=== PATIENT | male | born 1965 | race Caucasian/White ===

== ENCOUNTER 2017-05-25 16:54 | Emergency (ER) | payer MEDICAID ==
[2017-05-25 17:15] LABS: BASOPHILS # (AUTO) 0.1 10^3/uL (0.0-0.1); BASOPHILS % (AUTO) 0.6 %; EOSINOPHILS # (AUTO) 0.4 10^3/uL (0.0-0.7); HCT - HEMATOCRIT 38.7 % (42.0-52.0); HGB - HEMOGLOBIN 12.9 g/dL (14.0-18.0); LYMPHOCYTES # (AUTO) 2.8 10^3/uL (1.5-3.5); LYMPHOCYTES % (AUTO) 23.7 %; MEAN CORPUSCULAR HEMOGLOBIN 29.5 pg (27.0-31.0); MEAN CORPUSCULAR HGB CONC 33.3 g/dL (32.0-36.0); MEAN CORPUSCULAR VOLUME 88.7 fL (80.0-94.0); MEAN PLATELET VOLUME 7.9 fL (7.4-11.4); MONOCYTES # (AUTO) 0.7 10^3/uL (0.0-1.0); MONOCYTES % (AUTO) 5.9 %; NEUTROPHILS # (AUTO) 7.8 10^3/uL (1.5-6.6); NEUTROPHILS % (AUTO) 66.8 %; RED BLOOD COUNT 4.37 10^6/uL (4.70-6.10); RED CELL DISTRIBUTION WIDTH 14.2 % (12.0-15.0); UNCORRECTED WHITE BLOOD COUNT 11.6 x10^3/uL; WHITE BLOOD COUNT 11.6 x10^3/uL (4.8-10.8)
--- NOTE | 2017-05-25 17:16 | ED Physician Documentation ---
PD HPI CHEST PAIN - Stated complaint Stated Complaint: SOA/CHEST PX - Chief complaint Chief Complaint: Cardiac - History obtained from History obtained from: Patient - History of Present Illness Timing - onset: How many hours ago (5) Timing - onset during: Rest Timing - duration: Minutes (2-3) Timing - details: Abrupt onset, Intermittant Pain level max: 5 Pain level now: 1 Quality: Pressure, Tightness Location: Substernal Radiation: Other (non-radiating) Improved by: Nothing Worsened by: No: Exertion, Inspiration, Eating, Movement, Palpation, Position Associated symptoms: Shortness of air, Feeling faint / dizzy, General Weakness. No: Diaphoresis, Nausea, Vomiting, Palpitations, Cough Similar symptoms before: Diagnosis (GERD, anxiety, pleurisy) Recently seen: Not recently seen Review of Systems Constitutional: denies: Fever, Chills Nose: denies: Rhinorrhea / runny nose, Congestion Respiratory: denies: Cough GI: denies: Vomiting, Diarrhea, Hematemesis, Bloody / black stool : denies: Dysuria Skin: denies: Rash Musculoskeletal: denies: Neck pain, Back pain Neurologic: denies: Focal weakness, Numbness, Headache PD PAST MEDICAL HISTORY - Past Medical History Past Medical History: Yes Cardiovascular: Arrhythmia Respiratory: COPD Psych: Depression, Anxiety, Bipolar disorder, Post traumatic stress disorder Musculoskeletal: Chronic back pain - Past Surgical History Past Surgical History: Yes General: Appendectomy Ortho: Knee replacement - Present Medications Home Medications: Ambulatory Orders Medication Instructions Recorded Confirmed Alprazolam 1 mg PO Q8HR 10/24/14 05/25/17 [place] Carbonate 150 mg PO BID 10/24/14 05/25/17 Sertraline [Zoloft] 100 mg PO DAILY 10/24/14 05/25/17 lamoTRIgine [LaMICtal] 100 mg PO BID 10/24/14 05/25/17 Epinephrine [Epipen 2-Shaan] 0.3 mg IJ ONCE PRN #1 unit 06/28/15 05/25/17 QUEtiapine [SEROquel] 50 mg PO DAILY 08/03/15 05/25/17 oxyCODONE [Roxicodone] 10 mg PO DAILY 09/22/15 05/25/17 Cetirizine [ZyrTEC] 10 mg PO DAILY #20 tablet 01/08/16 05/25/17 Gabapentin [Neurontin] 300 mg PO BID #20 capsule 01/08/16 05/25/17 Ipratropium/Albuterol [Duoneb] 3 ml INH Q6H PRN #20 neb 10/31/16 05/25/17 - Allergies Allergies/Adverse Reactions: Allergies Allergy/AdvReac Type Severity Reaction Status Date / Time Penicillins Allergy Severe Respiratory Verified 05/25/17 17:00 Sulfa (Sulfonamide Allergy Severe Anaphylaxis Verified 05/25/17 17:00 Antibiotics) venom-honey bee Allergy Anaphylaxis Verified 05/25/17 17:00 [bee venom (honey bee)] - Social History Does the pt smoke?: Yes Smoking Status: Current every day smoker Does the pt drink ETOH?: No Does the pt have substance abuse?: No - Immunizations Immunizations are current?: No Immunizations: TDAP >10years/unknown - POLST Patient has POLST: No PD ED PE NORMAL - Vitals Vital signs reviewed: Yes - General General: Alert and oriented X 3, No acute distress, Well developed/nourished - HEENT HEENT: PERRL, Moist mucous membranes - Neck Neck: Supple, no meningeal sign, No JVD, No bruit - Cardiac Cardiac: RRR, Strong equal pulses - Respiratory Respiratory: No respiratory distress, Clear bilaterally - Abdomen Abdomen: Normal bowel sounds, Soft, Non distended, Other (TTP epigastric without peritoneal signs) - Back Back: No spinal TTP - Derm Derm: Warm and dry - Extremities Extremities: No edema - Neuro Neuro: Alert and oriented X 3 - Psych Psych: Other (anxious) Results - Vitals Vitals: Vital Signs - 24 hr 05/25/17 05/25/17 05/25/17 16:57 18:10 19:41 Temperature 36.9 C 36.5 C 36.5 C Heart Rate 82 76 73 Respiratory 16 15 15 Rate Blood Pressure 151/97 H 130/79 130/77 O2 Saturation 97 96 97 Oxygen O2 Source Room air - EKG (time done) 1705 Rate: Rate (enter#) (75) Rhythm: NSR [place]: Normal Intervals: 1st degree AVB QRS: Normal Ischemia: Normal ST segments Computer interpretation: Agree with computer - Labs Labs: Laboratory Tests 05/25/17 05/25/17 05/25/17 17:05 17:05 17:05 WBC 11.6 H RBC 4.37 L Hgb 12.9 L Hct 38.7 L MCV 88.7 MCH 29.5 MCHC 33.3 RDW 14.2 Plt Count 408 MPV 7.9 Neut # 7.8 H Lymph # 2.8 [place] # 0.7 Eos # 0.4 Baso # 0.1 Absolute Nucleated RBC 0.00 Nucleated RBCs 0.0 Sodium 139 Potassium 3.6 Chloride 103 Carbon Dioxide 27 Anion Gap 9.0 BUN 10 Creatinine 0.8 Estimated GFR (MDRD) 101 Glucose 124 H Calcium 9.3 Total Bilirubin 0.3 AST 17 ALT 16 Alkaline Phosphatase 129 H Troponin I < 0.04 Total Protein 7.0 Albumin 4.2 Globulin 2.8 Albumin/Globulin Ratio 1.5 Lipase 21 L 05/25/17 19:14 WBC RBC Hgb Hct MCV MCH MCHC RDW Plt Count MPV Neut # Lymph # [place] # Eos # Baso # Absolute Nucleated RBC Nucleated RBCs Sodium Potassium Chloride Carbon Dioxide Anion Gap BUN Creatinine Estimated GFR (MDRD) Glucose Calcium Total Bilirubin AST ALT Alkaline Phosphatase Troponin I < 0.04 Total Protein Albumin Globulin Albumin/Globulin Ratio Lipase - Rads (name of study) cxr Radiology: Prelim report reviewed, EMP read contemporaneously, See rad report ( Normal single view chest. ) PD MEDICAL DECISION MAKING - ED course Complexity details: reviewed results, re-evaluated patient, considered differential (No ST elevation IA, no aortic dissection, no PE, no tension pneumothorax, no aortic aneurysm), d/w patient, d/w family ED course: Patient is a 51-year-old male who presents to the emergency department with chest pain today. Resolved with GI cocktail in the emergency department. Does have a history of GERD. His heart score is low risk for major adverse cardiac event. Negative troponin 2. Normal EKG. Symptoms resolved. We will have him follow-up with his doctor for further evaluation. Patient counseled regarding signs and symptoms for which I believe and urgent re-evaluation would be necessary. Patient with good understanding of and agreement to plan and is comfortable going home at this time This document was made in part using voice recognition software. While efforts are made to proofread this document, sound alike and grammatical errors may occur. Departure - Departure Disposition: 01 Home, Self Care Clinical Impression: Chest pain Qualifiers: Chest pain type: unspecified Qualified Code(s): R07.9 - Chest pain, unspecified Condition: Good Instructions: ED Chest Pain Atypical Unkn Cause Follow-Up: Olena Thomas PA-C [Primary Care Provider] - Comments: Return if you worsen. The cause of your symptoms is unclear today. Discharge Date/Time: 05/25/17 19:53
[2017-05-25] MEDS ORDERED: ASPIRIN CHEW 81 MG TABLET PO STA (17:23)
[2017-05-25 17:26] LABS: ALBUMIN/GLOBULIN RATIO 1.5 (1.0-2.2); BILIRUBIN,TOTAL 0.3 mg/dL (0.2-1.0); CALCIUM 9.3 mg/dL (8.5-10.3); CREATININE 0.8 mg/dL (0.6-1.2); POTASSIUM 3.6 mmol/L (3.5-5.0)
[2017-05-25] MEDS ORDERED: ASPIRIN CHEW 81 MG TABLET ONE (17:29)
[2017-05-25] MEDS ORDERED: MAG HYDROX/AL HYDROX/SIMETH 30 ML UDC PO STA (17:42)
[2017-05-25] MEDS ORDERED: PHENobarb/HYOSCY/ATROPINE/SCOP 5 ML SYRINGE PO STA (17:42)
[2017-05-25] MEDS ORDERED: SUCRALFATE 1 GM/10 ML UDC PO STA (17:42)
[2017-05-25] MEDS ORDERED: LIDOCAINE VISCOUS 2% 15 ML UDC MM STA (17:42)
[2017-05-25] MEDS ORDERED: FAMOTIDINE 20 MG TABLET PO STA (17:43)
--- NOTE | 2017-05-25 17:47 | XRAY Preliminary Report ---
Exam: XR Chest 1 View IMPRESSION: Normal single view chest. [facility] SITE ID: [id number]
[2017-05-25] MEDS ORDERED: PHENobarb/HYOSCY/ATROPINE/SCOP 5 ML SYRINGE PO ONE (17:48)
[2017-05-25] MEDS ORDERED: FAMOTIDINE 20 MG TABLET ONE (17:48)
[2017-05-25] MEDS ORDERED: LIDOCAINE VISCOUS 2% 15 ML UDC MM ONE (17:48)
[2017-05-25] MEDS ORDERED: MAG HYDROX/AL HYDROX/SIMETH 30 ML UDC ONE (17:48)
[2017-05-25] MEDS ORDERED: SUCRALFATE 1 GM/10 ML UDC ONE (17:48)
--- NOTE | 2017-05-25 17:49 | XRAY Report ---
EXAM: CHEST RADIOGRAPHY EXAM DATE: 05/25/2017 05:38 PM. CLINICAL HISTORY: Chest pain. COMPARISON: 60 03/21/2017. TECHNIQUE: 1 view. FINDINGS: Lungs/Pleura: No focal opacities evident. No pleural effusion. No pneumothorax. Mediastinum: Within exam limitations, cardiomediastinal contour is normal. Other: None. IMPRESSION: Normal single view chest. [facility] Referring Provider Line: [phone] SITE ID: [id number]
[2017-05-25 19:42] VITALS: BP 130/77
== END 2017-05-25 19:53 | disposition home or self-care (01) ==
LOC: ED 16:54
DX: R07.89 Other chest pain (principal); I44.0 Atrioventricular block, first degree; K21.9 Gastro-esophageal reflux disease without esophagitis; F17.200 Nicotine dependence, unspecified, uncomplicated
CPT/HCPCS: 36415; 71010; 80053; 83690; 84484; 85025; 93005; 99284; A9270

== ENCOUNTER 2018-03-15 15:15 | Emergency (ER) | payer MEDICAID ==
--- NOTE | 2018-03-15 15:58 | ED Physician Documentation ---
PD HPI BACK PAIN - Stated complaint Stated Complaint: BACK PX - Chief complaint Chief Complaint: Back Pain - History obtained from History obtained from: Patient - History of Present Illness Timing - onset: Yesterday Timing - duration: Hours (24) Timing - details: Abrupt onset Pain level max: 10 Pain level now: 10 Location: Lower Quality: Pain Associated symptoms: Numbness (no saddle anesthesia). No: Fever, Weakness, Incontinent of urine, Unable to urinate, Hematuria, Incontinent of stool Improves with: Rest Worsened by: Movement, Lifting, Twisting, Palpation Contributing factors: Trauma Similar symptoms before: Diagnosis (spinal stenosis) Recently seen: Not recently seen - Additional information Additional information: fell off a small landing and landed on his coccyx. States that he rolled backward onto his neck and head. No LOC. States has some tingling and numbness to the R leg and R foot (lateral aspect). Has had intermittent paresthesias since his back surgeries. Took oxycodone 20mg this am for pain. No vomiting. Review of Systems Constitutional: denies: Fever, Chills Nose: denies: Rhinorrhea / runny nose, Congestion GI: denies: Abdominal Pain, Nausea, Vomiting, Diarrhea Skin: denies: Rash Musculoskeletal: denies: Neck pain Neurologic: denies: Focal weakness, Seizure, Confused, Headache, LOC PD PAST MEDICAL HISTORY - Past Medical History Past Medical History: Yes Cardiovascular: Arrhythmia Respiratory: COPD Psych: Depression, Anxiety, Bipolar disorder, Post traumatic stress disorder Musculoskeletal: Osteoarthritis, Chronic back pain - Past Surgical History Past Surgical History: Yes General: Appendectomy Ortho: Knee replacement - Present Medications Home Medications: Ambulatory Orders Medication Instructions Recorded Confirmed [place] Carbonate 150 mg PO BID 10/24/14 03/15/18 Sertraline [Zoloft] 100 mg PO DAILY 10/24/14 03/15/18 lamoTRIgine [LaMICtal] 100 mg PO BID 10/24/14 03/15/18 Epinephrine [Epipen 2-Shaan] 0.3 mg IJ ONCE PRN #1 unit 06/28/15 03/15/18 QUEtiapine [SEROquel] 50 mg PO DAILY 08/03/15 03/15/18 oxyCODONE [Roxicodone] 10 mg PO DAILY 09/22/15 03/15/18 Ipratropium/Albuterol [Duoneb] 3 ml INH Q6H PRN #20 neb 10/31/16 03/15/18 Alprazolam [Xanax] 1.5 mg PO DAILY 03/15/18 03/15/18 - Allergies Allergies/Adverse Reactions: Allergies Allergy/AdvReac Type Severity Reaction Status Date / Time Penicillins Allergy Severe Respiratory Verified 03/15/18 15:27 Sulfa (Sulfonamide Allergy Severe Anaphylaxis Verified 03/15/18 15:27 Antibiotics) venom-honey bee Allergy Anaphylaxis Verified 03/15/18 15:27 [bee venom (honey bee)] - Social History Does the pt smoke?: Yes Smoking Status: Current every day smoker Does the pt drink ETOH?: No Does the pt have substance abuse?: No - Immunizations Immunizations are current?: No Immunizations: TDAP >10years/unknown - POLST Patient has POLST: No PD ED PE NORMAL - Vitals Vital signs reviewed: Yes - General General: Alert and oriented X 3, No acute distress - HEENT HEENT: Moist mucous membranes - Neck Neck: Supple, no meningeal sign - Cardiac Cardiac: RRR - Respiratory Respiratory: No respiratory distress, Clear bilaterally - Abdomen Abdomen: Soft, Non tender, Non distended - Back Back: Other (Mild midline tenderness, low lumbar and upper sacral area. No step -off or deformity. Also paraspinal spasm present.) - Derm Derm: Warm and dry - Extremities Extremities: No deformity, Normal ROM s pain - Neuro Neuro: Alert and oriented X 3, No motor deficit, Other (decreased sensation over the lateral aspect of his foot. ) - Psych Psych: Normal mood, Normal affect Results - Vitals Vitals: Vital Signs - 24 hr 03/15/18 03/15/18 03/15/18 15:21 16:23 18:16 Temperature 36.6 C 36.8 C Heart Rate 75 78 62 Respiratory 19 22 22 Rate Blood Pressure 141/83 H 129/78 O2 Saturation 99 98 97 Oxygen O2 Source Room air - Rads (name of study) Lumbar spine x-ray Radiology: Prelim report reviewed, EMP read contemporaneously, See rad report ( No acute abnormality) Sacrum/coccyx x-ray Radiology: Prelim report reviewed, EMP read contemporaneously, See rad report ( No acute abnormality) PD MEDICAL DECISION MAKING - ED course Complexity details: reviewed results, re-evaluated patient, considered differential (no cauda equina, no spinal epidural abscess, no fracture, no aortic dissection or evidence of aneursym rupture), d/w patient ED course: Patient is a 52-year-old male who presents to the emergency department with acute on chronic low back pain. Pain well controlled in the emergency department. He states he has pain medication for home and declines any medication for home. No acute findings on x-ray. No evidence of cauda equina or epidural abscess. No saddle anesthesia. No urinary incontinence. Patient counseled regarding signs and symptoms for which I believe and urgent re- evaluation would be necessary. Patient with good understanding of and agreement to plan and is comfortable going home at this time This document was made in part using voice recognition software. While efforts are made to proofread this document, sound alike and grammatical errors may occur. Departure - Departure Disposition: 01 Home, Self Care Clinical Impression: Sciatica Qualifiers: Laterality: right Qualified Code(s): M54.31 - Sciatica, right side Condition: Good Instructions: ED Sciatica Follow-Up: Olena Thomas PA-C [Primary Care Provider] - Within 1 week Comments: Continue your medications at home. Return if you worsen. Your x-rays do not reveal any acute abnormalities tonight. Discharge Date/Time: 03/15/18 18:41
[2018-03-15] MEDS ORDERED: HYDROmorphone 1 MG/ML CARPUJECT IM STA ×2 (16:13→18:25)
[2018-03-15] MEDS ORDERED: KETOROLAC 60 MG/2 ML VIAL IM STA (17:18)
--- NOTE | 2018-03-15 17:40 | XRAY Preliminary Report ---
Exam: XR SACRUM/COCCYX IMPRESSION: No acute bony abnormality. [facility] SITE ID: [id number]
--- NOTE | 2018-03-15 17:41 | XRAY Report ---
EXAM: SACRUM AND COCCYX RADIOGRAPHY EXAM DATE: 03/15/2018 05:18 PM. HISTORY: Low back pain after fall today COMPARISONS: None. TECHNIQUE: 3 views. FINDINGS: Alignment: The sacrum and coccyx are normally aligned. Bones: No fracture or bone lesion. Joints: Degenerative disk disease in the visualized lower lumbar spine, most pronounced and severe at L3-L4. The sacroiliac joints and visualized hips are within normal limits. Soft Tissues: Unremarkable. IMPRESSION: No acute bony abnormality. [facility] Referring Provider Line: [phone] SITE ID: [id number]
--- NOTE | 2018-03-15 17:54 | XRAY Preliminary Report ---
Exam: XR LUMBAR SPINE 2 VIEW IMPRESSION: 1. Advanced multilevel degenerative disk disease, similar appearance to 12/09/2015, with unchanged as sociated minimal retrolisthesis at L2-L3 and L3-L4. 2. No acute bony abnormality. [facility] SITE ID: [id number]
--- NOTE | 2018-03-15 17:54 | XRAY Report ---
EXAM: LUMBOSACRAL SPINE RADIOGRAPHY EXAM DATE: 03/15/2018 05:16 PM. CLINICAL HISTORY: Low back pain after fall today. COMPARISONS: 12/19/2015. TECHNIQUE: 3 views. FINDINGS: Alignment: Unchanged minimal right convex curvature centered at L2-L3. Unchanged minimal retrolisthes is at L2-L3 and L3-L4. Bones: Five nih-tcf-zliwkhn lumbar vertebral bodies are present. No fractures or bone lesions. Disks: Multilevel disk height loss and endplate degenerative change, moderate to severe at , severe a t L2-L3 and L3-L4, and moderate to severe at L4-L5. Facets: Mild facet arthropathy at L5-S1. Sacroiliac Joints: Unremarkable. Soft Tissues: Normal. The visualized bowel gas pattern is normal. IMPRESSION: 1. Advanced multilevel degenerative disk disease, similar appearance to 12/09/2015, with unchanged as sociated minimal retrolisthesis at L2-L3 and L3-L4. 2. No acute bony abnormality. [facility] Referring Provider Line: [phone] SITE ID: [id number]
[2018-03-15 18:17] VITALS: BP 129/78
[2018-03-15] MEDS ORDERED: DEXAMETHASONE 10 MG/ML VIAL PO STA (18:25)
== END 2018-03-15 18:41 | disposition home or self-care (01) ==
LOC: ED 15:15
DX: M51.16 Intervertebral disc disorders with radiculopathy, lumbar region (principal); W10.9XXA Fall (on) (from) unspecified stairs and steps, initial encounter; Y93.E2 Activity, laundry; F17.200 Nicotine dependence, unspecified, uncomplicated; Z79.891 Long term (current) use of opiate analgesic
CPT/HCPCS: 72100; 72220; 96372; 99283; J1170

== ENCOUNTER 2018-04-14 08:00 | Outpatient (CLI) | payer MEDICAID ==
[2018-04-14 13:06] LABS: BASOPHILS % (AUTO) 0.2 %; EOSINOPHILS # (AUTO) 0.2 10^3/uL (0.0-0.7); HGB - HEMOGLOBIN 12.3 g/dL (14.0-18.0); LYMPHOCYTES # (AUTO) 1.2 10^3/uL (1.5-3.5); LYMPHOCYTES % (AUTO) 14.8 %; MEAN CORPUSCULAR HEMOGLOBIN 30.1 pg (27.0-31.0); MEAN CORPUSCULAR HGB CONC 33.8 g/dL (32.0-36.0); MONOCYTES # (AUTO) 0.4 10^3/uL (0.0-1.0); MONOCYTES % (AUTO) 5.1 %; NEUTROPHILS # (AUTO) 6.2 10^3/uL (1.5-6.6); NEUTROPHILS % (AUTO) 77.9 %; PLT - PLATELET COUNT 368 10^3/uL (130-450); RED BLOOD COUNT 4.07 10^6/uL (4.70-6.10); RED CELL DISTRIBUTION WIDTH 14.5 % (12.0-15.0)
[2018-04-14 13:24] LABS: PSA FREE 0.1 ng/mL (0.16-2.81)
[2018-04-14 13:25] LABS: PSA TOTAL 0.58 ng/mL (0.000-2.000)
[2018-04-14 13:26] LABS: LITHIUM 0.52 mmol/L
[2018-04-14 13:29] LABS: ALBUMIN 4.1 g/dL (3.2-5.5); ALBUMIN/GLOBULIN RATIO 1.5 (1.0-2.2); ALKALINE PHOSPHATASE 119 IU/L (42-121); ALT ALANINE AMINOTRANSFERASE 12 IU/L (10-60); AST ASPARTATE AMINOTRANSFERASE 17 IU/L (10-42); BILIRUBIN,TOTAL 0.3 mg/dL (0.2-1.0); BUN - BLOOD UREA NITROGEN 12 mg/dL (6-20); CARBON DIOXIDE - CO2 25 mmol/L (21-32); CHLORIDE 105 mmol/L (101-111); CHOL/HDL RATIO 4.5 (<5.0); CHOLESTEROL 168 mg/dL; CREATININE 0.9 mg/dL (0.6-1.2); GFR - MDRD 88 (>89); GLUCOSE 114 mg/dL (70-100); HDL CHOLESTEROL 37 mg/dL; LDL CHOLESTEROL,CALCULATED 116 mg/dL; LDL/HDL RATIO 3.1 (<3.6); SODIUM 136 mmol/L (135-145); THYROID STIMULATING HORMONE 2.46 uIU/mL (0.34-5.60); TOTAL PROTEIN 6.9 g/dL (6.7-8.2); VLDL CHOLESTEROL 15 mg/dL
[2018-04-14 13:30] LABS: FREE T4 (FREE THYROXINE) 0.81 ng/dL (0.58-1.64)
== END 2018-04-14 08:01 ==
LOC: LAB.N 08:00
PROVIDERS: ATTEND Family Medicine
DX: R30.0 Dysuria (principal); Z79.899 Other long term (current) drug therapy; F31.9 Bipolar disorder, unspecified
CPT/HCPCS: 36415; 80053; 80061; 80178; 83721; 84154; 84439; 84443; 85025

== ENCOUNTER 2018-05-26 14:28 | Emergency (ER) | payer MEDICAID ==
[2018-05-26 14:37] VITALS: BP 141/77
[2018-05-26 15:20] LABS: BASOPHILS # (AUTO) 0.1 10^3/uL (0.0-0.1); BASOPHILS % (AUTO) 0.8 %; EOSINOPHILS # (AUTO) 0.3 10^3/uL (0.0-0.7); HGB - HEMOGLOBIN 12.7 g/dL (14.0-18.0); MEAN CORPUSCULAR HEMOGLOBIN 29.4 pg (27.0-31.0); MEAN CORPUSCULAR HGB CONC 32.4 g/dL (32.0-36.0); MEAN CORPUSCULAR VOLUME 90.9 fL (80.0-94.0); MEAN PLATELET VOLUME 7.5 fL (7.4-11.4); MONOCYTES # (AUTO) 0.6 10^3/uL (0.0-1.0); MONOCYTES % (AUTO) 4.4 %; NEUTROPHILS # (AUTO) 10.2 10^3/uL (1.5-6.6); NEUTROPHILS % (AUTO) 77.8 %; PLT - PLATELET COUNT 457 10^3/uL (130-450); RED BLOOD COUNT 4.31 10^6/uL (4.70-6.10); RED CELL DISTRIBUTION WIDTH 14.2 % (12.0-15.0); WHITE BLOOD COUNT 13.1 x10^3/uL (4.8-10.8)
[2018-05-26 15:33] LABS: ACETAMINOPHEN < 10 ug/mL (10-30); ALBUMIN 4.2 g/dL (3.2-5.5); ALBUMIN/GLOBULIN RATIO 1.4 (1.0-2.2); ALKALINE PHOSPHATASE 131 IU/L (42-121); ALT ALANINE AMINOTRANSFERASE 14 IU/L (10-60); AST ASPARTATE AMINOTRANSFERASE 21 IU/L (10-42); BILIRUBIN,TOTAL 0.7 mg/dL (0.2-1.0); BUN - BLOOD UREA NITROGEN 12 mg/dL (6-20); CALCIUM 9.1 mg/dL (8.5-10.3); CARBON DIOXIDE - CO2 26 mmol/L (21-32); CHLORIDE 103 mmol/L (101-111); CREATININE 0.9 mg/dL (0.6-1.2); GFR - MDRD 88 (>89); GLUCOSE 108 mg/dL (70-100); LIPASE 22 U/L (22-51); SALICYLATE < 6.0 mg/dL; SODIUM 136 mmol/L (135-145); TOTAL PROTEIN 7.2 g/dL (6.7-8.2)
[2018-05-26 15:53] LABS: LITHIUM 0.48 mmol/L
[2018-05-26 17:09] LABS: MUDS CUTOFF CONCENTRATIONS CUTOFF CONC BELOW:
[2018-05-26 17:13] LABS: BILIRUBIN,URINE NEGATIVE (NEGATIVE); GLUCOSE, URINE (UA) NEGATIVE (NEGATIVE); KETONES,URINE (UA) NEGATIVE (NEGATIVE); LEUKOCYTE ESTERASE, URINE NEGATIVE (NEGATIVE); NITRITE,URINE NEGATIVE (NEGATIVE); OCCULT BLOOD,URINE NEGATIVE (NEGATIVE); PROTEIN,URINE NEGATIVE (NEGATIVE); UROBILINOGEN,URINE 0.2 (NORMAL) E.U./dL (NORMAL)
[2018-05-26 17:15] LABS: CLARITY,URINE CLEAR (CLEAR)
[2018-05-26 17:21] LABS: AMPHETAMINE SCREEN,URINE NEGATIVE (NEGATIVE); BENZODIAZEPINES SCREEN, URINE POSITIVE (NEGATIVE); COCAINE SCREEN URINE NEGATIVE (NEGATIVE); METHADONE SCREEN, URINE POSITIVE (NEGATIVE); METHAMPHETAMINES SCREEN, URINE NEGATIVE (NEGATIVE); OPIATE SCREEN, URINE NEGATIVE (NEGATIVE); OXYCODONE SCREEN, URINE NEGATIVE (NEGATIVE); PROPOXYPHENE SCREEN, URINE NEGATIVE (NEGATIVE); TRICYCLIC ANTIDEPRESSANT,URINE POSITIVE (NEGATIVE)
== END 2018-05-26 18:27 | disposition left against medical advice (07) ==
LOC: ED 14:28
DX: Z53.21 Procedure and treatment not carried out due to patient leaving prior to being seen by health care provider (principal)
CPT/HCPCS: 36415; 80053; 80178; 80306; 80307; 80320; 80329; 81001; 81003; 83690; 85025; 87086

== ENCOUNTER 2018-07-09 07:56 | Outpatient (CLI) | payer MEDICAID ==
[2018-07-09] MEDS ORDERED: GADOBUTROL 7.5 MMOL/7.5 ML VIAL ONE (08:12)
[2018-07-09] MEDS ORDERED: GADOBUTROL 7.5 MMOL/7.5 ML VIAL IVP ONE (08:38)
--- NOTE | 2018-07-10 22:05 | MRI Report ---
Procedure Date: 07/09/2018 Accession Number: [id number] / [id number] Procedure: MRI - Brain W/WO CPT Code: FULL RESULT: EXAM: MRI BRAIN WITHOUT AND WITH CONTRAST EXAM DATE: 07/09/2018 08:45 AM. CLINICAL HISTORY: Tremor. COMPARISON: CT scan of the head without contrast 09/22/2015. TECHNIQUE: Multiplanar, multisequence T1-weighted and fluid-sensitive MR sequences of the brain were performed. Sequences optimized for routine evaluation. Other: None. IV Contrast: 7.5 mL Gadavist. FINDINGS: The diffusion-weighted images are normal. There is no evidence of acute or subacute cerebral infarction. The corpus callosum is of normal size and configuration. The pituitary and sella are normal. The craniocervical junction is normal. Cerebral volume and ventricular size are normal. The T2* sequence is normal. There is no evidence of subacute or chronic hemorrhage. There is a large mucous retention cyst in the left maxillary sinus. The bilateral parotid spaces exhibit normal signal intensity. The cerebral vascular flow voids are patent. The optic nerves demonstrate symmetric signal intensity and size. The FLAIR images demonstrate a few punctuate T2 hyperintensities within the periventricular white matter. The postcontrast T1-weighted images are normal. Impression: 1. There is no evidence of acute or subacute cerebral infarction. 2. The FLAIR images demonstrate a few punctuate T2 hyperintensities within the periventricular white matter. These can be seen in cases of migraine versus premature onset of chronic small vessel ischemia. 3. There is no evidence of brain mass.
== END 2018-07-09 07:57 | disposition home or self-care (01) ==
LOC: DI 07:56
PROVIDERS: ATTEND Psychiatry & Neurology Neurology
DX: R25.1 Tremor, unspecified (principal)
CPT/HCPCS: 70553; A9585

== ENCOUNTER 2018-09-02 13:46 | Outpatient (CLI) | payer MEDICAID | END 2018-09-02 13:47 | disposition critical access hospital (66) | LOC: EMS 13:46 | PROVIDERS: ATTEND Surgery | DX: R07.89 Other chest pain (principal); R06.02 Shortness of breath | CPT/HCPCS: A0425; A0427; A0999 ==

== ENCOUNTER 2018-09-02 14:22 | Emergency (ER) | payer MEDICAID ==
[2018-09-02] MEDS ORDERED: LORazepam 2 MG/ML VIAL IVP STA (14:36)
[2018-09-02 14:50] LABS: BASOPHILS # (AUTO) 0.1 10^3/uL (0.0-0.1); BASOPHILS % (AUTO) 0.8 %; EOSINOPHILS # (AUTO) 0.4 10^3/uL (0.0-0.7); EOSINOPHILS % (AUTO) 3.9 %; LYMPHOCYTES # (AUTO) 2.6 10^3/uL (1.5-3.5); MEAN CORPUSCULAR HEMOGLOBIN 30.6 pg (27.0-31.0); MEAN CORPUSCULAR HGB CONC 34.5 g/dL (32.0-36.0); MEAN CORPUSCULAR VOLUME 88.8 fL (80.0-94.0); MEAN PLATELET VOLUME 7.3 fL (7.4-11.4); MONOCYTES # (AUTO) 0.5 10^3/uL (0.0-1.0); MONOCYTES % (AUTO) 5.7 %; NEUTROPHILS # (AUTO) 5.8 10^3/uL (1.5-6.6); NEUTROPHILS % (AUTO) 61.6 %; PLT - PLATELET COUNT 399 10^3/uL (130-450); RED BLOOD COUNT 3.93 10^6/uL (4.70-6.10); RED CELL DISTRIBUTION WIDTH 13.6 % (12.0-15.0); WHITE BLOOD COUNT 9.4 x10^3/uL (4.8-10.8)
--- NOTE | 2018-09-02 15:05 | ED Physician Documentation ---
History of Present Illness - Stated complaint Stated Complaint: CP - Chief complaint Chief Complaint: Cardiac - Additonal information Additional information: hx from pt 53 m hx anxiety and COPD no HTN HLD DM CAD int chest pain recently severe CP today since 5 AM like someone standing on his chest + dyspnea + nausea + diaphoresis rad to shoulders got worse with asa nitro sl and then paste and morphine by EMS come cough no fever no leg swelling no travel no abd pain Review of Systems Constitutional: reports: Sweats. denies: Fever, Chills Cardiac: reports: Chest pain / pressure Respiratory: reports: Dyspnea GI: reports: Nausea. denies: Abdominal Pain Musculoskeletal: reports: Joint pain (shoulders). denies: Neck pain, Back pain, Extremity swelling Psychiatric: reports: Anxiety Endocrine: denies: Easy bruising / bleeding Immunocompromised: denies: Immunocompromised PD PAST MEDICAL HISTORY - Past Medical History Cardiovascular: Arrhythmia Respiratory: COPD Psych: Depression, Anxiety, Bipolar disorder, Post traumatic stress disorder Musculoskeletal: Osteoarthritis, Chronic back pain Other Past Medical History: Has fungal infection of throat - Past Surgical History Past Surgical History: Yes General: Appendectomy Ortho: Knee replacement - Present Medications Home Medications: Ambulatory Orders Medication Instructions Recorded Confirmed [place] Carbonate 150 mg PO BID 10/24/14 03/15/18 Sertraline [Zoloft] 100 mg PO DAILY 10/24/14 03/15/18 lamoTRIgine [LaMICtal] 100 mg PO BID 10/24/14 03/15/18 QUEtiapine [SEROquel] 50 mg PO DAILY 08/03/15 03/15/18 oxyCODONE [Roxicodone] 10 mg PO DAILY 09/22/15 03/15/18 Alprazolam [Xanax] 1.5 mg PO DAILY 03/15/18 03/15/18 PHENobarbital [Phenobarbital] 15 mg PO 05/26/18 Primidone 2 tab PO DAILY 09/02/18 09/02/18 predniSONE [Deltasone] 60 mg PO DAILY 5 Days tablet 09/02/18 - Allergies Allergies/Adverse Reactions: Allergies Allergy/AdvReac Type Severity Reaction Status Date / Time Penicillins Allergy Severe Respiratory Verified 09/02/18 14:27 Sulfa (Sulfonamide Allergy Severe Anaphylaxis Verified 09/02/18 14:27 Antibiotics) venom-honey bee Allergy Anaphylaxis Verified 09/02/18 14:27 [bee venom (honey bee)] - Social History Does the pt smoke?: Yes Smoking Status: Current every day smoker Does the pt drink ETOH?: No Does the pt have substance abuse?: No - Immunizations Immunizations are current?: No Immunizations: TDAP >10years/unknown - POLST Patient has POLST: No PD ED PE NORMAL - Vitals Vital signs reviewed: Yes - Neck Neck: Supple, no meningeal sign - Cardiac Cardiac: RRR - Respiratory Respiratory: No respiratory distress - Abdomen Abdomen: Soft, Non tender - Derm Derm: Normal color - Extremities Extremities: No deformity, No edema, No calf tenderness / cord - Neuro Neuro: Alert and oriented X 3 Results - Vitals Vitals: Vital Signs - 24 hr 09/02/18 14:23 Temperature 36.7 C Heart Rate 65 Respiratory 18 Rate Blood Pressure 130/81 H O2 Saturation 100 Oxygen O2 Source Room air - EKG (time done) 1423 Rate: Rate (enter#) Rhythm: NSR (66) [place]: Normal Intervals: Normal [place] QRS: Normal Ischemia: Normal ST segments - Labs Labs: Laboratory Tests 09/02/18 14:45 WBC 9.4 RBC 3.93 L Hgb 12.0 L Hct 34.9 L MCV 88.8 MCH 30.6 MCHC 34.5 RDW 13.6 Plt Count 399 MPV 7.3 L Neut # (Auto) 5.8 Lymph # (Auto) 2.6 [place] # (Auto) 0.5 Eos # (Auto) 0.4 Baso # (Auto) 0.1 Absolute Nucleated RBC 0.00 Nucleated RBC % 0.0 - Rads (name of study) CXR Radiology: See rad report (possible mid R lung infiltrate) CTA chest Radiology: See rad report (spiculated mass RUL with adenopathy) PD MEDICAL DECISION MAKING - ED course ED course: EKG and 7 hr trop neg, no relief with cardiac meds ie asa nitro morphine abd CXR but no fever minimal cough, being worked up for mass in neck and fungal infection 2/2 inhaler use so will CT chest pt req to get his outpt neck CT at same time - will ask if possible as already getting contrast and in machine - couldn't be done per electrician radio CT chest shows mass pt advised - Sepsis Event Vital Signs: Vital Signs - 24 hr 09/02/18 14:23 Temperature 36.7 C Heart Rate 65 Respiratory 18 Rate Blood Pressure 130/81 H O2 Saturation 100 Oxygen O2 Source Room air Departure - Departure Disposition: 01 Home, Self Care Clinical Impression: Lung mass Condition: Good Follow-Up: Matthew Velazquez MD [Primary Care Provider] - Prescriptions: predniSONE [Deltasone] 60 mg PO DAILY 5 Days tablet Comments: Your heart checked out fine You also do not have pneumonia, a blood clot in your lung or a tear or aneurysm of your aorta Unfortunately the CT scan showed a mass in your right lung that might be cancer You will need further work up by a lung specialist Please call your PMD first thing in the morning to get these referrals started Medical records will forward all of today information to your PMD to help this process Continue your oxycodone for pain Continue your breathing treatments and add steroids to help open up your lungs and breathe better Return if worse Discharge Date/Time: 09/02/18 19:32
[2018-09-02 15:08] LABS: ALBUMIN 3.8 g/dL (3.2-5.5); ALBUMIN/GLOBULIN RATIO 1.5 (1.0-2.2); BILIRUBIN,TOTAL 0.7 mg/dL (0.2-1.0); CALCIUM 8.6 mg/dL (8.5-10.3); CREATININE 0.8 mg/dL (0.6-1.2); TOTAL PROTEIN 6.4 g/dL (6.7-8.2)
--- NOTE | 2018-09-02 15:40 | XRAY Report ---
Reason: cp Procedure Date: 09/02/2018 Accession Number: [id number] / [id number] Procedure: XR - Chest 2 View X-Ray CPT Code: 58588 FULL RESULT: EXAM: CHEST RADIOGRAPHY EXAM DATE: 09/02/2018 03:24 PM. CLINICAL HISTORY: Chest pain. COMPARISON: CHEST 2 VIEW PA/LAT 10/30/2016 10:35 PM. TECHNIQUE: 2 views. FINDINGS: Redemonstration of hyperinflated lungs with flattening of the hemidiaphragms which is compatible with obstructive lung disease. There is a subtle right midlung opacity, new. There is no pleural effusion or pneumothorax. The cardiomediastinal silhouette is stable. ACDF hardware is again seen. IMPRESSION: Subtle right midlung opacity can be seen in early airspace disease. [facility]
[2018-09-02] MEDS ORDERED: ACETAMINOPHEN 325 MG TABLET PO STA (16:56)
[2018-09-02] MEDS ORDERED: MORPHINE 2 MG/ML CARPUJECT IVP STA (17:05)
[2018-09-02] MEDS ORDERED: IOPAMIDOL-300 100 ML VIAL ONE (17:21)
[2018-09-02] MEDS ORDERED: IOPAMIDOL-300 100 ML VIAL IVP ONE (17:47)
--- NOTE | 2018-09-02 18:17 | CT Report ---
Reason: CP neg cardiac abn CXR Procedure Date: 09/02/2018 Accession Number: [id number] / [id number] Procedure: CT - Chest Angio (PE) CPT Code: FULL RESULT: EXAM: CT ANGIOGRAM CHEST EXAM DATE: 09/02/2018 05:46 PM. CLINICAL HISTORY: Chest pain. COMPARISON: CHEST W/ 12/27/2014 11:50 AM. CHEST 2 VIEW 09/02/2018 3:08 PM. TECHNIQUE: Routine helical imaging was performed through the chest in the pulmonary arterial phase. IV Contrast: 80 cc of Isovue 300. Reconstructions: Coronal 3-D MIP reconstructions.Sagittal and coronal. In accordance with CT protocol optimization, one or more of the following dose reduction techniques were utilized for this exam: automated exposure control, adjustment of mA and/or KV based on patient size, or use of iterative reconstructive technique. FINDINGS: Pulmonary Arteries: Diagnostic quality: Adequate through the segmental arteries. No evidence for acute or chronic pulmonary emboli. RV/LV is within normal limits. There is no interventricular septal bowing. There is reflux of contrast material in the IVC. Lungs/Pleura: Spiculated 1.6 x 2.3 cm mass, lateral right upper lobe. Stable 3 mm nodule, lateral right middle lobe. No consolidation, additional nodules, or edema. No effusions or pneumothorax. Mediastinum: 19 mm right hilar lymph node. No cardiac or aortic enlargement. No other adenopathy. Thoracic Aorta: Unremarkable. Upper Abdomen: Unremarkable. Other: None. IMPRESSION: 1. No pulmonary emboli. 2. Spiculated lateral right upper lobe mass with right hilar lymphadenopathy. [facility]
[2018-09-02] MEDS ORDERED: oxyCODONE 5 MG TABLET PO STA (18:48)
[2018-09-02] MEDS ORDERED: DEXAMETHASONE 10 MG/ML VIAL PO STA (18:48)
[2018-09-02] MEDS ORDERED: CHERRY SYRUP 10 ML UDC PO ONE (18:56)
[2018-09-02 19:00] VITALS: BP 124/76
== END 2018-09-02 19:32 | disposition home or self-care (01) ==
LOC: EDUNIT# → ED 14:22
DX: R91.8 Other nonspecific abnormal finding of lung field (principal); F17.200 Nicotine dependence, unspecified, uncomplicated; Z96.659 Presence of unspecified artificial knee joint
CPT/HCPCS: 36415; 71046; 71275; 80053; 83690; 84484; 85025; 93005; 96374; 96375; 99283; 99284; A9270; J2060; Q9967

== ENCOUNTER 2018-09-09 18:30 | Outpatient (CLI) | payer MEDICAID ==
[2018-09-09] MEDS ORDERED: IOPAMIDOL-300 100 ML VIAL IVP ONE (18:38)
[2018-09-09] MEDS ORDERED: IOPAMIDOL-300 100 ML VIAL ONE (18:53)
--- NOTE | 2018-09-10 09:49 | CT Report ---
Reason: NECK MASS Procedure Date: 09/09/2018 Accession Number: [id number] / [id number] Procedure: CT - Neck Soft Tissue W/ CPT Code: FULL RESULT: EXAM: CT SOFT TISSUE NECK WITH CONTRAST. EXAM DATE: 09/09/2018 06:31 PM. HISTORY: 53-year-old presenting with neck mass. Evaluate for neck pathology. COMPARISONS: MR brain 07/09/2018. TECHNIQUE: Routine soft tissue neck CT protocol. Reconstructions: Coronal and sagittal. IV contrast: ISOVUE 300 80mL. In accordance with CT protocol optimization, one or more of the following dose reduction techniques were utilized for this exam: automated exposure control, adjustment of mA and/or KV based on patient size, or use of iterative reconstructive technique. FINDINGS: Visualized Intracranial Contents: Unremarkable. Orbits: Symmetric and unremarkable. Sinuses: Moderate left maxillary mucosal retention cyst versus polyp. Oral cavity: The visualized oral cavity is unremarkable. The floor of the mouth is symmetric. Pharynx : Pharyngeal mucosa is unremarkable. The infratemporal fossa, parapharyngeal spaces, and retropharyngeal space are unremarkable. The base of the tongue is symmetric and unremarkable. The airway is patent. Larynx: Larynx and supraglottic airway are patent without mass lesion. Vocal cords are symmetric. The visualized trachea is unremarkable. Parotid and Submandibular Glands: Symmetric and unremarkable. Lymph Nodes: No enlarged lymph nodes are identified in the cervical, supraclavicular, and visualized superior mediastinal regions. Soft tissues: A CT marker seen overlying the left lateral neck. A prominent left external jugular vein is seen underlying the CT marker. No other mass, inflammatory process, fluid collection, or abnormal postcontrast enhancement seen underlying the CT marker. Overlying and possibly embedded within the left strap muscle is a fat based lesion measuring 24 x 19 x 21 mm (cc by TR by AP). No other definite mass, inflammatory process, fluid collection, or abnormal postcontrast enhancement seen within the neck. Vascular Structures: Unremarkable. Thyroid Gland: Normal. Lung: The visualized lung apices are clear. Bones: Postsurgical changes of prior C5-C7 ACDF as well as C5-C6 and C6-C7 diskectomy with interbody fusion graft placement. There are surgical hardware appears intact without evidence of fracture or loosening. Straightening of the normal cervical lordosis. Mild multilevel degenerative changes. No definite acute fracture seen. No definite suspicious osseous lesion. Other: None. IMPRESSION: 1. A CT marker seen overlying the left lateral neck. A prominent left external jugular vein is seen underlying the CT marker. No other mass, inflammatory process, fluid collection, or abnormal postcontrast enhancement seen underlying the CT marker. 2. Overlying and possibly embedded within the left strap muscle is a nonenhancing fat based lesion measuring 24 x 19 x 21 mm (cc by TR by AP). Finding likely represents lipoma. 3. Postsurgical changes of C5-C7 ACDF as well as C5-C6 and C6-C7 diskectomy with interbody fusion graft placement. There are surgical hardware appears intact without evidence of fracture or loosening. RADIA
== END 2018-09-09 23:59 ==
LOC: DI 18:30
PROVIDERS: ATTEND Otolaryngology
DX: R22.1 Localized swelling, mass and lump, neck (principal)
CPT/HCPCS: 70491; Q9967

== ENCOUNTER 2019-02-15 00:57 | Emergency (ER) | payer MEDICAID ==
--- NOTE | 2019-02-15 02:03 | XRAY Report ---
Reason: cough fever lung cancer Procedure Date: 02/15/2019 Accession Number: [id number] / [id number] Procedure: XR - Chest 2 View X-Ray CPT Code: 13805 FULL RESULT: EXAM: CHEST RADIOGRAPHY EXAM DATE: 02/15/2019 01:25 AM. CLINICAL HISTORY: Cough, fever, lung cancer. COMPARISON: CHEST 2 VIEW 09/02/2018 3:08 PM CHEST ANGIO 09/02/2018 5:38 PM. TECHNIQUE: 2 views. FINDINGS: Lungs/Pleura: There is a small nodular right upper lobe airspace disease adjacent to the minor fissure. Additional hazy opacity is noted within the right middle lobe. Small streaky right lower lobe opacity. Small streaky left lower lobe opacity as well. There is bilateral airway thickening. No definite pneumothorax. No significant effusion. Mediastinum: Normal heart size. Other: Left-sided Port-A-Cath device tip projects at the cavoatrial junction. Lower cervical spinal fixation hardware. Mild multilevel degenerative change within the spine. IMPRESSION: 1. New hazy and streaky bilateral lung base opacity may be from atelectasis, aspiration, infection, or other nonspecific pneumonitis. 2. Nodular right upper lobe airspace disease adjacent to the minor fissure is again seen, corresponding to the known pulmonary malignancy. 3. There is mild airway thickening noted bilaterally, representing a component of bronchitis. RADIA
[2019-02-15] MEDS ORDERED: cefTRIAXone 1 GM in SODIUM CHLORIDE 0.9% MINIBAG 100 ML IV STA (02:14)
[2019-02-15] MEDS ORDERED: DEXAMETHASONE 10 MG/ML VIAL IVP STA (02:14)
--- NOTE | 2019-02-15 02:21 | ED Physician Documentation ---
PD HPI DYSPNEA - Stated complaint Stated Complaint: SOA - Chief complaint Chief Complaint: Resp - History obtained from History obtained from: Patient, EMS - History of Present Illness Timing - onset: How many days ago (3) Timing - onset during: Rest Timing - duration: Days (3) Timing - details: Gradual onset, Still present, Still present in ED Inciting event(s): URI, Other (recent broncoscopy) Improved by: O2, Inhaler/neb Worsened by: Exertion, Coughing Associated symptoms: Fever, Cough, Wheezing Similar symptoms before: Diagnosis (COPD, pneumonia) Recently seen: Other (Bronchoscopy and lung biopsy done at [facility] in [place] on Saturday, February 11, 2019.) - Treatment prior to arrival Treatment prior to arrival: The patient had 3 DuoNeb treatments that he self administered. He states that he was on his way in to get his nebulizer when he felt he had to go to the bathroom while he was in the bathroom he realized he was so short of breath he was not even able to complete his job there. - Additional information Additional information: 53-year-old male with a history of lung cancer has recently had a bronchoscopy with biopsy 4 days ago. The day following that he developed a fever and a worsening cough and fever has persisted. He has coughed up yellow and green phlegm and he is short of breath. This evening he became so short of breath that he called the ambulance. He was able to administer 3 DuoNeb treatments before the ambulance arrived and at the time of the ambulance arrival his breathing was much improved. Review of Systems Constitutional: reports: Fever, Chills, Myalgias Eyes: denies: Decreased vision Ears: denies: Ear pain Nose: reports: Rhinorrhea / runny nose, Congestion Throat: denies: Sore throat Cardiac: reports: Chest pain / pressure. denies: Palpitations, Pedal edema, Calf pain Respiratory: reports: Dyspnea, Cough, Wheezing. denies: Hemoptysis GI: denies: Abdominal Pain, Nausea, Vomiting : denies: Dysuria PD PAST MEDICAL HISTORY - Past Medical History Cardiovascular: Arrhythmia Respiratory: COPD Psych: Depression, Anxiety, Bipolar disorder, Post traumatic stress disorder Musculoskeletal: Osteoarthritis, Chronic back pain - Past Surgical History Past Surgical History: Yes General: Appendectomy Ortho: Knee replacement - Present Medications Home Medications: Ambulatory Orders Medication Instructions Recorded Confirmed [place] Carbonate 150 mg PO BID 10/24/14 03/15/18 Sertraline [Zoloft] 100 mg PO DAILY 10/24/14 03/15/18 lamoTRIgine [LaMICtal] 100 mg PO BID 10/24/14 03/15/18 QUEtiapine [SEROquel] 50 mg PO DAILY 08/03/15 03/15/18 oxyCODONE [Roxicodone] 10 mg PO DAILY 09/22/15 03/15/18 Alprazolam [Xanax] 1.5 mg PO DAILY 03/15/18 03/15/18 PHENobarbital [Phenobarbital] 15 mg PO 05/26/18 Primidone 2 tab PO DAILY 09/02/18 09/02/18 predniSONE [Deltasone] 60 mg PO DAILY 5 Days tablet 09/02/18 Azithromycin [Zithromax] 250 mg PO DAILY #6 tablet 02/15/19 predniSONE [Deltasone] 10 mg PO ONCE #26 tablet 02/15/19 - Allergies Allergies/Adverse Reactions: Allergies Allergy/AdvReac Type Severity Reaction Status Date / Time Penicillins Allergy Severe Respiratory Verified 09/02/18 14:27 Sulfa (Sulfonamide Allergy Severe Anaphylaxis Verified 09/02/18 14:27 Antibiotics) venom-honey bee Allergy Anaphylaxis Verified 09/02/18 14:27 [bee venom (honey bee)] - Social History Does the pt smoke?: Yes Smoking Status: Current every day smoker Does the pt drink ETOH?: No Does the pt have substance abuse?: No - Immunizations Immunizations are current?: No Immunizations: TDAP >10years/unknown - POLST Patient has POLST: No PD ED PE NORMAL - Vitals Vital signs reviewed: Yes (tachypneic and hypertensive ) - General General: Alert and oriented X 3, Well developed/nourished, Other (53-year-old male with a gravelly voice and some shaking which apparently are both normal for the patient appears mildly dyspneic on arrival to the emergency department. He is not in respiratory distress.) - HEENT HEENT: Atraumatic, PERRL, EOMI, Ears normal, Other (dry mucous membranes ) - Neck Neck: Supple, no meningeal sign, No bony TTP - Cardiac Cardiac: RRR, No murmur - Respiratory Respiratory: Other (tachypneic at rest with diminished breath sounds. ) - Abdomen Abdomen: Soft, Non tender - Back Back: No CVA TTP, No spinal TTP - Derm Derm: Normal color, Warm and dry, No rash - Extremities Extremities: No deformity, No edema - Neuro Neuro: Alert and oriented X 3, sanitarian inspector 2-12 intact, No motor deficit, No sensory deficit, Normal speech Eye Opening: Spontaneous Motor: Obeys Commands Verbal: Oriented GCS Score: 15 - Psych Psych: Normal mood, Normal affect Results - Vitals Vitals: Vital Signs - 24 hr 02/15/19 02/15/19 01:00 01:03 Temperature 36.9 C Heart Rate 94 92 Respiratory 22 22 Rate Blood Pressure 169/81 H 149/78 H O2 Saturation 97 96 Oxygen O2 Source Room air - Labs Labs: Laboratory Tests 02/15/19 01:22 Influenza A (Rapid) Negative Influenza B (Rapid) Negative - Rads (name of study) chest 2 view Radiology: Prelim report reviewed (Impression: 1. New hazy and streaky the bilateral lung base opacity may be from atelectasis, aspiration, infection, or other nonspecific pneumonitis. 2 Nodular right upper lobe airspace disease adjacent to the minor fissure is again seen, corresponding to the known pulmonary malignancy. 3 There is mild airway thickening noted bilaterally, representing a component of bronchitis.), EMP read indepedently, See rad report PD MEDICAL DECISION MAKING - ED course Complexity details: reviewed old records, reviewed results, re-evaluated patient, considered differential, d/w patient Departure - Departure Disposition: 01 Home, Self Care Clinical Impression: COPD exacerbation Pneumonia Qualifiers: Pneumonia type: due to unspecified organism Laterality: bilateral Lung location: lower lobe of lung Qualified Code(s): J18.1 - Lobar pneumonia, unspecified organism Instructions: ED Pneumonia Adult, ED COPD Flare Follow-Up: BRENDA MCCAIN DO [Primary Care Provider] - Prescriptions: Azithromycin [Zithromax] 250 mg PO DAILY #6 tablet predniSONE [Deltasone] 10 mg PO ONCE #26 tablet
[2019-02-15 03:21] VITALS: BP 125/71
== END 2019-02-15 03:24 | disposition home or self-care (01) ==
LOC: EDUNIT# → ED 00:57
DX: J18.1 Lobar pneumonia, unspecified organism (principal); J44.0 Chronic obstructive pulmonary disease with (acute) lower respiratory infection; J44.1 Chronic obstructive pulmonary disease with (acute) exacerbation; C34.11 Malignant neoplasm of upper lobe, right bronchus or lung; F17.200 Nicotine dependence, unspecified, uncomplicated
CPT/HCPCS: 71046; 87275; 87276; 96365; 96375; 99283; 99284

== ENCOUNTER 2019-02-15 03:06 | Outpatient (CLI) | payer MEDICAID | END 2019-02-15 03:07 | disposition critical access hospital (66) | LOC: EMS 03:06 | PROVIDERS: ATTEND Surgery | DX: R06.02 Shortness of breath (principal); R05 Cough; R07.0 Pain in throat; M79.18 Myalgia, other site; R50.9 Fever, unspecified; R61 Generalized hyperhidrosis | CPT/HCPCS: A0425; A0429; A0999 ==

== ENCOUNTER 2019-07-07 00:20 | Outpatient (CLI) | payer MEDICAID | END 2019-07-07 00:21 | disposition short-term general hospital (02) | LOC: EMS 00:20 | PROVIDERS: ATTEND Surgery | DX: R06.02 Shortness of breath (principal) | CPT/HCPCS: A0425; A0427; A0999 ==

== ENCOUNTER 2019-08-03 20:10 | Outpatient (CLI) | payer MEDICAID | END 2019-08-03 20:11 | disposition short-term general hospital (02) | LOC: EMS 20:10 | PROVIDERS: ATTEND Surgery | DX: R06.00 Dyspnea, unspecified (principal); R22.1 Localized swelling, mass and lump, neck | CPT/HCPCS: A0425; A0429; A0999 ==

== ENCOUNTER 2019-09-06 22:44 | Outpatient (CLI) | payer MEDICAID | END 2019-09-06 22:45 | disposition short-term general hospital (02) | LOC: EMS 22:44 | PROVIDERS: ATTEND Surgery | DX: R09.89 Other specified symptoms and signs involving the circulatory and respiratory systems (principal); F41.9 Anxiety disorder, unspecified | CPT/HCPCS: A0425; A0429; A0999 ==

== ENCOUNTER 2019-11-11 09:19 | Outpatient (CLI) | payer MEDICAID ==
[2019-11-11 12:16] LABS: BASOPHILS % (AUTO) 0.3 %; EOSINOPHILS # (AUTO) 0.3 10^3/uL (0.0-0.7); EOSINOPHILS % (AUTO) 3.1 %; HGB - HEMOGLOBIN 12.1 g/dL (14.0-18.0); LYMPHOCYTES # (AUTO) 1.1 10^3/uL (1.5-3.5); LYMPHOCYTES % (AUTO) 11.5 %; MEAN CORPUSCULAR HGB CONC 30.4 g/dL (32.0-36.0); MEAN CORPUSCULAR VOLUME 92.1 fL (80.0-94.0); MEAN PLATELET VOLUME 10.6 fL (7.4-11.4); MONOCYTES # (AUTO) 0.7 10^3/uL (0.0-1.0); MONOCYTES % (AUTO) 6.6 %; NEUTROPHILS # (AUTO) 7.6 10^3/uL (1.5-6.6); NEUTROPHILS % (AUTO) 77.9 %; PLT - PLATELET COUNT 392 10^3/uL (130-450); RED BLOOD COUNT 4.32 10^6/uL (4.70-6.10); RED CELL DISTRIBUTION WIDTH 13.8 % (12.0-15.0); WHITE BLOOD COUNT 9.8 x10^3/uL (4.8-10.8)
[2019-11-11 12:26] LABS: CALCIUM 9.5 mg/dL (8.5-10.3)
[2019-11-11 12:48] LABS: ALBUMIN 4.1 g/dL (3.2-5.5); ALBUMIN/GLOBULIN RATIO 1.4 (1.0-2.2); BILIRUBIN,TOTAL 0.2 mg/dL (0.2-1.0); CREATININE 0.6 mg/dL (0.6-1.2); TOTAL PROTEIN 7.1 g/dL (6.7-8.2)
== END 2019-11-11 23:59 | disposition home or self-care (01) ==
LOC: LAB.N 09:19
PROVIDERS: ATTEND Family Medicine
DX: K86.81 Exocrine pancreatic insufficiency (principal)
CPT/HCPCS: 36415; 80053; 82150; 83690; 85025

== ENCOUNTER 2019-11-13 20:31 | Outpatient (CLI) | payer MEDICAID | END 2019-11-13 20:32 | disposition short-term general hospital (02) | LOC: EMS 20:31 | PROVIDERS: ATTEND Surgery | DX: R07.9 Chest pain, unspecified (principal); J43.9 Emphysema, unspecified | CPT/HCPCS: A0425; A0429; A0999 ==

== ENCOUNTER 2020-05-18 01:32 | Outpatient (CLI) | payer MEDICAID | END 2020-05-18 01:33 | disposition EMS.NT | LOC: EMS 01:32 | PROVIDERS: ATTEND Surgery | DX: T40.3X1A Poisoning by methadone, accidental (unintentional), initial encounter (principal) ==

== ENCOUNTER 2020-08-03 08:00 | Outpatient (CLI) | payer MEDICAID | END 2020-08-03 23:59 | disposition home or self-care (01) | LOC: LAB.R 08:00 | PROVIDERS: ATTEND Family Medicine | DX: J02.9 Acute pharyngitis, unspecified (principal) | CPT/HCPCS: 87070 ==

== ENCOUNTER 2020-08-10 14:56 | Emergency (ER) | payer MEDICAID ==
[2020-08-10 15:49] LABS: BASOPHILS % (AUTO) 0.3 %; EOSINOPHILS # (AUTO) 0.2 10^3/uL (0.0-0.7); HGB - HEMOGLOBIN 12.3 g/dL (14.0-18.0); LYMPHOCYTES # (AUTO) 1.3 10^3/uL (1.5-3.5); LYMPHOCYTES % (AUTO) 12.3 %; MEAN CORPUSCULAR HEMOGLOBIN 29.9 pg (27.0-31.0); MEAN CORPUSCULAR HGB CONC 32.6 g/dL (32.0-36.0); MEAN CORPUSCULAR VOLUME 91.7 fL (80.0-94.0); MEAN PLATELET VOLUME 8.9 fL (7.4-11.4); MONOCYTES # (AUTO) 0.8 10^3/uL (0.0-1.0); MONOCYTES % (AUTO) 6.9 %; NEUTROPHILS # (AUTO) 8.5 10^3/uL (1.5-6.6); NEUTROPHILS % (AUTO) 77.8 %; PLT - PLATELET COUNT 302 10^3/uL (130-450); RED BLOOD COUNT 4.11 10^6/uL (4.70-6.10); RED CELL DISTRIBUTION WIDTH 14.7 % (12.0-15.0); WHITE BLOOD COUNT 10.9 x10^3/uL (4.8-10.8)
[2020-08-10 16:04] LABS: ALBUMIN 4.3 g/dL (3.2-5.5); ALBUMIN/GLOBULIN RATIO 1.5 (1.0-2.2); BILIRUBIN,TOTAL 0.3 mg/dL (0.2-1.0); CALCIUM 9.5 mg/dL (8.5-10.3); CREATININE 0.7 mg/dL (0.6-1.2); TOTAL PROTEIN 7.2 g/dL (6.7-8.2)
--- NOTE | 2020-08-10 16:10 | XRAY Report ---
PROCEDURE: Chest 2 View X-Ray INDICATIONS: cough TECHNIQUE: 2 view(s) of the chest. COMPARISON: Chest x-ray 02/15/2019 FINDINGS: Surgical changes and devices: None. Lungs and pleura: No pleural effusions or pneumothorax. Linear bibasilar opacities are present. Mediastinum: Mediastinal contours are normal. Heart size is normal. Bones and chest wall: No suspicious bony abnormalities. Soft tissues appear unremarkable. IMPRESSION: Linear bibasilar opacities. While these could represent areas of atelectasis, developing airspace disease such as pneumonia cannot be excluded. Reviewed by: Margaret Almaguer MD on 08/10/2020 4:09 PM PDT Approved by: Margaret Almaguer MD on 08/10/2020 4:09 PM PDT Station ID: [id number]
[2020-08-10] MEDS ORDERED: AZITHROMYCIN 250 MG TABLET PO STA (16:20)
--- NOTE | 2020-08-10 16:22 | ED Physician Documentation ---
PD HPI CHEST PAIN - Stated complaint Stated Complaint: SOA/CONGESTION - Chief complaint Chief Complaint: Resp - History obtained from History obtained from: Patient - Additional information Additional information: 55-year-old gentleman who is status post radiation, chemotherapy, and immunotherapy for non-small cell lung cancer presents with 5 days of minimally productive cough with shortness of breath. No fevers. No sick contacts. Review of Systems Constitutional: denies: Fever, Chills Cardiac: denies: Chest pain / pressure, Palpitations Respiratory: reports: Dyspnea, Cough PD PAST MEDICAL HISTORY - Past Medical History Cardiovascular: Arrhythmia Respiratory: COPD Psych: Depression, Anxiety, Bipolar disorder, Post traumatic stress disorder Musculoskeletal: Osteoarthritis, Chronic back pain - Past Surgical History Past Surgical History: Yes General: Appendectomy Ortho: Knee replacement - Present Medications Home Medications: Ambulatory Orders Medication Instructions Recorded Confirmed [place] Carbonate 150 mg PO BID 10/24/14 03/15/18 Sertraline [Zoloft] 100 mg PO DAILY 10/24/14 03/15/18 lamoTRIgine [LaMICtal] 100 mg PO BID 10/24/14 03/15/18 QUEtiapine [SEROquel] 50 mg PO DAILY 08/03/15 03/15/18 oxyCODONE [Roxicodone] 10 mg PO DAILY 09/22/15 03/15/18 Alprazolam [Xanax] 1.5 mg PO DAILY 03/15/18 03/15/18 PHENobarbitaL [Phenobarbital] 15 mg PO 05/26/18 Primidone 2 tab PO DAILY 09/02/18 09/02/18 predniSONE [Deltasone] 60 mg PO DAILY 5 Days tablet 09/02/18 Azithromycin [Zithromax] 250 mg PO DAILY #6 tablet 02/15/19 predniSONE [Deltasone] 10 mg PO ONCE #26 tablet 02/15/19 Azithromycin [Zithromax] 1 tab PO DAILY #4 tab 08/10/20 - Allergies Allergies/Adverse Reactions: Allergies Allergy/AdvReac Type Severity Reaction Status Date / Time Penicillins Allergy Severe Respiratory Verified 08/10/20 15:05 Sulfa (Sulfonamide Allergy Severe Anaphylaxis Verified 08/10/20 15:05 Antibiotics) venom-honey bee Allergy Anaphylaxis Verified 08/10/20 15:05 [bee venom (honey bee)] - Social History Does the pt smoke?: Yes Smoking Status: Current every day smoker Does the pt drink ETOH?: No Does the pt have substance abuse?: No - Immunizations Immunizations are current?: No Immunizations: TDAP >10years/unknown - POLST Patient has POLST: No PD ED PE NORMAL - Vitals Vital signs reviewed: Yes - General General: Alert and oriented X 3, No acute distress - Cardiac Cardiac: RRR, No murmur - Respiratory Respiratory: No respiratory distress, Clear bilaterally - Abdomen Abdomen: Non tender - Extremities Extremities: No edema, No calf tenderness / cord - Neuro Neuro: Alert and oriented X 3, Normal speech Results - Vitals Vitals: Vital Signs - 24 hr 08/10/20 15:00 Temperature 36.9 C Heart Rate 94 Respiratory 18 Rate Blood Pressure 153/93 H O2 Saturation 98 Oxygen O2 Source Room air - Labs Labs: Laboratory Tests 08/10/20 08/10/20 15:45 15:45 WBC 10.9 H RBC 4.11 L Hgb 12.3 L Hct 37.7 L MCV 91.7 MCH 29.9 MCHC 32.6 RDW 14.7 Plt Count 302 MPV 8.9 Neut # (Auto) 8.5 H Lymph # (Auto) 1.3 L [place] # (Auto) 0.8 Eos # (Auto) 0.2 Baso # (Auto) 0.0 Absolute Nucleated RBC 0.00 Nucleated RBC % 0.0 Sodium 137 Potassium 4.5 Chloride 101 Carbon Dioxide 29 Anion Gap 7.0 BUN 12 Creatinine 0.7 Estimated GFR (MDRD) 116 Glucose 123 H Calcium 9.5 Total Bilirubin 0.3 AST 13 ALT 16 Alkaline Phosphatase 122 H Total Protein 7.2 Albumin 4.3 Globulin 2.9 Albumin/Globulin Ratio 1.5 Lipase 19 L - Rads (name of study) Chest x-ray Radiology: EMP read contemporaneously (Minimal bibasilar opacities which could represent atelectasis vs a mild burgeoning infiltrate.) PD MEDICAL DECISION MAKING - ED course ED course: 55-year-old gentleman with lung cancer presents with productive cough and shortness of breath. Chest x-ray concerning for mild pneumonia which will be treated with a azithromycin noting penicillin allergy. Discussed coronavirus testing which he refused. Departure - Departure Disposition: 01 Home, Self Care Clinical Impression: Pneumonia Qualifiers: Pneumonia type: due to unspecified organism Laterality: bilateral Lung location: lower lobe of lung Qualified Code(s): J18.9 - Pneumonia, unspecified organism Condition: Good Record reviewed to determine appropriate education?: Yes Instructions: Pneumonia Dc Prescriptions: Azithromycin [Zithromax] 1 tab PO DAILY #4 tab Comments: Return if worse, follow-up with your doctor on Saturday as scheduled.
[2020-08-10 16:29] VITALS: BP 162/85
== END 2020-08-10 16:30 | disposition home or self-care (01) ==
LOC: ED 14:56
DX: J18.9 Pneumonia, unspecified organism (principal); F17.200 Nicotine dependence, unspecified, uncomplicated
CPT/HCPCS: 36415; 71046; 80053; 83690; 85025; 99283; 99284; A9270

== ENCOUNTER 2020-09-22 11:15 | Outpatient (CLI) | payer MEDICAID ==
--- NOTE | 2020-09-22 18:31 | CONSULTATION NOTE ---
Palliative Care Consultation - Referral Referring Provider: Dr. Damion Collins Time of Visit: [id number] Referral setting: Home Referral Reason: Chronic Pain syndrome/Ataxic cerebellar palsy/Stage III Lung CA/Anxiety - Information Sources Records reviewed: Previous records reviewed History/Review of Systems obtained from: Patient, Family ( popped in a few times) Exam limitations: Clinical condition (breathless and anxious; but able to engage and answer questions) - History of Present Illness Brief History of Present Illness: This is a complicated gentleman of 55 years old, who presents with multiple serious illnesses. He has a known 40 years x 2 packs/day smoking history, and was not surprised when he developed lung cancer. In September 2018 he presented with gradually worsening chest pain at the mid sternum, right upper chest pain with shortness of breath, and was shown to have a mass measuring 1.6 x 2.3 cm in the right lateral upper lobe, as well as a right hilar lymph node. He underwent CT-guided biopsy, unfortunately was complicated by a small apical pneumothorax and pleuritic chest pain., unfortunately did not show evidence of malignancy. So he underwent a second CT-guided biopsy on that did show poorly differentiated non-small cell carcinoma. With a PET scan showing a 2.4 cm spiculated nodule demonstrating activity with primary cancer, and a right hilar lymph node consistent with sanjeev mets. There was concern about some activity from the PET scan in his mid esophagus, so he did receive an upper GI endoscopy, with no mass noted but found severe esophageal candidiasis. Patient has since undergone concurrent chemo radiation, with carboplatinum and paclitaxel, with follow-up CAT scan showing resolving right upper lobe neoplasm and resolving right hilar adenopathy. He was then started in 06/19 adjuvant consolidative immunotherapy with durvalumab which he took every 2 weeks x24 treatments, finishing June/2020. He did develop in July 2019, PE, and has been on enoxaparin since then. His last CT scan of the chest on 07/05/2020 shows stable appearance, with radiation changes, no new development of new nodules, and no increase in adenopathy. He will be on surveillance with next follow-up in 6 months from July. Patient also has longstanding COPD, with significant shortness of breath. He most recently was treated for community-acquired pneumonia, with residual symptoms for greater than a month. This had necessitated a ED visit early August. He reports he is finally cleared of this, he is easily stressed, which adds to his anxiety and shortness of breath. He continues to smoke, about 15 to 20 cigarettes a day, reports he is always short of breath. He does have albuterol and duo nebs, but does not always find this effective for his dyspnea. Patient recently also being followed by Dr. Bhatia at [facility] neurology. Patient has long-term had what they thought was essential tremors, has progressed significantly over this last year. His symptoms have become more difficult, with severe tremors bilaterally, interfering with his quality of life. He has reports he has been diagnosed with "ataxic cerebral palsy", though neurology notes essential tremor and hyperreflexia, and they have been working with increasing his primidone for his tremors, and looking at adding propranolol though his is very concerned. Patient's complex situation continues with his underlying bipolar disorder, and severe anxiety disorder. He reports he did have a triggering event about 10 years ago, and continues with PTSD. He has not followed by psychiatry, he reports his oncologist did recently check his lithium levels. He is on lithium, lamotrigine, as well as quetiapine and sertraline. He does report he is prone to panic attacks, his breathlessness and anxiety feed on each other and he is managed with his long-acting alprazolam, and short acting alprazolam up to 3 times a day for breakthrough anxiety. He has had exacerbation of his anxiety, his 's health is doing poorly she is to be getting treatment for her cancer, as well as he has been somewhat overwhelmed by the pandemic and culture duress. Patient does have long-term chronic pain syndrome, he has been on methadone for over 7 years, he reports he has been on a stable dose. 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 He has had bilateral shoulder pain with impingement, and overall has worsening joint pain. Reports his osteoarthritic/joint pain has exacerbated more recently. He is currently managed on methadone 25 mg 3 times daily, he r eports his pain level at a 5 out of 7, does report it is acceptable at the current level. He has been unable to find a pain specialist, that takes his insurance. We did discuss in the context that this is a chronic pain syndrome, with all his other serious illness and need for support he is appropriate for being managed by palliative care. He reports he did have 1 previous palliative care evaluation, and they had told him there was nothing they could do for him, so he was somewhat suspicious and anxious about our visit. Medical/Surgical History - Past Medical History Cardiovascular: reports: Pulmonary embolism Respiratory: reports: COPD, Shortness of breath Neuro: Tremors, Other (ataxic cerebellar palsy) Endocrine/Autoimmune: reports: HyPOthyroidism GI: reports: GERD, Other (hx of recurrent candidiasis of esophagus) : reports: Frequency HEENT: reports: Chronic vision loss, Chronic hearing loss Psych: reports: Depression, Anxiety, Bipolar disorder, Panic attacks, Post traumatic stress disorder Musculoskeletal: reports: Osteoarthritis, Fatigue, Chronic back pain MRSA Hx?: No - Past Surgical History General: reports: Appendectomy Ortho: reports: Knee replacement, Other (ankle surgery with pins) Cardiovascular: reports: Other (portacath) - Substance History Use: Uses substance without health or social issues: Tobacco (smokes 15-20 cigs day), Alcohol (hx of binge drinking; sober since 27) Social History - Living Situation Living arrangement: At home Living Situation: With spouse/s.o., With family Support System: Patient's Sabrina, and he had been 29 years. She herself is dealing with cancer, with multiple appointments, I he is very worried about her. She does oversee and advocate for his medical needs, and manages his medications. 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 He has 2 other girls, and grandkids. Family History - Family History Family History: Mother: , Father: , Cancer, Sister: Alive and Well, Brother: Alive and Well Medications/Allergies - Medications Home Medications: Ambulatory Orders Medication Instructions Recorded Confirmed [place] Carbonate 450 mg PO BID 10/24/14 09/23/20 Sertraline [Zoloft] 100 mg PO DAILY 10/24/14 09/22/20 lamoTRIgine [LaMICtal] 200 mg PO BID 10/24/14 09/22/20 QUEtiapine [SEROquel] 100 mg PO BID 08/03/15 09/23/20 Alprazolam [Xanax] 1 mg PO DAILY PRN 03/15/18 09/23/20 Primidone 250 mg PO QPM 09/02/18 09/23/20 Albuterol Sulfate [Proair 2 puffs IH Q4HR PRN 08/10/20 09/23/20 Digihaler] Budesonide/Formoterol Fumarate 2 puffs IH BID 08/10/20 09/23/20 [Symbicort 80-4.5 Mcg Inhaler] Enoxaparin [Lovenox] 80 mg SUBQ Q12H 08/10/20 09/23/20 Ipratropium/Albuterol Sulfate 3 ml IH TID PRN 08/10/20 09/23/20 [Iprat-Albut 0.5-3(2.5) mg/3 ml] Methadone HCl 25 mg PO TID 08/10/20 09/23/20 Naloxone HCl [Narcan] 4 mg NS .ONE TIME PRN 08/10/20 09/23/20 Ondansetron [Ondansetron Odt] 8 mg PO DAILY PRN 08/10/20 09/23/20 Alprazolam [Alprazolam Xr] 1 mg PO DAILY 09/22/20 09/22/20 - Allergies Allergies/Adverse Reactions: Allergies Allergy/AdvReac Type Severity Reaction Status Date / Time Penicillins Allergy Severe Respiratory Verified 08/10/20 15:05 Sulfa (Sulfonamide Allergy Severe Anaphylaxis Verified 08/10/20 15:05 Antibiotics) venom-honey bee Allergy Anaphylaxis Verified 08/10/20 15:05 [bee venom (honey bee)] Review of Systems - Constitutional Constitutional: reports: Fatigue, Weight stable. denies: Fever, Chills - Eyes Eyes: reports: Vision loss, Corrective lenses - Ears, Nose & Throat Ears, Nose & Throat: reports: Hearing loss, Nasal congestion, Hoarseness, Dry mouth - Cardiovascular Cardiovascular: reports: Exertional dyspnea, Decr. exercise tolerance - Respiratory Respiratory: reports: Cough, Wheezing, SOB at rest, SOB with exertion. denies: Sputum production - Gastrointestinal Gastrointestinal: reports: Nausea (occasional), Good appetite. denies: Constipation, Diarrhea - Genitourinary Genitourinary: reports: Frequency - Musculoskeletal Musculoskeletal: reports: Muscle pain, Back pain, Muscle aches, Stiffness, Limited range of motion, Muscle weakness, Joint pain - Integumentary Integumentary: reports: Dryness - Neurological Neurological: reports: General weakness, Memory problems, Abnormal gait, Incoordination (related to tremors) - Psychiatric Psychiatric: reports: Depression, Anxiety - Endocrine Endocrine: reports: Hypothyroidism - Hematologic/Lymphatic Hematologic/Lymph: Recurrent infections (recent CAP early August;) - All Other Systems All Other Systems: reports: Reviewed and negative Physical Exam - Vital Signs Temperature: 97.3 C Pulse Rate: 96 Respiratory Rate: 20 O2 Saturation: 96 (ra @ rest; 95% with ambulation of 50 feet) Blood Pressure: 136/76 - Physical Exam General Appearance: positive: Alert, Mild distress, Anxious Eyes Bilateral: positive: Normal inspection ENT: positive: No signs of dehydration Neck: positive: Trachea midline Cardiovascular: positive: Regular rate & rhythm, Tachycardia Respiratory: positive: Diminished throughout. negative: No respiratory distress (respiratory effort with any activity), Wheezes, Rales, Rhonchi Abdomen: positive: Soft Skin: positive: Pallor, Dryness, Other (bruising on abdomen from enoxaparin) Extremities: positive: No pedal edema Neurologic/Psychiatric: positive: Oriented x3, Flat affect, Other (very anxious; unable to read depressive symptoms;) Palliative Care - POLST Patient has POLST: No Pain: Pain worsening, Location (see hpi) Tiredness/Fatigue: Moderate (4-6) Drowsiness/Sedation: None (does sleep late) Nausea: Mild (1-3) (intermittent) Anorexia: None Dyspnea: Severe (7-10) Depression: Moderate (4-6) Anxiety: Severe (7-10) Feelings of wellbeing/Perceived Quality of Life: Fair, Worsening Sleep: Sleeps well Constipation: No Performance Status: Patient is ambulatory, can ambulate short distances, lives in a 1 level home. Does have to pace self with any kind of activity, actually does mow his lawn with frequent breaks. Is independent in his ADLs. He is though quite sedentary, spends quite a bit of time in his recliner.He is not currently driving. - Palliative Care Discussion: Patient is quite anxious about our appointment, did spend some time trying to build some rapport. He was quite open and willing to continue to meet, had looked up things about palliative care on the Internet, was wondering why he had not had support earlier, we did discuss it is a limited resource at this point in time. When asked what worries him most, actually it is about his , they have been 29 years, and the thought of losing her is just overwhelming, anxiety regarding her upcoming treatments and appointments with the overlay of the pandemic and what is going on in the world, is somewhat immobilizing for him. He was reflecting about getting the diagnosis of terminal cancer, report he had difficult time getting his head wrapped around that, often triggered golden c attacks for him and it was complicated getting through treatment. Now trying to get his head wrapped around when he has an extended period of time. He just received his new diagnosis of ataxic cerebral palsy, is very anxious about any kind of medication changes, and continues to struggle with his current quality of life. I did not ask him currently about his advance care directives, will defer this to another visit. He is hoping for better quality of life, and aware of the seriousness of his diagnoses. Impression and Recommendations - Palliative Care Impression: This is a 55-year-old gentleman who presents with multiple serious illness, including stage IIIb lung cancer, currently on surveillance, advanced COPD, and new severe tremors and worsening tremors and ataxia impacting his quality of life. This is layered on the complexity of his bipolar disorder, severe anxiety disorder, and chronic pain syndrome as a result of multiple musculoskeletal surgeries/diagnoses. Palliative care establishing rapport and care, with goal to address pain and symptom management and anticipatory guidance. Recommendations/Counseling Done: 1. Chronic pain syndrome. Patient has been on a stable dose for 7 years, is not asking for any kind of adjustments at this point in time, his methadone dosing is 25 mg 3 times daily, did discuss palliative care able to provide support and prescribing. Last prescription and follow-up on PS MP monitoring has been compliant, was 09/01. His Sabrina does his medications, she is going to call office when refill needed. Patient is reporting worsening osteoarthritic pain, does use ibuprofen intermittently, will revisit next visit if may want to add some meloxicam, will need to follow-up on kidney function prior to this. 2. Anxiety disorder. Patient has underlying bipolar, and no psychiatric support. Has been on current regimen long-term, will continue to monitor. Patient's breathlessness and anxiety are intertwined, patient does find relief and support with the use of alprazolam, gets quite anxious if unable to get filled in a timely way, has been without several times, discussed given this is a symptom management med, would be willing to order through palliative care. Reinforced other medications need to come from primary care provider. 3. Essential Tremors. Follow up with Dr. Bhatia, regarding getting records, do not see diagnosis he is describing will reach out after next visit. Patient reports that he is recommended adding propranolol, has high anxiety as was told it would impact his breathing as a beta-laura. Is wanting to have oxygen in the home, patient does not currently qualify. Did explore with [email or web address], can rent regulator for $10, and $20 upfront with oxygen tank. They do deliver to [facility] would not charge a delivery fee. Patient with significant financial stressors, will let me know. Did reassure, patient though he is been tolerating multiple other combinations of sedating medications, may benefit from having oximeter, will see if can get through [facility]. 4. Advanced COPD. Patient does present with severe breathlessness, suspect though this is multifactorial in the context has had radiation to the chest, continues to smoke, and longstanding COPD. He does get quite panicky, when he gets dyspneic. Patient reports inhalers/nebulizers of limited benefit, but concerned nebulizer has "worn out". Will explore if can replaced through his insurance. 5. Stage IIIb lung cancer. Patient is currently on surveillance, will continue to monitor with oncology team. 6. Advanced care planning. Patient appears to be in tenuous situation, with his with serious illness as well. She does provide quite a bit of oversight and medication management given his short-term memory issues and anxiety. We will continue to build rapport through palliative care, and introduced palliative care social science instructor at a later date. Time Spent: 75 minutes with greater than 50% of this done in counseling regarding palliative care, continuum of care, symptom management, and anticipatory guidance.
== END 2020-09-22 11:16 | disposition home or self-care (01) ==
LOC: PC 11:15
PROVIDERS: ATTEND Nurse Practitioner Adult Health
DX: Z51.5 Encounter for palliative care (principal); J44.9 Chronic obstructive pulmonary disease, unspecified; F17.210 Nicotine dependence, cigarettes, uncomplicated; G89.4 Chronic pain syndrome; I26.99 Other pulmonary embolism without acute cor pulmonale; F31.9 Bipolar disorder, unspecified; F41.9 Anxiety disorder, unspecified; R27.0 Ataxia, unspecified; G25.0 Essential tremor; C34.11 Malignant neoplasm of upper lobe, right bronchus or lung; C77.1 Secondary and unspecified malignant neoplasm of intrathoracic lymph nodes; Z79.899 Other long term (current) drug therapy; Z79.891 Long term (current) use of opiate analgesic; Z79.01 Long term (current) use of anticoagulants; Z87.01 Personal history of pneumonia (recurrent); Z92.21 Personal history of antineoplastic chemotherapy; Z92.3 Personal history of irradiation; Z63.79 Other stressful life events affecting family and household
CPT/HCPCS: 99345

== ENCOUNTER 2020-10-13 13:10 | Outpatient (CLI) | payer MEDICAID ==
--- NOTE | 2020-10-13 22:29 | CONSULTATION NOTE ---
Palliative Care Follow Up - Referral Referring Provider: Dr. Collins Time of Visit: 1351-1444 Referral setting: Home Referral Reason: Advanced COPD/Lung CA/Anxiety/Tremors - Information Sources Records reviewed: RN notes reviewed History/Review of Systems obtained from: Patient Exam limitations: No limitations - History of Present Illness Update Brief HPI Update: This is a complicated gentleman of 55 years old, who presents with multiple serious illnesses. Please see visit 09/22/2020 for more comprehensive HPI. Patient does have known poorly differentiated non-small cell carcinoma, and underwent concurrent chemoradiation with carboplatinum and paclitaxel, and finished with adjuvant consolidative immunotherapy with durvalumab the Mab finishing June/2020. He did experience a sequela of developing PE in 08/20 and has been on enoxaparin since then. He is on surveillance, and sees oncology in November. He is concerned though as he is experiencing perceived worse shortness of breath, and feels "he would not be surprised", if he has recurrent disease. Patient has longstanding severe COPD, with significant shortness of breath. He was treated in August for community-acquired pneumonia, and still remains somewhat frail from this. Patient continues to smoke about 15 to 20 cigarettes a day, reports he is always shortness of breath. He does have albuterol inhaler and duo nebs, but finds this is not always effective for his dyspnea. He is quite pleased with his new nebulizer, and feels it works somewhat better. Patient is also being seen by Dr. Bhatia at [facility] neurology, his long-term had essential tremors, but these have progressed significantly over this last year. His severe tremors interfere with his quality of life and being able to do very much. He had trialed propranolol, but found this added to his sedation, and has tapered off. He is currently on primidone, with only moderate control. Patient also has complex situation with his underlying bipolar and severe anxiety disorder. He is on multiple medications including lithium, lamotrigine, quetiapine and sertraline. He is prone to panic attacks and this is controlled with both long and short acting alprazolam. He has many things that are adding to the exacerbation of his anxiety, including the pandemic, current political climate, and worried about his 's health who is doing poorly as well. Patient also has long-term chronic pain syndrome, has been on methadone for over 7 years, he has been on a stable dose. 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 He also has bilateral shoulder pain with impingement, he has been on steroids in the past with good response. He is wondering about a trial both for his breathing and pain. Past Medical History: Pulmonary embolism, COPD, ataxic cerebral palsy, hypothyroidism, GERD, history of recurrent candidiasis of esophagus, chronic vision loss, chronic hearing loss, depression, anxiety, bipolar disorder, panic attacks posttraumatic stress disorder, osteoarthritis, fatigue, chronic back pain,Adenocarcinoma of the lung Social History - Living Situation Living arrangement: At home Living Situation: With spouse/s.o., With family Support System: He and his Sabrina have been 29 years, she herself is dealing with cancer multiple appointments. He is very much worried about her. She does oversee and advocate for his medical needs and manages his medications. [place] his 23-year-old son lives with them, he does share today he has disability, he has 2 other girls and grandkids he is very fond of. They have very little other support. 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 He is worked hard all his life, it is very difficult for him to be limited and sedentary. Medications/Allergies - Medications Home Medications: Ambulatory Orders Medication Instructions Recorded Confirmed [place] Carbonate 450 mg PO BID 10/24/14 10/13/20 Sertraline [Zoloft] 100 mg PO DAILY 10/24/14 10/13/20 lamoTRIgine [LaMICtal] 200 mg PO BID 10/24/14 10/13/20 QUEtiapine [SEROquel] 100 mg PO BID 08/03/15 10/13/20 Alprazolam [Xanax] 1 mg PO DAILY PRN 03/15/18 10/13/20 Primidone 250 mg PO QPM 09/02/18 10/13/20 Albuterol Sulfate [Proair 2 puffs IH Q4HR PRN 08/10/20 10/13/20 Digihaler] Budesonide/Formoterol Fumarate 2 puffs IH BID 08/10/20 10/13/20 [Symbicort 80-4.5 Mcg Inhaler] Enoxaparin [Lovenox] 80 mg SUBQ Q12H 08/10/20 10/13/20 Ipratropium/Albuterol Sulfate 3 ml IH TID PRN 08/10/20 10/13/20 [Iprat-Albut 0.5-3(2.5) mg/3 ml] Methadone HCl 25 mg PO TID 08/10/20 10/13/20 Naloxone HCl [Narcan] 4 mg NS .ONE TIME PRN 08/10/20 10/13/20 Ondansetron [Ondansetron Odt] 8 mg PO DAILY PRN 08/10/20 10/13/20 Alprazolam [Alprazolam Xr] 1 mg PO DAILY 09/22/20 10/13/20 predniSONE [Deltasone] 10 mg PO DAILY 10/13/20 10/13/20 - Allergies Allergies/Adverse Reactions: Allergies Allergy/AdvReac Type Severity Reaction Status Date / Time Penicillins Allergy Severe Respiratory Verified 08/10/20 15:05 Sulfa (Sulfonamide Allergy Severe Anaphylaxis Verified 08/10/20 15:05 Antibiotics) venom-honey bee Allergy Anaphylaxis Verified 08/10/20 15:05 [bee venom (honey bee)] Review of Systems - Constitutional Constitutional: reports: Fatigue, Weight stable. denies: Fever, Chills - Eyes Eyes: reports: Vision loss, Corrective lenses - Ears, Nose & Throat Ears, Nose & Throat: reports: Hearing loss, Nasal congestion, Hoarseness, Dry mouth - Cardiovascular Cardiovascular: reports: Exertional dyspnea, Decr. exercise tolerance - Respiratory Respiratory: reports: Cough, Wheezing, SOB at rest (feels this is worsening), SOB with exertion. denies: Sputum production - Gastrointestinal Gastrointestinal: reports: Nausea (occasional), Good appetite. denies: Constipation, Diarrhea - Genitourinary Genitourinary: reports: Frequency - Musculoskeletal Musculoskeletal: reports: Muscle pain, Back pain, Muscle aches, Stiffness, Limited range of motion, Muscle weakness, Joint pain - Integumentary Integumentary: reports: Dryness - Neurological Neurological: reports: General weakness, Memory problems, Abnormal gait, Incoordination (related to tremors) - Psychiatric Psychiatric: reports: Depression, Anxiety - Endocrine Endocrine: reports: Hypothyroidism - Hematologic/Lymphatic Hematologic/Lymph: Recurrent infections (recent CAP early August;) - All Other Systems All Other Systems: reports: Reviewed and negative Physical Exam - Vital Signs Temperature: 97.1 C Pulse Rate: 96 Respiratory Rate: 20 O2 Saturation: 98 (ra @ rest) Blood Pressure: 112/72 - Physical Exam General Appearance: positive: Alert, Mild distress, Anxious Eyes Bilateral: positive: Normal inspection ENT: positive: No signs of dehydration Neck: positive: Trachea midline Cardiovascular: positive: Regular rate & rhythm, Tachycardia Respiratory: positive: Diminished throughout. negative: No respiratory distress (respiratory effort with any activity), Wheezes, Rales, Rhonchi Abdomen: positive: Soft Skin: positive: Pallor, Dryness, Other (bruising on abdomen from enoxaparin) Extremities: positive: No pedal edema Neurologic/Psychiatric: positive: Oriented x3, Weakness, Flat affect, Other (very anxious; unable to read depressive symptoms;) Palliative Care - POLST Patient has POLST: No POLST Status: DNR Pain: Pain worsening, Location, Comment (Patient has multiple pain generators, but most significant at this point in time is worsening joint pain, exacerbated by the change in weather. Does have chronic longstanding back pain. Has acute pain with any kind of prolonged standing, including that leads to numbness and tingling in his lower e) Tiredness/Fatigue: Severe (7-10) Drowsiness/Sedation: Moderate (4-6) (improved with tapering off propranolo) Nausea: None Anorexia: None Dyspnea: Severe (7-10) Depression: Moderate (4-6) Anxiety: Severe (7-10) Feelings of wellbeing/Perceived Quality of Life: Fair, Acceptable, Worsening Sleep: Sleeps well Constipation: Yes, Opoid induced, Managed Performance Status: Patient does have altered sleep/wake cycles. He is able to manage his own ADLs with pacing, he tries to help with household tasks. They do have a wood-burning stove, which he manages the would but is finding this increasingly difficult. H e is limited by his severe dyspnea ambulating extended distances. He is fairly sedentary, would put him at a PPS of 50% - Palliative Care Discussion: Patient was quite anxious last time with her appointment, he seems much more relaxed and able to engage. Has been very pleased with palliative care response and follow-up on his needs. He continues to be quite concerned about his , and her declining health. Though reports "she is a fighter". We did discuss in the context of the kind of cancer she is living with, it is treatable but he describes multiple complications. I did introduce my concern regarding need for advanced care planning. Patient ports that they do not have any documents. I did ask him if both he and his were to have a early demise, who would DO/care for his son. They have not come up with plans regarding this. When asked patient if he would want resuscitation, he is quite clear he would want to be a DN AR. We did discuss in the context of this that we would need to fill out a POLST as the paramedics would be obligated to provide resuscitation. Given the high likelihood of him needing to access 911, we did discuss the POLST form, did ask him to complete a DPOA form with a second person, given Sabrina's health issues. And also discussed this the continuum of care for people with serious illness, including the threshold for making the transition to comfort measures and/hospice. Left the documents, hope to meet with Linnette and patient with next visit. Impression and Recommendations - Palliative Care Impression: This is a anxious 55-year-old gentleman, who presents with multiple serious illness, including stage IIIb lung cancer, currently on surveillance, advanced COPD, worsening tremors and ataxia impacting his quality of life. This is layered on the complexity of his bipolar disorder, severe anxiety disorder, and chronic pain syndrome as result of multiple musculoskeletal surgeries/diagnoses, and possibly exacerbated by/as result of immunotherapy. Palliative care continue to establish rapport and care, with goal to address pain and symptom management and anticipatory guidance. Recommendations/Counseling Done: 1. Advanced COPD. Patient presents with severe breathlessness, he is feeling much more secure with having oxygen in the home. I did provide him with a oximeter, given his anxiety regarding hypoxia. Patient despite his severe breathlessness and lung CA, does have sats between 97 to 98%. This is quite reassuring to him. I think the visual feedback will help his anxiety regarding this. Discussion and counseling regarding trialing low-dose prednisone, to see if improves patient's breathlessness and feeling of wellbeing, counseled against the negative side which may be increase his anxiety, and tremors. Patient though would like to trial has had some relief in the past with steroids. Prescribed prednisone 10 mg daily, if patient tolerates, could titrate up to 20 mg for short period of time 2 to 4 weeks. Recommended he use his nebulizer 2-3 times a day as well. 2. Stage IIIb lung cancer. Patient is currently on surveillance, he is wondering though with his deteriorating respiratory status for his recurrent disease. Discussion ensued regarding if patient would accept further treatment, patient would weigh benefits and burdens regarding this. Patient does have a Port-A-Cath, which has not been flushed since use in ED in August. Recommended to get an appointment through oncology, I also could facilitate AN appointment at the [facility] [place]if wanted. 3. Essential tremors. Patient had tried propranolol, had felt that actually added to his sedation and felt poorly on it. He has titrated off of this. He continues to work with him on tremors, though today he appears less shaky, and more alert and engaged. 4. Chronic pain syndrome. Patient has been on a stable dose for 7 years, at this point in time is not asking for any adjustments, his methadone dosing is 25 mg 3 times daily. His Sabrina does his medications, she will notify us when refill as needed. Patient is reporting worsening osteoarthritic pain, had discussed using some NSAID at prior visit, will hold off as prednisone will provide same/or better relief. 5. Anxiety disorder. Patient has underlying bipolar no psychiatric support. He has been on his current regimen long-term. Patient does have high anxiety, feels alprazolam has been a good tool for him. He continues to stay within prescribing amounts. May benefit in the future from support from medical palliative care rn social work. 6. Advanced care planning. Patient is in a tenuous situation, with his with serious illness as well. Patient was willing and able to engage in conversation around advance care planning, he does have poor short-term memory issues and anxiety. Provided forms and encouraged he and Sabrina to have conversations, with plan for family meeting next time. Time Spent: 60 minutes with greater than 50% of this done in counseling regarding symptom management, building up rapport, and anticipatory guidance as well as counseling around advance care planning.
== END 2020-10-13 13:11 | disposition home or self-care (01) ==
LOC: PC 13:10
PROVIDERS: ATTEND Nurse Practitioner Adult Health
DX: Z51.5 Encounter for palliative care (principal); J44.9 Chronic obstructive pulmonary disease, unspecified; C34.90 Malignant neoplasm of unspecified part of unspecified bronchus or lung; F17.210 Nicotine dependence, cigarettes, uncomplicated; G25.0 Essential tremor; G89.4 Chronic pain syndrome; G80.4 Ataxic cerebral palsy; F41.9 Anxiety disorder, unspecified; F31.9 Bipolar disorder, unspecified; Z63.79 Other stressful life events affecting family and household; Z79.899 Other long term (current) drug therapy; Z79.891 Long term (current) use of opiate analgesic; Z79.01 Long term (current) use of anticoagulants; Z86.711 Personal history of pulmonary embolism; Z92.21 Personal history of antineoplastic chemotherapy; Z92.3 Personal history of irradiation
CPT/HCPCS: 99350

== ENCOUNTER 2020-11-03 14:00 | Outpatient (CLI) | payer MEDICAID, MEDICARE ==
--- NOTE | 2020-11-03 17:36 | CONSULTATION NOTE ---
Palliative Care Follow Up - Referral Referring Provider: Dr. Collins Time of Visit: 9499-0086 Referral setting: Home Referral Reason: COPD/Lung CA/Oral candidiasis/Chronic Back Pain - Information Sources Records reviewed: Previous records reviewed History/Review of Systems obtained from: Patient Exam limitations: No limitations - History of Present Illness Update Brief HPI Update: This is a complicated gentleman of 55 years old, who presents with multiple serious illnesses. Please see visit 09/22/2020 for more comprehensive HPI. Patient does have known poorly differentiated non-small cell carcinoma, and underwent concurrent chemoradiation with carboplatinum and paclitaxel, and finished with adjuvant consolidative immunotherapy with durvalumab and finished June/2020. He is on surveillance, he is due to see oncology with scans and follow-up this month. He is experiencing perceived worse shortness of breath, decreased activity tolerance, and feels he would not be surprised if he had recurrent disease. He though has had some improvement with the initiation of prednisone 10 mg daily. Patient has longstanding severe COPD with significant shortness of breath. He was treated in August for community-acquired pneumonia, continues to smoke 15 to 20 cigarettes a day, is using his oxygen intermittently. He reports though with the initiation of being able to read the oximeter, he has needed less. He had been using one tank every 2 to 3 days, for perceived shortness of breath, with being able to monitor his oxygen sats, when he drops to 91%, he initiates oxygen, this is usually after activity as patient does still try to chop wood, and work in the yard, and when it comes back up to 98% he is able to stop this. He does feel like this gives him less anxiety and better control over his breathlessness. He does feel better overall on the prednisone with increased strength and energy. Patient is also being seen by Dr. Garcia at [facility] neurology, his long-term essential tremors but these have progressed significantly over the last year. His severe tremors interfere with his quality of life, and his ability to do very much. He is currently on primidone 250 mg at bedtime, with only moderate control. He had trialed and failed propranolol. Patient also has complex symptom with his underlying bipolar and anxiety disorder. He is on multiple medications including lithium, lamotrigine, quetiapine and sertraline. He is prone to panic attacks and this is controlled on long and short acting alprazolam. He has many things are adding to the exacerbation of his anxiety including the pandemic, current political climate, and worried about his 's health who also has serious illness and is not doing well. Patient also has long-term chronic pain syndrome, he has been on methadone 75 mg total for over 7 years, has been on stable dosing. 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 He also has bilateral shoulder pain with impingement, he has been on steroids in the past with good response and has found currently the low-dose prednisone is helping. Patient does have dentures, unfortunately he is complaining of increased hoarseness though he does have some baseline, and discomfort in his throat. Did have remove his dentures, and examination he does have some white lesions in his throat, some scattered candidiasis-like lesions across his tongue and buccal area, but cannot be certain that it is all Candidiasis in the back tonsillar area. We will go ahead and treat with nystatin, but did encourage him to make a appointment with his PCP and get a ENT referral. Past Medical History: Pulmonary embolism currently on enoxaparin, COPD, ataxic cerebral palsy, hypo thyroidism, GERD, history of recurrent candidiasis of esophagus, chronic vision loss, chronic hearing loss, depression, anxiety, bipolar disorder, panic attacks, PTSD, osteoarthritis, fatigue, chronic back pain, adenocarcinoma of the lung Social History - Living Situation Living arrangement: At home Living Situation: With spouse/s.o., With family Support System: Patient is quite a during and worried about his Sabrina, who has herself been dealing with cancer and multiple appointments and decline. They have been 29 years, he would feel "lost without her", she does oversee and advocate for his medical needs and manages his medications. They do have a 23-year-old son who lives with him, has severe anxiety and they do depend on quite a bit, they also have other children and grandkids he is very fond of. 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 He has worked hard all of his life, is difficult for him to be physically limited and sedentary. Medications/Allergies - Medications Home Medications: Ambulatory Orders Medication Instructions Recorded Confirmed [place] Carbonate 450 mg PO BID 10/24/14 11/03/20 Sertraline [Zoloft] 100 mg PO DAILY 10/24/14 11/03/20 lamoTRIgine [LaMICtal] 200 mg PO BID 10/24/14 11/03/20 QUEtiapine [SEROquel] 100 mg PO BID 08/03/15 11/03/20 Alprazolam [Xanax] 1 mg PO DAILY PRN 03/15/18 11/03/20 Primidone 250 mg PO QPM 09/02/18 11/03/20 Albuterol Sulfate [Proair 2 puffs IH Q4HR PRN 08/10/20 11/03/20 Digihaler] Budesonide/Formoterol Fumarate 2 puffs IH BID 08/10/20 11/03/20 [Symbicort 80-4.5 Mcg Inhaler] Enoxaparin [Lovenox] 80 mg SUBQ Q12H 08/10/20 11/03/20 Ipratropium/Albuterol Sulfate 3 ml IH TID PRN 08/10/20 11/03/20 [Iprat-Albut 0.5-3(2.5) mg/3 ml] Methadone HCl 25 mg PO TID 08/10/20 11/03/20 Naloxone HCl [Narcan] 4 mg NS .ONE TIME PRN 08/10/20 11/03/20 Ondansetron [Ondansetron Odt] 8 mg PO DAILY PRN 08/10/20 11/03/20 Alprazolam [Alprazolam Xr] 1 mg PO DAILY 09/22/20 11/03/20 predniSONE [Deltasone] 10 mg PO DAILY 10/13/20 11/03/20 Nystatin [Mycostatin] 5 ml PO QID MDD 14 days 11/03/20 11/03/20 - Allergies Allergies/Adverse Reactions: Allergies Allergy/AdvReac Type Severity Reaction Status Date / Time Penicillins Allergy Severe Respiratory Verified 08/10/20 15:05 Sulfa (Sulfonamide Allergy Severe Anaphylaxis Verified 08/10/20 15:05 Antibiotics) venom-honey bee Allergy Anaphylaxis Verified 08/10/20 15:05 [bee venom (honey bee)] Review of Systems - Constitutional Constitutional: reports: Fatigue, Weight stable. denies: Fever, Chills - Eyes Eyes: reports: Vision loss, Corrective lenses - Ears, Nose & Throat Ears, Nose & Throat: reports: Hearing loss, Nasal congestion, Dentures, Hoarseness, Mouth lesions, Dry mouth - Cardiovascular Cardiovascular: reports: Lightheadedness, Exertional dyspnea, Decr. exercise tolerance. denies: Chest pain - Respiratory Respiratory: reports: Cough, Wheezing, SOB at rest (feels this is worsening but has noted some improvement with prednisone), SOB with exertion. denies: Sputum production - Gastrointestinal Gastrointestinal: reports: Nausea (occasional), Good appetite, Other (has been working on weight loss 188). denies: Constipation, Diarrhea - Genitourinary Genitourinary: reports: Frequency - Musculoskeletal Musculoskeletal: reports: Muscle pain, Back pain, Muscle aches, Stiffness, Limited range of motion, Muscle weakness, Joint pain - Integumentary Integumentary: reports: Dryness - Neurological Neurological: reports: General weakness, Memory problems, Abnormal gait, Incoordination (related to tremors) - Psychiatric Psychiatric: reports: Depression, Anxiety - Endocrine Endocrine: reports: Hypothyroidism - Hematologic/Lymphatic Hematologic/Lymph: Recurrent infections (recent CAP early August;) - All Other Systems All Other Systems: reports: Reviewed and negative Physical Exam - Vital Signs Temperature: 97.4 C Pulse Rate: 72 Respiratory Rate: 18 Blood Pressure: 132/72 - Physical Exam General Appearance: positive: Alert, Mild distress, Anxious (appears more comfortable with me today) Eyes Bilateral: positive: Normal inspection ENT: positive: No signs of dehydration, Oral lesions (few scattered lesions of candidiasis across tongue/buccal area; had remove dentures n top; has some large white raised lesions in back of throat/tonsil area), Other (voice very weak and hoarse) Neck: positive: Trachea midline Cardiovascular: positive: Regular rate & rhythm Respiratory: positive: Diminished throughout. negative: No respiratory distress (respiratory effort with any activity), Wheezes, Rales, Rhonchi Abdomen: positive: Soft Skin: positive: Pallor, Dryness Extremities: positive: No pedal edema Neurologic/Psychiatric: positive: Oriented x3, Weakness, Flat affect Palliative Care - POLST Patient has POLST: No Pain: Pain unchanged, Location (Patient has musculoskeletal pain bilateral shoulder pain, back pain and in joints.), Severity (moderate; improved slightly with prednisone) Tiredness/Fatigue: Moderate (4-6) Drowsiness/Sedation: Moderate (4-6) Nausea: None Anorexia: None Dyspnea: Severe (7-10) Depression: Moderate (4-6) Anxiety: Severe (7-10) Feelings of wellbeing/Perceived Quality of Life: Fair, Acceptable, Improved Sleep: Variable sleep pattern (sleeps up to 5 hours) Constipation: No Performance Status: Patient's activity tolerance is mostly limited by his dyspnea and some limitations regarding his pain. He does try to stay active, his most difficult time is first thing in the morning. He is trying to ambulate and increase his activity slowly to tolerance. He is independent in his ADLs, he no longer can drive - Palliative Care Discussion: I had asked that he and his had discussions regarding DPOA and advanced care planning, they has some initial conversation. Sabrina did join us for short period of time, we did discuss in the context that they are both fairly seriously ill about having a backup for each other for decision making. They do feel like it might be too much for their son who is only 23, they will explore whether it would be a daughter or sibling. Requested that they continue with that conversation and that we can complete this next time. Patient did express wanting to be a DNA R, particularly given his respiratory status. He is at high risk for some event that may need initiation of 911, we did discuss that Sabrina would need to be supportive of this. Did initial introduction conversation and discussion with Sabrina regarding POLST form and intent. We will finish up and follow-up with her next visit. It is a concern, as they are both fairly with complex health problems that could lead to a rapid demise or crisis point, unclear if they have made any plans for their son is 23 years old and living with disability. Will try and involve medical palliative care nursing home social worker when available. Impression and Recommendations - Palliative Care Impression: This is an anxious 55-year-old gentleman, who presents with multiple serious illness, including stage IIIb lung cancer, currently on surveillance, advanced COPD, worsening tremors and ataxia impacting his quality of life. This is layered on the complexity of his bipolar disorder, severe anxiety disorder and chronic pain syndrome as a result of multiple musculoskeletal surgeries/diagnoses and possible exacerbated by/as result of immunotherapy. Palliative care continue to establish rapport and care with goals to address pain and symptom management and anticipatory guidance. Recommendations/Counseling Done: 1. Advanced COPD. Patient has been using oxygen at least 1-2 times a day, usually after he has had increased activity it drops on the 91%, uses it until he returns up to 98%. He is primarily pain for this, I am guessing he most likely drops at night. Will follow up and see about nighttime testing. He has benefited from the use of the oximeter, to be able to get positive feedback he is doing okay despite his severe breathlessness. Patient has done well on the trial of prednisone 10 mg, we did not need to titrate up to 20 mg. Patient like to continue as it has really improved his quality of life as well as his pain management. Am concerned though related to his oral candidiasis, will continue short-term anyway. Recommended he can use his nebulizer particularly first thing in the morning as this is his most "rough time". 2. Stage IIIb lung cancer. Patient is currently on surveillance, he is scheduled for November though has not heard from oncology. Did recommend follow-up of make an appointment as a will need to have scans. Patient did not follow through on getting flush appointment, will after much discussion what would be most convenient set him up for the MAC. 3. Essential tremors. Patient had tried propranolol, did not like the sedation, felt poorly off that. He continues on the primidone 250 mg. Reports that steroids did not increase his tremors or discomfort. 4. Chronic pain syndrome. Patient has been on stable dose for 7 years, at this point in time is not asking for adjustment his methadone dosing is 25 mg 3 times a day. Patient does have worsening osteoarthritic pain, prednisone did provide some increased relief around this, may also have been side effect from his immu notherapy. 5. Anxiety disorder. Patient has underlying bipolar disease and anxiety disorder with no psychiatric support. Has been on his current regimen long- term. Patient most likely should have lithium checked, he reports oncology checked it last time. If not done will follow up with PCP. May benefit in the future from support from medical palliative care nursing home social worker as well as long-term planning issues which caused him high anxiety with his 's illness. 6. Advanced care planning. Patient continues in a tenuous situation with his with serious illness as well. We did have further discussion around advance care planning, I did try and include Sabrina in this. He himself has poor short-term memory issues and anxiety, but would like to get some plans in place. Their biggest concern of course is that her son, who has anxiety issues well, is 23 years old, and will need a plan given the seriousness of the situation. 7. Oral candidiasis. Patient does have a history of recurrent oral and esophageal candidiasis. Patient does present with some fairly large lesions in his back oropharynx area. Patient has been instructed to take dentures out for nystatin swish and swallow, ordered 14 days. Did recommend see PCP, patient most likely would benefit given his hoarseness recurrent esophageal candidiasis and ENT referral. Time Spent: 50 minutes with greater than 50% of this done in counseling regarding pain and symptom management, goals of care, and anticipatory guidance.
== END 2020-11-03 14:01 | disposition home or self-care (01) ==
LOC: PC 14:00
PROVIDERS: ATTEND Nurse Practitioner Adult Health
DX: Z51.5 Encounter for palliative care (principal); J44.9 Chronic obstructive pulmonary disease, unspecified; C34.90 Malignant neoplasm of unspecified part of unspecified bronchus or lung; G25.0 Essential tremor; G89.4 Chronic pain syndrome; F31.9 Bipolar disorder, unspecified; F41.9 Anxiety disorder, unspecified; B37.0 Candidal stomatitis; F17.200 Nicotine dependence, unspecified, uncomplicated; Z99.81 Dependence on supplemental oxygen; Z79.01 Long term (current) use of anticoagulants; Z86.711 Personal history of pulmonary embolism
CPT/HCPCS: 99349

== ENCOUNTER 2020-12-08 13:00 | Outpatient (CLI) | payer MEDICARE, MEDICAID ==
--- NOTE | 2020-12-08 17:55 | CONSULTATION NOTE ---
Palliative Care Follow Up - Referral Referring Provider: Dr. Collins Time of Visit: [id number] Referral setting: Home Referral Reason: COPD/Pneumonia/Lung Ca/Anxiety/Chronic Pain - Information Sources Records reviewed: Previous records reviewed History/Review of Systems obtained from: Patient Exam limitations: No limitations - History of Present Illness Update Brief HPI Update: This is a complicated gentleman of 55 years old who presents with multiple serious illnesses. Please see visit 09/22/2020 for more comprehensive HPI. Patient does have known poorly differentiated non-small cell carcinoma, and underwent concurrent chemoradiation with carboplatinum and paclitaxel, and finished with adjuvant consolidative immunotherapy with durvalumab and finished June/2020. He is on surveillance, he was supposedly to get scans and follow-up this last November, he was told it was to be a 6-month interval, he does have a call and for pending appointment. Today presents with problems related to his longstanding severe COPD, was treated in August for community-acquired pneumonia, reports has had increased cough with thick green sputum. Over the last 24-48 hrs. has developed some left chest pleurisy pain, reports night sweats last night, though no fever or chills. Patient was treated with levofloxacin 750 mg x 7 days, with only moderate response, and did have to have a second round. Patient did agree for chest x- ray, but will go ahead and treat on clinical symptoms. Of note his breath sounds with some scattered wheezes, diminished throughout, but less air movement on right. Patient reports tachycardia, for last 1 to 2 weeks, denies any chest pain, this worsens with his anxiety. His anxiety has been escalating related to multiple stressors, including his 's health, pandemic, and political climate. He also ran out of his long-acting alprazolam on about 9 days ago, and did not contact me. Patient may also been having some withdrawals related to this. His breathlessness and fatigue had improved somewhat with the prednisone 10 mg, patient does not feel this is contributing to his increased anxiety, but has improved his overall sense of wellbeing and has been able to participate more with activity. Past Medical History: Severe tremors, bipolar and anxiety disorder, prone to panic attacks, long-term chronic pain syndrome, recurrent oral candidiasis, pulmonary embolism currently on enoxaparin, ataxic cerebral palsy, hypothyroidism, GERD, chronic vision loss, chronic hearing loss, depression, PTSD, panic attacks, osteoarthritis, chronic back pain, adenocarcinoma of the lung Social History - Living Situation Living arrangement: At home Living Situation: With spouse/s.o., With family Support System: Patient is quite worried about his Sabrina, who herself is dealing with cancer with multiple appointments and decline. She is currently receiving treatment on SCCA, and has not been feeling well. They have been 29 years, he is very dependent on her she does oversee and advocate for his medical needs and manages his medications. They do have a 23-year-old son who lives with him, he too has severe anxiety. They also have other children and grand kids whom they were able to see over the holiday, he found this really quite ganesh. He has worked hard all his life, is difficult for him to have physical limitations and be sedentary. Medications/Allergies - Medications Home Medications: Ambulatory Orders Medication Instructions Recorded Confirmed Nibbe Carbonate 450 mg PO BID 10/24/14 12/08/20 Sertraline [Zoloft] 100 mg PO DAILY 10/24/14 12/08/20 lamoTRIgine [LaMICtal] 200 mg PO BID 10/24/14 12/08/20 QUEtiapine [SEROquel] 100 mg PO BID 08/03/15 12/08/20 Alprazolam [Xanax] 1 mg PO DAILY PRN MDD 3 03/15/18 11/03/20 Primidone 250 mg PO QPM 09/02/18 12/08/20 Albuterol Sulfate [Proair 2 puffs IH Q4HR PRN 08/10/20 11/03/20 Digihaler] Budesonide/Formoterol Fumarate 2 puffs IH BID 08/10/20 12/08/20 [Symbicort 80-4.5 Mcg Inhaler] Enoxaparin [Lovenox] 80 mg SUBQ Q12H 08/10/20 12/08/20 Ipratropium/Albuterol Sulfate 3 ml IH TID PRN 08/10/20 12/08/20 [Iprat-Albut 0.5-3(2.5) mg/3 ml] Methadone HCl 25 mg PO TID 08/10/20 12/08/20 Naloxone HCl [Narcan] 4 mg NS .ONE TIME PRN 08/10/20 12/08/20 Ondansetron [Ondansetron Odt] 8 mg PO DAILY PRN 08/10/20 12/08/20 Alprazolam [Alprazolam Xr] 2 mg PO DAILY 09/22/20 11/03/20 predniSONE [Deltasone] 10 mg PO DAILY 10/13/20 12/08/20 Nystatin [Mycostatin] 5 ml PO DAILY 11/03/20 12/08/20 Levofloxacin [Levaquin] 500 mg PO DAILY MDD 7 days 12/08/20 12/08/20 - Allergies Allergies/Adverse Reactions: Allergies Allergy/AdvReac Type Severity Reaction Status Date / Time Penicillins Allergy Severe Respiratory Verified 08/10/20 15:05 Sulfa (Sulfonamide Allergy Severe Anaphylaxis Verified 08/10/20 15:05 Antibiotics) venom-honey bee Allergy Anaphylaxis Verified 08/10/20 15:05 [bee venom (honey bee)] Review of Systems - Constitutional Constitutional: reports: Fatigue (improved), Night sweats (last 24 hours), Weight stable. denies: Fever, Chills - Eyes Eyes: reports: Vision loss, Corrective lenses - Ears, Nose & Throat Ears, Nose & Throat: reports: Hearing loss, Nasal congestion, Dentures, Hoarseness, Mouth lesions (improved with nystatin), Dry mouth - Cardiovascular Cardiovascular: reports: Exertional dyspnea, Decr. exercise tolerance, Other (reports tachycardia) - Respiratory Respiratory: reports: Cough, Sputum production (reports green thick sputum for over week now), Wheezing, SOB at rest (feels this is worsening but has noted some improvement with prednisone), SOB with exertion, Pleuritic pain (left chest pain with cough; "heaviness") - Gastrointestinal Gastrointestinal: reports: Nausea (occasional), Good appetite, Other (has been working on weight loss 188). denies: Constipation, Diarrhea - Genitourinary Genitourinary: reports: Frequency - Musculoskeletal Musculoskeletal: reports: Muscle pain, Back pain, Muscle aches, Stiffness, Limited range of motion, Muscle weakness, Joint pain - Integumentary Integumentary: reports: Dryness - Neurological Neurological: reports: General weakness, Memory problems, Abnormal gait (related to pain/peripheral neuropathy), Incoordination (related to tremors) - Psychiatric Psychiatric: reports: Depression, Anxiety (ran out of extended release alprazalom about 9 days ago; used some extra breakthrough; reports though even before anxiety has been escalating; very distressed with political unrest and COVID) - Endocrine Endocrine: reports: Hypothyroidism - Hematologic/Lymphatic Hematologic/Lymph: Recurrent infections (recent CAP early August;) - All Other Systems All Other Systems: reports: Reviewed and negative Physical Exam - Vital Signs Temperature: 96.7 C Pulse Rate: 103 Respiratory Rate: 20 O2 Saturation: 94 Blood Pressure: 142/78 - Physical Exam General Appearance: positive: Alert, Mild distress, Anxious (has several things going on during visit; diff. concentrating) Eyes Bilateral: positive: Normal inspection ENT: positive: No signs of dehydration, Other (voice very weak and hoarse) Neck: positive: Trachea midline Cardiovascular: positive: Tachycardia Respiratory: positive: Diminished throughout (right more diminished than left), Wheezes (scattered wheezes). negative: No respiratory distress (respiratory effort with any activity), Rales, Rhonchi Abdomen: positive: Soft Skin: positive: Pallor, Dryness Extremities: positive: No pedal edema Neurologic/Psychiatric: positive: Oriented x3, Weakness, Flat affect Palliative Care - POLST Patient has POLST: No Pain: Pain unchanged, Location (Patient with musculoskeletal pain bilateral shoulder pain, back pain and in joints), Severity (mod/severe) Tiredness/Fatigue: Moderate (4-6) Drowsiness/Sedation: Moderate (4-6) Nausea: None Anorexia: Mild (1-3) Dyspnea: Severe (7-10) Depression: Moderate (4-6) Anxiety: Severe (7-10) Feelings of wellbeing/Perceived Quality of Life: Fair, Acceptable, Worsening Sleep: Variable sleep pattern Constipation: No Performance Status: Patient is ambulatory, is limited mostly with his activity tolerance with breathlessness. Does feel like he has done better with the prednisone and able to engage more in activity, patient dislikes being sedentary. - Palliative Care Discussion: Patient reports he and his it had some conversations, there are some disagreements on certain points. She is not present to continue with the conversation, he at this point in time is looking at DN [facility], but does not feel prepared to discuss further POLST with out present. Did try and clarify some questions, patient quite distracted today, agreed we would address at next visit Impression and Recommendations - Palliative Care Impression: This is an anxious 55-year-old gentleman who presents with multiple serious illnesses, including stage IIIb non-small cell lung cancer, currently on surveillance, advanced COPD, with clinical symptoms of pneumonia, worsening tremors and ataxia impacting quality of life. This is layered on the complexity of his bipolar disorder, severe anxiety disorder with exacerbation, and chronic pain syndrome as result of multiple musculoskeletal surgeries/diagnoses and possible exacerbated by/as result of immunotherapy. Palliative care continue to establish goals of care, provide pain and symptom management and anticipatory guidance. Recommendations/Counseling Done: 1. Pneumonia. Patient does have advanced COPD. He has had worsening productive green sputum cough, night sweats last night, increased left chest pain/pleurisy. He is feeling more short of breath, has been treated in August for pneumonia. Patient on methadone, and has multiple comorbid conditions, concern for being able to treat in community setting. Patient very much wants to avoid hospitalization or ED visit, will get outpatient chest x-ray, follow-up with pharmacist regarding options, patient is allergic to penicillins and sulfa. We will go ahead and treat with levofloxacin 500 mg for 7 days. Patient does not respond, may need to consider hospitalization or IV antibiotics. 2. Stage IIIb lung cancer. Patient is currently on surveillance, has not had recent scans or follow-up, will call and get appointment. Patient had not heard from [facility] on flushing a Port-A-Cath, follow-up and scheduled for tomorrow. 3. Anxiety disorder. Patient has underlying bipolar disease and anxiety disorder with no psychiatric support. He has been on his current regimen long- term, we will go ahead and get a lithium level. Patient is impacted by recent stressors related to his , finances, pandemic, and political climate. We will continue to provide support, with medical palliative care social services aide gerardo hall will make referral. 2 4. Oral candidiasis. Patient has history of recurrent oral and esophageal candidiasis. Patient reports has improved with course of nystatin, now doing 1 dose daily for prevention, with removal of dentures. Did recommend follow-up with primary care provider to get ENT referral. 5. Chronic pain syndrome. Patient's been on stable dose for 7 years, at this point in time is not asking for adjustment his current dosing is 25 mg methadone 3 times a day. Patient has had some improvement of his osteoarthritic pain with initiation of prednisone. This may also been exacerbated by side effects from immunotherapy. 6. Advanced care planning. Patient continues in tenuous situation, with both he and his having serious illness. Patient quite anxious and distracted this visit as Sabrina is down getting chemotherapy SCCA. Agreed with follow-up with next appointment. Time Spent: 45 minutes with greater than 50% of this done in counseling regarding pain and symptom management, coordination of care, and anticipatory guidance.
--- OUTSIDE RECORDS SUMMARY | 2020-12-14 01:16 | EXTERNAL MEDICAL SUMMARY RPT | Continuity of Care Document ---
:1965 Demographics Phone Unavailable Preferred Language Slovenian Marital Status Unknown Cheondoism Affiliation Unknown Race Unknown Ethnic Group Unknown Author Organization [facility] Address [address] [place] [address] Phone Care Team Providers Name Role Phone MD Unavailable Unavailable William Unavailable Unavailable Gravatt Unavailable Unavailable Scheidt Unavailable Unavailable FARID Unavailable Unavailable QUEEN Unavailable Unavailable Problems date description facility 2013-10-10 13:30 SHORTNESS OF BREATH [facility] 2013-10-10 13:30 CHEST PAIN NOS [facility] 2013-10-10 13:30 ARTHRODESIS STATUS [facility] 2014-02-22 08:57 ANEMIA NOS [facility] 2014-02-22 08:57 BIPOLAR I DISORDER, SINGLE MANIC [facility] EPISODE, UNSPECIFIED 2014-02-22 08:57 UNSOCIAL AGGRESS-UNSPEC [facility] 2014-02-22 08:57 OTHER DISEASES OF LUNG, [facility] 2014-02-22 08:57 CHEST PAIN NOS [facility] 2014-08-10 12:12 LUMBOSACRAL SPONDYLOSIS [facility] 2014-08-10 12:12 LUMB/LUMBOSAC DISC DEGEN [facility] 2014-08-10 12:12 CONTUSION OF KNEE [facility] 2014-08-10 12:12 KNEE JOINT REPLACEMENT STATUS [facility] 2014-10-24 03:02 POSTTRAUMATIC STRESS DISORDER [facility] 2014-10-24 03:02 DEPRESSIVE DISORDER NEC [facility] 2014-10-24 03:02 POIS-BENZODIAZEPINE PATTERSON [facility] 2014-10-24 03:02 ACCIDENT IN HOME [facility] 2014-10-24 03:02 SUICIDE-PSYCHOTROPIC AGT [facility] 2014-12-27 11:20 SOLITARY PULMONARY NODULE [facility] 2015-09-22 18:52 NICOTINE DEPENDENCE, [facility] UNSPECIFIED, UNCOMPLICATED 2015-09-22 18:52 MAJOR DEPRESSIVE DISORDER, [facility] SINGLE EPISODE, UNSPECIFIED 2015-09-22 18:52 CHRONIC OBSTRUCTIVE PULMONARY [facility] DISEASE, UNSPECIFIED 2015-09-22 18:52 DISORIENTATION, UNSPECIFIED [facility] 2015-12-19 13:05 SPONDYLOSIS W/O MYELOPATHY OR [facility] RADICULOPATHY, LUMBAR REGION 2015-12-19 13:05 OTHER INTERVERTEBRAL DISC [facility] DEGENERATION, LUMBAR REGION 2015-12-19 13:05 DYSPNEA, UNSPECIFIED [facility] 2016-01-08 15:29 NICOTINE DEPENDENCE, [facility] UNSPECIFIED, UNCOMPLICATED 2016-01-08 15:29 CHRONIC OBSTRUCTIVE PULMONARY [facility] DISEASE, UNSPECIFIED 2016-01-08 15:29 LUMBAGO WITH SCIATICA, LEFT SIDE [facility] 2016-01-08 15:29 DORSALGIA, UNSPECIFIED [facility] 2016-01-08 15:29 RASH AND OTHER NONSPECIFIC SKIN [facility] ERUPTION 2016-01-08 15:29 TREMOR, UNSPECIFIED [facility] 2016-04-01 10:00 OTH SYMPTOMS AND SIGNS INVOLVING [facility] THE MUSCULOSKELETAL SYSTEM 2016-04-01 10:00 ENCOUNTER FOR THERAPEUTIC DRUG [facility] LEVEL MONITORING 2016-10-30 21:08 NICOTINE DEPENDENCE, [facility] UNSPECIFIED, UNCOMPLICATED 2016-10-30 21:08 OTHER CHRONIC PAIN [facility] 2016-10-30 21:08 CHRONIC OBSTRUCTIVE PULMONARY [facility] DISEASE W (ACUTE) EXACERBATION 2016-10-30 21:08 DORSALGIA, UNSPECIFIED [facility] 2016-10-30 21:08 SHORTNESS OF BREATH [facility] 2017-05-25 16:54 NICOTINE DEPENDENCE, [facility] UNSPECIFIED, UNCOMPLICATED 2017-05-25 16:54 ATRIOVENTRICULAR BLOCK, FIRST [facility] DEGREE 2017-05-25 16:54 GASTRO-ESOPHAGEAL REFLUX DISEASE [facility] WITHOUT ESOPHAGITIS 2017-05-25 16:54 OTHER CHEST PAIN [facility] 2018-03-15 15:15 NICOTINE DEPENDENCE, [facility] UNSPECIFIED, UNCOMPLICATED 2018-03-15 15:15 INTERVERTEBRAL DISC DISORDERS W [facility] RADICULOPATHY, LUMBAR REGION 2018-03-15 15:15 DORSALGIA, UNSPECIFIED [facility] 2018-03-15 15:15 FALL (ON) (FROM) UNSPECIFIED [facility] STAIRS AND STEPS, INIT ENCNTR 2018-03-15 15:15 ACTIVITY, LAUNDRY [facility] 2018-03-15 15:15 DIRECTOR OF STRATEGIC PROGRAMS (CURRENT) USE OF [facility] OPIATE ANALGESIC 2018-04-14 08:00 BIPOLAR DISORDER, UNSPECIFIED [facility] 2018-04-14 08:00 DYSURIA [facility] 2018-04-14 08:00 OTHER DIRECTOR OF STRATEGIC PROGRAMS (CURRENT) DRUG [facility] THERAPY 2018-05-26 14:28 PROC/TRTMT NOT CRD OUT D/T PT LV [facility] BEF SEEN BY [facility] PROV 2018-07-09 07:56 TREMOR, UNSPECIFIED [facility] 2018-09-02 14:22 NICOTINE DEPENDENCE, [facility] UNSPECIFIED, UNCOMPLICATED 2018-09-02 14:22 CHEST PAIN, UNSPECIFIED [facility] 2018-09-02 14:22 OTHER NONSPECIFIC ABNORMAL [facility] FINDING OF LUNG FIELD 2018-09-02 14:22 PRESENCE OF UNSPECIFIED [facility] ARTIFICIAL KNEE JOINT 2018-09-09 18:30 LOCALIZED SWELLING, MASS AND [facility] LUMP, NECK 2019-02-15 00:57 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, RIGHT BRONCHUS OR LUNG 2019-02-15 00:57 NICOTINE DEPENDENCE, [facility] UNSPECIFIED, UNCOMPLICATED 2019-02-15 00:57 LOBAR PNEUMONIA, UNSPECIFIED [facility] ORGANISM 2019-02-15 00:57 CHRONIC OBSTRUCTIVE PULMON [facility] DISEASE W ACUTE LOWER RESP INFCT 2019-02-15 00:57 CHRONIC OBSTRUCTIVE PULMONARY [facility] DISEASE W (ACUTE) EXACERBATION 2019-02-15 00:57 SHORTNESS OF BREATH [facility] 2019-11-11 09:19 EXOCRINE PANCREATIC [facility] INSUFFICIENCY 2020-08-03 08:00 ACUTE PHARYNGITIS, UNSPECIFIED [facility] 2020-08-10 14:56 PNEUMONIA, UNSPECIFIED ORGANISM [facility] 2020-08-10 14:56 NICOTINE DEPENDENCE, [facility] ical [facility] UNSPECIFIED, UNCOMPLICATED 2020-08-10 14:56 COUGH [facility] 2020-09-22 11:15 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, RIGHT BRONCHUS OR LUNG 2020-09-22 11:15 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 2020-09-22 11:15 NICOTINE DEPENDENCE, CIGARETTES, [facility] UNCOMPLICATED 2020-09-22 11:15 BIPOLAR DISORDER, UNSPECIFIED [facility] 2020-09-22 11:15 ANXIETY DISORDER, UNSPECIFIED [facility] 2020-09-22 11:15 ESSENTIAL TREMOR [facility] 2020-09-22 11:15 CHRONIC PAIN SYNDROME [facility] 2020-09-22 11:15 OTHER PULMONARY EMBOLISM WITHOUT [facility] ACUTE COR PULMONALE 2020-09-22 11:15 CHRONIC OBSTRUCTIVE PULMONARY [facility] DISEASE, UNSPECIFIED 2020-09-22 11:15 ATAXIA, UNSPECIFIED [facility] 2020-09-22 11:15 ENCOUNTER FOR PALLIATIVE CARE [facility] 2020-09-22 11:15 OTHER STRESSFUL LIFE EVENTS [facility] AFFECTING FAMILY AND HOUSEHOLD 2020-09-22 11:15 DIRECTOR OF STRATEGIC PROGRAMS (CURRENT) USE OF [facility] ANTICOAGULANTS 2020-09-22 11:15 PRISON (CURRENT) USE OF [facility] OPIATE ANALGESIC 2020-09-22 11:15 OTHER PRISON (CURRENT) DRUG [facility] THERAPY 2020-09-22 11:15 PERSONAL HISTORY OF PNEUMONIA [facility] (RECURRENT) 2020-09-22 11:15 PERSONAL HISTORY OF [facility] ANTINEOPLASTIC CHEMOTHERAPY 2020-09-22 11:15 PERSONAL HISTORY OF IRRADIATION [facility] 2020-10-13 13:10 MALIGNANT NEOPLASM OF UNSP PART [facility] OF UNSP BRONCHUS OR LUNG 2020-10-13 13:10 NICOTINE DEPENDENCE, CIGARETTES, [facility] UNCOMPLICATED 2020-10-13 13:10 BIPOLAR DISORDER, UNSPECIFIED [facility] 2020-10-13 13:10 ANXIETY DISORDER, UNSPECIFIED [facility] 2020-10-13 13:10 ESSENTIAL TREMOR [facility] 2020-10-13 13:10 ATAXIC CEREBRAL PALSY [facility] 2020-10-13 13:10 CHRONIC PAIN SYNDROME [facility] 2020-10-13 13:10 CHRONIC OBSTRUCTIVE PULMONARY [facility] DISEASE, UNSPECIFIED 2020-10-13 13:10 ENCOUNTER FOR PALLIATIVE CARE [facility] 2020-10-13 13:10 OTHER STRESSFUL LIFE EVENTS [facility] AFFECTING FAMILY AND HOUSEHOLD 2020-10-13 13:10 DIRECTOR OF STRATEGIC PROGRAMS (CURRENT) USE OF [facility] ANTICOAGULANTS 2020-10-13 13:10 DIRECTOR OF STRATEGIC PROGRAMS (CURRENT) USE OF [facility] OPIATE ANALGESIC 2020-10-13 13:10 OTHER PRISON (CURRENT) DRUG [facility] THERAPY 2020-10-13 13:10 PERSONAL HISTORY OF PULMONARY [facility] EMBOLISM 2020-10-13 13:10 PERSONAL HISTORY OF [facility] ANTINEOPLASTIC CHEMOTHERAPY 2020-10-13 13:10 PERSONAL HISTORY OF IRRADIATION [facility] 2020-11-03 14:00 CANDIDAL STOMATITIS [facility] 2020-11-03 14:00 MALIGNANT NEOPLASM OF UNSP PART [facility] OF UNSP BRONCHUS OR LUNG 2020-11-03 14:00 NICOTINE DEPENDENCE, [facility] UNSPECIFIED, UNCOMPLICATED 2020-11-03 14:00 BIPOLAR DISORDER, UNSPECIFIED [facility] 2020-11-03 14:00 ANXIETY DISORDER, UNSPECIFIED [facility] 2020-11-03 14:00 ESSENTIAL TREMOR [facility] 2020-11-03 14:00 CHRONIC PAIN SYNDROME [facility] 2020-11-03 14:00 CHRONIC OBSTRUCTIVE PULMONARY [facility] DISEASE, UNSPECIFIED 2020-11-03 14:00 ENCOUNTER FOR PALLIATIVE CARE [facility] 2020-11-03 14:00 DIRECTOR OF STRATEGIC PROGRAMS (CURRENT) [facility] ANTICO[facility]ULANT[facility] 2020-11-03 14:00 PERSONAL HISTORY OF PULMONARY [facility] EMBOLISM 2020-11-03 14:00 DEPENDENCE ON SUPPLEMENTAL [facility] OXYGEN 2020-11-28 00:00:00 TSH WITH REFLEX TO FT4 [facility] 2020-11-28 00:00[facility] 2020-11-28 00:00:00 Screening for lipoid disorders Pending sale to [facility] 2020-11-28 00:00:00 COMPREHENSIVE METABOLIC PANEL [facility] 2020-11-28 00:00:00 LIPIDS SCREEN [facility] Care [facility] 2020-11-28 00:00:00 [place] [facility] 2020-11-28 00:00:00 PSA, SCREENING [facility] 2020-11-28 00:00:00 CBC W/Diff/Plt [facility] 2020-11-28 00:00:00 [facility] malignant neoplasm of prostate [facility] 2020-11-28 00:00:00 [facility] lipoid disorders [facility] 2020-11-28 00:00:00 Hyperlipidemia screening [facility] [place] [facility] 2020-11-28 00:00:00 Screening for malignant neoplasm [facility] Primary Care of prostate [place] [facility] 2020-12-09 15:00 MALIGNANT NEOPLASM OF UNSP PART [facility] OF UNSP BRONCHUS OR LUNG Allergies date description facility [facility]ACILLIN [facility] Penicillins [facility] Sulfa (Sulfonamide Antibiotics) [facility] No Known Drug Allergies [facility] venom-honey bee [facility] CYCLOSPORINE [facility] MORPHINE [facility] IODINATED DIAGNOSTIC AGENTS [facility] NO KNOWN ALLERGIES [facility] HY[facility]OMORPHONE [facility] NO KNOWN ENVIRONMENTAL ALLERGIES [facility] PENICILLINS [facility] BEEF CONTAINING PRODUCTS [facility] FISH CONTAINING PRODUCTS [facility] CHICKEN DERIVED [facility] HEPARIN [facility] MORPHINE [facility] CODEINE [facility] HYDROCODONE [facility] CARBAMAZEPINE [facility] QUININE [facility] CHLORPROMAZINE [facility] MEPERIDINE [facility] EGG [facility] PORK DERIVED (PORCINE) [facility] OXYCODONE-ACETAMINOPHEN [facility] ibuprofen [facility] PENICILLIN V POTASSIUM [facility] STATINS [facility] NO KNOWN ALLERGIES [facility] Medications date description facility 2020-12-05 00:00:00 [facility] [place] [facility] 2020-12-05 00:00:00 null [facility] [place] [facility] 2020-12-05 00:00:00 IPRATROPIUM-ALBUTEROL [facility] P rimary Care [place] [facility] 2020-12-05 00:00:00 IPRATROPIUM-ALBUTEROL [facility] P [facility] [place] [facility] 2020-12-08 00:00:00 [facility] [place] [facility] 2020-12-08 [facility]:00[facility] [place] [facility] 2020-12-08 00:00:00 [facility] [place] [facility] 2020-12-08 00:00:00 [facility] [place] [facility] 2020-12-08 00:00:00 ALBUTEROL SULFATE [facility] [place] [facility] 2020-12-08 00:00:00 FLUTICASONE-SALMETEROL [facility] [place] [facility] 2020-12-08 00:00:00 ALBUTEROL SULFATE [facility] [place] [facility] 2020-12-08 00:00:00 FLUTICASONE-SALMETEROL [facility] Social History date description facility [id number]
== END 2020-12-08 13:01 | disposition home or self-care (01) ==
LOC: PC 13:00
PROVIDERS: ATTEND Nurse Practitioner Adult Health
DX: Z51.5 Encounter for palliative care (principal); J18.9 Pneumonia, unspecified organism; J44.9 Chronic obstructive pulmonary disease, unspecified; C34.90 Malignant neoplasm of unspecified part of unspecified bronchus or lung; F41.9 Anxiety disorder, unspecified; G89.4 Chronic pain syndrome
CPT/HCPCS: 99349

== ENCOUNTER 2020-12-14 16:56 | Outpatient (CLI) | payer MEDICARE, MEDICAID ==
--- NOTE | 2020-12-15 15:02 | XRAY Report ---
PROCEDURE: Chest 2 View X-Ray INDICATIONS: COUGH, LT CHEST PAIN, SOB TECHNIQUE: 2 view(s) of the chest. COMPARISON: Chest x-ray 08/03/2020 FINDINGS: Surgical changes and devices: Cervical fixation plate is present. Left Port-A-Cath is present, unchan ged. Lungs and pleura: No pleural effusions or pneumothorax. Lungs are clear. Mediastinum: Mediastinal contours are normal. Heart size is normal. Bones and chest wall: No suspicious bony abnormalities. Soft tissues appear unremarkable. IMPRESSION: No acute pulmonary process. Reviewed by: Margaret Almaguer MD on 12/15/2020 3:01 PM PST Approved by: Margaret Almaguer MD on 12/15/2020 3:01 PM PST Station ID: [id number]
== END 2020-12-14 16:57 | disposition home or self-care (01) ==
LOC: DI 16:56
PROVIDERS: ATTEND Nurse Practitioner Adult Health
DX: R05 Cough (principal); R06.00 Dyspnea, unspecified; Z85.118 Personal history of other malignant neoplasm of bronchus and lung

== ENCOUNTER 2021-02-02 14:30 | Outpatient (CLI) | payer MEDICARE, MEDICAID ==
--- NOTE | 2021-02-02 17:17 | CONSULTATION NOTE ---
Palliative Care Follow Up - Referral Referring Provider: Dr. Damion Collins/Dr. Ninfa Acuna Time of Visit: 2759-5675 Referral setting: Home Referral Reason: Advanced COPD/Chronic Pain Syndrome/Hx Lung CA/Anxiety - Information Sources Records reviewed: Previous records reviewed History/Review of Systems obtained from: Patient Exam limitations: No limitations - History of Present Illness Update Brief HPI Update: This is a complicated gentleman of 55 years old, has multiple serious illnesses. He has significant issues related to his longstanding severe COPD, continuing with 2 pack/day smoking, who also has known poorly differentiated small non- small cell lung carcinoma, with recent CT scan 01/12 showing no evidence of progressive or metastatic disease per oncology records. His stage is IIIB NSCLC, he had undergone concurrent radiation and carbo/Paxil Taxol x7 cycles in May 2019, and finished with consolidative durvalumab completed June 2020. He is on surveillance, with plan for follow-up in 6 months, by oncology. Patient comes continues to struggle with his severe dyspnea, reports is worse in the morning, with significant productive cough of green sputum, tightness and wheezing, and feeling overall fairly well "horrible". He does have oxygen tanks, but cannot afford to use overnight. Patient does have loud snoring, has not wanted to pursue CPAP, but may benefit from overnight oxygen. Is willing to undergo overnight oximetry testing. He also heard the oncologist say he has "chronic pneumonia", I suspect he has got chronic COPD changes, and would benefit from further recommendations from wrapper sizer, he has not established with new provider, at [facility], will follow up with Dr. Pete and see if he is willing to make referral. Patient also has complex psychosocial/mental health issues. He is not followed by psychiatry, has been fairly stable. Has known bipolar disorder as well as severe underlying anxiety disorder. He also has chronic tremors, and has been on lithium long-term. He is followed by neurology, who has him currently on primidone, he failed on propanolol. He also has longstanding chronic pain syndrome, and is on methadone. He has had increased overall in his feelings of joint and muscle pain, had discussed with both myself and oncology could be side effect from his immunotherapy as far as exacerbation. In agreement that increased opioids is not going to help, is currently on prednisone 10 mg, both for his COPD and joint pain, and has been on stable dose of methadone for almost 10 years. Past Medical History: COPD, ataxic cerebral palsy, hypothyroidism, GERD, history of recurrent candidiasis of esophagus, chronic vision loss, chronic hearing loss, depression, anxiety, bipolar disorder, panic attacks, PTSD, osteoarthritis, fatigue, chronic back pain, adenocarcinoma the lung. Social History - Living Situation Living arrangement: At home Living Situation: With spouse/s.o., With family Support System: Patient lives at home with his ganesh Sabrina, they have been over 29 years. He does depend on her as she oversees and advocates for medical needs and manages his medications. She herself is dealing with cancer multiple appointments and decline. 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 Is very difficult for him to be sedentary Medications/Allergies - Medications Home Medications: Ambulatory Orders Medication Instructions Recorded Confirmed [place]ney Carbonate 450 mg PO BID 10/24/14 02/03/21 Sertraline [Zoloft] 100 mg PO DAILY 10/24/14 02/03/21 lamoTRIgine [LaMICtal] 200 mg PO BID 10/24/14 02/03/21 QUEtiapine [SEROquel] 100 mg PO BID 08/03/15 02/03/21 Alprazolam [Xanax] 1 mg PO DAILY PRN MDD 3 03/15/18 02/03/21 Primidone 250 mg PO QPM 09/02/18 02/03/21 Albuterol Sulfate [Proair 2 puffs IH Q4HR PRN 08/10/20 02/03/21 Digihaler] Budesonide/Formoterol Fumarate 2 puffs IH BID 08/10/20 02/03/21 [Symbicort 80-4.5 Mcg Inhaler] Enoxaparin [Lovenox] 80 mg SUBQ Q12H 08/10/20 02/03/21 Ipratropium/Albuterol Sulfate 3 ml IH TID PRN 08/10/20 02/03/21 [Iprat-Albut 0.5-3(2.5) mg/3 ml] Methadone HCl 25 mg PO TID 08/10/20 02/03/21 Naloxone HCl [Narcan] 4 mg NS .ONE TIME PRN 08/10/20 02/03/21 Ondansetron [Ondansetron Odt] 8 mg PO DAILY PRN 08/10/20 02/03/21 Alprazolam [Alprazolam Xr] 2 mg PO DAILY 09/22/20 02/03/21 predniSONE [Deltasone] 10 mg PO DAILY 10/13/20 02/03/21 Nystatin [Mycostatin] 5 ml PO QID 11/03/20 02/03/21 - Allergies Allergies/Adverse Reactions: Allergies Allergy/AdvReac Type Severity Reaction Status Date / Time Penicillins Allergy Severe Respiratory Verified 08/10/20 15:05 Sulfa (Sulfonamide Allergy Severe Anaphylaxis Verified 08/10/20 15:05 Antibiotics) venom-honey bee Allergy Anaphylaxis Verified 08/10/20 15:05 [bee venom (honey bee)] Review of Systems - Constitutional Constitutional: reports: Fatigue (persistent), Weight stable - Eyes Eyes: reports: Vision loss, Corrective lenses - Ears, Nose & Throat Ears, Nose & Throat: reports: Hearing loss, Nasal congestion, Dentures, Hoarseness (worsening again), Dry mouth - Cardiovascular Cardiovascular: reports: Lightheadedness, Exertional dyspnea, Decr. exercise tolerance - Respiratory Respiratory: reports: Cough, Sputum production (green sputum in AM), Wheezing, SOB at rest, SOB with exertion - Gastrointestinal Gastrointestinal: reports: Nausea (occasional), Good appetite, Other (wt 194). denies: Constipation, Diarrhea - Genitourinary Genitourinary: reports: Frequency - Musculoskeletal Musculoskeletal: reports: Muscle pain, Back pain, Muscle aches, Stiffness, Limited range of motion, Muscle weakness, Joint pain - Integumentary Integumentary: reports: Dryness - Neurological Neurological: reports: General weakness, Memory problems, Abnormal gait (related to pain/peripheral neuropathy), Incoordination (related to tremors) - Psychiatric Psychiatric: reports: Depression, Anxiety (ran out of extended release alprazalom about 9 days ago; used some extra breakthrough; reports though even before anxiety has been escalating; very distressed with political unrest and COVID) - Endocrine Endocrine: reports: Hypothyroidism - Hematologic/Lymphatic Hematologic/Lymph: reports: Recurrent infections (treated CAP December) - All Other Systems All Other Systems: reports: Reviewed and negative Physical Exam - Vital Signs Temperature: 97.5 C Pulse Rate: 92 Respiratory Rate: 18 O2 Saturation: 95 Blood Pressure: 152/88 - Physical Exam General Appearance: positive: Alert, Anxious Eyes Bilateral: positive: Normal inspection ENT: positive: No signs of dehydration, Other (has dentures; pharyngeal noted white plaques again) Neck: positive: Trachea midline Cardiovascular: positive: Regular rate & rhythm Respiratory: positive: Diminished throughout, Wheezes (expiratory wheezes) Abdomen: positive: Nml bowel sounds, Obese Skin: positive: Pallor, Dryness Extremities: positive: No pedal edema Neurologic/Psychiatric: positive: Oriented x3, Mood/affect nml, Other (voice hoarse) Palliative Care - POLST Patient has POLST: No Pain: Pain worsening, Location (multiple joints/muscle aches) Tiredness/Fatigue: Moderate (4-6) Drowsiness/Sedation: Moderate (4-6) Nausea: Mild (1-3) Anorexia: None Dyspnea: Severe (7-10) Anxiety: Severe (7-10) Feelings of wellbeing/Perceived Quality of Life: Fair, Acceptable, No change Sleep: Sleeps well Constipation: No Performance Status: Patient remains quite active, pacing self. Trying to do household tasks. Is able to do his ADLs, but does feel like he used to be able to go 0-60, now goes to 0-10. - Palliative Care Discussion: Patient is somewhat pragmatic in the context he knows some of this is just things he is going to have to live with, his dyspnea, increasing pain, some of his health issues. He very much wants to try and avoid ED/hospitalization. He did get his first Covid shot and is having quite a few symptoms. He is very worried about his , she is down currently getting treatment for her cancer. She had a recent fall, he is very dependent on her both physically and emotionally for managing. They have not done further discussion or work on their advance care planning documents, will try and plan family meeting with next visit. Results - Lab Results Lab results reviewed: Yes Lab and Imaging Results: Lab results 01/12 from oncology appointment. Potassium 4.1 sodium 136, no other abnormal findings other than WC 11.6, hemoglobin 12.7 platelets 352 patient did not have thyroid or lithium checked. We will make arrangements with [facility]. Impression and Recommendations - Palliative Care Impression: This is an anxious 55-year-old gentleman who presents with multiple serious illnesses, including stage IIIb non-small cell lung cancer, currently on surveillance with no evidence of progressive or metastatic disease. He has advanced COPD with fluctuating exacerbations, treated most recently for pneumonia in December. This is layered in the complexity of his bipolar order, does severe anxiety disorder, and chronic pain syndrome as result of multiple musculoskeletal surgeries/diagnoses. This is thought to be exacerbated by his immunotherapy. Palliative care continue establish goals of care, providing pain and symptom management support as well as anticipatory guidance Recommendations/Counseling Done: 1. Stage IIIb non-small cell lung cancer. Patient is followed up with oncology, scans showed no evidence of metastatic or progressive disease. He is expected to have follow-up in 6 months, he continues to be quite anxious about this, feeling somewhat relieved. 2. COPD. Patient continues to have severe shortness of breath, worsening in a.m. Given patient's description patient most likely has sleep apnea, does not want to do CPAP given his anxiety disorder. Patient may benefit from overnight oxygen, will order overnight oximetry test. Call to [facility], will send order for testing. Patient is agreeable for follow-up with pulmonology, suspect this might be of benefit as well. 3. Oral candidiasis. Patient has history of recurrent oral and esophageal candidiasis, on examination and with increased hoarseness suspect this is worse. Had recommended follow-up with primary care provider to get ENT referral, does not have a pending appointment. Recommended and ordered another round of nystatin for 2 weeks, patient reviewed needs to remove dentures to take medication. 4. Chronic pain syndrome. Patient's been on stable dose for over 8 years at this point in time, will continue with his current methadone 25 mg 3 times daily. Has had some improvement of osteoarthritic/joint pain with initiation of prednisone. Oncologist confirmed this may be side effects from immunotherapy. No changes made. 5. Anxiety disorder. Patient continues with multiple financial and social stressors. Does feel has done better with the increase in time-released alprazolam, no changes today. 6. Advanced care planning. He does want to complete at some point, has been interrupted with his 's health issues, he is looking at [facility], wants to have further discussion and meet with . Will make appointment for family meeting next time. 45 minutes with greater than 50% of this done in counseling regarding pain and symptom management, anticipatory guidance, and coordination of care.
== END 2021-02-02 14:31 | disposition home or self-care (01) ==
LOC: PC 14:30
PROVIDERS: ATTEND Nurse Practitioner Adult Health
DX: Z51.5 Encounter for palliative care (principal); C34.90 Malignant neoplasm of unspecified part of unspecified bronchus or lung; J44.9 Chronic obstructive pulmonary disease, unspecified; B37.0 Candidal stomatitis; G89.4 Chronic pain syndrome; F41.9 Anxiety disorder, unspecified; F31.9 Bipolar disorder, unspecified; R25.1 Tremor, unspecified; G80.4 Ataxic cerebral palsy; F17.200 Nicotine dependence, unspecified, uncomplicated
CPT/HCPCS: 99349

== ENCOUNTER 2021-05-11 12:45 | Outpatient (CLI) | payer MEDICAID ==
--- NOTE | 2021-05-11 15:47 | CONSULTATION NOTE ---
Palliative Care Follow Up - Referral Referring Provider: Dr. Missy Acuna Time of Visit: 7122-9249 Referral setting: Home Referral Reason: Advanced COPD/Anxiety Disorder/Chronic Pain Syndrome/Hx Lung CA - Information Sources Records reviewed: Previous records reviewed History/Review of Systems obtained from: Patient Exam limitations: Clinical condition (high anxiety; distracted with 's health issues) - History of Present Illness Update Brief HPI Update: This is a complicated gentleman of 55 years old, appears older than his stated age, has multiple serious illnesses. He has significant issues related to his longstanding severe COPD, continuing with 1 to 2 pack day smoking, also has known poorly differentiated small noncell lung cancer, with recent CT scan T showing no evidence of progression or metastatic disease. He has undergone concurrent radiation and carbo/Taxol and finished up with cons olidative durvalumab completed in 06/2020. He is on surveillance and due for follow-up with his provider in the next month. Patient was having worsening shortness of breath in the a.m., patient has high underlying anxiety disorder along with PTSD which plays into both his shortness of breath and his anxiety. He did have an appointment with the manager radio after much encouragement, unfortunately he felt it was "underwhelming". No medication changes were made, did not weigh in on the prednisone, nor did PFTs or testing to patient's expectations. Patient's anxiety is fairly significant today, his has had declining health issues, and is mostly bedbound. Given patient's frailty of status, including his chronic back pain, dyspnea and anxiety has exacerbated both his pain and his anxiety with her ongoing decline. He requested I talk to her about going back to the hospital, am concerned. The other missing piece is he did have an overnight oximetry done, through [facility] reports he did complete this within a week or 2 after ordering, I have not seen the results on this. Past Medical History: COPD, ataxic cerebral palsy, tremors, hypertension, hypothyroidism, GERD, history of recurrent candidiasis of esophagus, chronic vision loss, chronic hearing loss, depression, bipolar disorder, panic attacks, PTSD, osteoarthritis, fatigue, chronic back pain, lung cancer Social History - Living Situation Living arrangement: At home Living Situation: With spouse/s.o., With family Support System: Patient lives at home with his Sabrina, who have been over 30 years. He does often depend on her, unfortunately her health is declining, she does have cancer herself and now a broken back and is mostly bedbound. They do have a 23-year-old son who lives with him, who also has underlying anxiety. They are all distressed with 's declining health and increased needs. Unfortunately patient has not received any assistance, he is quite distressed as he has palliative care, and she has higher care needs and has not received any ser vices. 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 Is very difficult for him to be limited by his disease. Medications/Allergies - Medications Home Medications: Ambulatory Orders Medication Instructions Recorded Confirmed [place] Carbonate 450 mg PO BID 10/24/14 05/11/21 Sertraline [Zoloft] 100 mg PO DAILY 10/24/14 05/11/21 lamoTRIgine [LaMICtal] 200 mg PO BID 10/24/14 05/11/21 QUEtiapine [SEROquel] 100 mg PO BID 08/03/15 05/11/21 Alprazolam [Xanax] 1 mg PO DAILY PRN MDD 3 03/15/18 05/11/21 Primidone 250 mg PO QPM 09/02/18 05/11/21 Albuterol Sulfate [Proair 2 puffs IH Q4HR PRN 08/10/20 05/11/21 Digihaler] Enoxaparin [Lovenox] 80 mg SUBQ Q12H 08/10/20 05/11/21 Ipratropium/Albuterol Sulfate 3 ml IH TID PRN 08/10/20 05/11/21 [Iprat-Albut 0.5-3(2.5) mg/3 ml] Methadone HCl 25 mg PO TID 08/10/20 05/11/21 Naloxone HCl [Narcan] 4 mg NS .ONE TIME PRN 08/10/20 05/11/21 Ondansetron [Ondansetron Odt] 8 mg PO DAILY PRN 08/10/20 05/11/21 Alprazolam [Alprazolam Xr] 2 mg PO DAILY 09/22/20 05/11/21 predniSONE [Deltasone] 10 mg PO DAILY 10/13/20 05/11/21 Nystatin [Mycostatin] 5 ml PO QID PRN 11/03/20 05/11/21 Benzonatate [Tessalon] 100 mg PO TID PRN 05/11/21 05/11/21 Fluticasone/Salmeterol [Advair Hfa 2 puffs INH BID 05/11/21 05/11/21 115-21 Mcg Inhaler] Pantoprazole [Protonix] 40 mg PO DAILY 05/11/21 05/11/21 - Allergies Allergies/Adverse Reactions: Allergies Allergy/AdvReac Type Severity Reaction Status Date / Time Penicillins Allergy Severe Respiratory Verified 08/10/20 15:05 Sulfa (Sulfonamide Allergy Severe Anaphylaxis Verified 08/10/20 15:05 Antibiotics) venom-honey bee Allergy Anaphylaxis Verified 08/10/20 15:05 [bee venom (honey bee)] Review of Systems - Constitutional Constitutional: reports: Fatigue (persistent; worsening with caregiving needs), Weakness, Weight stable - Eyes Eyes: reports: Vision loss, Corrective lenses - Ears, Nose & Throat Ears, Nose & Throat: reports: Hearing loss, Nasal congestion, Dentures, Hoarseness (worsening again), Mouth lesions, Dry mouth - Cardiovascular Cardiovascular: reports: Lightheadedness, Exertional dyspnea, Decr. exercise tolerance - Respiratory Respiratory: reports: Cough, Sputum production, Wheezing, SOB at rest, SOB with exertion, Other (smoking pack a day) - Gastrointestinal Gastrointestinal: reports: Nausea (occasional), Good appetite. denies: Constipation, Diarrhea - Genitourinary Genitourinary: reports: Frequency - Musculoskeletal Musculoskeletal: reports: Muscle pain, Back pain, Muscle aches, Stiffness, Limited range of motion, Muscle weakness, Joint pain - Integumentary Integumentary: reports: Dryness - Neurological Neurological: reports: General weakness, Memory problems, Abnormal gait (related to pain/peripheral neuropathy), Incoordination (related to tremors) - Psychiatric Psychiatric: reports: Depression, Anxiety (ran out of extended release alprazalom about 9 days ago; used some extra breakthrough; reports though even before anxiety has been escalating; very distressed with political unrest and COVID) - Endocrine Endocrine: reports: Hypothyroidism - Hematologic/Lymphatic Hematologic/Lymph: reports: Recurrent infections (treated CAP December) - All Other Systems All Other Systems: reports: Reviewed and negative Physical Exam - Vital Signs Temperature: 98.1 C Pulse Rate: 104 Respiratory Rate: 20 O2 Saturation: 96 (ra @ rest) Blood Pressure: 148/82 - Physical Exam General Appearance: positive: Alert, Moderate distress (with caregiving burden), Anxious Eyes Bilateral: positive: Normal inspection ENT: positive: No signs of dehydration, Other (has dentures; pharyngeal noted white plaques again; note lesions irregular in back of throat; voice hoarse) Neck: positive: Trachea midline Cardiovascular: positive: Regular rate & rhythm, Tachycardia Respiratory: positive: Diminished throughout Abdomen: positive: Nml bowel sounds, Obese Skin: positive: Pallor, Dryness Extremities: positive: No pedal edema Neurologic/Psychiatric: positive: Oriented x3, Mood/affect nml, Other (tremors in hands at baseline) Palliative Care - POLST Patient has POLST: No Pain: Pain unchanged, Location (multiple joints/aches) Tiredness/Fatigue: Moderate (4-6) Drowsiness/Sedation: Moderate (4-6) Nausea: Mild (1-3) Anorexia: Mild (1-3) Dyspnea: Severe (7-10) Depression: Moderate (4-6) Anxiety: Severe (7-10) Feelings of wellbeing/Perceived Quality of Life: Fair, Acceptable, Worsening Sleep: Variable sleep pattern Constipation: No Performance Status: Patient easily gets winded, and overwhelmed by his anxiety. He has had more tasks relating to caregiving, as well as support of the household duties. He reports if he paces his activity, takes frequent rests, he is able to complete some household tasks. He is currently feeling overwhelmed by patient's 's emotional and physical care needs. He is able to manage his ADLs, he gets quite exhausted as he also has poor sleep - Palliative Care Discussion: Patient has had difficulty focusing on his own care needs, and is getting quite exhausted with caregiving of his . He very much wants her to go back to the hospital, and see what they can do to help her, she has been quite reticent to return, which is stressed to him significantly. I did offer to follow-up with either their PCP for increased services but recommended that they call 911 and send her in for support, she has been seriously ill and bedbound for 3 weeks. I did call to the ED at [facility] as that is where they said they were going to go, and gave report to the ED doctor Dr. Finley. She has been in and often refuses any care or interventions, but has been made aware of unsafe situation at home.Patient does need to complete his advance care planning documents, he has been leading towards a no code, but wanted to have a family meeting to complete this conversation. Will defer to future visit. Impression and Recommendations - Palliative Care Impression: This is very anxious 55-year-old gentleman who presents with multiple serious illnesses, including stage IIIb non-small cell lung cancer, currently on surveillance, advanced COPD with fluctuating exacerbations, most recently treated for pneumonia in December, layered in the complexity of his bipolar and anxiety disorder. Patient does have chronic pain syndrome as result of multiple musculoskeletal surgeries and diagnoses. This is thought to have been exacerbated by his immunotherapy. Palliative care continue to establish goals of care, providing support for pain and symptom management, psychosocial support as well as anticipatory guidance Recommendations/Counseling Done: 1. Stage IIIb non-small cell lung cancer. Patient is followed by oncology, patient is expected have follow-up in the next month or 2. He will have labs with this, reviewed he does need to have his lithium levels and thyroid checked, have attempted to made arrangements for these labs as well as port flush, acknowledged understanding that these needs to happen as he does not have any psychiatry or other providers monitoring this. He he will reach out if this does not happen, can get at local lab. 2. COPD. Patient continues to have severe shortness of breath, worsening a.m. Patient most likely has sleep apnea, did have an overnight oxygen test, awaiting final results of this. Patient did meet with pulmonology, no adjustments made, would be beneficial to know patient's underlying PFTs, may facilitate this in the context of prognosis. 3. Oral candidiasis. Patient continues with evidence of oral candidiasis, hoarseness, has had intermittent nystatin. Would recommend follow-up with ENT, patient is too distracted to further follow-up on this currently, will readdress at next visit, is aware this is my recommendation. 4. Chronic pain syndrome. Patient's dose has been stable for the last 8 years, will continue with current methadone dosing of 25 mg 3 times daily. Patient has had some improvement of his osteoarthritic/joint pain with initiation of prednisone, no changes needed though he has had exacerbation of his pain given the heavy caregiving lifting and managing his as she is bedbound. 5. Anxiety disorder. Patient continues with multiple stressors, particular exacerbation today with resistance to follow-up medical care and worsening condition. Recommendation to call 911 for further evaluation, and needs further support and services. 6. Advanced care planning. Patient does want to complete these, has been interrupted with his health issues, is looking at DNR but wants further discussion and family meeting, is not appropriate this meeting, but patient continues to be quite frail and at high risk for sequela related to his high symptom burden, and advanced COPD. 60 minutes with greater 50% of this done in counseling regarding anxiety, coordination of care and assisting addressing caregiving fatigue, no changes currently in his symptom management regimen.
== END 2021-05-11 12:46 | disposition home or self-care (01) ==
LOC: PC 12:45
PROVIDERS: ATTEND Nurse Practitioner Adult Health
DX: Z51.5 Encounter for palliative care (principal); C34.90 Malignant neoplasm of unspecified part of unspecified bronchus or lung; J44.9 Chronic obstructive pulmonary disease, unspecified; B37.0 Candidal stomatitis; G89.4 Chronic pain syndrome; M89.49 Other hypertrophic osteoarthropathy, multiple sites; F41.9 Anxiety disorder, unspecified; F17.200 Nicotine dependence, unspecified, uncomplicated; Z79.899 Other long term (current) drug therapy
CPT/HCPCS: 99350

== ENCOUNTER 2021-06-23 14:00 | Outpatient (CLI) | payer MEDICAID ==
--- NOTE | 2021-06-23 16:59 | CONSULTATION NOTE ---
Palliative Care Follow Up - Referral Referring Provider: Dr. Ninfa Acuna Time of Visit: [id number] Referral setting: Home Referral Reason: Acute on Chronic Pain/Anxiety/Advanced COPD/Hx of Lung CA - Information Sources Records reviewed: Previous records reviewed History/Review of Systems obtained from: Patient Exam limitations: Clinical condition (patient with high anxiety/STM deficits) - History of Present Illness Update Brief HPI Update: This is a very complicated gentleman of 55 years old, appearing older than his stated age, has multiple serious illnesses. Affecting his health most dramatically today, is the recent of his of 26 years, he is acutely grieving, notably with increased anxiety and worsening short-term memory issues, as well as perceives he has worsening pain and increasing shortness of breath. Of note patient has increased his smoking fairly dramatically, had about 5 cigarettes while I was present, is pacing, very anxious. He is quite wheezy, O2 sats are within normal range, reports he has been using oxygen with some success. He has lost 33 pounds in about 1-1/2 months. Patient has longstanding severe COPD, has recently received his oxygen concentrator, unfortunately it broke this morning. He is using it at night as instructed, as well as intermittently through the day. He reports he is being careful as far as following safety precautions. He also has known poorly differentiated non-small cell lung cancer With recent CT scan showing no evidence of progression or metastatic disease, he is due for further follow-up next month. He has undergone concurrent radiation and carbo/Taxol and finished up with consolidative immunotherapy he finished in 06/2020. Patient reports his pain is worsening, identifies it in his hip and back, he wrote reports it is "flared up". Is wanting to pursue further medication, patient is already fairly maxed out on methadone 25 mg 3 times daily, reviewed oxycodone given his polypharmacy and concern for mental health issues would not recommend giving at this point in time. We did discuss options which would include a burst of his prednisone 20 mg for 2 weeks, adding pregabalin, am hesitant to make any significant changes as I suspect some of this is in reaction to his 's . Patient does report he has been having worsening anxiety, patient does have a history of bipolar, has demonstrated intermittent increased agitation and manic behaviors. Reports he feels currently under control. He has seen his PCP, had been recommended on Zyban possibly for smoking sensation, recommended at this point in time given his multiple medications and risk for serotonin syndrome to not take this currently. We can revisit this after he is less distressed, patient in agreement. Patient does report some exacerbation of his depression, denies suicidal ideation, though does feel quite lost without his partner, he was quite dependent on her for medication management, emotional, and physical support. His son Elieser has been helping him with his medications and dispensing them, helping with meals, and they still are in the middle of trying to deal with all of her affairs and are on limited income with financial stressors. Past Medical History: COPD, ataxic cerebral palsy, tremors, hypertension, hypothyroidism, GERD, history of recurrent candidiasis of esophagus, chronic vision loss, chronic hearing loss, depression, bipolar disorder, panic attacks, PTSD, osteoarthritis, fatigue, chronic back pain, non-small cell lung cancer Social History - Living Situation Living arrangement: At home Living Situation: With family Support System: Patient lives at home, with a recent loss of his he is feeling somewhat better rift. They do have a 24-year-old son, who lives with him, he has gotten his sales warehouse driver's license, so has been able to help get him to appointments as well as manage his medications. 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 He has been trying to cope with distraction, with increased activity now has exacerbated his pain as well. Medications/Allergies - Medications Home Medications: Ambulatory Orders Medication Instructions Recorded Confirmed [place] Carbonate 450 mg PO BID 10/24/14 06/23/21 Sertraline [Zoloft] 100 mg PO DAILY 10/24/14 06/23/21 lamoTRIgine [LaMICtal] 200 mg PO BID 10/24/14 06/23/21 QUEtiapine [SEROquel] 100 mg PO BID 08/03/15 06/23/21 Alprazolam [Xanax] 1 mg PO DAILY PRN MDD 4 for 2 03/15/18 06/23/21 months Primidone 250 mg PO QPM 09/02/18 06/23/21 Albuterol Sulfate [Proair 2 puffs IH Q4HR PRN 08/10/20 06/23/21 Digihaler] Enoxaparin [Lovenox] 80 mg SUBQ Q12H 08/10/20 06/23/21 Ipratropium/Albuterol Sulfate 3 ml IH TID PRN 08/10/20 06/23/21 [Iprat-Albut 0.5-3(2.5) mg/3 ml] Methadone HCl 25 mg PO TID 08/10/20 06/23/21 Naloxone HCl [Narcan] 4 mg NS .ONE TIME PRN 08/10/20 06/23/21 Ondansetron [Ondansetron Odt] 8 mg PO DAILY PRN 08/10/20 06/23/21 Alprazolam [Alprazolam Xr] 2 mg PO DAILY 09/22/20 06/23/21 predniSONE [Deltasone] 20 mg PO DAILY MDD 2 weeks 10/13/20 06/23/21 Nystatin [Mycostatin] 5 ml PO QID PRN 11/03/20 06/23/21 Benzonatate [Tessalon] 100 mg PO TID PRN 05/11/21 06/23/21 Fluticasone/Salmeterol [Advair Hfa 2 puffs INH BID 05/11/21 06/23/21 115-21 Mcg Inhaler] Pantoprazole [Protonix] 40 mg PO DAILY 05/11/21 06/23/21 - Allergies Allergies/Adverse Reactions: Allergies Allergy/AdvReac Type Severity Reaction Status Date / Time Penicillins Allergy Severe Respiratory Verified 08/10/20 15:05 Sulfa (Sulfonamide Allergy Severe Anaphylaxis Verified 08/10/20 15:05 Antibiotics) venom-honey bee Allergy Anaphylaxis Verified 08/10/20 15:05 [bee venom (honey bee)] Review of Systems - Constitutional Constitutional: reports: Fatigue (worsening;), Weakness, Weight loss (33 pounds over 6 weeks) - Eyes Eyes: reports: Vision loss, Corrective lenses - Ears, Nose & Throat Ears, Nose & Throat: reports: Hearing loss, Nasal congestion, Dentures, Hoarseness (worsening again), Dry mouth - Cardiovascular Cardiovascular: reports: Lightheadedness, Exertional dyspnea, Decr. exercise tolerance - Respiratory Respiratory: reports: Cough, Sputum production, Wheezing, SOB at rest, SOB with exertion, Other (smoking pack a day) - Gastrointestinal Gastrointestinal: reports: Diarrhea, Nausea (occasional), Poor appetite, Early satiety. denies: Constipation - Genitourinary Genitourinary: reports: Frequency - Musculoskeletal Musculoskeletal: reports: Muscle pain, Back pain, Muscle aches, Stiffness, Limited range of motion, Muscle weakness, Joint pain (worsening) - Integumentary Integumentary: reports: Dryness - Neurological Neurological: reports: General weakness, Memory problems, Abnormal gait (related to pain/peripheral neuropathy), Incoordination (related to tremors) - Psychiatric Psychiatric: reports: Depression (exacerbated by grief), Anxiety (worsening; smoking more and occasionally "borrowing" for nerves) - Endocrine Endocrine: reports: Hypothyroidism - All Other Systems All Other Systems: reports: Reviewed and negative Physical Exam - Vital Signs Temperature: 97.5 C Pulse Rate: 90 Respiratory Rate: 20 O2 Saturation: 95 (ra @ rest) Blood Pressure: 120/82 - Physical Exam General Appearance: positive: Alert, Moderate distress (with grief), Anxious Eyes Bilateral: positive: Normal inspection ENT: positive: No signs of dehydration, Other (has dentures; pharyngeal noted white plaques again; note lesions irregular in back of throat; voice hoarse) Neck: positive: Trachea midline Cardiovascular: positive: Regular rate & rhythm, Tachycardia Respiratory: positive: Diminished throughout, Wheezes (insp and exp wheezes today) Abdomen: positive: Nml bowel sounds Skin: positive: Pallor, Dryness Extremities: positive: No pedal edema Neurologic/Psychiatric: positive: Oriented x3, Depressed mood/affect, Flat affect, Other (tremors in hands at baseline) Palliative Care - POLST Patient has POLST: No Pain: Pain worsening, Location (joints), Severity (9/10) Tiredness/Fatigue: Severe (7-10) Drowsiness/Sedation: Moderate (4-6) Nausea: Mild (1-3) Anorexia: Moderate (4-6), Weight loss Dyspnea: Severe (7-10) Depression: Moderate (4-6) Anxiety: Severe (7-10) Feelings of wellbeing/Perceived Quality of Life: Poor, Worsening Sleep: Sleeps poorly (sleeps 5-6 hours) Constipation: No Performance Status: Patient has several "projects" he is trying to complete, does appear to overdo, is very much packer to his pain. He is independent in his ADLs. He does fatigue and is limited by his breathlessness. - Palliative Care Discussion: Patient actively grieving the loss of his , he has overwrought and having difficulty concentrating. He reports he has had multiple panic attacks and exacerbations of his anxiety. He is smoking significantly more, his baseline up in 1 to 2 packs, is up to 3-4. His son has been providing support, reports he is doing fairly well, though somewhat awaiting for the "other shoe to drop". Patient very reflective that his was always his partner, his seeing to her again, and really does not know how to navigate this new life without her. They had just picked up her ashes, patient 2 tell his story, he actually himself came up with suggestion of going back to his AA community, had found this very helpful in the past and something he is familiar with. Reinforced reaching out for increased support. Given patient's fragile status, and 's recent . Discussed the need to determine DPOA, recommended just to short form as patient at high risk for hospitalization given his current distress and declining health. Did introduced honoring choices as a healthcare directive as well as the POLST. Given his recent experience with his , would like to not make it difficult with his son if he had to make hard decisions.Forms left and briefly reviewed. Impression and Recommendations - Palliative Care Impression: This is a very anxious 55-year-old gentleman who presents with multiple serious illnesses, high symptom burden exacerbated by the recent grief reaction with loss of his . He does have stage IIIb non-small cell lung cancer currently on surveillance, advanced COPD with fluctuating exacerbations, layered in the complexity of his bipolar and anxiety disorder. Patient does have chronic pain syndrome, perceives exacerbated with multiple musculoskeletal surgeries and diagnoses. This is also thought to been exacerbated by his recent immunotherapy. Palliative care continue provide support for pain and symptom management, psychosocial support as well as anticipatory guidance. Recommendations/Counseling Done: 1. Acute on chronic pain. Patient is on his methadone 25 mg 3 times daily, wanting some supplement for his chronic pain syndrome, he has been on this stable dose for the last 8 years. It does appear he has been probably overdoing and trying to distract himself with projects. Most of his pain is osteoarthritic/joint pain, had gotten some improvement with initiation of prednisone 10 mg, agreed to increase to 20 mg for 2 weeks both for his pain and increased wheezing. Discussed could add pregabalin but unwilling to add oxycodone at this point in time. 2. COPD. Patient continues with severe shortness of breath, has found some improvement with use of oxygen particularly overnight as far as a night awakening and breathlessness. Patient most likely has sleep apnea that unable to even consider CPAP or other intervention. Patient has increased his smoking, suspect this has exacerbated his wheezing. Will increase prednisone to 20 mg for 2 weeks, encouraged to use his albuterol inhaler, and as able to decrease his smoking. Recognizing currently he is in significant amount of stress. 3. Stage IIIb non-small small cell lung cancer. Patient is followed by oncology, expected to have follow-up next month. He did not follow through and get his labs done, have written a note, as well as will follow up with office to make sure he gets his thyroid and lithium levels done. 4. Oral candidiasis. Patient continues with fluctuating oral candidiasis, hoarseness, has been on intermittent nystatin. Have recommended follow-up with ENT, patient currently is too distracted to follow-up on this, will continue to readdress with next visit, he is aware of my recommendation. 5. Anxiety disorder. Patient with multiple stressors, particularly with grief reaction, after much discussion, will increase his alprazolam maximum daily dose to 4, with recommendation to try and still stay within his 3 daily. Patient in agreement that we will do this only for 2 months, then he will go back to his baseline. 6. Advanced care planning. Patient continues to want to complete these, now we are much further into this given his son now will be his DPOA. Reviewed the forms again, recommended get the DPOA form done as a priority. Patient remains quite frail high risk for sequela related to his high symptom burden, advanced COPD, and fluctuating anxiety and mental status. 60 minutes with greater than 50% of this time in counseling regarding anxiety and griefi, coordination of care, pain and symptom management and anticipatory guidance
== END 2021-06-23 14:01 | disposition home or self-care (01) ==
LOC: PC 14:00
PROVIDERS: ATTEND Nurse Practitioner Adult Health
DX: Z51.5 Encounter for palliative care (principal); J44.9 Chronic obstructive pulmonary disease, unspecified; F17.210 Nicotine dependence, cigarettes, uncomplicated; B37.0 Candidal stomatitis; F41.9 Anxiety disorder, unspecified; F32.9 Major depressive disorder, single episode, unspecified; R63.4 Abnormal weight loss; G89.4 Chronic pain syndrome; R53.83 Other fatigue; M19.90 Unspecified osteoarthritis, unspecified site; C34.90 Malignant neoplasm of unspecified part of unspecified bronchus or lung; Z79.52 Long term (current) use of systemic steroids; Z79.899 Other long term (current) drug therapy; Z79.891 Long term (current) use of opiate analgesic; Z79.51 Long term (current) use of inhaled steroids; Z63.4 Disappearance and death of family member; Z99.81 Dependence on supplemental oxygen; Z59.8 Other problems related to housing and economic circumstances; Z92.21 Personal history of antineoplastic chemotherapy; Z92.3 Personal history of irradiation
CPT/HCPCS: 99350

== ENCOUNTER 2021-08-24 14:20 | Outpatient (CLI) | payer MEDICARE, MEDICAID ==
--- NOTE | 2021-08-24 17:46 | CONSULTATION NOTE ---
Palliative Care Follow Up - Referral Referring Provider: Dr. Ninfa Acuna Time of Visit: 8811-3397 Referral setting: Home Referral Reason: Acute on chronic pain/anxiety/advanced COPD/Depression/Hx of Lung CA - Information Sources Records reviewed: Previous records reviewed History/Review of Systems obtained from: Patient Exam limitations: Clinical condition (STM deficits) - History of Present Illness Update Brief HPI Update: This is a very complicated gentleman of 56 years old, appearing older than his stated age, with multiple serious illnesses. Patient recently lost his of 26 years, continues to grieve but does appear to be doing somewhat better. Unfortunately patient has had recently a exacerbation of his pain, he has long- term been on methadone 25 mg 3 times daily for longstanding chronic pain which is multifactorial, with significant osteoarthritis, multiple joint pain and history of trauma, as well as residual from exacerbation from immunotherapy. Patient had reached out 07/24/2021 as had worsening acute pain, did order short acting oxycodone, to use up to 3-4 times a day, reports some relief, including functional outcome with better able to tolerate activities. Patient has longstanding COPD, is using it in the evenings when wakes up. Has intermittent shortness of breath and able to use a concentrator. Patient has known poorly nondifferentiated non-small cell lung cancer but has not shown any recent evidence of progression or metastatic disease. He does not have follow- up again until January. He has not had any further exacerbations. Patient would like to consider decreasing prednisone 10 mg, as he is getting some increased abdominal girth, and mild Gage Bennie appearance. He feels currently fairly stable, has decreased his pack to three quarters versus full pack a day. Denies any productive cough, and shortness of breath doing fairly well. Patient has longstanding anxiety and depression, with history of bipolar disorder, and intermittent exacerbations. He feels currently he is doing fairly well on his current regimen. We did discuss given his recent loss and exacerbation of his depression considering further psychiatric or counseling, at this point he will defer [place]. Today is his son's 25th birthday, he is helping him with his medications this patient continues with short-term memory issues. Reports his tremors are no better or worse, and does not plan to follow-up with neurology. He is worried about being a burden on him, but has no long-term plan. Past Medical History: COPD, ataxic cerebral palsy, tremors, hypertension, hypothyroidism, GERD, history of recurrent candidiasis of esophagus, chronic vision loss, chronic hearing loss, depression, bipolar disorder, panic attacks, PTSD, osteoarthritis, fatigue, chronic back pain, non-small cell lung cancer currently in remission Social History - Living Situation Living arrangement: At home Living Situation: With family Support System: Patient lives at home, with recent loss of his he is feeling somewhat adrift. She had been the one that had kind to manage his medications, his appointments and overall household. His son has stepped in, but there is some tension regarding this. Patient does not drive, his 24-year-old son now has his straddle truck driver's license and able to help get him to appointments. 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 Is very difficult for him to be limited by his pain and disease, he likes to have projects. This is difficult though because increased activity often exacerbates his pain Medications/Allergies - Medications Home Medications: Ambulatory Orders Medication Instructions Recorded Confirmed [place] Carbonate 450 mg PO BID 10/24/14 08/24/21 Sertraline [Zoloft] 100 mg PO DAILY 10/24/14 08/24/21 lamoTRIgine [LaMICtal] 200 mg PO BID 10/24/14 08/24/21 QUEtiapine [SEROquel] 100 mg PO BID 08/03/15 08/24/21 Alprazolam [Xanax] 1 mg PO DAILY PRN MDD 4 for 2 03/15/18 08/24/21 months Primidone 250 mg PO QPM 09/02/18 08/24/21 Albuterol Sulfate [Proair 2 puffs IH Q4HR PRN 08/10/20 08/24/21 Digihaler] Enoxaparin [Lovenox] 80 mg SUBQ Q12H 08/10/20 08/24/21 Ipratropium/Albuterol Sulfate 3 ml IH TID PRN 08/10/20 08/24/21 [Iprat-Albut 0.5-3(2.5) mg/3 ml] Methadone HCl 25 mg PO TID 08/10/20 08/24/21 Naloxone HCl [Narcan] 4 mg NS .ONE TIME PRN 08/10/20 08/24/21 Ondansetron [Ondansetron Odt] 8 mg PO DAILY PRN 08/10/20 08/24/21 Alprazolam [Alprazolam Xr] 2 mg PO DAILY 09/22/20 08/24/21 predniSONE [Deltasone] 10 mg PO DAILY MDD 1 mg down every 10/13/20 08/24/21 2-3 Nystatin [Mycostatin] 5 ml PO QID PRN 11/03/20 08/24/21 Benzonatate [Tessalon] 100 mg PO TID PRN 05/11/21 08/24/21 Fluticasone/Salmeterol [Advair Hfa 2 puffs INH BID 05/11/21 08/24/21 115-21 Mcg Inhaler] Pantoprazole [Protonix] 40 mg PO DAILY 05/11/21 08/24/21 Oxycodone HCl 10 mg PO Q4HR PRN MDD 4 08/24/21 08/24/21 - Allergies Allergies/Adverse Reactions: Allergies Allergy/AdvReac Type Severity Reaction Status Date / Time Penicillins Allergy Severe Respiratory Verified 08/10/20 15:05 Sulfa (Sulfonamide Allergy Severe Anaphylaxis Verified 08/10/20 15:05 Antibiotics) venom-honey bee Allergy Anaphylaxis Verified 08/10/20 15:05 [bee venom (honey bee)] Review of Systems - Constitutional Constitutional: reports: Fatigue (somewhat improved; perceives with increased pain relief able to do faye), Weakness, Weight loss (176 today) - Eyes Eyes: reports: Vision loss, Corrective lenses - Ears, Nose & Throat Ears, Nose & Throat: reports: Hearing loss, Nasal congestion, Dentures, Hoarseness (improved has not needed nystatin), Dry mouth - Cardiovascular Cardiovascular: reports: Lightheadedness, Exertional dyspnea, Decr. exercise tolerance - Respiratory Respiratory: reports: Cough (improved), Sputum production, SOB at rest, SOB with exertion, Other (decreased to 3/4 pack from one pack; using oxygen part of ni ght) - Gastrointestinal Gastrointestinal: reports: Poor appetite, Early satiety. denies: Constipation - Genitourinary Genitourinary: reports: Frequency - Musculoskeletal Musculoskeletal: reports: Muscle pain, Back pain, Muscle aches, Stiffness, Limited range of motion, Muscle weakness, Joint pain (worsening) - Integumentary Integumentary: reports: Dryness - Neurological Neurological: reports: General weakness, Memory problems, Abnormal gait (related to pain/peripheral neuropathy), Incoordination (related to tremors) - Psychiatric Psychiatric: reports: Depression (exacerbated by grief), Anxiety ( improved) - Endocrine Endocrine: reports: Hypothyroidism - All Other Systems All Other Systems: reports: Reviewed and negative Physical Exam - Vital Signs Temperature: 97.2 C Pulse Rate: 78 Respiratory Rate: 18 O2 Saturation: 98 (ra @ rest) Blood Pressure: 122/78 - Physical Exam General Appearance: positive: No acute distress, Alert Eyes Bilateral: positive: Normal inspection ENT: positive: No signs of dehydration Neck: positive: Trachea midline Cardiovascular: positive: Regular rate & rhythm Respiratory: positive: Diminished throughout. negative: Wheezes Abdomen: positive: Nml bowel sounds, Distended Skin: positive: Pallor, Dryness Extremities: positive: No pedal edema Neurologic/Psychiatric: positive: Oriented x3, Depressed mood/affect, Flat affect, Other (tremors in hands at baseline) Palliative Care - POLST Patient has POLST: No POLST Status: Full Code Pain: Pain worsening, Location (reports joint/back pain; better tolerating activity with intermittent oxycodone) Tiredness/Fatigue: Moderate (4-6) Drowsiness/Sedation: Moderate (4-6) Nausea: None Anorexia: Moderate (4-6), Weight loss Dyspnea: Severe (7-10) Depression: Moderate (4-6) Anxiety: Severe (7-10) Feelings of wellbeing/Perceived Quality of Life: Fair, Acceptable, Improved Sleep: Variable sleep pattern Constipation: Yes, Opoid induced, Managed Performance Status: IsPatient reports able to have increased mobility with the intermittent oxycodone use, does try to stretch it out in time it accordingly with activity. Doing household tasks, and has been moving firewood around, is able to manage his ADLs. - Palliative Care Discussion: Last visit patient had exacerbated grief, today patient is still reflective on his grief journey. Discussed again 's , he is having dreams and quite powerful reflections on her demise. Allowed patient to tell his story, he reports he feels like currently his depression is under control. We did discuss other supports, he is willing to look at bereavement group in the future. Impression and Recommendations - Palliative Care Impression: This is an anxious 56-year-old gentleman who presents with multiple serious illnesses, high symptom burden, is doing better with the grief reaction with the loss of his . He does have stage IIIb non-small lung cancer, currently on surveillance, advanced COPD with fluctuating exacerbations, currently controlled. Later than the complexity of his bipolar and anxiety disorder. Patient does have chronic pain syndrome, this is exacerbated by multiple musculoskeletal surgeries and multiple diagnoses, as well as side effects of immunotherapy. Patient has currently added oxycodone for breakthrough pain with increased functionality and better relief. Palliative care continue to provide support for pain and symptom management, psychosocial support as well as anticipatory guidance Recommendations/Counseling Done: 1. Acute on chronic pain. Patient is on his baseline methadone 25 mg 3 times daily, he has been stable on this for 8 years. Reports he has had an exacerbation of his acute joint pain, worsening osteoarthritic discomfort, and limiting pain regarding activity. Did add 10 mg of oxycodone up to 4-day times a day with good response. Patient staying within limitations. We will continue to monitor, patient agreeable to decrease in the future. 2. COPD. Patient continues with shortness of breath, though has had some improvement overall. Patient wanting to decrease prednisone secondary to side effects, will decrease slowly currently on 10 mg will decrease 1 mg every 2 to 3 weeks, this is written out as his son is doing his medications. 3. Stage III non-small cell lung cancer. Patient is followed by oncology, reports currently his disease is stable, he has a follow-up in January. 4. Anxiety disorder. Patient with multiple stressors, particularly with grief reaction though this is improved. Patient to go back to his baseline for alprazolam, he is finding distraction. 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 Did discuss possible referral to psychiatry or counseling, patient will consider but has not found helpful in the past other than psychiatry. Unfortunately no psychiatrist is available at this time. 5. Advanced care planning patient continues want to complete these, he will need to have his son be his DPOA. Patient remains quite frail and high risk for sequela related to his high symptom burden, advanced COPD, and fluctuating anxiety and mental status. We will continue to explore and encourage completion as patient's mental health is able to absorb. 60 minutes with greater than 50% of this done with counseling, review of symptoms, support for grief reaction, and anticipatory guidance.
== END 2021-08-24 14:21 | disposition home or self-care (01) ==
LOC: PC 14:20
PROVIDERS: ATTEND Nurse Practitioner Adult Health
DX: Z51.5 Encounter for palliative care (principal); G89.29 Other chronic pain; T45.1X5S Adverse effect of antineoplastic and immunosuppressive drugs, sequela; J44.9 Chronic obstructive pulmonary disease, unspecified; R63.0 Anorexia; R63.4 Abnormal weight loss; R53.1 Weakness; R25.1 Tremor, unspecified; M19.90 Unspecified osteoarthritis, unspecified site; F41.9 Anxiety disorder, unspecified; F32.9 Major depressive disorder, single episode, unspecified; K59.03 Drug induced constipation; T40.2X5A Adverse effect of other opioids, initial encounter; F17.210 Nicotine dependence, cigarettes, uncomplicated; Z79.891 Long term (current) use of opiate analgesic; Z79.899 Other long term (current) drug therapy; Z79.52 Long term (current) use of systemic steroids; Z99.81 Dependence on supplemental oxygen; Z63.4 Disappearance and death of family member; Z87.828 Personal history of other (healed) physical injury and trauma; Z85.118 Personal history of other malignant neoplasm of bronchus and lung
CPT/HCPCS: 99350

== ENCOUNTER 2021-10-19 11:00 | Outpatient (CLI) | payer MEDICARE, MEDICAID ==
--- NOTE | 2021-10-19 17:34 | CONSULTATION NOTE ---
Palliative Care Follow Up - Referral Referring Provider: Dr. Ninfa Acuna Time of Visit: Referral setting: Home Referral Reason: Acute on Chronic pain/Anxiety/Depression/Wt. Lost/Hoarseness/Hx of Lung CA - Information Sources Records reviewed: Previous records reviewed History/Review of Systems obtained from: Patient Exam limitations: Clinical condition (mild STM / anxiety) - History of Present Illness Update Brief HPI Update: This is a very complicated gentleman of 56 years old, appearing older than his stated age with multiple serious illnesses. Patient continues with acute grief reaction of the loss of his of 26 years, has been distracting himself with multiple projects, but is finding it difficult approaching the holidays. Patient has longstanding anxiety and depression with history of bipolar disorder and intermittent exacerbations. He had requested referral to psychiatry, had seen his PCP without any further follow-up on this. He feels currently does not want to make any adjustments. He is quite engaged today, making good eye contact, is appropriately tearful when describing his struggles with grief. Patient has longstanding COPD, is only intermittently using his inhaler, oxygen, and DuoNeb. Has not noted any exacerbations, is currently off of his prednisone. He has decreased his smoking to a pack a day, but continues to smoke. Reports productive cough of white phlegm, and intermittent shortness of breath. But seems to be fairly stable overall with his COPD. Patient also has known history of lung cancer, primary tumor located in the right upper lobe, with a differentiated non-small cell carcinoma, did receive concurrent radiation and carbo/Taxol x7 cycles and consolidative durvalumab the completed 06/2020. He has been on surveillance, recently seen his oncologist, and is due to have his Port-A-Cath removed today. Patient also has assisted chronic pain, has been on methadone 25 mg 3 times a day for 8+ years. I did inherit him on this. He has had an exacerbation of his pain, most likely combination of his arthritis, multiple joint pain and history of trauma, as well as residual from exacerbation from immunotherapy. He has been using short acting oxycodone in addition to methadone, but staying within his allotted 4 tabs in 24 hours, is able to report increased functional outcome and better able to tolerate activities. We did discuss titrating back off of this, at this point in time will not make any changes given concerns for limiting his further activity. Patient's most complicated symptom today actually is his hoarseness. This is progressed to the point where he can hardly whisper. Denies trouble with swallowing, has had significant history of oral candidiasis in the past, on examination unable to see anything on tongue or sides of cheek, patient does have dentures. He has not wanted to follow-up with ENT previously because of caring for his and other complications in his health. He feels like he is ready to do this. He was actually like to consider some kind of short term or part-time work, but because cannot enunciate or be understood this is complicated for him. Will send referral to ENT. Past Medical History: COPD, ataxic cerebral palsy, essential tremor, pulmonary emboli currently on Lovenox, hypertension, hypothyroidism as result of immunotherapy, GERD, history of recurrent candidiasis of the esophagus, chronic vision loss, chronic hearing loss, depression, bipolar disorder, panic attacks, PTSD, osteoarthritis, fatigue, chronic back pain, non-small cell lung cancer currently in remission, tobacco dependence Social History - Living Situation Living arrangement: At home Living Situation: With family Support System: Patient lives at home, his 25-year-old son does oversee and set up his Mediset's. They have different schedules, and do not have much interaction, reports they have good and bad days as far as their interactions. 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 This is difficult though because increased activity often exacerbates his pain Medications/Allergies - Medications Home Medications: Ambulatory Orders Medication Instructions Recorded Confirmed Solvang Carbonate 450 mg PO BID 10/24/14 10/20/21 Sertraline [Zoloft] 100 mg PO DAILY 10/24/14 10/20/21 lamoTRIgine [LaMICtal] 200 mg PO BID 10/24/14 10/20/21 QUEtiapine [SEROquel] 100 mg PO BID 08/03/15 10/20/21 Alprazolam [Xanax] 1 mg PO DAILY PRN MDD 4 for 2 03/15/18 10/20/21 months Primidone 250 mg PO QPM 09/02/18 10/20/21 Albuterol Sulfate [Proair 2 puffs IH Q4HR PRN 08/10/20 10/20/21 Digihaler] Enoxaparin [Lovenox] 80 mg SUBQ Q12H 08/10/20 10/20/21 Ipratropium/Albuterol Sulfate 3 ml IH TID PRN 08/10/20 10/20/21 [Iprat-Albut 0.5-3(2.5) mg/3 ml] Methadone HCl 25 mg PO TID 08/10/20 10/20/21 Naloxone HCl [Narcan] 4 mg NS .ONE TIME PRN 08/10/20 10/20/21 Ondansetron [Ondansetron Odt] 8 mg PO DAILY PRN 08/10/20 10/20/21 Alprazolam [Alprazolam Xr] 2 mg PO DAILY 09/22/20 10/20/21 Nystatin [Mycostatin] 5 ml PO QID PRN 11/03/20 10/20/21 Benzonatate [Tessalon] 100 mg PO TID PRN 05/11/21 10/20/21 Fluticasone/Salmeterol [Advair Hfa 2 puffs INH BID 05/11/21 10/20/21 115-21 Mcg Inhaler] Pantoprazole [Protonix] 40 mg PO DAILY 05/11/21 10/20/21 Oxycodone HCl 10 mg PO Q4HR PRN MDD 4 08/24/21 10/20/21 - Allergies Allergies/Adverse Reactions: Allergies Allergy/AdvReac Type Severity Reaction Status Date / Time Penicillins Allergy Severe Respiratory Verified 08/10/20 15:05 Sulfa (Sulfonamide Allergy Severe Anaphylaxis Verified 08/10/20 15:05 Antibiotics) venom-honey bee Allergy Anaphylaxis Verified 08/10/20 15:05 [bee venom (honey bee)] Review of Systems - Constitutional Constitutional: reports: Fatigue (somewhat improved; perceives with increased pain relief able to do faye), Weakness, Weight loss (176 last visit; 169 today; reports total loss of wt 42 pounds over last several months) - Eyes Eyes: reports: Vision loss, Corrective lenses - Ears, Nose & Throat Ears, Nose & Throat: reports: Hearing loss, Nasal congestion, Dentures, Hoarseness (worsening; now a whisper), Dry mouth - Cardiovascular Cardiovascular: reports: Lightheadedness, Exertional dyspnea, Decr. exercise tolerance - Respiratory Respiratory: reports: Cough (improved), Sputum production, SOB at rest, SOB with exertion, Other (one pack a day; using oxygen a few times a week) - Gastrointestinal Gastrointestinal: reports: Poor appetite, Early satiety, Other (unable to get Ensure with finances). denies: Constipation - Genitourinary Genitourinary: reports: Frequency - Musculoskeletal Musculoskeletal: reports: Muscle pain, Back pain, Muscle aches, Stiffness, Limited range of motion, Muscle weakness, Joint pain (worsening; in particular knees) - Integumentary Integumentary: reports: Dryness - Neurological Neurological: reports: General weakness, Memory problems, Abnormal gait (related to pain/peripheral neuropathy), Incoordination (related to tremors) - Psychiatric Psychiatric: reports: Depression (exacerbated by grief), Anxiety ( improved) - Endocrine Endocrine: reports: Hypothyroidism - All Other Systems All Other Systems: reports: Reviewed and negative Physical Exam - Vital Signs Temperature: 97.7 C Pulse Rate: 82 Respiratory Rate: 18 O2 Saturation: 96 (ra @ rest) Blood Pressure: 112/64 - Physical Exam General Appearance: positive: No acute distress, Alert Eyes Bilateral: positive: Normal inspection ENT: positive: No signs of dehydration, Other (not able to visualize any candidiasis; but patient with dentures) Neck: positive: Trachea midline Cardiovascular: positive: Regular rate & rhythm Respiratory: positive: Diminished throughout. negative: Wheezes Abdomen: positive: Soft, Nml bowel sounds Skin: positive: Pallor, Dryness Extremities: positive: No pedal edema Neurologic/Psychiatric: positive: Oriented x3, Depressed mood/affect, Flat affect, Other (tremors in hands at baseline) Palliative Care - POLST Patient has POLST: Yes POLST Status: DNR, Selective Treatment (completed today at visit) Pain: Pain worsening, Comment (see HPI) Tiredness/Fatigue: Moderate (4-6) Drowsiness/Sedation: Moderate (4-6), Comment (having difficulty with sleeping at NOC) Nausea: None Anorexia: Severe (7-10), Weight loss Dyspnea: Severe (7-10) Depression: Moderate (4-6) (Patient continues to have significant grief reaction. Does denies suicidality.) Anxiety: Moderate (4-6) Feelings of wellbeing/Perceived Quality of Life: Fair, No change Sleep: Variable sleep pattern Constipation: No Performance Status: Patient does have difficulty getting from sitting to standing particularly with his knees. He is ambulatory but gait is slightly ataxic, given his peripheral neuropathy and multiple joint pain. He is managing his ADLs, is working on different projects. He is frustrated though by his physical limitations and particularly limitations impacting by his pain - Palliative Care Discussion: Patient continues to struggle with loss of his , feeling quite overwhelmed regarding this. Denies suicidality. Would be interested in finding some kind of grief support, with other people who are struggling as he is. He is feeling somewhat lost without her. Patient did complete his DPOA, naming his son Elieser Lomas [phone] as his DPOA. He did not provide a backup, though does have 2 other daughters. We also completed his POLST, he is quite clear he wants to be a DNR/DNI but would accept treatment for reversible conditions but does not want to be ventilated. We completed the form, he does have it on his fridge. Results - Lab Results Lab results reviewed: Yes Lab and Imaging Results: Labs on 10/11 WBC 8.6, RBC 4.26, hemoglobin 12.1, hematocrit 39.7, platelets 406 sodium 136, potassium 4.7, BUN 10.6, creatinine 0.72, glucose 108, alk phos 161, total protein 6.4, albumin 4.1 Impression and Recommendations - Palliative Care Impression: This is a 56-year-old gentleman who presents with multiple serious illnesses, high symptom burden, continued grief reaction with loss of his , and worsening hoarseness. Patient does have stage IIIb non-small lung cancer, cu rrently on surveillance, advanced COPD T with no recent exacerbations, this is in the setting of the complexity of his bipolar and anxiety disorder. Patient does have chronic pain syndrome, this is multifactorial and exacerbated by multiple musculoskeletal surgeries as well as side effects of immunotherapy. Palliative care continue provide support for pain and symptom management, psychosocial support as well as anticipatory guidance Recommendations/Counseling Done: 1. And acute on chronic pain. Patient is on baseline methadone 25 mg 3 times daily, he has been stable on this for 8 years. He has had a recent exacerbation of acute joint pain, particularly in his knees and limiting pain activity. Patient is using 10 mg of oxycodone up to 4 times a day with good response, did discuss in the context of his current condition looking at titrating off of this, he is using it appropriately though to help with function, in a.m., midday and at night if pain worsens. We will continue to monitor, patient agreeable to decrease in future. 2. COPD. Patient continues with shortness of breath, though improved overall. Patient is off his prednisone without any untoward effects, is continue use his oxygen intermittently, DuoNeb 2-3 times a week, as well as his ProAir infrequently. 3. Stage III non-small cell lung cancer. Patient is followed by oncology, recently seen to have Port-A-Cath removed. Disease is deemed stable. He is followed regularly with CT scans. 4. Hoarseness. Patient's voice is almost a whisper, patient has had recurrent oral candidiasis and history of esophageal candidiasis. Is agreeable at this time to have further follow-up through ENT. Will send referral, may need follow-up referral from PCP, but will initiate from this office and Follow-up if needed. 5. Grief reaction. Patient continues with fluctuating moods, has been recommended to follow-up with psychiatry has not had medications adjusted or monitored for long period of time. Did go see PCP, but did not obtain referral. Patient is interested in grief support groups, will follow up community coordinator to at least male handout for upcoming grief support for holidays. 6. Advanced care planning. Patient remains quite frail and high risk for sequela related to his high symptom burden, advanced COPD, and fluctuating April mental status. Patient was able to participate today in advance care planning, and has completed DPOA, copy received has identified his son Elieser Lomas [phone] did complete POLST with DN AR/DNI and selective treatments. Justin rojas is quite clear on goals particularly given his most recent experience with his , does not want son having to make decisions independently and would like to provide direction through POLST 45 minutes with greater than 50% of this done in counseling regarding goals of care, symptom management, coordination of care will send referral for ENT.
== END 2021-10-19 11:01 | disposition home or self-care (01) ==
LOC: PC 11:00
PROVIDERS: ATTEND Nurse Practitioner Adult Health
DX: Z51.5 Encounter for palliative care (principal); F31.9 Bipolar disorder, unspecified; F41.9 Anxiety disorder, unspecified; F41.0 Panic disorder [episodic paroxysmal anxiety]; F43.10 Post-traumatic stress disorder, unspecified; F43.20 Adjustment disorder, unspecified; J44.9 Chronic obstructive pulmonary disease, unspecified; R63.4 Abnormal weight loss; R49.0 Dysphonia; F17.210 Nicotine dependence, cigarettes, uncomplicated; C34.11 Malignant neoplasm of upper lobe, right bronchus or lung; M19.90 Unspecified osteoarthritis, unspecified site; G80.4 Ataxic cerebral palsy; G25.0 Essential tremor; E03.2 Hypothyroidism due to medicaments and other exogenous substances; T50.Z95A Adverse effect of other vaccines and biological substances, initial encounter; H54.7 Unspecified visual loss; H91.90 Unspecified hearing loss, unspecified ear; R53.83 Other fatigue; G89.29 Other chronic pain; Z66 Do not resuscitate; Z79.891 Long term (current) use of opiate analgesic; Z86.711 Personal history of pulmonary embolism; Z79.02 Long term (current) use of antithrombotics/antiplatelets; M54.9 Dorsalgia, unspecified
CPT/HCPCS: 99349

== ENCOUNTER 2021-11-03 16:38 | Outpatient (CLI) | payer MEDICARE, MEDICAID | END 2021-11-03 23:59 | disposition home or self-care (01) | LOC: LAB 16:38 | PROVIDERS: ATTEND Nurse Practitioner | DX: R05.8 Other specified cough (principal); Z20.822 Contact with and (suspected) exposure to COVID-19 ==

== ENCOUNTER 2021-12-12 15:36 | Outpatient (CLI) | payer MEDICARE, MEDICAID ==
[2021-12-12 21:00] LABS: BILIRUBIN,URINE NEGATIVE (NEGATIVE); GLUCOSE, URINE (UA) NEGATIVE (NEGATIVE); KETONES,URINE (UA) NEGATIVE (NEGATIVE); LEUKOCYTE ESTERASE, URINE NEGATIVE (NEGATIVE); NITRITE,URINE NEGATIVE (NEGATIVE); OCCULT BLOOD,URINE NEGATIVE (NEGATIVE); PROTEIN,URINE NEGATIVE (NEGATIVE); UROBILINOGEN,URINE 0.2 (NORMAL) E.U./dL (NORMAL)
[2021-12-12 21:19] LABS: BACTERIA,URINE None Seen /HPF (None Seen); CLARITY,URINE HAZY (CLEAR); RBC,URINE 0-5 /HPF (0-5); SQUAMOUS EPITHELIAL CELL,UR FEW Squamous (<= Few); WBC,URINE 0-3 /HPF (0-3)
[2021-12-12 21:20] LABS: % IRON SATURATION 47 % (20-50); AMYLASE 33 U/L (28-100); CHOL/HDL RATIO 5.7 (<5.0); CHOLESTEROL 212 mg/dL; HDL CHOLESTEROL 37 mg/dL; IRON 153 ug/dL (45-182); LDL CHOLESTEROL,CALCULATED 137 mg/dL; LDL/HDL RATIO 3.7 (<3.6); LIPASE 21 U/L (22-51); TOTAL IRON BINDING CAPACITY 328 ug/dL (250-450); TRANSFERRIN 234 mg/dL (180-329); TRIGLYCERIDES 188 mg/dL; VLDL CHOLESTEROL 38 mg/dL
[2021-12-12 21:22] LABS: LITHIUM 0.92 mmol/L
[2021-12-12 21:39] LABS: FERRITIN 25.1 ng/mL (23.9-336.2)
== END 2021-12-12 15:37 | disposition home or self-care (01) ==
LOC: LAB.N 15:36
PROVIDERS: ATTEND Nurse Practitioner
DX: F31.9 Bipolar disorder, unspecified (principal); Z13.220 Encounter for screening for lipoid disorders; Z12.5 Encounter for screening for malignant neoplasm of prostate; K86.81 Exocrine pancreatic insufficiency; D64.9 Anemia, unspecified
CPT/HCPCS: 36415; 80061; 80175; 80178; 81001; 82150; 82607; 82728; 83540; 83690; 84466; G0103; 83721; 84153; 87086

== ENCOUNTER 2022-01-26 23:40 | Outpatient (CLI) | payer MEDICARE, MEDICAID | END 2022-01-26 23:41 | disposition EMS.NT | LOC: EMS 23:40 | DX: Z03.89 Encounter for observation for other suspected diseases and conditions ruled out (principal) ==

== ENCOUNTER 2022-02-23 13:15 | Outpatient (CLI) | payer MEDICARE, MEDICAID ==
--- NOTE | 2022-02-23 16:11 | CONSULTATION NOTE ---
Palliative Care Follow Up - Referral Referring Provider: Dr. Acuna Time of Visit: 3772-7124 Referral setting: Home Referral Reason: Chronic Pain Syndrome/Tremors/Bipolar 1 Manic /Lung CA - Information Sources Records reviewed: Previous records reviewed History/Review of Systems obtained from: Patient, Family (son Elieser) Exam limitations: Clinical condition (patient with STM deficits) - History of Present Illness Update Brief HPI Update: This is a very complicated gentleman of 56 years old, appearing stated older than his stated age with multiple serious illnesses. He did have an acute grief reaction to those loss of of 26 years, but unfortunately has had an exacerbation of his bipolar disorder with manic episode. Unfortunately has not been able to up to this point be able to engage in psychiatric services due to lack of resources in the community. He did end with increasing and worsening hallucinations, paranoia, and delusions. With increasing difficult behaviors regarding this, this was also triggered most likely by the fact that he had relapsed and used methamphetamines for 5 to 6 days. Patient currently denies he is not using this. Patient has had a significant weight loss, has longstanding COPD but currently is doing fairly well with this, also has known history of lung cancer currently on surveillance. Palliative care has been following him long-term for his chronic pain, as he has been on methadone 25 mg 3 times a day for 8+ years, I did inherit him on this. He did have an exacerbation of his pain most likely combination of worsening osteoarthritis, multiple joint pain history of trauma and residual from exacerbation of immunotherapy side effects. Concern today is patient has been taken off his primidone, which son perceives has increased his tremors though they were poorly controlled before but having much more spastic-like movements. Certainly there is concern for patient's ongoing meth use, though does deny. Interesting enough patient has had less trouble with his breathing, has been more active working on multiple projects, has been smoking less as he has been sleeping more, and son is concerned about patient's increased lethargy. Reports this has happened since he has been discharged from the psych unit. Patient did have an admission on 01/29/2022 to psychiatry at [facility], he had unfortunately sat for several days in the ED, worsening his symptoms and paranoia, as well as he had a significant negative experience around this. It was an involuntary stay. He has had a stay at a psychiatric [facility] previously, and has always found them quite demeaning though he is quite participatory. On the good thing that has come out of this is he will be connected to services, and has a intake and assessment pending this Saturday. Son who oversees patient's meds, continues to try and stay engaged, has patient gets quite angry and distressed with patient, he lashes out and gets quite angry, and is concerned that he is fed up and is going to leave him. At some level he "does not blame him on,. He reports he just became a very mean person and hate the world kind of person, today he is cooperative he was somewhat lethargic on arrival, but did perk up through the visit. He had forgotten we had made an appointment. Past Medical History: COPD, ataxic cerebral palsy, essential tremor, pulmonary emboli currently on Lovenox, hypertension, hypothyroidism as result of immunotherapy, GERD, history of recurrent candidiasis of esophagus, chronic vision loss chronic hearing loss, depression, bipolar disorder, panic attacks, PTSD, osteoarthritis, fatigue, chronic back pain, non-small cell lung cancer currently remission, tobacco dependence Social History - Living Situation Living arrangement: At home Living Situation: With family Support System: Patient lives at home with his 25-year-old son who does oversee and sets of his Mediset's. They have different schedules as he is working nights for [employer]. ey have good days and bad days as far as her interactions. 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 It has been difficult for him to be limited by his pain disease and has very much dependent on his for his management. Both of his medications and also his mood. Medications/Allergies - Medications Home Medications: Ambulatory Orders Medication Instructions Recorded Confirmed Cricket Carbonate 450 mg PO BID 10/24/14 02/23/22 Sertraline [Zoloft] 100 mg PO DAILY 10/24/14 02/23/22 lamoTRIgine [LaMICtal] 200 mg PO BID 10/24/14 02/23/22 QUEtiapine [SEROquel] 100 mg PO BID 08/03/15 02/23/22 Alprazolam [Xanax] 1 mg PO DAILY PRN MDD 4 for 2 03/15/18 02/23/22 months Primidone 125 mg PO QPM MDD 250 09/02/18 02/23/22 Albuterol Sulfate [Proair 2 puffs IH Q4HR PRN 08/10/20 02/23/22 Digihaler] Enoxaparin [Lovenox] 80 mg SUBQ Q12H 08/10/20 02/23/22 Ipratropium/Albuterol Sulfate 3 ml IH TID PRN 08/10/20 02/23/22 [Iprat-Albut 0.5-3(2.5) mg/3 ml] Methadone HCl 25 mg PO TID 08/10/20 02/23/22 Naloxone HCl Nasal [Narcan] 4 mg NS .ONE TIME PRN 08/10/20 02/23/22 Ondansetron [Ondansetron Odt] 8 mg PO DAILY PRN 08/10/20 02/23/22 Alprazolam [Alprazolam Xr] 2 mg PO DAILY 09/22/20 02/23/22 Nystatin [Mycostatin] 5 ml PO QID PRN 11/03/20 02/23/22 Benzonatate [Tessalon] 100 mg PO TID PRN 05/11/21 02/23/22 Fluticasone/Salmeterol [Advair Hfa 2 puffs INH BID 05/11/21 02/23/22 115-21 Mcg Inhaler] Pantoprazole [Protonix] 40 mg PO DAILY 05/11/21 02/23/22 Levothyroxine Sodium 50 mcg PO DAILY 02/23/22 02/23/22 [Levothyroxine] - Allergies Allergies/Adverse Reactions: Allergies Allergy/AdvReac Type Severity Reaction Status Date / Time Penicillins Allergy Severe Respiratory Verified 08/10/20 15:05 Sulfa (Sulfonamide Allergy Severe Anaphylaxis Verified 08/10/20 15:05 Antibiotics) venom-honey bee Allergy Anaphylaxis Verified 08/10/20 15:05 [bee venom (honey bee)] Review of Systems - Constitutional Constitutional: reports: Fatigue (worsening; son reports sleeping 12-16 hours), Weakness, Weight loss (176 last visit; 169 today 10/22; 163 today) - Eyes Eyes: reports: Vision loss, Corrective lenses - Ears, Nose & Throat Ears, Nose & Throat: reports: Hearing loss, Nasal congestion, Dentures, Dry mouth. denies: Hoarseness - Cardiovascular Cardiovascular: reports: Lightheadedness, Exertional dyspnea, Decr. exercise tolerance - Respiratory Respiratory: reports: Cough (improved), Sputum production, SOB at rest (improved), SOB with exertion, Other (one pack a day; using oxygen a few times a week; smoking less) - Gastrointestinal Gastrointestinal: reports: Poor appetite, Early satiety. denies: Constipation - Genitourinary Genitourinary: reports: Frequency - Musculoskeletal Musculoskeletal: reports: Muscle pain, Back pain, Muscle aches, Stiffness, Limited range of motion, Muscle weakness, Joint pain (worsening; in particular knees) - Integumentary Integumentary: reports: Dryness - Neurological Neurological: reports: General weakness, Memory problems, Abnormal gait (related to pain/peripheral neuropathy), Incoordination (related to tremors; worsened off primidone; will restart) - Psychiatric Psychiatric: reports: Depression (exacerbated by grief), Anxiety, Hallucinations (persistent one "follows him around" mild paranoia lingering; can say it's not real in head; but feels real), Aggitation (fluctuates calls it "anger / rage outbursts") - Endocrine Endocrine: reports: Hypothyroidism - All Other Systems All Other Systems: reports: Reviewed and negative Physical Exam - Vital Signs Temperature: 97.1 C Pulse Rate: 99 Respiratory Rate: 18 O2 Saturation: 99 Blood Pressure: 138/72 - Physical Exam General Appearance: positive: No acute distress, Alert, Lethargic (on arrival; Perked up through visit; had been napping forgot visit) Eyes Bilateral: positive: Normal inspection ENT: positive: No signs of dehydration, Other (not able to visualize any candidiasis; but patient with dentures) Neck: positive: Trachea midline Cardiovascular: positive: Regular rate & rhythm Respiratory: positive: Diminished throughout. negative: Wheezes Abdomen: positive: Soft, Nml bowel sounds Skin: positive: Pallor, Dryness Extremities: positive: No pedal edema Neurologic/Psychiatric: positive: Oriented x3, Depressed mood/affect, Flat affect, Other (tremors in hands seem worse) Palliative Care - POLST Patient has POLST: Yes POLST Status: DNR, Selective Treatment Pain: Pain worsening, Location (multiple joints; worse in am), Severity (7/10 at worst), Comment (on methadone 25 mg tid; no oxycodone for greater than month; will leave off) Tiredness/Fatigue: Severe (7-10) Drowsiness/Sedation: Moderate (4-6) (worsening; unknown etiology) Nausea: Mild (1-3) Anorexia: Moderate (4-6), Weight loss Dyspnea: Moderate (4-6) (improved) Depression: Moderate (4-6) Anxiety: Moderate (4-6) Feelings of wellbeing/Perceived Quality of Life: Poor, Worsening Sleep: Variable sleep pattern (sleeping alot) Constipation: Yes, Opoid induced, Managed Performance Status: Patient has been more active, doing projects, staying distracted working in yard and hanging out with neighbors. Patient is managing his ADLs. Patient does feel somewhat stronger, and breathlessness has improved. - Palliative Care Discussion: Patient discouraged by his worsening psychiatric issues, feels overwhelmed by his grief, is having difficulty managing seeing a positive and anything. He d oes deny suicidal ideation. His son did participate in the visit today, providing helpful information. His son Elieser Lomas [phone] is his DPOA. Patient does have a POLST as he does want to be DNR/DNI but would accept treatment for reversible conditions and does not want to be ventilated. He does have the form on the fridge. He is hopeful that things will even out some, though remains somewhat pessimistic. Impression and Recommendations - Palliative Care Impression: This is a 56-year-old gentleman who presents with multiple serious illnesses, high symptom burden, continued grief reaction with his , and now most recently a manic episode exacerbation is bipolar, with recurrent meth use. Patient does have stage IIIb non-small lung cancer, currently on surveillance, advanced COPD with some improvement of his symptoms, and continues in the complexity of managing with little psychiatric support. He does have a pending appointment, hopefully this will be of help. Palliative care continue provide support for pain and symptom management, psychosocial support, coordination of care as well as anticipatory guidance. Recommendations/Counseling Done: 1. Chronic pain syndrome. Patient is on baseline methadone 20 feel milligrams 3 times daily, has been stable on this for 8 years. He had had a recent exacerbation of his acute joint pain, will though discontinue 10 mg of oxycodone as worried this is adding to the complexity of his care and history of illegal medication use. Before next time prescribing methadone, will get a UA. Patient is using methadone spread out through the day, did discuss with son recommended 3 times daily dosing, will continue to monitor. No changes made other than discontinuing oxycodone. 2. COPD. Patient at this point time is doing fairly well, appears he has decreased his smoking, does use oxygen intermittently a few times a week, though this is mostly related to anxiety. He is not needing his DuoNeb very much, and has not used for few weeks, and decreased use of proair as well. His lungs are diminished throughout, but no wheezes or signs of exacerbation. 3. Stage III non-small cell lung cancer. Patient is followed by oncology he missed his appointment but has been rescheduled 03/07 he is to hopefully get his results of his most recent CAT scans. Will reach out to oncology to update with current situation with follow-up note. 4. Hoarseness. This has actually resolved currently, he was to have a follow- up through ENT though I suspect this has not happened. 5. Bipolar, with recent exhibit acute exacerbation. Patient did have a psychiatric stay, no medication changes were made other than stopping the primidone. Patient most likely would benefit some adjustments as he is still having some hallucinations. He is due for intake on Saturday, will monitor closely. 6. Tremors. Patient does have as best we know ataxic cerebral palsy, son has noted increased spasticity with the decrease or discontinuation of primidone, no one is quite clear why it stopped, he does have a essential tremors but had been somewhat improved on it but had not tolerated increased dosing. Will start at 125 mg for 1 week and increase to full dose into. Patient to monitor response. 7. Advanced care planning. Patient remains quite frail, obviously with fluctuating mental status now and high risk for sequela related to his high symptom burden and advanced COPD. We will continue to follow, patient's goals are to focus on quality of life issues, patient continues to perceive his suffering is quite high. 60 minutes with greater than 50% of this done in counseling follow-up regarding his most recent psychiatric issues, did order labs per request as concern regarding persistent lethargy, will defer to pending psychiatric appointment. We will also if not screen to do UA for next order of methadone.
== END 2022-02-23 13:16 | disposition home or self-care (01) ==
LOC: PC 13:15
PROVIDERS: ATTEND Nurse Practitioner Adult Health
DX: Z51.5 Encounter for palliative care (principal); G89.4 Chronic pain syndrome; F31.2 Bipolar disorder, current episode manic severe with psychotic features; G80.4 Ataxic cerebral palsy; R53.83 Other fatigue; F15.90 Other stimulant use, unspecified, uncomplicated; F17.210 Nicotine dependence, cigarettes, uncomplicated; G25.0 Essential tremor; R63.4 Abnormal weight loss; K59.03 Drug induced constipation; T40.2X5A Adverse effect of other opioids, initial encounter; J44.9 Chronic obstructive pulmonary disease, unspecified; C34.90 Malignant neoplasm of unspecified part of unspecified bronchus or lung; Z79.891 Long term (current) use of opiate analgesic; Z79.899 Other long term (current) drug therapy; Z63.4 Disappearance and death of family member; Z63.8 Other specified problems related to primary support group; Z66 Do not resuscitate
CPT/HCPCS: 99350

== ENCOUNTER 2022-03-19 16:21 | Outpatient (CLI) | payer MEDICARE, MEDICAID ==
[2022-03-19 16:29] LABS: MUDS CUTOFF CONCENTRATIONS CUTOFF CONC BELOW:
[2022-03-19 18:26] LABS: COCAINE SCREEN URINE NEGATIVE (NEGATIVE); METHAMPHETAMINES SCREEN, URINE POSITIVE (NEGATIVE); THC CANNABINOID SCREEN, URINE NEGATIVE (NEGATIVE)
[2022-03-19 18:27] LABS: AMPHETAMINE SCREEN,URINE POSITIVE (NEGATIVE); BARBITURATE SCREEN,UR POSITIVE (NEGATIVE); BENZODIAZEPINES SCREEN, URINE POSITIVE (NEGATIVE); METHADONE SCREEN, URINE POSITIVE (NEGATIVE); OPIATE SCREEN, URINE NEGATIVE (NEGATIVE); OXYCODONE SCREEN, URINE NEGATIVE (NEGATIVE); PROPOXYPHENE SCREEN, URINE NEGATIVE (NEGATIVE); TRICYCLIC ANTIDEPRESSANT,URINE POSITIVE (NEGATIVE)
== END 2022-03-19 16:22 | disposition home or self-care (01) ==
LOC: LAB.N 16:21
PROVIDERS: ATTEND Nurse Practitioner Adult Health
DX: F15.20 Other stimulant dependence, uncomplicated (principal); Z03.89 Encounter for observation for other suspected diseases and conditions ruled out
CPT/HCPCS: 80306

== ENCOUNTER 2022-03-21 00:30 | Outpatient (CLI) | payer MEDICARE, MEDICAID | END 2022-03-21 00:31 | disposition left against medical advice (07) | LOC: EMS 00:30 | DX: S61.241A Puncture wound with foreign body of left index finger without damage to nail, initial encounter (principal); W29.4XXA Contact with nail gun, initial encounter; Y92.009 Unspecified place in unspecified non-institutional (private) residence as the place of occurrence of the external cause ==

== ENCOUNTER 2022-04-26 13:15 | Outpatient (CLI) | payer MEDICARE, MEDICAID ==
--- NOTE | 2022-04-27 08:57 | CONSULTATION NOTE ---
Palliative Care Follow Up - Referral Referring Provider: Dr. Acuna/now seeing Rohini MEHTA Time of Visit: Saturday04/27/2022 [id number] Referral setting: Home Referral Reason: Chronic Pain Syndromw/Bipolar 1 Manic/Lung CA/Stomach Pain/Left trauma inju - Information Sources Records reviewed: Previous records reviewed History/Review of Systems obtained from: Patient, Family (Elieser son 1/2 way through to help with medication reconcilliation) Exam limitations: Clinical condition (patient easily distracted; weak; voice very weak) - History of Present Illness Update Brief HPI Update: This is a very complicated gentleman of 56 years of age, appearing stated in his older age. He has multiple serious illnesses, and most recently acute grief reaction to the loss of his of 26 years. 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 Palliative care has been following him long-term for his chronic pain, he has been on methadone 25 mg 3 times daily a day for 8+ years, I did inherit him on this. He has had exacerbation of his pain most likely combination of worsening osteoarthritis, multiple joint pain as a history of trauma, and residual exacerbation of immunotherapy side effects. Patient's had been taken off his primidone, is now back on it his tremors are still present but improved, this that happened during his admission for psychiatric support at [facility]. It was an involuntary stay, and quite traumatic for him. He has been connected to local services and is currently seeing counselor, has a pending psychiatric nurse practitioner appointment to help evaluate manage his medications, but has been declining both mentally and physically over the last several months. Patient and give me permission to speak with his counselor, have made contact with Reba and have voiced my concerns. Since her last visit, patient did have a traumatic injury to his hand, staple gun. On 03/21, unfortunately he did not follow-up with his primary care to get stitches removed. Son concerned regarding wound, I did examine a it is without any signs or symptoms of infection and is healed up with the stitches in place. Was able to remove his stitches. Patient also has presented to toilet in the last 3 or 4 days with severe abdominal pain, patient denies vomiting though son reports patient was having nausea and vomiting beginning the week. Patient is without fever, has had medications a few years ago sulcal fate, for similar episode. Recommended patient be evaluated by endoscopy/surgeon, patient is quite provider adverse right now. Agreed to order 2 weeks worth of the sulcal fate if improves, or resolves will hold off on endoscopy referral. Patient has not also either followed up with his oncology, he is past due for his surveillance scans and checkup. Patient has not been able to follow through both for cognitive and mental health reasons, enlist the help of his son Elieser to help facilitate this appointment. In the meantime given patient's symptoms, signs concern for patient's increasing lethargy, will go ahead and get some labs. Had tried to get patient to do a urine for meth screening, patient unable to produce at that visit. Past Medical History: COPD, ataxic cerebral palsy, essential tremor, pulmonary emboli currently on Lovenox, hypertension, hypothyroidism as result of immunotherapy, GERD, history of recurrent candidiasis of esophagus, chronic hearing loss, vision loss, depression, bipolar disorder, panic attacks, PTSD, osteoarthritis, fatigue, chronic back pain, non-small cell lung cancer currently remission, tobacco dependence, meth dependence. Social History - Living Situation Living arrangement: At home Living Situation: With family Support System: Patient lives at home with his 25-year-old son who does oversee his medications and care. They have different schedules as son works nights. They have good days and bad days as far as interactions there is often a lot of tension, son is concerned about patient's recurrent meth use. 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 It is very difficult for him to be limited by his pain and disease, very much had been dependent on his for his overall management. He is recently , but this has been a fairly traumatic event for him. Medications/Allergies - Medications Home Medications: Ambulatory Orders Medication Instructions Recorded Confirmed [place] Carbonate 450 mg PO BID 10/24/14 04/27/22 Sertraline [Zoloft] 100 mg PO DAILY 10/24/14 04/27/22 lamoTRIgine [LaMICtal] 200 mg PO BID 10/24/14 04/27/22 QUEtiapine [SEROquel] 100 mg PO BID 08/03/15 04/27/22 Alprazolam [Xanax] 1 mg PO DAILY PRN MDD 4 for 2 03/15/18 04/27/22 months Primidone 250 mg PO QPM 09/02/18 04/27/22 Albuterol Sulfate [Proair 2 puffs IH Q4HR PRN 08/10/20 04/27/22 Digihaler] Enoxaparin [Lovenox] 80 mg SUBQ Q12H 08/10/20 04/27/22 Ipratropium/Albuterol Sulfate 3 ml IH TID PRN 08/10/20 04/27/22 [Iprat-Albut 0.5-3(2.5) mg/3 ml] Methadone HCl 25 mg PO TID 08/10/20 04/27/22 Naloxone HCl Nasal [Narcan] 4 mg NS .ONE TIME PRN 08/10/20 04/27/22 Ondansetron [Ondansetron Odt] 8 mg PO DAILY PRN 08/10/20 04/27/22 Alprazolam [Alprazolam Xr] 2 mg PO DAILY 09/22/20 04/27/22 Nystatin [Mycostatin] 5 ml PO QID PRN 11/03/20 04/27/22 Fluticasone/Salmeterol [Advair Hfa 2 puffs INH BID 05/11/21 04/27/22 115-21 Mcg Inhaler] Pantoprazole [Protonix] 40 mg PO DAILY 05/11/21 04/27/22 Levothyroxine Sodium 50 mcg PO DAILY 02/23/22 04/27/22 [Levothyroxine] Sucralfate [Carafate] 1 gm PO QID MDD 14 days 04/27/22 04/27/22 - Allergies Allergies/Adverse Reactions: Allergies Allergy/AdvReac Type Severity Reaction Status Date / Time Penicillins Allergy Severe Respiratory Verified 08/10/20 15:05 Sulfa (Sulfonamide Allergy Severe Anaphylaxis Verified 08/10/20 15:05 Antibiotics) venom-honey bee Allergy Anaphylaxis Verified 08/10/20 15:05 [bee venom (honey bee)] Review of Systems - Constitutional Constitutional: reports: Fatigue (worsening; difficult wake/sleep cycles), Weakness, Weight loss (176 last visit; 169 10/22; 163 02/23; 141 today) - Eyes Eyes: reports: Vision loss, Corrective lenses - Ears, Nose & Throat Ears, Nose & Throat: reports: Hearing loss, Nasal congestion, Dentures, Hoarseness (voice very weak; difficult to hear), Dry mouth - Cardiovascular Cardiovascular: reports: Lightheadedness, Exertional dyspnea, Decr. exercise tolerance. denies: Chest pain - Respiratory Respiratory: reports: Cough (improved), Sputum production, SOB at rest ( improved), SOB with exertion, Other (smoking less) - Gastrointestinal Gastrointestinal: reports: Abdominal pain (patient reports severe abdominal pain for several days; with one day of vomiting), Poor appetite, Early satiety. denies: Constipation - Genitourinary Genitourinary: reports: Frequency - Musculoskeletal Musculoskeletal: reports: Muscle pain, Back pain, Muscle aches, Stiffness, Limited range of motion, Muscle weakness, Joint pain (worsening; in particular knees) - Integumentary Integumentary: reports: Dryness - Neurological Neurological: reports: General weakness, Memory problems (son notes more cognitive changes), Abnormal gait (related to pain/peripheral neuropathy), Incoordination (related to tremors; worsened off primidone; will restart) - Psychiatric Psychiatric: reports: Depression (exacerbated by grief; has been going to counseling-missed this week because of stomach pain), Anxiety, Hallucinations (admits to see worms/bugs in food "digusting" making eating more difficult), Aggitation (fluctuates calls it "anger / rage outbursts") - Endocrine Endocrine: reports: Hypothyroidism - Hematologic/Lymphatic Hematologic/Lymph: reports: Other (no recent blood work; due to go to oncology) - All Other Systems All Other Systems: reports: Reviewed and negative Physical Exam - Vital Signs Temperature: 98.0 C Pulse Rate: 74 Respiratory Rate: 16 O2 Saturation: 98 Blood Pressure: 118/62 - Physical Exam General Appearance: positive: Alert, Mild distress (with abdominal pain), Lethargic (on arrival; Perked up through visit; had been napping forgot visit) Eyes Bilateral: positive: Other (eyes sunken) ENT: positive: No signs of dehydration, Other (not able to visualize any candidiasis; but patient with dentures) Neck: positive: Trachea midline Cardiovascular: positive: Regular rate & rhythm Respiratory: positive: Diminished throughout. negative: Wheezes Abdomen: positive: Soft, Nml bowel sounds, Tenderness (mid epigastric area) Skin: positive: Pallor (color sallow), Dryness Extremities: positive: No pedal edema Neurologic/Psychiatric: positive: Oriented x3, Weakness, Depressed mood/affect, Flat affect Palliative Care - POLST Patient has POLST: Yes POLST Status: DNR, Selective Treatment Pain: Pain worsening (joints), Severity (mod), Comment (Continues on Methadone 25 mg TID) Tiredness/Fatigue: Severe (7-10) Drowsiness/Sedation: Moderate (4-6) Nausea: None, With vomiting (with abdominal pain) Anorexia: Severe (7-10), Weight loss Dyspnea: Moderate (4-6) (improved with decreasing smoking) Depression: Moderate (4-6) (suicidal screen negative; denies suicidal/no plan; no plan to hurt self but admits to self sabatoge) Anxiety: Moderate (4-6) Feelings of wellbeing/Perceived Quality of Life: Poor, Worsening Sleep: Variable sleep pattern Constipation: Yes, Unmanaged (reports has been going 2 x this last month; denies "constipation" does have miralax) Performance Status: Patient is able to manage his own ADLs, is sleeping more, reports he forgets to eat and is getting weaker. He is still continue to work on his projects, and is driving. - Palliative Care Discussion: Patient had forgotten about our appointment, reports he is fairly desponded o verall. Reports he is having debilitating stomach pains, and has missed his counseling appointments. He also has not followed through on his oncology appointment, he denies using methadone at this point. Had admitted when I called last week last time he had used was 8 days ago so this would be over 2 weeks. He denies hearing voices, but reports lots of crying and was negative on suicidal screen. He is having some hallucinations, and reports lots of tension between he and his son mostly over medications. Elieser is overseeing his medications. I spoke to Elieser separately, has been quite stressful, reports patient continues to do poorly, and is concerned about his overall health. We discussed that his involvement particularly in psych meds appointment pending and be adjustments, would be important. Struggles with finding the balance to give him his privacy and independence but also keep him safe. Results - Lab Results Lab and Imaging Results: ordered labs Impression and Recommendations - Palliative Care Impression: This is a 56-year-old gentleman who presents with multiple serious illnesses, high symptom burden, and acutely today with abdominal pain. Patient does have stage IIIb non-small lung cancer, currently on surveillance, advanced COPD with improvement of symptoms with decrease in smoking, bipolar with recent exacerbation with persistent hallucinations, and long-term chronic pain. Of most concern is his ongoing weight loss, worsening acute abdominal pain, depression, and concern for recurrent meth use. Palliative care providing support for pain and symptom management, psychosocial support, coordination of care as well as anticipatory guidance. Recommendations/Counseling Done: 1. Abdominal pain. Concern for worsening abdominal pain, patient has been on sucralfate in the past, and what he describes most likely ulcers. Given patient's weight loss, worsening health status overall, encouraged to allow referral to surgeon for endoscopy.Patient declined, is tired of seeing "doctors", after much discussion, reviewed acute signs and symptoms to access ED, but will order sulcal fate for 2 weeks, if no improvement, patient agrees to referral.We will get labs also to see if any acute process noted. Patient denies any diarrhea, actually is having constipation. Encouraged use of ongoing MiraLAX. Patient also not eating strategies reviewed regarding this, though it is influenced by patient's mental health issues unfortunately as well. 2. Bipolar disorder. Patient still complains of some persistent hallucinations, unfortunately things are related to food. Patient does report reports forget to eat". And admits to some self sabotage, has had difficulty following through on appointments and obligations. He has been going to counseling, did give permission to speak with Reba's counselor, reviewed my concerns with her. There is a pending [facility] psychiatric evaluation for med management, encouraged them to include Elieser his son, who is managing his meds and he gives most information on patients response and behaviors. For adjustments. This was shared with both Elieser, patient, and Reba all in agreement. Patient denies recent methadone use. Patient with increased lethargy, son appropriately concerned if patient's lithium level is high, we will go ahead and order with other labs. 3. Chronic pain syndrome. Patient is on baseline 25 mg 3 times a day, has been stable on this for over 8 years. He has had recent exacerbation of joint pain, did distribute 2 weeks worth, as last time was positive for methadone. He was unable to provide me a UA today, no changes made today. He has slip to provide tomorrow with other labs. 4. Stage III non-small cell lung cancer. Patient is followed by oncology, did not follow through on his appointment. He had a "reschedule on 03/07" which he missed. Given information to send to help facilitate appointment. Patient has not been taking his enoxaparin for 4 days, reports he ran out and forgot to follow through on refill. 5. Hoarseness. This seems to have exacerbated again, given patient's reluctance to go to doctors, will wait on follow-up ENT appointment. Had been scheduled for referral for evaluation, patient long term care pharmacist has had intermittent hoarseness, concern for esophageal candidiasis. 6. Tremors. Patient does as best we know have ataxic cerebral palsy, had discontinue the primidone, and it is better with the introduction of it. But continues to be quite problematic. 7. Advanced care planning. Patient continues to be quite frail, obviously flexion with mental status and high risk for sequela from his high symptom burden and multiple serious illnesses. Palliative care will continue to follow patient as goals are to focus on quality of life issues, patient continues to perceive his suffering is quite high. 60 minutes with greater than 50% of this time in counseling, regarding med reconciliation, management, pain and symptom management, coordination of care with counseling, [place] service, and anticipatory guidance.
== END 2022-04-26 13:16 | disposition home or self-care (01) ==
LOC: PC 13:15
PROVIDERS: ATTEND Nurse Practitioner Adult Health
DX: Z51.5 Encounter for palliative care (principal); R10.9 Unspecified abdominal pain; F31.9 Bipolar disorder, unspecified; G89.4 Chronic pain syndrome; M25.50 Pain in unspecified joint; C34.90 Malignant neoplasm of unspecified part of unspecified bronchus or lung; R49.0 Dysphonia; R25.1 Tremor, unspecified; Z66 Do not resuscitate
CPT/HCPCS: 99350

== ENCOUNTER 2022-04-28 11:55 | Outpatient (CLI) | payer MEDICARE, MEDICAID ==
[2022-04-28 12:10] LABS: MUDS CUTOFF CONCENTRATIONS CUTOFF CONC BELOW:
[2022-04-28 19:27] LABS: BASOPHILS % (AUTO) 0.2 %; EOSINOPHILS # (AUTO) 0.3 10^3/uL (0.0-0.7); EOSINOPHILS % (AUTO) 2.7 %; HCT - HEMATOCRIT 35.7 % (42.0-52.0); LYMPHOCYTES # (AUTO) 1.8 10^3/uL (1.5-3.5); LYMPHOCYTES % (AUTO) 14.8 %; MEAN CORPUSCULAR HEMOGLOBIN 28.4 pg (27.0-31.0); MEAN CORPUSCULAR HGB CONC 30.8 g/dL (32.0-36.0); MEAN PLATELET VOLUME 10.9 fL (7.4-11.4); MONOCYTES # (AUTO) 0.9 10^3/uL (0.0-1.0); MONOCYTES % (AUTO) 7.2 %; NEUTROPHILS # (AUTO) 9.3 10^3/uL (1.5-6.6); NEUTROPHILS % (AUTO) 74.8 %; PLT - PLATELET COUNT 462 10^3/uL (130-450); RED BLOOD COUNT 3.88 10^6/uL (4.70-6.10); RED CELL DISTRIBUTION WIDTH 14.6 % (12.0-15.0); WHITE BLOOD COUNT 12.5 x10^3/uL (4.8-10.8)
[2022-04-28 19:38] LABS: AMPHETAMINE SCREEN,URINE NEGATIVE (NEGATIVE); BARBITURATE SCREEN,UR POSITIVE (NEGATIVE); BENZODIAZEPINES SCREEN, URINE POSITIVE (NEGATIVE); COCAINE SCREEN URINE NEGATIVE (NEGATIVE); METHADONE SCREEN, URINE POSITIVE (NEGATIVE); METHAMPHETAMINES SCREEN, URINE NEGATIVE (NEGATIVE); OPIATE SCREEN, URINE NEGATIVE (NEGATIVE); OXYCODONE SCREEN, URINE NEGATIVE (NEGATIVE); PROPOXYPHENE SCREEN, URINE NEGATIVE (NEGATIVE); THC CANNABINOID SCREEN, URINE NEGATIVE (NEGATIVE); TRICYCLIC ANTIDEPRESSANT,URINE POSITIVE (NEGATIVE)
[2022-04-28 19:45] LABS: ALBUMIN 3.5 g/dL (3.2-5.5); ALBUMIN/GLOBULIN RATIO 1.3 (1.0-2.2); BILIRUBIN,TOTAL 0.2 mg/dL (0.2-1.0); CALCIUM 8.9 mg/dL (8.5-10.3); CREATININE 0.7 mg/dL (0.6-1.2); POTASSIUM 4.4 mmol/L (3.5-5.0); TOTAL PROTEIN 6.3 g/dL (6.7-8.2)
[2022-04-28 19:46] LABS: LITHIUM 1.25 mmol/L
[2022-04-28 19:59] LABS: T4 (THYROXINE) 6.48 ug/dL (6.09-12.23)
[2022-04-28 20:03] LABS: THYROID STIMULATING HORMONE 2.13 uIU/mL (0.34-5.60)
== END 2022-04-28 11:56 | disposition home or self-care (01) ==
LOC: LAB.N 11:55
PROVIDERS: ATTEND Nurse Practitioner Adult Health
DX: Z79.899 Other long term (current) drug therapy (principal); E03.9 Hypothyroidism, unspecified; Z51.81 Encounter for therapeutic drug level monitoring; Z03.89 Encounter for observation for other suspected diseases and conditions ruled out; F15.20 Other stimulant dependence, uncomplicated
CPT/HCPCS: 36415; 80053; 80178; 80306; 84436; 84439; 84443; 84478; 84550; 85025

== ENCOUNTER 2022-04-30 19:09 | Outpatient (CLI) | payer MEDICARE, MEDICAID | END 2022-04-30 19:10 | disposition left against medical advice (07) | LOC: EMS 19:09 | DX: R06.02 Shortness of breath (principal) ==

== ENCOUNTER 2022-06-08 20:24 | Emergency (ER) | payer MEDICARE, MEDICAID ==
--- OUTSIDE RECORDS SUMMARY | 2022-06-08 20:53 | EXTERNAL MEDICAL SUMMARY RPT | Continuity of Care Document ---
:1965 Author Organization [facility] Address [address] [place] [address] Phone Allergies and Intolerances date description facility type (no date) [place] (unknown) (no date) Sulfa (Sulfonamide Antibiotics) [facility] [place] [facility] (unknown) Encounters No information. Functional Status No information. Immunizations No information. Medications date description facility +0000 Acetaminophen 325 MG / Oxycodone [facility] Hydrochloride 5 MG Oral Tablet Problems No information. Procedures date description facility +0000 Diagnosis [facility] +0000 Finding [facility] +0000 General Physician [facility] Results/Labs test date author facility value unit interpret ation Result panel 1 (unknown) (no (unknown) (unknown) (no value) (units (unk nown) date) unknown) (unknown) (no (unknown) (unknown) [address] [place] [address] (units (unknown) date) unknown) (unknown) (no (unknown) (unknown) [place], [place] (units ( unknown) date) [id number] unknown) (unknown) (no (unknown) (unknown) [facility] (units (unknown) date) unknown) (unknown) (no (unknown) (unknown) Signed (units (unkno wn) date) unknown) (unknown) (no (unknown) (unknown) XRay Report (units (un known) date) unknown) (unknown) (no (unknown) (unknown) (no value) (units (unk nown) date) unknown) (unknown) (no (unknown) (unknown) 03/21/22 (units (unkno wn) date) unknown) (unknown) (no (unknown) (unknown) Approved by: (units (u nknown) date) dominic Sesay) Aditi on 03/21/2022 at 8:30 (unknown) (no (unknown) (unknown) Bones: Metallic (units (unknown) date) foreign body unknown) (nail) is seen that appears to be traversing the (unknown) (no (unknown) (unknown) COMPARISON: (units (un known) date) None. unknown) (unknown) (no (unknown) (unknown) Dictated by: (units (u nknown) date) Edouard Peace unknown) Aditi on 03/21/2022 at 8:25 (unknown) (no (unknown) (unknown) FINDINGS: (units (unkn own) date) unknown) (unknown) (no (unknown) (unknown) IMPRESSION: (units (un known) date) Metallic foreign unknown) body is seen extending through the distal index (unknown) (no (unknown) (unknown) INDICATIONS: (units (u nknown) date) foreign body unknown) (unknown) (no (unknown) (unknown) Soft tissues: No (units (unknown) date) suspicious soft unknown) tissue calcifications. Soft tissue edema is (unknown) (no (unknown) (unknown) TECHNIQUE: PA (units (unknown) date) hand, 3 views of unknown) the index finger acquired. (unknown) (no (unknown) (unknown) appears to be (units ( unknown) date) traversing the mid unknown) to basilar portion of the 2nd distal phalanx (unknown) (no (unknown) (unknown) definite (units (unkno wn) date) involvement of the unknown) distal interphalangeal joint. Recommend (unknown) (no (unknown) (unknown) interphalangeal (units (unknown) date) joint space is unknown) seen. No suspicious bony lesions. (unknown) (no (unknown) (unknown) midportion of the (units (unknown) date) 2nd distal unknown) phalanx. No definite involvement of the distal (unknown) (no (unknown) (unknown) post extraction (units (unknown) date) radiographs. unknown) (unknown) (no (unknown) (unknown) the distal 2nd (units (unknown) date) finger surrounding unknown) the metallic foreign body. (unknown) (no (unknown) (unknown) : [id number] (units (u nknown) date) unknown) (unknown) (no (unknown) (unknown) Accession Number: (units (unknown) date) [id number] unknown) (unknown) (no (unknown) (unknown) Age/Sex: 56 / M (units (unknown) date) Date of Service: unknown) (unknown) (no (unknown) (unknown) : 1965 (units (unknown) date) Acct:[id number] unknown) (unknown) (no (unknown) (unknown) Loc: [facility] (units (unknown) date) unknown) (unknown) (no (unknown) (unknown) Ordering (units (unkno wn) date) Provider: unknown) Gm Arceo D.O. (unknown) (no (unknown) (unknown) PROCEDURE: XR (units (unknown) date) FINGER LT MIN 2V unknown) (unknown) (no (unknown) (unknown) Patient: (units (unkno wn) date) Lakeisha Camacho unknown) Jordin MR# (unknown) (no (unknown) (unknown) Procedure: XR (units ( unknown) date) finger LT min 2V unknown) (unknown) (no (unknown) (unknown) base and (units (unkno wn) date) unknown) (unknown) (no (unknown) (unknown) correlation with (units (unknown) date) unknown) (unknown) (no (unknown) (unknown) finger that (units (un known) date) unknown) (unknown) (no (unknown) (unknown) seen in (units (unkno wn) date) unknown) (unknown) (no (unknown) (unknown) without (units (unkno wn) date) unknown) Result panel 2 (unknown) (no (unknown) (unknown) (no value) (units (unk nown) date) unknown) (unknown) (no (unknown) (unknown) Date of Service: (units (unknown) date) 03/21/22 unknown) (unknown) (no (unknown) (unknown) (no value) (units (unk nown) date) unknown) (unknown) (no (unknown) (unknown) 0.5 mg PO DAILY (units (unknown) date) PRN (Reason: unknown) Anxiety) 0RF (unknown) (no (unknown) (unknown) 1 g PO QID 0RF (units (unknown) date) unknown) (unknown) (no (unknown) (unknown) 1 mg PO DAILY (units ( unknown) date) 0RF unknown) (unknown) (no (unknown) (unknown) 1 mg PO HS Qty: (units (unknown) date) 0 0RF unknown) (unknown) (no (unknown) (unknown) 100 mg PO BID (units ( unknown) date) 0RF unknown) (unknown) (no (unknown) (unknown) 100 mg PO DAILY (units (unknown) date) 0RF unknown) (unknown) (no (unknown) (unknown) 100 mg PO TID (units ( unknown) date) 0RF unknown) (unknown) (no (unknown) (unknown) 2 puff INH PRN (units (unknown) date) PRN (Reason: unknown) Shortness Of Breath) Qty: 8.5 0RF (unknown) (no (unknown) (unknown) 2 puff (units (unkno wn) date) INHALATION BID unknown) 0RF (unknown) (no (unknown) (unknown) 200 mg PO BID (units ( unknown) date) 0RF unknown) (unknown) (no (unknown) (unknown) 200 mg PO DAILY (units (unknown) date) 0RF unknown) (unknown) (no (unknown) (unknown) 25 mg PO TID 0RF (units (unknown) date) unknown) (unknown) (no (unknown) (unknown) 3 ml INH PRN (units (u nknown) date) Qty: 0 0RF unknown) (unknown) (no (unknown) (unknown) 40 mg PO DAILY (units (unknown) date) 0RF unknown) (unknown) (no (unknown) (unknown) 450 mg PO BID (units ( unknown) date) 0RF unknown) (unknown) (no (unknown) (unknown) 50 mg IV (units (unkno wn) date) SEEINSTR 0RF unknown) (unknown) (no (unknown) (unknown) 8 mg PO Q8HR PRN (units (unknown) date) (Reason: Nausea) unknown) 0RF (unknown) (no (unknown) (unknown) 80 mg SUBCUT (units (u nknown) date) Q12H Qty: 8 6RF unknown) (unknown) (no (unknown) (unknown) Allergies (units (unkn own) date) unknown) (unknown) (no (unknown) (unknown) ED Orders (units (unkn own) date) unknown) (unknown) (no (unknown) (unknown) Emergency Report (units (unknown) date) unknown) (unknown) (no (unknown) (unknown) Home Medications (units (unknown) date) unknown) (unknown) (no (unknown) (unknown) [facility] (units (unknown) date) [address] unknown) [place] [address] (unknown) (no (unknown) (unknown) Previous Rx's (units ( unknown) date) unknown) (unknown) (no (unknown) (unknown) Rx Instructions: (units (unknown) date) unknown) (unknown) (no (unknown) (unknown) once every 2 (units (u nknown) date) weeks unknown) (unknown) (no (unknown) (unknown) (no value) (units (unk nown) date) unknown) (unknown) (no (unknown) (unknown) Symbicort 80-4.5 (units (unknown) date) mcg/actuation HFA unknown) aerosol inhaler (unknown) (no (unknown) (unknown) albuterol (units (unkn own) date) sulfate unknown) [Proventil HFA] 90 MCG/PUFF HFA aerosol inhaler (unknown) (no (unknown) (unknown) alprazolam (units (unk nown) date) [Xanax] 0.5 MG unknown) tablet (unknown) (no (unknown) (unknown) benzonatate 100 (units (unknown) date) mg capsule unknown) (unknown) (no (unknown) (unknown) durvalumab 50 (units ( unknown) date) mg/mL Solution unknown) (unknown) (no (unknown) (unknown) enoxaparin (units (unk nown) date) [Lovenox] 80 unknown) mg/0.8 mL syringe (unknown) (no (unknown) (unknown) ipratropium-albu (units (unknown) date) terol 3 ML unknown) solution for nebulization (unknown) (no (unknown) (unknown) lamotrigine 200 (units (unknown) date) mg tablet unknown) (unknown) (no (unknown) (unknown) lithium (units (unkno wn) date) carbonate 150 mg unknown) capsule (unknown) (no (unknown) (unknown) lorazepam 0.5 mg (units (unknown) date) tablet unknown) (unknown) (no (unknown) (unknown) methadone 10 mg (units (unknown) date) tablet unknown) (unknown) (no (unknown) (unknown) ondansetron 8 mg (units (unknown) date) tablet,disintegra unknown) ting (unknown) (no (unknown) (unknown) pantoprazole 40 (units (unknown) date) mg tablet,delayed unknown) release (DR/EC) (unknown) (no (unknown) (unknown) prazosin 1 mg (units ( unknown) date) capsule unknown) (unknown) (no (unknown) (unknown) primidone 50 mg (units (unknown) date) tablet unknown) (unknown) (no (unknown) (unknown) quetiapine 50 mg (units (unknown) date) tablet unknown) (unknown) (no (unknown) (unknown) sertraline 100 (units (unknown) date) mg tablet unknown) (unknown) (no (unknown) (unknown) sucralfate 1 (units (u nknown) date) gram tablet unknown) (unknown) (no (unknown) (unknown) [id number] (units (unk nown) date) unknown) (unknown) (no (unknown) (unknown) Medication (units (unk nown) date) Instructions unknown) Recorded (unknown) (no (unknown) (unknown) Medication (units (unk nown) date) Instructions unknown) Recorded Confirmed (unknown) (no (unknown) (unknown) rales, or (units (unkn own) date) rhonchi. unknown) (unknown) (no (unknown) (unknown) (2.5 mg base)/3 (units (unknown) date) mL nebulization unknown) (unknown) (no (unknown) (unknown) 03/21/22 03:10 (units (unknown) date) unknown) (unknown) (no (unknown) (unknown) 12 point review (units (unknown) date) of systems is unknown) negative except for those stated above (unknown) (no (unknown) (unknown) 56-year-old male (units (unknown) date) daily smoker unknown) presents with an injury to his left index finger a (unknown) (no (unknown) (unknown) Age/Sex: 56 / M (units (unknown) date) unknown) (unknown) (no (unknown) (unknown) Allergy/AdvReac (units (unknown) date) Type Severity unknown) Reaction Status Date / Time (unknown) (no (unknown) (unknown) Antibiotics) (units (u nknown) date) unknown) (unknown) (no (unknown) (unknown) BACK: Nontender (units (unknown) date) without deformity unknown) or crepitance. No flank tenderness. (unknown) (no (unknown) (unknown) CARDIOVASCULAR: (units (unknown) date) Denies chest unknown) pain, palpitations, orthopnea, edema, (unknown) (no (unknown) (unknown) CARDIOVASCULAR: (units (unknown) date) Regular rate and unknown) rhythm without murmurs, gallops, or rubs. (unknown) (no (unknown) (unknown) Course (units (unkno wn) date) unknown) (unknown) (no (unknown) (unknown) : 1965 (units (unknown) date) Acct:[id number] unknown) (unknown) (no (unknown) (unknown) Departure (units (unkn own) date) unknown) (unknown) (no (unknown) (unknown) Discharge Plan (units (unknown) date) unknown) (unknown) (no (unknown) (unknown) ENT: Nose (units (unkn own) date) without bleeding, unknown) purulent drainage. Throat without erythema, (unknown) (no (unknown) (unknown) ER Physician: (units ( unknown) date) *Temp,ED* unknown) (unknown) (no (unknown) (unknown) EXTREMITIES: (units (u nknown) date) large nail unknown) through and through distal phalanx of left 2nd finger. (unknown) (no (unknown) (unknown) EYES: Pupils (units (u nknown) date) equal round and unknown) reactive. Extraocular motions intact. No scleral (unknown) (no (unknown) (unknown) Exam (units (unkno wn) date) unknown) (unknown) (no (unknown) (unknown) Exam Narrative: (units (unknown) date) unknown) (unknown) (no (unknown) (unknown) GASTROINTESTINAL (units (unknown) date) : Abdomen soft, unknown) non-tender, nondistended. (unknown) (no (unknown) (unknown) GASTROINTESTINAL (units (unknown) date) : Denies nausea, unknown) vomiting, abdominal pain, diarrhea, (unknown) (no (unknown) (unknown) GENERAL: Denies (units (unknown) date) chills, fatigue, unknown) malaise, fever, sweats. (unknown) (no (unknown) (unknown) GENERAL: [56] (units ( unknown) date) year old patient unknown) appears stated age. Well-developed patient, in (unknown) (no (unknown) (unknown) : Denies (units (unk nown) date) dysuria, unknown) frequency, incontinence, hematuria, urinary retention. (unknown) (no (unknown) (unknown) General (units (unkno wn) date) unknown) (unknown) (no (unknown) (unknown) HEAD: (units (unkno wn) date) Atraumatic. unknown) Normocephalic. (unknown) (no (unknown) (unknown) HEENT: Denies (units ( unknown) date) sinus pain, ear unknown) pain, sore throat, difficulty swallowing, (unknown) (no (unknown) (unknown) HPI - Extremity (units (unknown) date) Injury (Upper) unknown) (unknown) (no (unknown) (unknown) HPI narrative: (units (unknown) date) unknown) (unknown) (no (unknown) (unknown) History of (units (unk nown) date) Present Illness unknown) (unknown) (no (unknown) (unknown) Lung cancer (units (un known) date) unknown) (unknown) (no (unknown) (unknown) MUSCULOSKELETAL: (units (unknown) date) See HPI unknown) (unknown) (no (unknown) (unknown) Medical History (units (unknown) date) (Reviewed unknown) 03/21/22 @ 03:13 by Gm Arceo DO) (unknown) (no (unknown) (unknown) NECK: Trachea (units ( unknown) date) midline. Non unknown) tender (unknown) (no (unknown) (unknown) NEURO: AOx3. (units (u nknown) date) unknown) (unknown) (no (unknown) (unknown) NEUROLOGIC: (units (un known) date) Denies weakness, unknown) headache, numbness, change in speech, confusion, (unknown) (no (unknown) (unknown) Narrative (units (unkn own) date) unknown) (unknown) (no (unknown) (unknown) Narrative: (units (unk nown) date) unknown) (unknown) (no (unknown) (unknown) No Action (units (unkn own) date) unknown) (unknown) (no (unknown) (unknown) No bleeding. No (units (unknown) date) edema or joint unknown) tenderness. (unknown) (no (unknown) (unknown) Ordered: (units (unkno wn) date) unknown) (unknown) (no (unknown) (unknown) Orders (units (unkno wn) date) unknown) (unknown) (no (unknown) (unknown) PSYCHIATRIC: No (units (unknown) date) concerning unknown) psychosocial issues. (unknown) (no (unknown) (unknown) Patient History (units (unknown) date) unknown) (unknown) (no (unknown) (unknown) Patient: (units (unkno wn) date) Armstrong,Lakeisha unknown) Jordin MR#: (unknown) (no (unknown) (unknown) Penicillins (units (un known) date) Allergy unknown) Verified 11/13/19 23:34 (unknown) (no (unknown) (unknown) Prescriptions: (units (unknown) date) unknown) (unknown) (no (unknown) (unknown) Pulmonary (units (unkn own) date) embolism unknown) (unknown) (no (unknown) (unknown) RESPIRATORY: (units (un known) date) Clear to unknown) auscultation. Breath sounds equal bilaterally. No wheezes, (unknown) (no (unknown) (unknown) RESPIRATORY: (units (u nknown) date) Denies dyspnea, unknown) cough, wheezing, hemoptysis, sputum. (unknown) (no (unknown) (unknown) Related Data (units (u nknown) date) unknown) (unknown) (no (unknown) (unknown) Review of (units (unkn own) date) Systems unknown) (unknown) (no (unknown) (unknown) SKIN: Denies (units (u nknown) date) rash, skin unknown) lesions, or other (unknown) (no (unknown) (unknown) SKIN: No rash or (units (unknown) date) erythema of unknown) visible areas (unknown) (no (unknown) (unknown) Signed By: (units (unk nown) date) unknown) (unknown) (no (unknown) (unknown) Smoking Status: (units (unknown) date) Current every day unknown) smoker (unknown) (no (unknown) (unknown) Smoking Status: (units (unknown) date) Current every day unknown) smoker (unknown) (no (unknown) (unknown) Social History (units (unknown) date) (Reviewed unknown) 03/21/22 @ 03:13 by Gm Arceo DO) (unknown) (no (unknown) (unknown) Stated (units (unkno wn) date) Complaint: nail unknown) in left finger (unknown) (no (unknown) (unknown) Substance Use (units ( unknown) date) Type: does not unknown) use (unknown) (no (unknown) (unknown) Sulfa (units (unkno wn) date) (Sulfonamide unknown) Allergy Verified 11/13/19 23:34 (unknown) (no (unknown) (unknown) Time Seen by (units (u nknown) date) Provider: unknown) 03/21/22 03:09 (unknown) (no (unknown) (unknown) XR finger LT min (units (unknown) date) 2V Stat unknown) (unknown) (no (unknown) (unknown) aerosol inhaler (units (unknown) date) (Proventil HFA) unknown) (unknown) (no (unknown) (unknown) albuterol (units (unkn own) date) sulfate 90 unknown) mcg/actuation 2 puff INH PRN PRN #8.5 gm 03/13/12 11/13/19 (unknown) (no (unknown) (unknown) alcohol intake (units (unknown) date) frequency: 0-2 unknown) drinks per day (unknown) (no (unknown) (unknown) alprazolam 0.5 (units (unknown) date) mg tablet (Xanax) unknown) 1 mg PO HS #0 03/13/12 11/13/19 (unknown) (no (unknown) (unknown) and free of (units (un known) date) complaint unknown) (unknown) (no (unknown) (unknown) benzonatate 100 (units (unknown) date) mg capsule 100 mg unknown) PO TID 11/13/19 11/13/19 (unknown) (no (unknown) (unknown) budesonide-formo (units (unknown) date) terol HFA 80 2 unknown) puff INHALATION BID 11/13/19 11/13/19 (unknown) (no (unknown) (unknown) constipation, (units ( unknown) date) melena. unknown) (unknown) (no (unknown) (unknown) dizziness. (units (unk nown) date) unknown) (unknown) (no (unknown) (unknown) durvalumab 50 (units ( unknown) date) mg/mL intravenous unknown) 50 mg IV SEEINSTR 11/13/19 11/13/19 (unknown) (no (unknown) (unknown) enoxaparin 80 (units ( unknown) date) mg/0.8 mL 80 mg unknown) (0.8 mL) SUBCUT Q12H #8 ml 09/07/19 (unknown) (no (unknown) (unknown) few hours ago. (units ( unknown) date) He was working on unknown) a project at home and accidentally ran a large (unknown) (no (unknown) (unknown) icterus. No (units (un known) date) injection or unknown) drainage. (unknown) (no (unknown) (unknown) inhaler (units (unkno wn) date) (Symbicort) unknown) (unknown) (no (unknown) (unknown) ipratropium 0.5 (units (unknown) date) mg-albuterol 3 mg unknown) 3 ml INH PRN #0 03/13/12 11/13/19 (unknown) (no (unknown) (unknown) lamotrigine 200 (units (unknown) date) mg tablet 200 mg unknown) PO BID 11/13/19 11/13/19 (unknown) (no (unknown) (unknown) lithium (units (unkno wn) date) carbonate 150 mg unknown) capsule 450 mg PO BID 11/13/19 11/13/19 (unknown) (no (unknown) (unknown) lorazepam 0.5 mg (units (unknown) date) tablet 0.5 mg PO unknown) DAILY PRN 11/13/19 11/13/19 (unknown) (no (unknown) (unknown) mcg-4.5 (units (unkno wn) date) mcg/actuation unknown) aerosol (unknown) (no (unknown) (unknown) methadone 10 mg (units (unknown) date) tablet 25 mg PO unknown) TID 11/13/19 11/13/19 (unknown) (no (unknown) (unknown) mild distress. (units (unknown) date) unknown) (unknown) (no (unknown) (unknown) nail through the (units (unknown) date) tip of his left unknown) finger. His tetanus will need to be updated (unknown) (no (unknown) (unknown) ondansetron 8 mg (units (unknown) date) disintegrating 8 unknown) mg PO Q8HR PRN 11/13/19 11/13/19 (unknown) (no (unknown) (unknown) pantoprazole 40 (units (unknown) date) mg tablet,delayed unknown) 40 mg PO DAILY 11/13/19 11/13/19 (unknown) (no (unknown) (unknown) prazosin 1 mg (units ( unknown) date) capsule 1 mg PO unknown) DAILY 11/13/19 11/13/19 (unknown) (no (unknown) (unknown) primidone 50 mg (units (unknown) date) tablet 200 mg PO unknown) DAILY 11/13/19 11/13/19 (unknown) (no (unknown) (unknown) quetiapine 50 mg (units (unknown) date) tablet 100 mg PO unknown) BID 11/13/19 11/13/19 (unknown) (no (unknown) (unknown) release (units (unkno wn) date) unknown) (unknown) (no (unknown) (unknown) seizures, (units (unkn own) date) incoordination. unknown) (unknown) (no (unknown) (unknown) sertraline 100 (units (unknown) date) mg tablet 100 mg unknown) PO DAILY 11/13/19 11/13/19 (unknown) (no (unknown) (unknown) soln (units (unkno wn) date) unknown) (unknown) (no (unknown) (unknown) solution (units (unkno wn) date) unknown) (unknown) (no (unknown) (unknown) subcutaneous (units (u nknown) date) syringe (Lovenox) unknown) (unknown) (no (unknown) (unknown) sucralfate 1 (units (u nknown) date) gram tablet 1 g unknown) PO QID 11/13/19 11/13/19 (unknown) (no (unknown) (unknown) tablet (units (unkno wn) date) unknown) (unknown) (no (unknown) (unknown) today. He has (units (unknown) date) pain but denies unknown) any numbness or tingling. He is otherwise well (unknown) (no (unknown) (unknown) tonsillar (units (unkn own) date) hypertrophy or unknown) exudate. Airway patent. Result panel 3 (unknown) (no date) (unknown) (unknown) 0 /uL (unkn own) (unknown) (no date) (unknown) (unknown) 0.3 % (unkn own) (unknown) (no date) (unknown) (unknown) 0.6 % (unkn own) (unknown) (no date) (unknown) (unknown) 10.1 X10 3/uL (unkn own) (unknown) (no date) (unknown) (unknown) 100 /uL (unkn own) (unknown) (no date) (unknown) (unknown) 12.2 g/dL (unkn own) (unknown) (no date) (unknown) (unknown) 13.3 % (unkn own) (unknown) (no date) (unknown) (unknown) 13.9 % (unkn own) (unknown) (no date) (unknown) (unknown) 1300 /uL (unkn own) (unknown) (no date) (unknown) (unknown) 28.1 PG (unkn own) (unknown) (no date) (unknown) (unknown) 32.6 % (unkn own) (unknown) (no date) (unknown) (unknown) 37.4 % (unkn own) (unknown) (no date) (unknown) (unknown) 372 X10 3/uL (unkn own) (unknown) (no date) (unknown) (unknown) 4.32 X10 6/uL (unkn own) (unknown) (no date) (unknown) (unknown) 6.1 % (unkn own) (unknown) (no date) (unknown) (unknown) 600 /uL (unkn own) (unknown) (no date) (unknown) (unknown) 79.7 % (unkn own) (unknown) (no date) (unknown) (unknown) 8100 /uL (unkn own) (unknown) (no date) (unknown) (unknown) 86.4 fL (unkn own) Result panel 4 (unknown) (no date) (unknown) (unknown) > 60 mL/min (unkn own) (unknown) (no date) (unknown) (unknown) 0.68 mg/dL (unkn own) (unknown) (no date) (unknown) (unknown) 102 mg/dL (unkn own) (unknown) (no date) (unknown) (unknown) 103 mmol/L (unkn own) (unknown) (no date) (unknown) (unknown) 11 mg/dL (unkn own) (unknown) (no date) (unknown) (unknown) 137 mmol/L (unkn own) (unknown) (no date) (unknown) (unknown) 16.2 (units unknown) (unknown) (unknown) (no date) (unknown) (unknown) 25 mmol/L (unkn own) (unknown) (no date) (unknown) (unknown) 4.1 mmol/L (unkn own) (unknown) (no date) (unknown) (unknown) 9.1 mg/dL (unkn own) Result panel 5 (unknown) (no (unknown) (unknown) (no value) (units (unk nown) date) unknown) (unknown) (no (unknown) (unknown) Date of Service: (units (unknown) date) 03/21/22 unknown) (unknown) (no (unknown) (unknown) (no value) (units (unk nown) date) unknown) (unknown) (no (unknown) (unknown) 0.5 mg PO DAILY (units (unknown) date) PRN (Reason: unknown) Anxiety) 0RF (unknown) (no (unknown) (unknown) 03/21/22 03:50 (units (unknown) date) unknown) (unknown) (no (unknown) (unknown) 1 g PO QID 0RF (units (unknown) date) unknown) (unknown) (no (unknown) (unknown) 1 mg PO DAILY (units ( unknown) date) 0RF unknown) (unknown) (no (unknown) (unknown) 1 mg PO HS Qty: (units (unknown) date) 0 0RF unknown) (unknown) (no (unknown) (unknown) 100 mg PO BID (units ( unknown) date) 0RF unknown) (unknown) (no (unknown) (unknown) 100 mg PO DAILY (units (unknown) date) 0RF unknown) (unknown) (no (unknown) (unknown) 100 mg PO TID (units ( unknown) date) 0RF unknown) (unknown) (no (unknown) (unknown) 2 puff INH PRN (units (unknown) date) PRN (Reason: unknown) Shortness Of Breath) Qty: 8.5 0RF (unknown) (no (unknown) (unknown) 2 puff (units (unkno wn) date) INHALATION BID unknown) 0RF (unknown) (no (unknown) (unknown) 200 mg PO BID (units ( unknown) date) 0RF unknown) (unknown) (no (unknown) (unknown) 200 mg PO DAILY (units (unknown) date) 0RF unknown) (unknown) (no (unknown) (unknown) 25 mg PO TID 0RF (units (unknown) date) unknown) (unknown) (no (unknown) (unknown) 3 ml INH PRN (units (u nknown) date) Qty: 0 0RF unknown) (unknown) (no (unknown) (unknown) 40 mg PO DAILY (units (unknown) date) 0RF unknown) (unknown) (no (unknown) (unknown) 450 mg PO BID (units ( unknown) date) 0RF unknown) (unknown) (no (unknown) (unknown) 50 mg IV (units (unkno wn) date) SEEINSTR 0RF unknown) (unknown) (no (unknown) (unknown) 8 mg PO Q8HR PRN (units (unknown) date) (Reason: Nausea) unknown) 0RF (unknown) (no (unknown) (unknown) 80 mg SUBCUT (units (u nknown) date) Q12H Qty: 8 6RF unknown) (unknown) (no (unknown) (unknown) Allergies (units (unkn own) date) unknown) (unknown) (no (unknown) (unknown) Documented by: (units (unknown) date) unknown) (unknown) (no (unknown) (unknown) ED Orders (units (unkn own) date) unknown) (unknown) (no (unknown) (unknown) Emergency Report (units (unknown) date) unknown) (unknown) (no (unknown) (unknown) Home Medications (units (unknown) date) unknown) (unknown) (no (unknown) (unknown) [facility] (units (unknown) date) [address] unknown) [place] [address] (unknown) (no (unknown) (unknown) Lab Results (units (un known) date) unknown) (unknown) (no (unknown) (unknown) Last Admin: (units (un known) date) 03/21/22 03:19 unknown) Dose: 100 mg (unknown) (no (unknown) (unknown) Last Admin: (units (un known) date) 03/21/22 03:20 unknown) Dose: 0.5 ml (unknown) (no (unknown) (unknown) Last Admin: (units (un known) date) 03/21/22 03:21 unknown) Dose: 10 ml (unknown) (no (unknown) (unknown) Last Admin: (units (un known) date) 03/21/22 04:09 unknown) Dose: 0.5 mg (unknown) (no (unknown) (unknown) Last Admin: (units (un known) date) 03/21/22 04:10 unknown) Dose: 125 mls/hr (unknown) (no (unknown) (unknown) Last Admin: (units (un known) date) 03/21/22 04:20 unknown) Dose: 4 mg (unknown) (no (unknown) (unknown) Previous Rx's (units ( unknown) date) unknown) (unknown) (no (unknown) (unknown) Rx Instructions: (units (unknown) date) unknown) (unknown) (no (unknown) (unknown) Stop: 03/21/22 (units (unknown) date) 03:11 unknown) (unknown) (no (unknown) (unknown) Stop: 03/21/22 (units (unknown) date) 03:12 unknown) (unknown) (no (unknown) (unknown) Stop: 03/21/22 (units (unknown) date) 03:58 unknown) (unknown) (no (unknown) (unknown) Stop: 03/21/22 (units (unknown) date) 04:18 unknown) (unknown) (no (unknown) (unknown) Vital Signs - 8 (units (unknown) date) hr unknown) (unknown) (no (unknown) (unknown) once every 2 (units (u nknown) date) weeks unknown) (unknown) (no (unknown) (unknown) (no value) (units (unk nown) date) unknown) (unknown) (no (unknown) (unknown) 03:50 03:50 (units (un known) date) unknown) (unknown) (no (unknown) (unknown) 03/21/22 (units (unkno wn) date) 03/21/22 unknown) Range/Units (unknown) (no (unknown) (unknown) Symbicort 80-4.5 (units (unknown) date) mcg/actuation HFA unknown) aerosol inhaler (unknown) (no (unknown) (unknown) albuterol (units (unkn own) date) sulfate unknown) [Proventil HFA] 90 MCG/PUFF HFA aerosol inhaler (unknown) (no (unknown) (unknown) alprazolam (units (unk nown) date) [Xanax] 0.5 MG unknown) tablet (unknown) (no (unknown) (unknown) benzonatate 100 (units (unknown) date) mg capsule unknown) (unknown) (no (unknown) (unknown) durvalumab 50 (units ( unknown) date) mg/mL Solution unknown) (unknown) (no (unknown) (unknown) enoxaparin (units (unk nown) date) [Lovenox] 80 unknown) mg/0.8 mL syringe (unknown) (no (unknown) (unknown) ipratropium-albu (units (unknown) date) terol 3 ML unknown) solution for nebulization (unknown) (no (unknown) (unknown) lamotrigine 200 (units (unknown) date) mg tablet unknown) (unknown) (no (unknown) (unknown) lithium (units (unkno wn) date) carbonate 150 mg unknown) capsule (unknown) (no (unknown) (unknown) lorazepam 0.5 mg (units (unknown) date) tablet unknown) (unknown) (no (unknown) (unknown) methadone 10 mg (units (unknown) date) tablet unknown) (unknown) (no (unknown) (unknown) ondansetron 8 mg (units (unknown) date) tablet,disintegra unknown) ting (unknown) (no (unknown) (unknown) pantoprazole 40 (units (unknown) date) mg tablet,delayed unknown) release (DR/EC) (unknown) (no (unknown) (unknown) prazosin 1 mg (units ( unknown) date) capsule unknown) (unknown) (no (unknown) (unknown) primidone 50 mg (units (unknown) date) tablet unknown) (unknown) (no (unknown) (unknown) quetiapine 50 mg (units (unknown) date) tablet unknown) (unknown) (no (unknown) (unknown) sertraline 100 (units (unknown) date) mg tablet unknown) (unknown) (no (unknown) (unknown) sucralfate 1 (units (u nknown) date) gram tablet unknown) (unknown) (no (unknown) (unknown) 03/21/22 (units (unkno wn) date) unknown) (unknown) (no (unknown) (unknown) [id number] (units (unk nown) date) unknown) (unknown) (no (unknown) (unknown) Medication (units (unk nown) date) Instructions unknown) Recorded (unknown) (no (unknown) (unknown) Medication (units (unk nown) date) Instructions unknown) Recorded Confirmed (unknown) (no (unknown) (unknown) rales, or (units (unkn own) date) rhonchi. unknown) (unknown) (no (unknown) (unknown) (2.5 mg base)/3 (units (unknown) date) mL nebulization unknown) (unknown) (no (unknown) (unknown) 03:15 (units (unkno wn) date) unknown) (unknown) (no (unknown) (unknown) 03/21/22 03:10 (units (unknown) date) unknown) (unknown) (no (unknown) (unknown) 03/21/22 03:50 (units (unknown) date) unknown) (unknown) (no (unknown) (unknown) 03/21/22 03:54 (units (unknown) date) unknown) (unknown) (no (unknown) (unknown) 12 point review (units (unknown) date) of systems is unknown) negative except for those stated above (unknown) (no (unknown) (unknown) 56-year-old male (units (unknown) date) daily smoker unknown) presents with an injury to his left index finger a (unknown) (no (unknown) (unknown) Age/Sex: 56 / M (units (unknown) date) unknown) (unknown) (no (unknown) (unknown) Allergy/AdvReac (units (unknown) date) Type Severity unknown) Reaction Status Date / Time (unknown) (no (unknown) (unknown) Antibiotics) (units (u nknown) date) unknown) (unknown) (no (unknown) (unknown) BACK: Nontender (units (unknown) date) without deformity unknown) or crepitance. No flank tenderness. (unknown) (no (unknown) (unknown) BUN 11 (9-20) (units (unknown) date) mg/dL unknown) (unknown) (no (unknown) (unknown) BUN/Creatinine (units (unknown) date) Ratio 16.2 unknown) (6-22) (unknown) (no (unknown) (unknown) Basic Metabolic (units (unknown) date) Panel Stat unknown) (unknown) (no (unknown) (unknown) Baso # (Auto) 0 (units (unknown) date) (0-100) /uL unknown) (unknown) (no (unknown) (unknown) Baso % (Auto) (units ( unknown) date) 0.3 (0-2) % unknown) (unknown) (no (unknown) (unknown) Blood Pressure (units (unknown) date) 184/94 H unknown) 03/21/22 03:15 (unknown) (no (unknown) (unknown) Blood Pressure (units (unknown) date) 184/94 H unknown) (unknown) (no (unknown) (unknown) CARDIOVASCULAR: (units (unknown) date) Denies chest unknown) pain, palpitations, orthopnea, edema, (unknown) (no (unknown) (unknown) CARDIOVASCULAR: (units (unknown) date) Regular rate and unknown) rhythm without murmurs, gallops, or rubs. (unknown) (no (unknown) (unknown) COVID19 -Nasal (units (unknown) date) RAPID/Pre-Proc unknown) Stat (unknown) (no (unknown) (unknown) Calcium 9.1 (units ( unknown) date) (8.4-10.2) mg/dL unknown) (unknown) (no (unknown) (unknown) Carbon Dioxide (units (unknown) date) 25 (22-32) unknown) mmol/L (unknown) (no (unknown) (unknown) Chief Complaint: (units (unknown) date) Skin/Abscess/Fore unknown) ign Body (unknown) (no (unknown) (unknown) Chloride 103 (units (unknown) date) (98-107) mmol/L unknown) (unknown) (no (unknown) (unknown) Complete Blood (units (unknown) date) Count AUTO DIFF unknown) Stat (unknown) (no (unknown) (unknown) Course (units (unkno wn) date) unknown) (unknown) (no (unknown) (unknown) Creatinine (units (unk nown) date) 0.68 (0.66-1.25) unknown) mg/dL (unknown) (no (unknown) (unknown) : 1965 (units (unknown) date) Acct:[id number] unknown) (unknown) (no (unknown) (unknown) Departure (units (unkn own) date) unknown) (unknown) (no (unknown) (unknown) Diphtheria/Tetan (units (unknown) date) us/Acell unknown) Pertussis (Tet,Diph,Pertuss (Acell),Vac/Pf 0.5 Ml (unknown) (no (unknown) (unknown) Discharge Plan (units (unknown) date) unknown) (unknown) (no (unknown) (unknown) Discontinued (units (u nknown) date) Medications unknown) (unknown) (no (unknown) (unknown) Doxycycline (units (un known) date) Hyclate unknown) (Doxycycline Hyclate 100 Mg Tablet) 100 mg PO NOW ONE (unknown) (no (unknown) (unknown) ENT: Nose (units (unkn own) date) without bleeding, unknown) purulent drainage. Throat without erythema, (unknown) (no (unknown) (unknown) ER Physician: (units ( unknown) date) Gm Arceo unknown) D.O. (unknown) (no (unknown) (unknown) EXTREMITIES: (units (u nknown) date) large nail unknown) through and through distal phalanx of left 2nd finger. (unknown) (no (unknown) (unknown) EYES: Pupils (units (u nknown) date) equal round and unknown) reactive. Extraocular motions intact. No scleral (unknown) (no (unknown) (unknown) Eos # (Auto) (units (u nknown) date) 100 (0-450) unknown) /uL (unknown) (no (unknown) (unknown) Eos % (Auto) (units (u nknown) date) 0.6 L (2-4) % unknown) (unknown) (no (unknown) (unknown) Estimated GFR (units ( unknown) date) > 60 (>60) unknown) mL/min (unknown) (no (unknown) (unknown) Exam (units (unkno wn) date) unknown) (unknown) (no (unknown) (unknown) Exam Narrative: (units (unknown) date) unknown) (unknown) (no (unknown) (unknown) GASTROINTESTINAL (units (unknown) date) : Abdomen soft, unknown) non-tender, nondistended. (unknown) (no (unknown) (unknown) GASTROINTESTINAL (units (unknown) date) : Denies nausea, unknown) vomiting, abdominal pain, diarrhea, (unknown) (no (unknown) (unknown) GENERAL: Denies (units (unknown) date) chills, fatigue, unknown) malaise, fever, sweats. (unknown) (no (unknown) (unknown) GENERAL: [56] (units ( unknown) date) year old patient unknown) appears stated age. Well-developed patient, in (unknown) (no (unknown) (unknown) : Denies (units (unk nown) date) dysuria, unknown) frequency, incontinence, hematuria, urinary retention. (unknown) (no (unknown) (unknown) General (units (unkno wn) date) unknown) (unknown) (no (unknown) (unknown) GenericComposite (units (unknown) date) [Plt Count 372 unknown) (150-400) X10^3/uL ] (unknown) (no (unknown) (unknown) GenericComposite (units (unknown) date) [RBC 4.32 L unknown) (4.5-5.9) X10^6/uL ] (unknown) (no (unknown) (unknown) GenericComposite (units (unknown) date) [WBC 10.1 unknown) (4.5-11.0) X10^3/uL ] (unknown) (no (unknown) (unknown) Glucose 102 H (units (unknown) date) (70-100) mg/dL unknown) (unknown) (no (unknown) (unknown) HEAD: (units (unkno wn) date) Atraumatic. unknown) Normocephalic. (unknown) (no (unknown) (unknown) HEENT: Denies (units ( unknown) date) sinus pain, ear unknown) pain, sore throat, difficulty swallowing, (unknown) (no (unknown) (unknown) HPI - Extremity (units (unknown) date) Injury (Upper) unknown) (unknown) (no (unknown) (unknown) HPI narrative: (units (unknown) date) unknown) (unknown) (no (unknown) (unknown) Hct 37.4 L (units (un known) date) (41-53) % unknown) (unknown) (no (unknown) (unknown) Hgb 12.2 L (units (un known) date) (13.5-17.5) g/dL unknown) (unknown) (no (unknown) (unknown) History of (units (unk nown) date) Present Illness unknown) (unknown) (no (unknown) (unknown) Initial Vital (units ( unknown) date) Signs unknown) (unknown) (no (unknown) (unknown) Initial Vital (units ( unknown) date) Signs: unknown) (unknown) (no (unknown) (unknown) Lab Data (units (unkno wn) date) unknown) (unknown) (no (unknown) (unknown) Labs: (units (unkno wn) date) unknown) (unknown) (no (unknown) (unknown) Lidocaine/Sodium (units (unknown) date) Bicarbonate (Lido unknown) 1%/Sod Bicarb 8.4% (10ml) 10 Ml Syringe) 10 (unknown) (no (unknown) (unknown) Lorazepam (units (unkn own) date) (Lorazepam 2 unknown) Mg/Ml Inj) 0.5 mg IV NOW ONE (unknown) (no (unknown) (unknown) Lung cancer (units (un known) date) unknown) (unknown) (no (unknown) (unknown) Lymph # (Auto) (units (unknown) date) 1300 unknown) ([id number]) /uL (unknown) (no (unknown) (unknown) Lymph % (Auto) (units (unknown) date) 13.3 L (25-40) unknown) % (unknown) (no (unknown) (unknown) MCH 28.1 (units (unkn own) date) (26-34) PG unknown) (unknown) (no (unknown) (unknown) MCHC 32.6 (units (unk nown) date) (30-36) % unknown) (unknown) (no (unknown) (unknown) MCV 86.4 (units (unkn own) date) (80-100) fL unknown) (unknown) (no (unknown) (unknown) MDM - Extremity (units (unknown) date) Injury (Upper) unknown) (unknown) (no (unknown) (unknown) MUSCULOSKELETAL: (units (unknown) date) See HPI unknown) (unknown) (no (unknown) (unknown) Medical History (units (unknown) date) (Reviewed unknown) 03/21/22 @ 03:13 by Gm Arceo DO) (unknown) (no (unknown) (unknown) [place] # (Auto) (units ( unknown) date) 600 (0-900) unknown) /uL (unknown) (no (unknown) (unknown) [place] % (Auto) (units ( unknown) date) 6.1 (3-14) % unknown) (unknown) (no (unknown) (unknown) NECK: Trachea (units ( unknown) date) midline. Non unknown) tender (unknown) (no (unknown) (unknown) NEURO: AOx3. (units (u nknown) date) unknown) (unknown) (no (unknown) (unknown) NEUROLOGIC: (units (un known) date) Denies weakness, unknown) headache, numbness, change in speech, confusion, (unknown) (no (unknown) (unknown) Narrative (units (unkn own) date) unknown) (unknown) (no (unknown) (unknown) Narrative: (units (unk nown) date) unknown) (unknown) (no (unknown) (unknown) Neut # (Auto) (units ( unknown) date) 8100 H unknown) ([id number]) /uL (unknown) (no (unknown) (unknown) Neut % (Auto) (units ( unknown) date) 79.7 H (50-75) unknown) % (unknown) (no (unknown) (unknown) No Action (units (unkn own) date) unknown) (unknown) (no (unknown) (unknown) No bleeding. No (units (unknown) date) edema or joint unknown) tenderness. (unknown) (no (unknown) (unknown) Ondansetron HCl (units (unknown) date) (Ondansetron 4 unknown) Mg/2 Ml Inj) 4 mg IV NOW ONE (unknown) (no (unknown) (unknown) Ordered: (units (unkno wn) date) unknown) (unknown) (no (unknown) (unknown) Orders (units (unkno wn) date) unknown) (unknown) (no (unknown) (unknown) PSYCHIATRIC: No (units (unknown) date) concerning unknown) psychosocial issues. (unknown) (no (unknown) (unknown) Patient History (units (unknown) date) unknown) (unknown) (no (unknown) (unknown) Patient: (units (unkno wn) date) Lakeisha Camacho unknown) Jordin MR#: (unknown) (no (unknown) (unknown) Penicillins (units (un known) date) Allergy unknown) Verified 11/13/19 23:34 (unknown) (no (unknown) (unknown) Potassium 4.1 (units (unknown) date) (3.4-5.1) mmol/L unknown) (unknown) (no (unknown) (unknown) Prescriptions: (units (unknown) date) unknown) (unknown) (no (unknown) (unknown) Pulmonary (units (unkn own) date) embolism unknown) (unknown) (no (unknown) (unknown) Pulse Oximetry (units (unknown) date) 96 03/21/22 unknown) 03:15 (unknown) (no (unknown) (unknown) Pulse Oximetry (units (unknown) date) 96 unknown) (unknown) (no (unknown) (unknown) Pulse Rate 99 H (units (unknown) date) 03/21/22 03:15 unknown) (unknown) (no (unknown) (unknown) Pulse Rate 99 H (units (unknown) date) unknown) (unknown) (no (unknown) (unknown) RDW 13.9 (units (unkn own) date) (11.6-14.8) % unknown) (unknown) (no (unknown) (unknown) RESPIRATORY: (units (un known) date) Clear to unknown) auscultation. Breath sounds equal bilaterally. No wheezes, (unknown) (no (unknown) (unknown) RESPIRATORY: (units (u nknown) date) Denies dyspnea, unknown) cough, wheezing, hemoptysis, sputum. (unknown) (no (unknown) (unknown) Related Data (units (u nknown) date) unknown) (unknown) (no (unknown) (unknown) Respiratory Rate (units (unknown) date) 03/21/22 unknown) 03:15 (unknown) (no (unknown) (unknown) Respiratory Rate (units (unknown) date) 20 unknown) (unknown) (no (unknown) (unknown) Result diagrams: (units (unknown) date) unknown) (unknown) (no (unknown) (unknown) Review of (units (unkn own) date) Systems unknown) (unknown) (no (unknown) (unknown) SKIN: Denies (units (u nknown) date) rash, skin unknown) lesions, or other (unknown) (no (unknown) (unknown) SKIN: No rash or (units (unknown) date) erythema of unknown) visible areas (unknown) (no (unknown) (unknown) Signed By: (units (unk nown) date) unknown) (unknown) (no (unknown) (unknown) Smoking Status: (units (unknown) date) Current every day unknown) smoker (unknown) (no (unknown) (unknown) Smoking Status: (units (unknown) date) Current every day unknown) smoker (unknown) (no (unknown) (unknown) Social History (units (unknown) date) (Reviewed unknown) 03/21/22 @ 03:13 by Gm Arceo DO) (unknown) (no (unknown) (unknown) Sodium 137 (units (u nknown) date) (137-145) mmol/L unknown) (unknown) (no (unknown) (unknown) Sodium Chloride (units (unknown) date) (Normal Saline unknown) 0.9%) 1,000 mls @ 125 mls/hr IV CONT FABIÁN (unknown) (no (unknown) (unknown) Stated (units (unkno wn) date) Complaint: nail unknown) in left finger (unknown) (no (unknown) (unknown) Substance Use (units ( unknown) date) Type: does not unknown) use (unknown) (no (unknown) (unknown) Sulfa (units (unkno wn) date) (Sulfonamide unknown) Allergy Verified 11/13/19 23:34 (unknown) (no (unknown) (unknown) Syringe) 0.5 ml (units (unknown) date) IM .ONCE ONE unknown) (unknown) (no (unknown) (unknown) Temperature (units (un known) date) 97.6 F 03/21/22 unknown) 03:15 (unknown) (no (unknown) (unknown) Temperature 97.6 (units (unknown) date) F unknown) (unknown) (no (unknown) (unknown) Time Seen by (units (u nknown) date) Provider: unknown) 03/21/22 03:09 (unknown) (no (unknown) (unknown) Vital Signs (units (un known) date) unknown) (unknown) (no (unknown) (unknown) Vital signs: (units (u nknown) date) unknown) (unknown) (no (unknown) (unknown) XR finger LT min (units (unknown) date) 2V Stat unknown) (unknown) (no (unknown) (unknown) [Embedded Image (units (unknown) date) Not Available] unknown) (unknown) (no (unknown) (unknown) aerosol inhaler (units (unknown) date) (Proventil HFA) unknown) (unknown) (no (unknown) (unknown) albuterol (units (unkn own) date) sulfate 90 unknown) mcg/actuation 2 puff INH PRN PRN #8.5 gm 03/13/12 11/13/19 (unknown) (no (unknown) (unknown) alcohol intake (units (unknown) date) frequency: 0-2 unknown) drinks per day (unknown) (no (unknown) (unknown) alprazolam 0.5 (units (unknown) date) mg tablet (Xanax) unknown) 1 mg PO HS #0 03/13/12 11/13/19 (unknown) (no (unknown) (unknown) and free of (units (un known) date) complaint unknown) (unknown) (no (unknown) (unknown) benzonatate 100 (units (unknown) date) mg capsule 100 mg unknown) PO TID 11/13/19 11/13/19 (unknown) (no (unknown) (unknown) budesonide-formo (units (unknown) date) terol HFA 80 2 unknown) puff INHALATION BID 11/13/19 11/13/19 (unknown) (no (unknown) (unknown) constipation, (units ( unknown) date) melena. unknown) (unknown) (no (unknown) (unknown) dizziness. (units (unk nown) date) unknown) (unknown) (no (unknown) (unknown) durvalumab 50 (units ( unknown) date) mg/mL intravenous unknown) 50 mg IV SEEINSTR 11/13/19 11/13/19 (unknown) (no (unknown) (unknown) enoxaparin 80 (units ( unknown) date) mg/0.8 mL 80 mg unknown) (0.8 mL) SUBCUT Q12H #8 ml 09/07/19 (unknown) (no (unknown) (unknown) few hours ago. (units ( unknown) date) He was working on unknown) a project at home and accidentally ran a large (unknown) (no (unknown) (unknown) icterus. No (units (un known) date) injection or unknown) drainage. (unknown) (no (unknown) (unknown) inhaler (units (unkno wn) date) (Symbicort) unknown) (unknown) (no (unknown) (unknown) ipratropium 0.5 (units (unknown) date) mg-albuterol 3 mg unknown) 3 ml INH PRN #0 03/13/12 11/13/19 (unknown) (no (unknown) (unknown) lamotrigine 200 (units (unknown) date) mg tablet 200 mg unknown) PO BID 11/13/19 11/13/19 (unknown) (no (unknown) (unknown) lithium (units (unkno wn) date) carbonate 150 mg unknown) capsule 450 mg PO BID 11/13/19 11/13/19 (unknown) (no (unknown) (unknown) lorazepam 0.5 mg (units (unknown) date) tablet 0.5 mg PO unknown) DAILY PRN 11/13/19 11/13/19 (unknown) (no (unknown) (unknown) mcg-4.5 (units (unkno wn) date) mcg/actuation unknown) aerosol (unknown) (no (unknown) (unknown) methadone 10 mg (units (unknown) date) tablet 25 mg PO unknown) TID 11/13/19 11/13/19 (unknown) (no (unknown) (unknown) mild distress. (units (unknown) date) unknown) (unknown) (no (unknown) (unknown) ml INJ NOW ONE (units (unknown) date) unknown) (unknown) (no (unknown) (unknown) nail through the (units (unknown) date) tip of his left unknown) finger. His tetanus will need to be updated (unknown) (no (unknown) (unknown) ondansetron 8 mg (units (unknown) date) disintegrating 8 unknown) mg PO Q8HR PRN 11/13/19 11/13/19 (unknown) (no (unknown) (unknown) pantoprazole 40 (units (unknown) date) mg tablet,delayed unknown) 40 mg PO DAILY 11/13/19 11/13/19 (unknown) (no (unknown) (unknown) prazosin 1 mg (units ( unknown) date) capsule 1 mg PO unknown) DAILY 11/13/19 11/13/19 (unknown) (no (unknown) (unknown) primidone 50 mg (units (unknown) date) tablet 200 mg PO unknown) DAILY 11/13/19 11/13/19 (unknown) (no (unknown) (unknown) quetiapine 50 mg (units (unknown) date) tablet 100 mg PO unknown) BID 11/13/19 11/13/19 (unknown) (no (unknown) (unknown) release (units (unkno wn) date) unknown) (unknown) (no (unknown) (unknown) seizures, (units (unkn own) date) incoordination. unknown) (unknown) (no (unknown) (unknown) sertraline 100 (units (unknown) date) mg tablet 100 mg unknown) PO DAILY 11/13/19 11/13/19 (unknown) (no (unknown) (unknown) soln (units (unkno wn) date) unknown) (unknown) (no (unknown) (unknown) solution (units (unkno wn) date) unknown) (unknown) (no (unknown) (unknown) subcutaneous (units (u nknown) date) syringe (Lovenox) unknown) (unknown) (no (unknown) (unknown) sucralfate 1 (units (u nknown) date) gram tablet 1 g unknown) PO QID 11/13/19 11/13/19 (unknown) (no (unknown) (unknown) tablet (units (unkno wn) date) unknown) (unknown) (no (unknown) (unknown) today. He has (units (unknown) date) pain but denies unknown) any numbness or tingling. He is otherwise well (unknown) (no (unknown) (unknown) tonsillar (units (unkn own) date) hypertrophy or unknown) exudate. Airway patent. Result panel 6 (unknown) (no (unknown) (unknown) (no value) (units (unk nown) date) unknown) (unknown) (no (unknown) (unknown) Amount of (units (unkn own) date) anesthesia used unknown) (mL): 4 (unknown) (no (unknown) (unknown) Local (units (unkno wn) date) Anesthetic: unknown) lidocaine 1% and with bicarb (unknown) (no (unknown) (unknown) Nerve Blocks: (units ( unknown) date) digital unknown) (unknown) (no (unknown) (unknown) Patient (units (unkno wn) date) Tolerated unknown) Procedure: Well (unknown) (no (unknown) (unknown) Procedure (units (unkn own) date) Successful: Yes unknown) (unknown) (no (unknown) (unknown) Side: left (units (unk nown) date) unknown) (unknown) (no (unknown) (unknown) Date of Service: (units (unknown) date) 03/21/22 unknown) (unknown) (no (unknown) (unknown) (no value) (units (unk nown) date) unknown) (unknown) (no (unknown) (unknown) 0.5 mg PO DAILY (units (unknown) date) PRN (Reason: unknown) Anxiety) 0RF (unknown) (no (unknown) (unknown) 03/21/22 03:50 (units (unknown) date) unknown) (unknown) (no (unknown) (unknown) 1 g PO QID 0RF (units (unknown) date) unknown) (unknown) (no (unknown) (unknown) 1 mg PO DAILY (units ( unknown) date) 0RF unknown) (unknown) (no (unknown) (unknown) 1 mg PO HS Qty: (units (unknown) date) 0 0RF unknown) (unknown) (no (unknown) (unknown) 100 mg PO BID (units ( unknown) date) 0RF unknown) (unknown) (no (unknown) (unknown) 100 mg PO DAILY (units (unknown) date) 0RF unknown) (unknown) (no (unknown) (unknown) 100 mg PO TID (units ( unknown) date) 0RF unknown) (unknown) (no (unknown) (unknown) 2 puff INH PRN (units (unknown) date) PRN (Reason: unknown) Shortness Of Breath) Qty: 8.5 0RF (unknown) (no (unknown) (unknown) 2 puff (units (unkno wn) date) INHALATION BID unknown) 0RF (unknown) (no (unknown) (unknown) 200 mg PO BID (units ( unknown) date) 0RF unknown) (unknown) (no (unknown) (unknown) 200 mg PO DAILY (units (unknown) date) 0RF unknown) (unknown) (no (unknown) (unknown) 25 mg PO TID 0RF (units (unknown) date) unknown) (unknown) (no (unknown) (unknown) 3 ml INH PRN (units (u nknown) date) Qty: 0 0RF unknown) (unknown) (no (unknown) (unknown) 40 mg PO DAILY (units (unknown) date) 0RF unknown) (unknown) (no (unknown) (unknown) 450 mg PO BID (units ( unknown) date) 0RF unknown) (unknown) (no (unknown) (unknown) 50 mg IV (units (unkno wn) date) SEEINSTR 0RF unknown) (unknown) (no (unknown) (unknown) 8 mg PO Q8HR PRN (units (unknown) date) (Reason: Nausea) unknown) 0RF (unknown) (no (unknown) (unknown) 80 mg SUBCUT (units (u nknown) date) Q12H Qty: 8 6RF unknown) (unknown) (no (unknown) (unknown) Allergies (units (unkn own) date) unknown) (unknown) (no (unknown) (unknown) Documented by: (units (unknown) date) unknown) (unknown) (no (unknown) (unknown) ED Orders (units (unkn own) date) unknown) (unknown) (no (unknown) (unknown) Emergency Report (units (unknown) date) unknown) (unknown) (no (unknown) (unknown) Home Medications (units (unknown) date) unknown) (unknown) (no (unknown) (unknown) [facility] (units (unknown) date) [address] unknown) [place] [address] (unknown) (no (unknown) (unknown) Lab Results (units (un known) date) unknown) (unknown) (no (unknown) (unknown) Last Admin: (units (un known) date) 03/21/22 03:19 unknown) Dose: 100 mg (unknown) (no (unknown) (unknown) Last Admin: (units (un known) date) 03/21/22 03:20 unknown) Dose: 0.5 ml (unknown) (no (unknown) (unknown) Last Admin: (units (un known) date) 03/21/22 03:21 unknown) Dose: 10 ml (unknown) (no (unknown) (unknown) Last Admin: (units (un known) date) 03/21/22 04:09 unknown) Dose: 0.5 mg (unknown) (no (unknown) (unknown) Last Admin: (units (un known) date) 03/21/22 04:10 unknown) Dose: 125 mls/hr (unknown) (no (unknown) (unknown) Last Admin: (units (un known) date) 03/21/22 04:20 unknown) Dose: 4 mg (unknown) (no (unknown) (unknown) Previous Rx's (units ( unknown) date) unknown) (unknown) (no (unknown) (unknown) Rx Instructions: (units (unknown) date) unknown) (unknown) (no (unknown) (unknown) Stop: 03/21/22 (units (unknown) date) 03:11 unknown) (unknown) (no (unknown) (unknown) Stop: 03/21/22 (units (unknown) date) 03:12 unknown) (unknown) (no (unknown) (unknown) Stop: 03/21/22 (units (unknown) date) 03:58 unknown) (unknown) (no (unknown) (unknown) Stop: 03/21/22 (units (unknown) date) 04:18 unknown) (unknown) (no (unknown) (unknown) Vital Signs - 8 (units (unknown) date) hr unknown) (unknown) (no (unknown) (unknown) once every 2 (units (u nknown) date) weeks unknown) (unknown) (no (unknown) (unknown) (no value) (units (unk nown) date) unknown) (unknown) (no (unknown) (unknown) 03:50 03:50 (units (un known) date) unknown) (unknown) (no (unknown) (unknown) 03/21/22 (units (unkno wn) date) 03/21/22 unknown) Range/Units (unknown) (no (unknown) (unknown) Symbicort 80-4.5 (units (unknown) date) mcg/actuation HFA unknown) aerosol inhaler (unknown) (no (unknown) (unknown) albuterol (units (unkn own) date) sulfate unknown) [Proventil HFA] 90 MCG/PUFF HFA aerosol inhaler (unknown) (no (unknown) (unknown) alprazolam (units (unk nown) date) [Xanax] 0.5 MG unknown) tablet (unknown) (no (unknown) (unknown) benzonatate 100 (units (unknown) date) mg capsule unknown) (unknown) (no (unknown) (unknown) durvalumab 50 (units ( unknown) date) mg/mL Solution unknown) (unknown) (no (unknown) (unknown) enoxaparin (units (unk nown) date) [Lovenox] 80 unknown) mg/0.8 mL syringe (unknown) (no (unknown) (unknown) ipratropium-albu (units (unknown) date) terol 3 ML unknown) solution for nebulization (unknown) (no (unknown) (unknown) lamotrigine 200 (units (unknown) date) mg tablet unknown) (unknown) (no (unknown) (unknown) lithium (units (unkno wn) date) carbonate 150 mg unknown) capsule (unknown) (no (unknown) (unknown) lorazepam 0.5 mg (units (unknown) date) tablet unknown) (unknown) (no (unknown) (unknown) methadone 10 mg (units (unknown) date) tablet unknown) (unknown) (no (unknown) (unknown) ondansetron 8 mg (units (unknown) date) tablet,disintegra unknown) ting (unknown) (no (unknown) (unknown) pantoprazole 40 (units (unknown) date) mg tablet,delayed unknown) release (DR/EC) (unknown) (no (unknown) (unknown) prazosin 1 mg (units ( unknown) date) capsule unknown) (unknown) (no (unknown) (unknown) primidone 50 mg (units (unknown) date) tablet unknown) (unknown) (no (unknown) (unknown) quetiapine 50 mg (units (unknown) date) tablet unknown) (unknown) (no (unknown) (unknown) sertraline 100 (units (unknown) date) mg tablet unknown) (unknown) (no (unknown) (unknown) sucralfate 1 (units (u nknown) date) gram tablet unknown) (unknown) (no (unknown) (unknown) 03/21/22 (units (unkno wn) date) unknown) (unknown) (no (unknown) (unknown) Foreign body of (units (unknown) date) left index finger unknown) (unknown) (no (unknown) (unknown) [id number] (units (unk nown) date) unknown) (unknown) (no (unknown) (unknown) Medication (units (unk nown) date) Instructions unknown) Recorded (unknown) (no (unknown) (unknown) Medication (units (unk nown) date) Instructions unknown) Recorded Confirmed (unknown) (no (unknown) (unknown) rales, or (units (unkn own) date) rhonchi. unknown) (unknown) (no (unknown) (unknown) with creamer (units (u nknown) date) since 1800) he unknown) has activated the OR crew (unknown) (no (unknown) (unknown) (2.5 mg base)/3 (units (unknown) date) mL nebulization unknown) (unknown) (no (unknown) (unknown) 03:15 (units (unkno wn) date) unknown) (unknown) (no (unknown) (unknown) 03/21/22 03:10 (units (unknown) date) unknown) (unknown) (no (unknown) (unknown) 03/21/22 03:50 (units (unknown) date) unknown) (unknown) (no (unknown) (unknown) 03/21/22 03:54 (units (unknown) date) unknown) (unknown) (no (unknown) (unknown) 12 point review (units (unknown) date) of systems is unknown) negative except for those stated above (unknown) (no (unknown) (unknown) 56-year-old male (units (unknown) date) daily smoker unknown) presents with an injury to his left index finger a (unknown) (no (unknown) (unknown) Age/Sex: 56 / M (units (unknown) date) unknown) (unknown) (no (unknown) (unknown) Allergy/AdvReac (units (unknown) date) Type Severity unknown) Reaction Status Date / Time (unknown) (no (unknown) (unknown) Antibiotics) (units (u nknown) date) unknown) (unknown) (no (unknown) (unknown) BACK: Nontender (units (unknown) date) without deformity unknown) or crepitance. No flank tenderness. (unknown) (no (unknown) (unknown) BUN 11 (9-20) (units (unknown) date) mg/dL unknown) (unknown) (no (unknown) (unknown) BUN/Creatinine (units (unknown) date) Ratio 16.2 unknown) (6-22) (unknown) (no (unknown) (unknown) Basic Metabolic (units (unknown) date) Panel Stat unknown) (unknown) (no (unknown) (unknown) Baso # (Auto) 0 (units (unknown) date) (0-100) /uL unknown) (unknown) (no (unknown) (unknown) Baso % (Auto) (units ( unknown) date) 0.3 (0-2) % unknown) (unknown) (no (unknown) (unknown) Blood Pressure (units (unknown) date) 184/94 H unknown) 03/21/22 03:15 (unknown) (no (unknown) (unknown) Blood Pressure (units (unknown) date) 184/94 H unknown) (unknown) (no (unknown) (unknown) CARDIOVASCULAR: (units (unknown) date) Denies chest unknown) pain, palpitations, orthopnea, edema, (unknown) (no (unknown) (unknown) CARDIOVASCULAR: (units (unknown) date) Regular rate and unknown) rhythm without murmurs, gallops, or rubs. 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 After reviewed case, images, and course (unknown) (no (unknown) (unknown) Carbon Dioxide (units (unknown) date) 25 (22-32) unknown) mmol/L (unknown) (no (unknown) (unknown) Chief Complaint: (units (unknown) date) Skin/Abscess/Fore unknown) ign Body (unknown) (no (unknown) (unknown) Chloride 103 (units (unknown) date) (98-107) mmol/L unknown) (unknown) (no (unknown) (unknown) Clinical (units (unkno wn) date) Impression: unknown) (unknown) (no (unknown) (unknown) Complete Blood (units (unknown) date) Count AUTO DIFF unknown) Stat (unknown) (no (unknown) (unknown) Course (units (unkno wn) date) unknown) (unknown) (no (unknown) (unknown) Course (units (unkno wn) date) Narrative: unknown) (unknown) (no (unknown) (unknown) Creatinine (units (unk nown) date) 0.68 (0.66-1.25) unknown) mg/dL (unknown) (no (unknown) (unknown) : 1965 (units (unknown) date) Acct:[id number] unknown) (unknown) (no (unknown) (unknown) Departure (units (unkn own) date) unknown) (unknown) (no (unknown) (unknown) Diphtheria/Tetan (units (unknown) date) us/Acell unknown) Pertussis (Tet,Diph,Pertuss (Acell),Vac/Pf 0.5 Ml (unknown) (no (unknown) (unknown) Discharge Plan (units (unknown) date) unknown) (unknown) (no (unknown) (unknown) Discontinued (units (u nknown) date) Medications unknown) (unknown) (no (unknown) (unknown) Doxycycline (units (un known) date) Hyclate unknown) (Doxycycline Hyclate 100 Mg Tablet) 100 mg PO NOW ONE (unknown) (no (unknown) (unknown) ENT: Nose (units (unkn own) date) without bleeding, unknown) purulent drainage. Throat without erythema, (unknown) (no (unknown) (unknown) ER Physician: (units ( unknown) date) Gm Arceo unknown) D.O. (unknown) (no (unknown) (unknown) EXTREMITIES: (units (u nknown) date) large nail unknown) through and through distal phalanx of left 2nd finger. (unknown) (no (unknown) (unknown) EYES: Pupils (units (u nknown) date) equal round and unknown) reactive. Extraocular motions intact. No scleral (unknown) (no (unknown) (unknown) Eos # (Auto) (units (u nknown) date) 100 (0-450) unknown) /uL (unknown) (no (unknown) (unknown) Eos % (Auto) (units (u nknown) date) 0.6 L (2-4) % unknown) (unknown) (no (unknown) (unknown) Estimated GFR (units ( unknown) date) > 60 (>60) unknown) mL/min (unknown) (no (unknown) (unknown) Exam (units (unkno wn) date) unknown) (unknown) (no (unknown) (unknown) Exam Narrative: (units (unknown) date) unknown) (unknown) (no (unknown) (unknown) GASTROINTESTINAL (units (unknown) date) : Abdomen soft, unknown) non-tender, nondistended. (unknown) (no (unknown) (unknown) GASTROINTESTINAL (units (unknown) date) : Denies nausea, unknown) vomiting, abdominal pain, diarrhea, (unknown) (no (unknown) (unknown) GENERAL: Denies (units (unknown) date) chills, fatigue, unknown) malaise, fever, sweats. (unknown) (no (unknown) (unknown) GENERAL: [56] (units ( unknown) date) year old patient unknown) appears stated age. Well-developed patient, in (unknown) (no (unknown) (unknown) : Denies (units (unk nown) date) dysuria, unknown) frequency, incontinence, hematuria, urinary retention. (unknown) (no (unknown) (unknown) General (units (unkno wn) date) unknown) (unknown) (no (unknown) (unknown) GenericComposite (units (unknown) date) [Plt Count 372 unknown) (150-400) X10^3/uL ] (unknown) (no (unknown) (unknown) GenericComposite (units (unknown) date) [RBC 4.32 L unknown) (4.5-5.9) X10^6/uL ] (unknown) (no (unknown) (unknown) GenericComposite (units (unknown) date) [WBC 10.1 unknown) (4.5-11.0) X10^3/uL ] (unknown) (no (unknown) (unknown) Glucose 102 H (units (unknown) date) (70-100) mg/dL unknown) (unknown) (no (unknown) (unknown) HEAD: (units (o wn) date) Atraumatic. unknown) Normocephalic. (unknown) (no (unknown) (unknown) HEENT: Denies (units ( unknown) date) sinus pain, ear unknown) pain, sore throat, difficulty swallowing, (unknown) (no (unknown) (unknown) HPI - Extremity (units (unknown) date) Injury (Upper) unknown) (unknown) (no (unknown) (unknown) HPI narrative: (units (unknown) date) unknown) (unknown) (no (unknown) (unknown) Hct 37.4 L (units (un known) date) (41-53) % unknown) (unknown) (no (unknown) (unknown) Hgb 12.2 L (units (un known) date) (13.5-17.5) g/dL unknown) (unknown) (no (unknown) (unknown) History of (units (unk nown) date) Present Illness unknown) (unknown) (no (unknown) (unknown) Initial Vital (units ( unknown) date) Signs unknown) (unknown) (no (unknown) (unknown) Initial Vital (units ( unknown) date) Signs: unknown) (unknown) (no (unknown) (unknown) Lab Data (units (unkno wn) date) unknown) (unknown) (no (unknown) (unknown) Labs: (units (unkno wn) date) unknown) (unknown) (no (unknown) (unknown) Lidocaine/Sodium (units (unknown) date) Bicarbonate (Lido unknown) 1%/Sod Bicarb 8.4% (10ml) 10 Ml Syringe) 10 (unknown) (no (unknown) (unknown) Lorazepam (units (unkn own) date) (Lorazepam 2 unknown) Mg/Ml Inj) 0.5 mg IV NOW ONE (unknown) (no (unknown) (unknown) Lung cancer (units (un known) date) unknown) (unknown) (no (unknown) (unknown) Lymph # (Auto) (units (unknown) date) 1300 unknown) (3165-5114) /uL (unknown) (no (unknown) (unknown) Lymph % (Auto) (units (unknown) date) 13.3 L (25-40) unknown) % (unknown) (no (unknown) (unknown) MCH 28.1 (units (unkn own) date) (26-34) PG unknown) (unknown) (no (unknown) (unknown) MCHC 32.6 (units (unk nown) date) (30-36) % unknown) (unknown) (no (unknown) (unknown) MCV 86.4 (units (unkn own) date) (80-100) fL unknown) (unknown) (no (unknown) (unknown) MDM - Extremity (units (unknown) date) Injury (Upper) unknown) (unknown) (no (unknown) (unknown) MUSCULOSKELETAL: (units (unknown) date) See HPI unknown) (unknown) (no (unknown) (unknown) Medical History (units (unknown) date) (Updated 03/21/22 unknown) @ 04:40 by Gm Arceo DO) (unknown) (no (unknown) (unknown) [place] # (Auto) (units ( unknown) date) 600 (0-900) unknown) /uL (unknown) (no (unknown) (unknown) [place] % (Auto) (units ( unknown) date) 6.1 (3-14) % unknown) (unknown) (no (unknown) (unknown) NECK: Trachea (units ( unknown) date) midline. Non unknown) tender (unknown) (no (unknown) (unknown) NEURO: AOx3. (units (u nknown) date) unknown) (unknown) (no (unknown) (unknown) NEUROLOGIC: (units (un known) date) Denies weakness, unknown) headache, numbness, change in speech, confusion, (unknown) (no (unknown) (unknown) Narrative (units (unkn own) date) unknown) (unknown) (no (unknown) (unknown) Narrative: (units (unk nown) date) unknown) (unknown) (no (unknown) (unknown) Nerve Block (units (un known) date) unknown) (unknown) (no (unknown) (unknown) Nerve Block 1: (units (unknown) date) unknown) (unknown) (no (unknown) (unknown) Neut # (Auto) (units ( unknown) date) 8100 H unknown) (5109-9161) /uL (unknown) (no (unknown) (unknown) Neut % (Auto) (units ( unknown) date) 79.7 H (50-75) unknown) % (unknown) (no (unknown) (unknown) No Action (units (unkn own) date) unknown) (unknown) (no (unknown) (unknown) No bleeding. No (units (unknown) date) edema or joint unknown) tenderness. (unknown) (no (unknown) (unknown) Ondansetron HCl (units (unknown) date) (Ondansetron 4 unknown) Mg/2 Ml Inj) 4 mg IV NOW ONE (unknown) (no (unknown) (unknown) Ordered: (units (unkno wn) date) unknown) (unknown) (no (unknown) (unknown) Orders (units (unkno wn) date) unknown) (unknown) (no (unknown) (unknown) PSYCHIATRIC: No (units (unknown) date) concerning unknown) psychosocial issues. (unknown) (no (unknown) (unknown) Patient (units (unkno wn) date) Disposition: unknown) Admitted to Surgery (unknown) (no (unknown) (unknown) Patient History (units (unknown) date) unknown) (unknown) (no (unknown) (unknown) Patient: (units (unkno wn) date) Lakeisha Camacho unknown) Jordin MR#: (unknown) (no (unknown) (unknown) Penicillins (units (un known) date) Allergy unknown) Verified 11/13/19 23:34 (unknown) (no (unknown) (unknown) Potassium 4.1 (units (unknown) date) (3.4-5.1) mmol/L unknown) (unknown) (no (unknown) (unknown) Prescriptions: (units (unknown) date) unknown) (unknown) (no (unknown) (unknown) Procedures (units (unk nown) date) unknown) (unknown) (no (unknown) (unknown) Pulmonary (units (unkn own) date) embolism unknown) (unknown) (no (unknown) (unknown) Pulse Oximetry (units (unknown) date) 96 03/21/22 unknown) 03:15 (unknown) (no (unknown) (unknown) Pulse Oximetry (units (unknown) date) 96 unknown) (unknown) (no (unknown) (unknown) Pulse Rate 99 H (units (unknown) date) 03/21/22 03:15 unknown) (unknown) (no (unknown) (unknown) Pulse Rate 99 H (units (unknown) date) unknown) (unknown) (no (unknown) (unknown) RDW 13.9 (units (unkn own) date) (11.6-14.8) % unknown) (unknown) (no (unknown) (unknown) RESPIRATORY: (units (un known) date) Clear to unknown) auscultation. Breath sounds equal bilaterally. No wheezes, (unknown) (no (unknown) (unknown) RESPIRATORY: (units (u nknown) date) Denies dyspnea, unknown) cough, wheezing, hemoptysis, sputum. (unknown) (no (unknown) (unknown) Related Data (units (u nknown) date) unknown) (unknown) (no (unknown) (unknown) Respiratory Rate (units (unknown) date) 20 03/21/22 unknown) 03:15 (unknown) (no (unknown) (unknown) Respiratory Rate (units (unknown) date) 20 unknown) (unknown) (no (unknown) (unknown) Result diagrams: (units (unknown) date) unknown) (unknown) (no (unknown) (unknown) Review of (units (unkn own) date) Systems unknown) (unknown) (no (unknown) (unknown) SKIN: Denies (units (u nknown) date) rash, skin unknown) lesions, or other (unknown) (no (unknown) (unknown) SKIN: No rash or (units (unknown) date) erythema of unknown) visible areas (unknown) (no (unknown) (unknown) Signed By: (units (unk nown) date) unknown) (unknown) (no (unknown) (unknown) Smoking Status: (units (unknown) date) Current every day unknown) smoker (unknown) (no (unknown) (unknown) Smoking Status: (units (unknown) date) Current every day unknown) smoker (unknown) (no (unknown) (unknown) Social History (units (unknown) date) (Reviewed unknown) 03/21/22 @ 03:13 by Gm Arceo DO) (unknown) (no (unknown) (unknown) Sodium 137 (units (u nknown) date) (137-145) mmol/L unknown) (unknown) (no (unknown) (unknown) Sodium Chloride (units (unknown) date) (Normal Saline unknown) 0.9%) 1,000 mls @ 125 mls/hr IV CONT FABIÁN (unknown) (no (unknown) (unknown) Stated (units (unkno wn) date) Complaint: nail unknown) in left finger (unknown) (no (unknown) (unknown) Substance Use (units ( unknown) date) Type: does not unknown) use (unknown) (no (unknown) (unknown) Sulfa (units (unkno wn) date) (Sulfonamide unknown) Allergy Verified 11/13/19 23:34 (unknown) (no (unknown) (unknown) Syringe) 0.5 ml (units (unknown) date) IM .ONCE ONE unknown) (unknown) (no (unknown) (unknown) Temperature (units (un known) date) 97.6 F 03/21/22 unknown) 03:15 (unknown) (no (unknown) (unknown) Temperature 97.6 (units (unknown) date) F unknown) (unknown) (no (unknown) (unknown) Time Seen by (units (u nknown) date) Provider: unknown) 03/21/22 03:09 (unknown) (no (unknown) (unknown) Vital Signs (units (un known) date) unknown) (unknown) (no (unknown) (unknown) Vital signs: (units (u nknown) date) unknown) (unknown) (no (unknown) (unknown) XR finger LT min (units (unknown) date) 2V Stat unknown) (unknown) (no (unknown) (unknown) [Embedded Image (units (unknown) date) Not Available] unknown) (unknown) (no (unknown) (unknown) aerosol inhaler (units (unknown) date) (Proventil HFA) unknown) (unknown) (no (unknown) (unknown) albuterol (units (unkn own) date) sulfate 90 unknown) mcg/actuation 2 puff INH PRN PRN #8.5 gm 03/13/12 11/13/19 (unknown) (no (unknown) (unknown) alcohol intake (units (unknown) date) frequency: 0-2 unknown) drinks per day (unknown) (no (unknown) (unknown) alprazolam 0.5 (units (unknown) date) mg tablet (Xanax) unknown) 1 mg PO HS #0 03/13/12 11/13/19 (unknown) (no (unknown) (unknown) and free of (units (un known) date) complaint unknown) (unknown) (no (unknown) (unknown) benzonatate 100 (units (unknown) date) mg capsule 100 mg unknown) PO TID 11/13/19 11/13/19 (unknown) (no (unknown) (unknown) budesonide-formo (units (unknown) date) terol HFA 80 2 unknown) puff INHALATION BID 11/13/19 11/13/19 (unknown) (no (unknown) (unknown) constipation, (units ( unknown) date) melena. unknown) (unknown) (no (unknown) (unknown) digital block (units ( unknown) date) performed, but unknown) patient still having significant pain with (unknown) (no (unknown) (unknown) dizziness. (units (unk nown) date) unknown) (unknown) (no (unknown) (unknown) durvalumab 50 (units ( unknown) date) mg/mL intravenous unknown) 50 mg IV SEEINSTR 11/13/19 11/13/19 (unknown) (no (unknown) (unknown) enoxaparin 80 (units ( unknown) date) mg/0.8 mL 80 mg unknown) (0.8 mL) SUBCUT Q12H #8 ml 09/07/19 (unknown) (no (unknown) (unknown) few hours ago. (units ( unknown) date) He was working on unknown) a project at home and accidentally ran a large (unknown) (no (unknown) (unknown) icterus. No (units (un known) date) injection or unknown) drainage. (unknown) (no (unknown) (unknown) improvement, (units (u nknown) date) patient did not unknown) tolerate this as it caused severe pain. (unknown) (no (unknown) (unknown) inhaler (units (unkno wn) date) (Symbicort) unknown) (unknown) (no (unknown) (unknown) instilled. Nail (units (unknown) date) gripped with unknown) pliers and very firmly pulled without any (unknown) (no (unknown) (unknown) ipratropium 0.5 (units (unknown) date) mg-albuterol 3 mg unknown) 3 ml INH PRN #0 03/13/12 11/13/19 (unknown) (no (unknown) (unknown) lamotrigine 200 (units (unknown) date) mg tablet 200 mg unknown) PO BID 11/13/19 11/13/19 (unknown) (no (unknown) (unknown) lithium (units (unkno wn) date) carbonate 150 mg unknown) capsule 450 mg PO BID 11/13/19 11/13/19 (unknown) (no (unknown) (unknown) lorazepam 0.5 mg (units (unknown) date) tablet 0.5 mg PO unknown) DAILY PRN 11/13/19 11/13/19 (unknown) (no (unknown) (unknown) manipulation of (units (unknown) date) nail. Needle then unknown) run along the shaft of nail and more lido (unknown) (no (unknown) (unknown) mcg-4.5 (units (unkno wn) date) mcg/actuation unknown) aerosol (unknown) (no (unknown) (unknown) methadone 10 mg (units (unknown) date) tablet 25 mg PO unknown) TID 11/13/19 11/13/19 (unknown) (no (unknown) (unknown) mild distress. (units (unknown) date) unknown) (unknown) (no (unknown) (unknown) ml INJ NOW ONE (units (unknown) date) unknown) (unknown) (no (unknown) (unknown) nail through the (units (unknown) date) tip of his left unknown) finger. His tetanus will need to be updated (unknown) (no (unknown) (unknown) ondansetron 8 mg (units (unknown) date) disintegrating 8 unknown) mg PO Q8HR PRN 11/13/19 11/13/19 (unknown) (no (unknown) (unknown) pantoprazole 40 (units (unknown) date) mg tablet,delayed unknown) 40 mg PO DAILY 11/13/19 11/13/19 (unknown) (no (unknown) (unknown) prazosin 1 mg (units ( unknown) date) capsule 1 mg PO unknown) DAILY 11/13/19 11/13/19 (unknown) (no (unknown) (unknown) primidone 50 mg (units (unknown) date) tablet 200 mg PO unknown) DAILY 11/13/19 11/13/19 (unknown) (no (unknown) (unknown) quetiapine 50 mg (units (unknown) date) tablet 100 mg PO unknown) BID 11/13/19 11/13/19 (unknown) (no (unknown) (unknown) release (units (unkno wn) date) unknown) (unknown) (no (unknown) (unknown) seizures, (units (unkn own) date) incoordination. unknown) (unknown) (no (unknown) (unknown) sertraline 100 (units (unknown) date) mg tablet 100 mg unknown) PO DAILY 11/13/19 11/13/19 (unknown) (no (unknown) (unknown) soln (units (unkno wn) date) unknown) (unknown) (no (unknown) (unknown) solution (units (unkno wn) date) unknown) (unknown) (no (unknown) (unknown) subcutaneous (units (u nknown) date) syringe (Lovenox) unknown) (unknown) (no (unknown) (unknown) sucralfate 1 (units (u nknown) date) gram tablet 1 g unknown) PO QID 11/13/19 11/13/19 (unknown) (no (unknown) (unknown) tablet (units (unkno wn) date) unknown) (unknown) (no (unknown) (unknown) thusfar including (units (unknown) date) NPO status (no unknown) solids since yesterday morning, only 3oz coffee (unknown) (no (unknown) (unknown) today. He has (units (unknown) date) pain but denies unknown) any numbness or tingling. He is otherwise well (unknown) (no (unknown) (unknown) tonsillar (units (unkn own) date) hypertrophy or unknown) exudate. Airway patent. Result panel 7 (unknown) (no date) (unknown) (unknown) Negative (units (unkn own) unknown) Result panel 8 (unknown) (no (unknown) (unknown) (no value) (units (unk nown) date) unknown) (unknown) (no (unknown) (unknown) (no value) (units (unk nown) date) unknown) (unknown) (no (unknown) (unknown) Date of Service: (units (unknown) date) 03/21/22 unknown) (unknown) (no (unknown) (unknown) (no value) (units (unk nown) date) unknown) (unknown) (no (unknown) (unknown) - (units (unkno wn) date) unknown) (unknown) (no (unknown) (unknown) 03/21/22 03:50 (units (unknown) date) unknown) (unknown) (no (unknown) (unknown) Allergies (units (unkn own) date) unknown) (unknown) (no (unknown) (unknown) History + (units (unkn own) date) Physical Report unknown) (unknown) (no (unknown) (unknown) Home Medications (units (unknown) date) unknown) (unknown) (no (unknown) (unknown) [facility] (units (unknown) date) [address] unknown) [place] [address] (unknown) (no (unknown) (unknown) Laboratory (units (unk nown) date) Results - last 24 unknown) hr (unknown) (no (unknown) (unknown) (no value) (units (unk nown) date) unknown) (unknown) (no (unknown) (unknown) 03:50 03:50 04:15 (units (unknown) date) unknown) (unknown) (no (unknown) (unknown) 03/21/22 03/21/22 (units (unknown) date) 03/21/22 unknown) (unknown) (no (unknown) (unknown) 03/21/22 (units (unkno wn) date) unknown) (unknown) (no (unknown) (unknown) [id number] (units (unk nown) date) unknown) (unknown) (no (unknown) (unknown) Medication (units (unk nown) date) Instructions unknown) Recorded Confirmed Type (unknown) (no (unknown) (unknown) (2.5 mg base)/3 (units (unknown) date) mL nebulization unknown) (unknown) (no (unknown) (unknown) (past 8 hours): (units (unknown) date) unknown) (unknown) (no (unknown) (unknown) 03:15 (units (unkno wn) date) unknown) (unknown) (no (unknown) (unknown) 56-year-old (units (unk nown) date) gentleman was unknown) building a dog house early this. Patient sustained an (unknown) (no (unknown) (unknown) Age/Sex: 56 / M (units (unknown) date) unknown) (unknown) (no (unknown) (unknown) Allergy/AdvReac (units (unknown) date) Type Severity unknown) Reaction Status Date / Time (unknown) (no (unknown) (unknown) Antibiotics) (units (u nknown) date) unknown) (unknown) (no (unknown) (unknown) Assessment + Plan (units (unknown) date) unknown) (unknown) (no (unknown) (unknown) Assessment + Plan (units (unknown) date) narrative: unknown) (unknown) (no (unknown) (unknown) BUN 11 (units (unkno wn) date) unknown) (unknown) (no (unknown) (unknown) BUN/Creatinine (units (unknown) date) Ratio 16.2 unknown) (unknown) (no (unknown) (unknown) Baso # (Auto) 0 (units (unknown) date) unknown) (unknown) (no (unknown) (unknown) Baso % (Auto) (units ( unknown) date) 0.3 unknown) (unknown) (no (unknown) (unknown) Been Physically (units (unknown) date) Hurt or No unknown) (unknown) (no (unknown) (unknown) Blood Pressure (units (unknown) date) 184/94 H unknown) (unknown) (no (unknown) (unknown) Calcium 9.1 (units ( unknown) date) unknown) (unknown) (no (unknown) (unknown) Carbon Dioxide (units (unknown) date) 25 unknown) (unknown) (no (unknown) (unknown) Chief complaint: (units (unknown) date) nail in left unknown) finger (unknown) (no (unknown) (unknown) Chloride 103 (units (unknown) date) unknown) (unknown) (no (unknown) (unknown) Creatinine 0.68 (units (unknown) date) unknown) (unknown) (no (unknown) (unknown) Critical Care (units ( unknown) date) time: unknown) (unknown) (no (unknown) (unknown) : 1965 (units (unknown) date) Acct:[id number] unknown) (unknown) (no (unknown) (unknown) Date Patient (units (u nknown) date) Seen: 03/21/22 unknown) (unknown) (no (unknown) (unknown) Environment (units (un known) date) unknown) (unknown) (no (unknown) (unknown) Eos # (Auto) 100 (units (unknown) date) unknown) (unknown) (no (unknown) (unknown) Eos % (Auto) 0.6 (units (unknown) date) L unknown) (unknown) (no (unknown) (unknown) Estimated GFR > (units (unknown) date) 60 unknown) (unknown) (no (unknown) (unknown) Exam (units (unkno wn) date) unknown) (unknown) (no (unknown) (unknown) Exam Narrative: (units (unknown) date) unknown) (unknown) (no (unknown) (unknown) Family + Social (units (unknown) date) History unknown) (unknown) (no (unknown) (unknown) Feels Safe in (units ( unknown) date) Current Yes unknown) (unknown) (no (unknown) (unknown) Glucose 102 H (units (unknown) date) unknown) (unknown) (no (unknown) (unknown) Hct 37.4 L (units (un known) date) unknown) (unknown) (no (unknown) (unknown) Hgb 12.2 L (units (un known) date) unknown) (unknown) (no (unknown) (unknown) History (units (unkno wn) date) unknown) (unknown) (no (unknown) (unknown) History of (units (unk nown) date) Present Illness unknown) (unknown) (no (unknown) (unknown) Home Medications (units (unknown) date) and Allergies unknown) (unknown) (no (unknown) (unknown) I spent a total (units (unknown) date) of [20] minutes of unknown) critical care time on this patient's care (unknown) (no (unknown) (unknown) Labs (units (unkno wn) date) unknown) (unknown) (no (unknown) (unknown) Labs: (units (unkno wn) date) unknown) (unknown) (no (unknown) (unknown) Lung cancer (units (un known) date) unknown) (unknown) (no (unknown) (unknown) Lymph # (Auto) (units (unknown) date) 1300 unknown) (unknown) (no (unknown) (unknown) Lymph % (Auto) (units (unknown) date) 13.3 L unknown) (unknown) (no (unknown) (unknown) MCH 28.1 (units (unkn own) date) unknown) (unknown) (no (unknown) (unknown) MCHC 32.6 (units (unk nown) date) unknown) (unknown) (no (unknown) (unknown) MCV 86.4 (units (unkn own) date) unknown) (unknown) (no (unknown) (unknown) Medical History (units (unknown) date) (Reviewed 03/21/22 unknown) @ 05:28 by Matias Morejon MD) (unknown) (no (unknown) (unknown) Meds (units (unkno wn) date) unknown) (unknown) (no (unknown) (unknown) [place] # (Auto) (units ( unknown) date) 600 unknown) (unknown) (no (unknown) (unknown) [place] % (Auto) (units ( unknown) date) 6.1 unknown) (unknown) (no (unknown) (unknown) Narrative (units (unkn own) date) unknown) (unknown) (no (unknown) (unknown) Narrative: (units (unk nown) date) unknown) (unknown) (no (unknown) (unknown) Neut # (Auto) (units ( unknown) date) 8100 H unknown) (unknown) (no (unknown) (unknown) Neut % (Auto) (units ( unknown) date) 79.7 H unknown) (unknown) (no (unknown) (unknown) Objective (units (unkn own) date) unknown) (unknown) (no (unknown) (unknown) On exam, patient (units (unknown) date) has a rather large unknown) nail through his left index finger. Does (unknown) (no (unknown) (unknown) Oxygen Delivery (units (unknown) date) Method Room Air unknown) (unknown) (no (unknown) (unknown) Patient History (units (unknown) date) unknown) (unknown) (no (unknown) (unknown) Patient with a (units (unknown) date) large nail through unknown) his left index finger. Discussed with the (unknown) (no (unknown) (unknown) Patient: (units (unkno wn) date) Lakeisha Camacho unknown) Jordin MR#: (unknown) (no (unknown) (unknown) Penicillins (units (un known) date) Allergy Verified unknown) 11/13/19 23:34 (unknown) (no (unknown) (unknown) Plt Count 372 (units (unknown) date) unknown) (unknown) (no (unknown) (unknown) Potassium 4.1 (units (unknown) date) unknown) (unknown) (no (unknown) (unknown) Provider: (units (unkn own) date) Matias Morejon MD unknown) (unknown) (no (unknown) (unknown) Pulmonary (units (unkn own) date) embolism unknown) (unknown) (no (unknown) (unknown) Pulse Oximetry 96 (units (unknown) date) unknown) (unknown) (no (unknown) (unknown) Pulse Rate 99 H (units (unknown) date) unknown) (unknown) (no (unknown) (unknown) RBC 4.32 L (units (un known) date) unknown) (unknown) (no (unknown) (unknown) RDW 13.9 (units (unkn own) date) unknown) (unknown) (no (unknown) (unknown) Respiratory Rate (units (unknown) date) 20 unknown) (unknown) (no (unknown) (unknown) Result Diagrams: (units (unknown) date) unknown) (unknown) (no (unknown) (unknown) SARS-CoV-2 (PCR) (units (unknown) date) Negative unknown) (unknown) (no (unknown) (unknown) Safety + (units (unkno wn) date) Behavioral: unknown) (unknown) (no (unknown) (unknown) Signed (units (unkno wn) date) By:<Electronically unknown) signed by Matias Morejon MD>03/21/22 0531 (unknown) (no (unknown) (unknown) Smoking Status (units (unknown) date) Current every day unknown) smoker (unknown) (no (unknown) (unknown) Sodium 137 (units (u nknown) date) unknown) (unknown) (no (unknown) (unknown) Substance Use (units ( unknown) date) Type does not unknown) use (unknown) (no (unknown) (unknown) Sulfa (units (unkno wn) date) (Sulfonamide unknown) Allergy Verified 11/13/19 23:34 (unknown) (no (unknown) (unknown) Temperature 97.6 (units (unknown) date) F unknown) (unknown) (no (unknown) (unknown) The risk, (units (unkn own) date) benefits, unknown) alternatives, possible complications, operative course, and (unknown) (no (unknown) (unknown) Threatened By a (units (unknown) date) Person unknown) (unknown) (no (unknown) (unknown) Time Patient (units (u nknown) date) Seen: 05:15 unknown) (unknown) (no (unknown) (unknown) Time Spent With (units (unknown) date) Patient unknown) (unknown) (no (unknown) (unknown) Tobacco + (units (unkn own) date) Substance use: unknown) (unknown) (no (unknown) (unknown) Vital Signs (units (un known) date) unknown) (unknown) (no (unknown) (unknown) WBC 10.1 (units (unkn own) date) unknown) (unknown) (no (unknown) (unknown) [Embedded Image (units (unknown) date) Not Available] unknown) (unknown) (no (unknown) (unknown) aerosol inhaler (units (unknown) date) (Proventil HFA) unknown) (unknown) (no (unknown) (unknown) albuterol sulfate (units (unknown) date) 90 mcg/actuation 2 unknown) puff INH PRN PRN #8.5 gm 03/13/12 11/13/19 (unknown) (no (unknown) (unknown) alcohol intake (units (unknown) date) frequency 0-2 unknown) drinks per day (unknown) (no (unknown) (unknown) alprazolam 0.5 mg (units (unknown) date) tablet (Xanax) 1 unknown) mg PO HS #0 03/13/12 11/13/19 History (unknown) (no (unknown) (unknown) and Orthopedics (units (unknown) date) was then unknown) consulted. Patient denies any other injuries. Does (unknown) (no (unknown) (unknown) and extensor (units (u nknown) date) tendons to unknown) determine if any repair of the tendons might be (unknown) (no (unknown) (unknown) attempt to remove (units (unknown) date) the nail was unknown) performed. There were unable to remove the nail (unknown) (no (unknown) (unknown) benzonatate 100 (units (unknown) date) mg capsule 100 mg unknown) PO TID 11/13/19 11/13/19 History (unknown) (no (unknown) (unknown) bleeding, (units (unkn own) date) infection, unknown) fracture, nerve injury, continued pain postoperatively or (unknown) (no (unknown) (unknown) budesonide-formot (units (unknown) date) sohail HFA 80 2 puff unknown) INHALATION BID 11/13/19 11/13/19 History (unknown) (no (unknown) (unknown) complications (units ( unknown) date) with excessive unknown) bleeding, vascular events or cardiac events and (unknown) (no (unknown) (unknown) dorsally. (units (unkn own) date) Difficult to unknown) assess his flexor and extensor tendon function due to (unknown) (no (unknown) (unknown) durvalumab 50 (units ( unknown) date) mg/mL intravenous unknown) 50 mg IV SEEINSTR 11/13/19 11/13/19 History (unknown) (no (unknown) (unknown) enoxaparin 80 (units ( unknown) date) mg/0.8 mL 80 mg unknown) (0.8 mL) SUBCUT Q12H #8 ml 09/07/19 11/13/19 Rx (unknown) (no (unknown) (unknown) finger through (units (unknown) date) the distal phalanx unknown) out dorsal aspect of the finger. Due to this (unknown) (no (unknown) (unknown) have some (units (unkn own) date) numbness to the unknown) distal aspect the index finger. (unknown) (no (unknown) (unknown) have some sensory (units (unknown) date) changes to the unknown) distal aspect of the finger both volarly and (unknown) (no (unknown) (unknown) in detail. (units (unk nown) date) Patient unknown) acknowledges understanding and elects to proceed with (unknown) (no (unknown) (unknown) including but not (units (unknown) date) limited to deep unknown) venous thrombosis event, anesthesia (unknown) (no (unknown) (unknown) indicated. All (units (unknown) date) patient's unknown) questions and concerns were answered to his full (unknown) (no (unknown) (unknown) inhaler (units (unkno wn) date) (Symbicort) unknown) (unknown) (no (unknown) (unknown) injury to his (units ( unknown) date) index finger. unknown) Patient drove the through the volar aspect his (unknown) (no (unknown) (unknown) injury, patient (units (unknown) date) went to the unknown) emergency room were x-rays were obtained in an (unknown) (no (unknown) (unknown) instability (units (un known) date) postoperatively unknown) were discussed in detail. Medical complications (unknown) (no (unknown) (unknown) ipratropium 0.5 (units (unknown) date) mg-albuterol 3 mg unknown) 3 ml INH PRN #0 03/13/12 11/13/19 History (unknown) (no (unknown) (unknown) joints. Rest of (units (unknown) date) the hand free of unknown) any injuries or abnormalities. (unknown) (no (unknown) (unknown) lamotrigine 200 (units (unknown) date) mg tablet 200 mg unknown) PO BID 11/13/19 11/13/19 History (unknown) (no (unknown) (unknown) lithium carbonate (units (unknown) date) 150 mg capsule 450 unknown) mg PO BID 11/13/19 11/13/19 History (unknown) (no (unknown) (unknown) lorazepam 0.5 mg (units (unknown) date) tablet 0.5 mg PO unknown) DAILY PRN 11/13/19 11/13/19 History (unknown) (no (unknown) (unknown) mcg-4.5 (units (unkno wn) date) mcg/actuation unknown) aerosol (unknown) (no (unknown) (unknown) methadone 10 mg (units (unknown) date) tablet 25 mg PO unknown) TID 11/13/19 11/13/19 History (unknown) (no (unknown) (unknown) ondansetron 8 mg (units (unknown) date) disintegrating 8 unknown) mg PO Q8HR PRN 11/13/19 11/13/19 History (unknown) (no (unknown) (unknown) other possible (units (unknown) date) complications were unknown) discussed in detail. Need for postoperative (unknown) (no (unknown) (unknown) pantoprazole 40 (units (unknown) date) mg tablet,delayed unknown) 40 mg PO DAILY 11/13/19 11/13/19 History (unknown) (no (unknown) (unknown) patient the plan (units (unknown) date) will be to remove unknown) the nail and irrigate and debride the finger (unknown) (no (unknown) (unknown) postop outcomes (units (unknown) date) were discussed. unknown) Complications including but not limiting to (unknown) (no (unknown) (unknown) prazosin 1 mg (units ( unknown) date) capsule 1 mg PO unknown) DAILY 11/13/19 11/13/19 History (unknown) (no (unknown) (unknown) primidone 50 mg (units (unknown) date) tablet 200 mg PO unknown) DAILY 11/13/19 11/13/19 History (unknown) (no (unknown) (unknown) quetiapine 50 mg (units (unknown) date) tablet 100 mg PO unknown) BID 11/13/19 11/13/19 History (unknown) (no (unknown) (unknown) rays the nail has (units (unknown) date) gone straight unknown) through the distal phalanx and this might (unknown) (no (unknown) (unknown) rehabilitation (units (unknown) date) and anticipated unknown) hospital stay and clinical course were discussed (unknown) (no (unknown) (unknown) release (units (unkno wn) date) unknown) (unknown) (no (unknown) (unknown) require (units (unkno wn) date) stabilization unknown) after the nail is removed. We will also evaluate flexor (unknown) (no (unknown) (unknown) satisfaction and (units (unknown) date) consent form was unknown) freely obtained. (unknown) (no (unknown) (unknown) sertraline 100 mg (units (unknown) date) tablet 100 mg PO unknown) DAILY 11/13/19 11/13/19 History (unknown) (no (unknown) (unknown) significant pain (units (unknown) date) difficulty ranging unknown) PIP joint. Normal motion at the PIP and MCP (unknown) (no (unknown) (unknown) soln (units (unkno wn) date) unknown) (unknown) (no (unknown) (unknown) solution (units (unkno wn) date) unknown) (unknown) (no (unknown) (unknown) subcutaneous (units (u nknown) date) syringe (Lovenox) unknown) (unknown) (no (unknown) (unknown) sucralfate 1 gram (units (unknown) date) tablet 1 g PO QID unknown) 11/13/19 11/13/19 History (unknown) (no (unknown) (unknown) surgery. (units (unkno wn) date) unknown) (unknown) (no (unknown) (unknown) tablet (units (unkno wn) date) unknown) (unknown) (no (unknown) (unknown) to remove any (units ( unknown) date) possible foreign unknown) material deposited by the nail. Based on his x- (unknown) (no (unknown) (unknown) today; this time (units (unknown) date) is exclusive of unknown) procedural time. Result panel 9 (unknown) (no (unknown) (unknown) (no value) (units (unk nown) date) unknown) (unknown) (no (unknown) (unknown) Date of Service: (units (unknown) date) 03/21/22 unknown) (unknown) (no (unknown) (unknown) [facility] (units (unknown) date) [address]) [place] [address] (unknown) (no (unknown) (unknown) Pre-operative (units ( unknown) date) Note unknown) (unknown) (no (unknown) (unknown) (no value) (units (unk nown) date) unknown) (unknown) (no (unknown) (unknown) [id number] (units (unk nown) date) unknown) (unknown) (no (unknown) (unknown) Age/Sex: 56 / M (units (unknown) date) unknown) (unknown) (no (unknown) (unknown) COVID-19 (units (unkno wn) date) unknown) (unknown) (no (unknown) (unknown) COVID-19 status: (units (unknown) date) Negative unknown) (unknown) (no (unknown) (unknown) Changes to H+P: (units (unknown) date) No unknown) (unknown) (no (unknown) (unknown) Criteria for (units (u nknown) date) continued unknown) procedure: Possibility delay results in more complex (unknown) (no (unknown) (unknown) : 1965 (units (unknown) date) Acct:[id number] unknown) (unknown) (no (unknown) (unknown) History + (units (unkn own) date) Physical unknown) reviewed/Exam performed by Physician: Yes (unknown) (no (unknown) (unknown) Interval Note (units ( unknown) date) unknown) (unknown) (no (unknown) (unknown) Patient: (units (unkno wn) date) AbebeLakeisha unknown) Jordin MR#: (unknown) (no (unknown) (unknown) Pre-operative (units ( unknown) date) Note unknown) (unknown) (no (unknown) (unknown) Provider: (units (unkn own) date) Matias Morejon unknown) (unknown) (no (unknown) (unknown) Signed (units (unkno wn) date) By:<Electronicall unknown) y signed by Matias Moerjon MD>03/21/22 0536 (unknown) (no (unknown) (unknown) future surgery or (units (unknown) date) treatment, unknown) Increased loss of function, Continuing or worsening (unknown) (no (unknown) (unknown) of significant (units (unknown) date) or severe pain, unknown) Deterioration of the patient's condition or (unknown) (no (unknown) (unknown) outcome (units (unkno wn) date) unknown) (unknown) (no (unknown) (unknown) overall health (units (unknown) date) and Delay unknown) expected to result in less-positive ultimate med/surg Result panel 10 (unknown) (no (unknown) (unknown) (no value) (units (unk nown) date) unknown) (unknown) (no (unknown) (unknown) Amount of (units (unkn own) date) anesthesia used unknown) (mL): 4 (unknown) (no (unknown) (unknown) Local (units (unkno wn) date) Anesthetic: unknown) lidocaine 1% and with bicarb (unknown) (no (unknown) (unknown) Nerve Blocks: (units ( unknown) date) digital unknown) (unknown) (no (unknown) (unknown) Patient (units (unkno wn) date) Tolerated unknown) Procedure: Well (unknown) (no (unknown) (unknown) Procedure (units (unkn own) date) Successful: Yes unknown) (unknown) (no (unknown) (unknown) Side: left (units (unk nown) date) unknown) (unknown) (no (unknown) (unknown) Date of Service: (units (unknown) date) 03/21/22 unknown) (unknown) (no (unknown) (unknown) (no value) (units (unk nown) date) unknown) (unknown) (no (unknown) (unknown) <Electronically (units (unknown) date) signed by Gm unknown) Marilyn Arceo> (unknown) (no (unknown) (unknown) 03/21/22 03:50 (units (unknown) date) unknown) (unknown) (no (unknown) (unknown) 03/21/22 0634 (units ( unknown) date) unknown) (unknown) (no (unknown) (unknown) Allergies (units (unkn own) date) unknown) (unknown) (no (unknown) (unknown) Documented by: (units (unknown) date) unknown) (unknown) (no (unknown) (unknown) ED Orders (units (unkn own) date) unknown) (unknown) (no (unknown) (unknown) Emergency Report (units (unknown) date) unknown) (unknown) (no (unknown) (unknown) Home Medications (units (unknown) date) unknown) (unknown) (no (unknown) (unknown) [facility] (units (unknown) date) [address] [place] [address] unknown) [place] [address] (unknown) (no (unknown) (unknown) Lab Results (units (un known) date) unknown) (unknown) (no (unknown) (unknown) Last Admin: (units (un known) date) 03/21/22 03:19 unknown) Dose: 100 mg (unknown) (no (unknown) (unknown) Last Admin: (units (un known) date) 03/21/22 03:20 unknown) Dose: 0.5 ml (unknown) (no (unknown) (unknown) Last Admin: (units (un known) date) 03/21/22 03:21 unknown) Dose: 10 ml (unknown) (no (unknown) (unknown) Last Admin: (units (un known) date) 03/21/22 04:09 unknown) Dose: 0.5 mg (unknown) (no (unknown) (unknown) Last Admin: (units (un known) date) 03/21/22 04:20 unknown) Dose: 4 mg (unknown) (no (unknown) (unknown) Last Infusion: (units (unknown) date) 03/21/22 05:21 unknown) Dose: Infused (unknown) (no (unknown) (unknown) PRN Reason: (units (un known) date) Anxiety unknown) (unknown) (no (unknown) (unknown) PRN Reason: (units (un known) date) Coughing, unknown) Wheezing, Dyspnea (unknown) (no (unknown) (unknown) PRN Reason: Mild (units (unknown) date) or moderate pain unknown) (unknown) (no (unknown) (unknown) PRN Reason: (units (un known) date) Pain, Severe unknown) (7-10) (unknown) (no (unknown) (unknown) Previous Rx's (units ( unknown) date) unknown) (unknown) (no (unknown) (unknown) Stop: 03/21/22 (units (unknown) date) 03:11 unknown) (unknown) (no (unknown) (unknown) Stop: 03/21/22 (units (unknown) date) 03:12 unknown) (unknown) (no (unknown) (unknown) Stop: 03/21/22 (units (unknown) date) 03:58 unknown) (unknown) (no (unknown) (unknown) Stop: 03/21/22 (units (unknown) date) 04:18 unknown) (unknown) (no (unknown) (unknown) Vital Signs - 8 (units (unknown) date) hr unknown) (unknown) (no (unknown) (unknown) (no value) (units (unk nown) date) unknown) (unknown) (no (unknown) (unknown) 03:50 03:50 (units (un known) date) 04:15 unknown) (unknown) (no (unknown) (unknown) 03/21/22 (units (unkno wn) date) 03/21/22 03/21/22 unknown) Range/Units (unknown) (no (unknown) (unknown) 03/21/22 (units (unkno wn) date) unknown) (unknown) (no (unknown) (unknown) Foreign body of (units (unknown) date) left index finger unknown) (unknown) (no (unknown) (unknown) [id number] (units (unk nown) date) unknown) (unknown) (no (unknown) (unknown) Medication (units (unk nown) date) Instructions unknown) Recorded (unknown) (no (unknown) (unknown) Medication (units (unk nown) date) Instructions unknown) Recorded Confirmed (unknown) (no (unknown) (unknown) rales, or (units (unkn own) date) rhonchi. unknown) (unknown) (no (unknown) (unknown) with creamer (units (u nknown) date) since 1800) he unknown) has activated the OR crew (unknown) (no (unknown) (unknown) (2.5 mg base)/3 (units (unknown) date) mL nebulization unknown) (unknown) (no (unknown) (unknown) 03:15 (units (unkno wn) date) unknown) (unknown) (no (unknown) (unknown) 03/21/22 03:10 (units (unknown) date) unknown) (unknown) (no (unknown) (unknown) 03/21/22 03:50 (units (unknown) date) unknown) (unknown) (no (unknown) (unknown) 03/21/22 03:54 (units (unknown) date) unknown) (unknown) (no (unknown) (unknown) 12 point review (units (unknown) date) of systems is unknown) negative except for those stated above (unknown) (no (unknown) (unknown) 56-year-old male (units (unknown) date) daily smoker unknown) presents with an injury to his left index finger a (unknown) (no (unknown) (unknown) Admit Date/Time: (units (unknown) date) 03/21/22 04:54 unknown) (unknown) (no (unknown) (unknown) Admit Provider: (units (unknown) date) Matias Morejon unknown) (unknown) (no (unknown) (unknown) Age/Sex: 56 / M (units (unknown) date) unknown) (unknown) (no (unknown) (unknown) Albuterol (units (unkn own) date) (Albuterol 2.5 unknown) Mg/3 Ml Neb (Adult)) 2.5 mg INH NOW PRN (unknown) (no (unknown) (unknown) Allergy/AdvReac (units (unknown) date) Type Severity unknown) Reaction Status Date / Time (unknown) (no (unknown) (unknown) Antibiotics) (units (u nknown) date) unknown) (unknown) (no (unknown) (unknown) BACK: Nontender (units (unknown) date) without deformity unknown) or crepitance. No flank tenderness. (unknown) (no (unknown) (unknown) BUN 11 (units (unkno wn) date) (9-20) mg/dL unknown) (unknown) (no (unknown) (unknown) BUN/Creatinine (units (unknown) date) Ratio 16.2 unknown) (6-22) (unknown) (no (unknown) (unknown) Basic Metabolic (units (unknown) date) Panel Stat unknown) (unknown) (no (unknown) (unknown) Baso # (Auto) 0 (units (unknown) date) (0-100) /uL unknown) (unknown) (no (unknown) (unknown) Baso % (Auto) (units ( unknown) date) 0.3 (0-2) % unknown) (unknown) (no (unknown) (unknown) Blood Pressure (units (unknown) date) 184/94 H unknown) 03/21/22 03:15 (unknown) (no (unknown) (unknown) Blood Pressure (units (unknown) date) 184/94 H unknown) (unknown) (no (unknown) (unknown) CARDIOVASCULAR: (units (unknown) date) Denies chest unknown) pain, palpitations, orthopnea, edema, (unknown) (no (unknown) (unknown) CARDIOVASCULAR: (units (unknown) date) Regular rate and unknown) rhythm without murmurs, gallops, or rubs. 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 After reviewed case, images, and course (unknown) (no (unknown) (unknown) Carbon Dioxide (units (unknown) date) 25 (22-32) unknown) mmol/L (unknown) (no (unknown) (unknown) Chief Complaint: (units (unknown) date) Skin/Abscess/Fore unknown) ign Body (unknown) (no (unknown) (unknown) Chloride 103 (units (unknown) date) (98-107) mmol/L unknown) (unknown) (no (unknown) (unknown) Clinical (units (unkno wn) date) Impression: unknown) (unknown) (no (unknown) (unknown) Complete Blood (units (unknown) date) Count AUTO DIFF unknown) Stat (unknown) (no (unknown) (unknown) Course (units (unkno wn) date) unknown) (unknown) (no (unknown) (unknown) Course (units (unkno wn) date) Narrative: unknown) (unknown) (no (unknown) (unknown) Creatinine (units (unk nown) date) 0.68 unknown) (0.66-1.25) mg/dL (unknown) (no (unknown) (unknown) : 1965 (units (unknown) date) Acct:[id number] unknown) (unknown) (no (unknown) (unknown) Departure (units (unkn own) date) unknown) (unknown) (no (unknown) (unknown) Diphtheria/Tetan (units (unknown) date) us/Acell unknown) Pertussis (Tet,Diph,Pertuss (Acell),Vac/Pf 0.5 Ml (unknown) (no (unknown) (unknown) Discharge Plan (units (unknown) date) unknown) (unknown) (no (unknown) (unknown) Discontinued (units (u nknown) date) Medications unknown) (unknown) (no (unknown) (unknown) Doxycycline (units (un known) date) Hyclate unknown) (Doxycycline Hyclate 100 Mg Tablet) 100 mg PO NOW ONE (unknown) (no (unknown) (unknown) ENT: Nose (units (unkn own) date) without bleeding, unknown) purulent drainage. Throat without erythema, (unknown) (no (unknown) (unknown) ER Physician: (units ( unknown) date) Gm Arceo unknown) D.O. (unknown) (no (unknown) (unknown) EXTREMITIES: (units (u nknown) date) large nail unknown) through and through distal phalanx of left 2nd finger. (unknown) (no (unknown) (unknown) EYES: Pupils (units (u nknown) date) equal round and unknown) reactive. Extraocular motions intact. No scleral (unknown) (no (unknown) (unknown) Eos # (Auto) (units (u nknown) date) 100 (0-450) unknown) /uL (unknown) (no (unknown) (unknown) Eos % (Auto) (units (u nknown) date) 0.6 L (2-4) % unknown) (unknown) (no (unknown) (unknown) Estimated GFR (units ( unknown) date) > 60 (>60) unknown) mL/min (unknown) (no (unknown) (unknown) Exam (units (unkno wn) date) unknown) (unknown) (no (unknown) (unknown) Exam Narrative: (units (unknown) date) unknown) (unknown) (no (unknown) (unknown) Fentanyl (units (unkno wn) date) (Fentanyl 100 unknown) Mcg/2 Ml Inj) 0 mcg IV Q5MIN PRN (unknown) (no (unknown) (unknown) GASTROINTESTINAL (units (unknown) date) : Abdomen soft, unknown) non-tender, nondistended. (unknown) (no (unknown) (unknown) GASTROINTESTINAL (units (unknown) date) : Denies nausea, unknown) vomiting, abdominal pain, diarrhea, (unknown) (no (unknown) (unknown) GENERAL: Denies (units (unknown) date) chills, fatigue, unknown) malaise, fever, sweats. (unknown) (no (unknown) (unknown) GENERAL: [56] (units ( unknown) date) year old patient unknown) appears stated age. Well-developed patient, in (unknown) (no (unknown) (unknown) : Denies (units (unk nown) date) dysuria, unknown) frequency, incontinence, hematuria, urinary retention. (unknown) (no (unknown) (unknown) General (units (unkno wn) date) unknown) (unknown) (no (unknown) (unknown) GenericComposite (units (unknown) date) [Plt Count 372 unknown) (150-400) X10^3/uL ] (unknown) (no (unknown) (unknown) GenericComposite (units (unknown) date) [RBC 4.32 L unknown) (4.5-5.9) X10^6/uL ] (unknown) (no (unknown) (unknown) GenericComposite (units (unknown) date) [WBC 10.1 unknown) (4.5-11.0) X10^3/uL ] (unknown) (no (unknown) (unknown) Glucose 102 H (units (unknown) date) (70-100) mg/dL unknown) (unknown) (no (unknown) (unknown) HEAD: (units (unkno wn) date) Atraumatic. unknown) Normocephalic. (unknown) (no (unknown) (unknown) HEENT: Denies (units ( unknown) date) sinus pain, ear unknown) pain, sore throat, difficulty swallowing, (unknown) (no (unknown) (unknown) HPI - Extremity (units (unknown) date) Injury (Upper) unknown) (unknown) (no (unknown) (unknown) HPI narrative: (units (unknown) date) unknown) (unknown) (no (unknown) (unknown) Hct 37.4 L (units (un known) date) (41-53) % unknown) (unknown) (no (unknown) (unknown) Hgb 12.2 L (units (un known) date) (13.5-17.5) g/dL unknown) (unknown) (no (unknown) (unknown) History of (units (unk nown) date) Present Illness unknown) (unknown) (no (unknown) (unknown) Initial Vital (units ( unknown) date) Signs unknown) (unknown) (no (unknown) (unknown) Initial Vital (units ( unknown) date) Signs: unknown) (unknown) (no (unknown) (unknown) Lab Data (units (unkno wn) date) unknown) (unknown) (no (unknown) (unknown) Labs: (units (unkno wn) date) unknown) (unknown) (no (unknown) (unknown) Lactated (units (unkno wn) date) Ringer's unknown) (Lactated Ringers) 1,000 mls @ 120 mls/hr IV CONT FABIÁN (unknown) (no (unknown) (unknown) Lactated (units (unkno wn) date) Ringer's unknown) (Lactated Ringers) 1,000 mls @ 42 mls/hr IV CONT FABIÁN (unknown) (no (unknown) (unknown) Lidocaine/Sodium (units (unknown) date) Bicarbonate (Lido unknown) 1%/Sod Bicarb 8.4% (10ml) 10 Ml Syringe) 10 (unknown) (no (unknown) (unknown) Lorazepam (units (unkn own) date) (Lorazepam 2 unknown) Mg/Ml Inj) 0.25 mg IV NOW PRN (unknown) (no (unknown) (unknown) Lorazepam (units (unkn own) date) (Lorazepam 2 unknown) Mg/Ml Inj) 0.5 mg IV NOW ONE (unknown) (no (unknown) (unknown) Lung cancer (units (un known) date) unknown) (unknown) (no (unknown) (unknown) Lymph # (Auto) (units (unknown) date) 1300 unknown) (5415-9566) /uL (unknown) (no (unknown) (unknown) Lymph % (Auto) (units (unknown) date) 13.3 L (25-40) unknown) % (unknown) (no (unknown) (unknown) MCH 28.1 (units (unkn own) date) (26-34) PG unknown) (unknown) (no (unknown) (unknown) MCHC 32.6 (units (unk nown) date) (30-36) % unknown) (unknown) (no (unknown) (unknown) MCV 86.4 (units (unkn own) date) (80-100) fL unknown) (unknown) (no (unknown) (unknown) MDM - Extremity (units (unknown) date) Injury (Upper) unknown) (unknown) (no (unknown) (unknown) MUSCULOSKELETAL: (units (unknown) date) See HPI unknown) (unknown) (no (unknown) (unknown) Medical History (units (unknown) date) (Reviewed unknown) 03/21/22 @ 05:28 by Matias Morejon MD) (unknown) (no (unknown) (unknown) [place] # (Auto) (units ( unknown) date) 600 (0-900) unknown) /uL (unknown) (no (unknown) (unknown) [place] % (Auto) (units ( unknown) date) 6.1 (3-14) % unknown) (unknown) (no (unknown) (unknown) NECK: Trachea (units ( unknown) date) midline. Non unknown) tender (unknown) (no (unknown) (unknown) NEURO: AOx3. (units (u nknown) date) unknown) (unknown) (no (unknown) (unknown) NEUROLOGIC: (units (un known) date) Denies weakness, unknown) headache, numbness, change in speech, confusion, (unknown) (no (unknown) (unknown) Narrative (units (unkn own) date) unknown) (unknown) (no (unknown) (unknown) Narrative: (units (unk nown) date) unknown) (unknown) (no (unknown) (unknown) Nerve Block (units (un known) date) unknown) (unknown) (no (unknown) (unknown) Nerve Block 1: (units (unknown) date) unknown) (unknown) (no (unknown) (unknown) Neut # (Auto) (units ( unknown) date) 8100 H unknown) (3064-1280) /uL (unknown) (no (unknown) (unknown) Neut % (Auto) (units ( unknown) date) 79.7 H (50-75) unknown) % (unknown) (no (unknown) (unknown) No bleeding. No (units (unknown) date) edema or joint unknown) tenderness. (unknown) (no (unknown) (unknown) Ondansetron HCl (units (unknown) date) (Ondansetron 4 unknown) Mg/2 Ml Inj) 4 mg IV NOW ONE (unknown) (no (unknown) (unknown) Ordered: (units (unkno wn) date) unknown) (unknown) (no (unknown) (unknown) Orders (units (unkno wn) date) unknown) (unknown) (no (unknown) (unknown) Oxycodone HCl (units ( unknown) date) (Oxycodone Ir 5 unknown) Mg Tablet) 5 mg PO PACUNOW PRN (unknown) (no (unknown) (unknown) PSYCHIATRIC: No (units (unknown) date) concerning unknown) psychosocial issues. (unknown) (no (unknown) (unknown) Patient (units (unkno wn) date) Disposition: unknown) Admitted to Surgery (unknown) (no (unknown) (unknown) Patient History (units (unknown) date) unknown) (unknown) (no (unknown) (unknown) Patient: (units (unkno wn) date) Abebe,Lakeisha unknown) Jordin MR#: (unknown) (no (unknown) (unknown) Penicillins (units (un known) date) Allergy Severe unknown) Anaphylaxis Verified 03/21/22 06:05 (unknown) (no (unknown) (unknown) Potassium 4.1 (units (unknown) date) (3.4-5.1) unknown) mmol/L (unknown) (no (unknown) (unknown) Procedures (units (unk nown) date) unknown) (unknown) (no (unknown) (unknown) Pulmonary (units (unkn own) date) embolism unknown) (unknown) (no (unknown) (unknown) Pulse Oximetry (units (unknown) date) 96 03/21/22 unknown) 03:15 (unknown) (no (unknown) (unknown) Pulse Oximetry (units (unknown) date) 96 unknown) (unknown) (no (unknown) (unknown) Pulse Rate 99 H (units (unknown) date) 03/21/22 03:15 unknown) (unknown) (no (unknown) (unknown) Pulse Rate 99 H (units (unknown) date) unknown) (unknown) (no (unknown) (unknown) RDW 13.9 (units (unkn own) date) (11.6-14.8) % unknown) (unknown) (no (unknown) (unknown) RESPIRATORY: (units (un known) date) Clear to unknown) auscultation. Breath sounds equal bilaterally. No wheezes, (unknown) (no (unknown) (unknown) RESPIRATORY: (units (u nknown) date) Denies dyspnea, unknown) cough, wheezing, hemoptysis, sputum. (unknown) (no (unknown) (unknown) Related Data (units (u nknown) date) unknown) (unknown) (no (unknown) (unknown) Respiratory Rate (units (unknown) date) 20 03/21/22 unknown) 03:15 (unknown) (no (unknown) (unknown) Respiratory Rate (units (unknown) date) 20 unknown) (unknown) (no (unknown) (unknown) Result diagrams: (units (unknown) date) unknown) (unknown) (no (unknown) (unknown) Review of (units (unkn own) date) Systems unknown) (unknown) (no (unknown) (unknown) SARS-CoV-2 (PCR) (units (unknown) date) Negative unknown) (Negative) (unknown) (no (unknown) (unknown) SKIN: Denies (units (u nknown) date) rash, skin unknown) lesions, or other (unknown) (no (unknown) (unknown) SKIN: No rash or (units (unknown) date) erythema of unknown) visible areas (unknown) (no (unknown) (unknown) Signed By: (units (unk nown) date) unknown) (unknown) (no (unknown) (unknown) Smoking Status: (units (unknown) date) Current every day unknown) smoker (unknown) (no (unknown) (unknown) Smoking Status: (units (unknown) date) Current every day unknown) smoker (unknown) (no (unknown) (unknown) Social History (units (unknown) date) (Reviewed unknown) 03/21/22 @ 03:13 by Gm Arceo DO) (unknown) (no (unknown) (unknown) Sodium 137 (units (u nknown) date) (137-145) mmol/L unknown) (unknown) (no (unknown) (unknown) Sodium Chloride (units (unknown) date) (Normal Saline unknown) 0.9%) 1,000 mls @ 125 mls/hr IV CONT FABIÁN (unknown) (no (unknown) (unknown) Stated (units (unkno wn) date) Complaint: nail unknown) in left finger (unknown) (no (unknown) (unknown) Substance Use (units ( unknown) date) Type: does not unknown) use (unknown) (no (unknown) (unknown) Sulfa (units (unkno wn) date) (Sulfonamide unknown) Allergy Verified 11/13/19 23:34 (unknown) (no (unknown) (unknown) Syringe) 0.5 ml (units (unknown) date) IM .ONCE ONE unknown) (unknown) (no (unknown) (unknown) Temperature (units (un known) date) 97.6 F 03/21/22 unknown) 03:15 (unknown) (no (unknown) (unknown) Temperature 97.6 (units (unknown) date) F unknown) (unknown) (no (unknown) (unknown) Time Seen by (units (u nknown) date) Provider: unknown) 03/21/22 03:09 (unknown) (no (unknown) (unknown) Vital Signs (units (un known) date) unknown) (unknown) (no (unknown) (unknown) Vital signs: (units (u nknown) date) unknown) (unknown) (no (unknown) (unknown) XR finger LT min (units (unknown) date) 2V Stat unknown) (unknown) (no (unknown) (unknown) [Embedded Image (units (unknown) date) Not Available] unknown) (unknown) (no (unknown) (unknown) aerosol inhaler (units (unknown) date) (Proventil HFA) unknown) (unknown) (no (unknown) (unknown) albuterol (units (unkn own) date) sulfate 90 unknown) mcg/actuation 2 puff INH PRN PRN #8.5 gm 03/13/12 11/13/19 (unknown) (no (unknown) (unknown) alcohol intake (units (unknown) date) frequency: 0-2 unknown) drinks per day (unknown) (no (unknown) (unknown) alcohol intake: (units (unknown) date) former unknown) (unknown) (no (unknown) (unknown) alprazolam 0.5 (units (unknown) date) mg tablet (Xanax) unknown) 1 mg PO HS #0 03/13/12 11/13/19 (unknown) (no (unknown) (unknown) and free of (units (un known) date) complaint unknown) (unknown) (no (unknown) (unknown) benzonatate 100 (units (unknown) date) mg capsule 100 mg unknown) PO TID 11/13/19 11/13/19 (unknown) (no (unknown) (unknown) budesonide-formo (units (unknown) date) terol HFA 80 2 unknown) puff INHALATION BID 11/13/19 11/13/19 (unknown) (no (unknown) (unknown) constipation, (units ( unknown) date) melena. unknown) (unknown) (no (unknown) (unknown) digital block (units ( unknown) date) performed, but unknown) patient still having significant pain with (unknown) (no (unknown) (unknown) dizziness. (units (unk nown) date) unknown) (unknown) (no (unknown) (unknown) durvalumab 50 (units ( unknown) date) mg/mL intravenous unknown) 50 mg IV SEEINSTR 11/13/19 11/13/19 (unknown) (no (unknown) (unknown) enoxaparin 80 (units ( unknown) date) mg/0.8 mL 80 mg unknown) (0.8 mL) SUBCUT Q12H #8 ml 09/07/19 (unknown) (no (unknown) (unknown) few hours ago. (units ( unknown) date) He was working on unknown) a project at home and accidentally ran a large (unknown) (no (unknown) (unknown) household (units (unkn own) date) members: family unknown) (unknown) (no (unknown) (unknown) icterus. No (units (un known) date) injection or unknown) drainage. (unknown) (no (unknown) (unknown) improvement, (units (u nknown) date) patient did not unknown) tolerate this as it caused severe pain. (unknown) (no (unknown) (unknown) inhaler (units (unkno wn) date) (Symbicort) unknown) (unknown) (no (unknown) (unknown) instilled. Nail (units (unknown) date) gripped with unknown) pliers and very firmly pulled without any (unknown) (no (unknown) (unknown) ipratropium 0.5 (units (unknown) date) mg-albuterol 3 mg unknown) 3 ml INH PRN #0 03/13/12 11/13/19 (unknown) (no (unknown) (unknown) lamotrigine 200 (units (unknown) date) mg tablet 200 mg unknown) PO BID 11/13/19 11/13/19 (unknown) (no (unknown) (unknown) lithium (units (unkno wn) date) carbonate 150 mg unknown) capsule 450 mg PO BID 11/13/19 11/13/19 (unknown) (no (unknown) (unknown) lorazepam 0.5 mg (units (unknown) date) tablet 0.5 mg PO unknown) DAILY PRN 11/13/19 11/13/19 (unknown) (no (unknown) (unknown) manipulation of (units (unknown) date) nail. Needle then unknown) run along the shaft of nail and more lido (unknown) (no (unknown) (unknown) mcg-4.5 (units (unkno wn) date) mcg/actuation unknown) aerosol (unknown) (no (unknown) (unknown) methadone 10 mg (units (unknown) date) tablet 25 mg PO unknown) TID 11/13/19 11/13/19 (unknown) (no (unknown) (unknown) mild distress. (units (unknown) date) unknown) (unknown) (no (unknown) (unknown) ml INJ NOW ONE (units (unknown) date) unknown) (unknown) (no (unknown) (unknown) nail through the (units (unknown) date) tip of his left unknown) finger. His tetanus will need to be updated (unknown) (no (unknown) (unknown) ondansetron 8 mg (units (unknown) date) disintegrating 8 unknown) mg PO Q8HR PRN 11/13/19 11/13/19 (unknown) (no (unknown) (unknown) pantoprazole 40 (units (unknown) date) mg tablet,delayed unknown) 40 mg PO DAILY 11/13/19 11/13/19 (unknown) (no (unknown) (unknown) prazosin 1 mg (units ( unknown) date) capsule 1 mg PO unknown) DAILY 11/13/19 11/13/19 (unknown) (no (unknown) (unknown) primidone 50 mg (units (unknown) date) tablet 200 mg PO unknown) DAILY 11/13/19 11/13/19 (unknown) (no (unknown) (unknown) quetiapine 50 mg (units (unknown) date) tablet 100 mg PO unknown) BID 11/13/19 11/13/19 (unknown) (no (unknown) (unknown) release (units (unkno wn) date) unknown) (unknown) (no (unknown) (unknown) seizures, (units (unkn own) date) incoordination. unknown) (unknown) (no (unknown) (unknown) sertraline 100 (units (unknown) date) mg tablet 100 mg unknown) PO DAILY 11/13/19 11/13/19 (unknown) (no (unknown) (unknown) soln (units (unkno wn) date) unknown) (unknown) (no (unknown) (unknown) solution (units (unkno wn) date) unknown) (unknown) (no (unknown) (unknown) subcutaneous (units (u nknown) date) syringe (Lovenox) unknown) (unknown) (no (unknown) (unknown) sucralfate 1 (units (u nknown) date) gram tablet 1 g unknown) PO QID 11/13/19 11/13/19 (unknown) (no (unknown) (unknown) tablet (units (unkno wn) date) unknown) (unknown) (no (unknown) (unknown) thusfar including (units (unknown) date) NPO status (no unknown) solids since yesterday morning, only 3oz coffee (unknown) (no (unknown) (unknown) today. He has (units (unknown) date) pain but denies unknown) any numbness or tingling. He is otherwise well (unknown) (no (unknown) (unknown) tonsillar (units (unkn own) date) hypertrophy or unknown) exudate. Airway patent. Result panel 11 (unknown) (no (unknown) (unknown) (no value) (units (unk nown) date) unknown) (unknown) (no (unknown) (unknown) Date of Service: (units (unknown) date) 03/21/22 unknown) (unknown) (no (unknown) (unknown) [facility] (units (unknown) date) [address] unknown) [place] [address] (unknown) (no (unknown) (unknown) Operative Note (units (unknown) date) unknown) (unknown) (no (unknown) (unknown) (no value) (units (unk nown) date) unknown) (unknown) (no (unknown) (unknown) [id number] (units (unk nown) date) unknown) (unknown) (no (unknown) (unknown) Age/Sex: 56 / M (units (unknown) date) unknown) (unknown) (no (unknown) (unknown) Anesthesia Type: (units (unknown) date) General unknown) (unknown) (no (unknown) (unknown) Both areas were (units (unknown) date) irrigated once unknown) again and then closed loosely with 5 0 nylon. (unknown) (no (unknown) (unknown) Click Yes if (units (u nknown) date) Unassisted: Yes unknown) (unknown) (no (unknown) (unknown) Closure Type: (units ( unknown) date) primary unknown) (unknown) (no (unknown) (unknown) Complications: (units (unknown) date) none unknown) (unknown) (no (unknown) (unknown) Condition: (units (unk nown) date) stable unknown) (unknown) (no (unknown) (unknown) Copious (units (unkno wn) date) irrigation was unknown) then performed to the volar aspect of the finger as well (unknown) (no (unknown) (unknown) : 1965 (units (unknown) date) Acct:[id number] unknown) (unknown) (no (unknown) (unknown) Date of (units (unkno wn) date) procedure: unknown) 03/21/22 (unknown) (no (unknown) (unknown) Disposition: (units (u nknown) date) PACU unknown) (unknown) (no (unknown) (unknown) Esmarch was used (units (unknown) date) to exsanguinate unknown) the limb the tourniquet was turned up to 250 (unknown) (no (unknown) (unknown) Estimated Blood (units (unknown) date) Loss (mL): 5 unknown) (unknown) (no (unknown) (unknown) Findings: (units (unkn own) date) unknown) (unknown) (no (unknown) (unknown) Indications: (units (u nknown) date) unknown) (unknown) (no (unknown) (unknown) Nail through the (units (unknown) date) distal phalanx of unknown) the left index finger. Entrance wound was (unknown) (no (unknown) (unknown) On date of (units (unk nown) date) service, patient unknown) is met in the holding area where his operative site (unknown) (no (unknown) (unknown) Operative (units (unkn own) date) Date/Time/Diagnos unknown) es (unknown) (no (unknown) (unknown) Operative Notes (units (unknown) date) unknown) (unknown) (no (unknown) (unknown) Patient will be (units (unknown) date) discharged home. unknown) Patient will need a splint for 6 weeks (unknown) (no (unknown) (unknown) Patient with a (units (unknown) date) 12 meg weight unknown) partially ribbitted nail lodged into his left (unknown) (no (unknown) (unknown) Patient: (units (unkno wn) date) AbebeLakeisha unknown) Jordin MR#: (unknown) (no (unknown) (unknown) Plan for (units (unkno wn) date) aftercare: unknown) (unknown) (no (unknown) (unknown) Post-op (units (unkno wn) date) diagnosis: same unknown) (unknown) (no (unknown) (unknown) Post-operative (units (unknown) date) unknown) (unknown) (no (unknown) (unknown) Pre-op (units (unkno wn) date) diagnosis: unknown) Foreign body left index finger (unknown) (no (unknown) (unknown) Procedure + (units (un known) date) Clinicians unknown) (unknown) (no (unknown) (unknown) Procedure in (units (u nknown) date) detail: unknown) (unknown) (no (unknown) (unknown) Procedure: (units (unk nown) date) unknown) (unknown) (no (unknown) (unknown) Provider: (units (unkn own) date) Matias Morejon unknown) (unknown) (no (unknown) (unknown) Removal of nail (units (unknown) date) from left index unknown) finger distal phalanx as well as irrigation and (unknown) (no (unknown) (unknown) Same procedure (units (unknown) date) as scheduled: Yes unknown) (unknown) (no (unknown) (unknown) Signed (units (unkno wn) date) By:<Electronicall unknown) y signed by Matias Morejon MD>03/21/22 0636 (unknown) (no (unknown) (unknown) Surgeon: (units (unkno wn) date) Matias Morejon unknown) (unknown) (no (unknown) (unknown) The finger was (units (unknown) date) cleaned, dried, unknown) and dressed and patient was placed into a splint (unknown) (no (unknown) (unknown) The same (units (unkno wn) date) procedure was unknown) then done to the dorsal aspect of the finger over the (unknown) (no (unknown) (unknown) Time of (units (unkno wn) date) procedure: 05:50 unknown) (unknown) (no (unknown) (unknown) Tourniquet time (units (unknown) date) (min): 17 unknown) (unknown) (no (unknown) (unknown) and any remaining (units (unknown) date) questions or unknown) concerns he had were answered fully. Patient was (unknown) (no (unknown) (unknown) appropriately (units ( unknown) date) padded. A unknown) well-padded tourniquet was placed up along the left (unknown) (no (unknown) (unknown) arm was prepped (units (unknown) date) and draped in the unknown) normal sterile fashion. (unknown) (no (unknown) (unknown) as in to the (units (u nknown) date) entrance wound unknown) into the distal phalanx. (unknown) (no (unknown) (unknown) debridement of (units (unknown) date) skin soft tissue unknown) and bone (unknown) (no (unknown) (unknown) exit wound. Ten (units (unknown) date) blade was used to unknown) incise through the skin and fascial tissue (unknown) (no (unknown) (unknown) extubated and (units ( unknown) date) taken to the PACU unknown) in stable condition. (unknown) (no (unknown) (unknown) foreign (units (unkno wn) date) material. unknown) Curette was then also used to debride the surrounding soft (unknown) (no (unknown) (unknown) index finger (units (u nknown) date) distal phalanx unknown) (unknown) (no (unknown) (unknown) into that bony (units (unknown) date) tunnel to debride unknown) out the bone as well as the surrounding soft (unknown) (no (unknown) (unknown) it back out. (units (u nknown) date) This allowed the unknown) nail to come out much easier than trying to pull (unknown) (no (unknown) (unknown) it straight out (units (unknown) date) due to the fact unknown) that it was partially threaded. Next, The left (unknown) (no (unknown) (unknown) mmHg. Ten blade (units (unknown) date) was used to make unknown) an incision on the volar aspect of the finger (unknown) (no (unknown) (unknown) mobilizing the (units (unknown) date) distal phalanx unknown) and the DIP joint (unknown) (no (unknown) (unknown) nail but no sign (units (unknown) date) of any complete unknown) fracture through the entire distal phalanx. (unknown) (no (unknown) (unknown) over the exit (units ( unknown) date) wound. Pickups unknown) and tenotomies used to bluntly dissect down until (unknown) (no (unknown) (unknown) position. Great (units (unknown) date) care was taken to unknown) ensure that all bony prominences were (unknown) (no (unknown) (unknown) right over the (units (unknown) date) entry wound. unknown) Sharp dissection was continued in till we had good (unknown) (no (unknown) (unknown) see if any (units (unkn own) date) additional unknown) fixation was needed. Patient had the bony tunnel from the (unknown) (no (unknown) (unknown) taken back to (units ( unknown) date) the operating unknown) theater placed on the operating table in a supine (unknown) (no (unknown) (unknown) the extensor and (units (unknown) date) flexor tendons unknown) were still intact. The crit was used once again (unknown) (no (unknown) (unknown) tissue around (units ( unknown) date) the entrance unknown) wound removing any possible foreign material. (unknown) (no (unknown) (unknown) tissue. Copious (units (unknown) date) irrigation was unknown) then used to the dorsal aspect of the wound as (unknown) (no (unknown) (unknown) tissue. Fifteen (units (unknown) date) blade was used to unknown) do sharp dissection of some of the fatty (unknown) (no (unknown) (unknown) upper extremity. (units (unknown) date) We were able to unknown) remove the partially threaded nail by twisting (unknown) (no (unknown) (unknown) used to debride (units (unknown) date) the entrance unknown) wound into the distal phalanx removing any possible (unknown) (no (unknown) (unknown) visualization of (units (unknown) date) the flexor tendon unknown) as well as the distal phalanx. Curette was (unknown) (no (unknown) (unknown) volarly exit (units (u nknown) date) wound was unknown) dorsally. (unknown) (no (unknown) (unknown) was signed (units (unk nown) date) witnessed by the unknown) OR staff. Surgery was discussed with the patient (unknown) (no (unknown) (unknown) we were able to (units (unknown) date) visualize the unknown) extensor tendons as well as the exit wound. Both (unknown) (no (unknown) (unknown) well as the bony (units (unknown) date) tunnel. C-arm unknown) was brought in to evaluate the distal phalanx to Social History date description facility (no date) Smokes tobacco daily (finding) [facility] Vital Signs date measurement value units +0000 BP_diastolic BP_diastolic 81 mm[H g] +0000 BP_diastolic BP_diastolic 94 mm[H g] +0000 BP_systolic BP_systolic 151 mm[Hg] +0000 BP_systolic BP_systolic 184 mm[Hg] [id number]+0000 heart_rate heart_rate 82 /min [id number]+0000 heart_rate heart_rate 99 /min [id number]+0000 respiration_rate respiration_rate 16 /min [id number]+0000 respiration_rate respiration_rate 20 /min [id number]+0000 temperature_metric temperature_metric 36.33 C +0000 temperature_metric temperature_metric 36.44 C +0000 temperature_standard temperature_standard 9 7.4 F +0000 temperature_standard temperature_standard 9 7.6 F
[2022-06-08] MEDS ORDERED: ONDANSETRON 4 MG/2 ML VIAL IVP STA (23:43)
[2022-06-08] MEDS ORDERED: MORPHINE 2 MG/ML CARPUJECT IVP STA (23:43)
[2022-06-08] MEDS ORDERED: SODIUM CHLORIDE 0.9% 1,000 ML IV STA (23:43)
[2022-06-09 00:15] LABS: BASOPHILS % (AUTO) 0.2 %; EOSINOPHILS # (AUTO) 0.4 10^3/uL (0.0-0.7); EOSINOPHILS % (AUTO) 2.8 %; HCT - HEMATOCRIT 34.7 % (42.0-52.0); HGB - HEMOGLOBIN 10.6 g/dL (14.0-18.0); LYMPHOCYTES # (AUTO) 1.3 10^3/uL (1.5-3.5); LYMPHOCYTES % (AUTO) 9.9 %; MEAN CORPUSCULAR HEMOGLOBIN 28.4 pg (27.0-31.0); MEAN CORPUSCULAR HGB CONC 30.5 g/dL (32.0-36.0); MONOCYTES # (AUTO) 0.9 10^3/uL (0.0-1.0); MONOCYTES % (AUTO) 6.4 %; NEUTROPHILS # (AUTO) 10.9 10^3/uL (1.5-6.6); NEUTROPHILS % (AUTO) 80.5 %; PLT - PLATELET COUNT 386 10^3/uL (130-450); RED BLOOD COUNT 3.73 10^6/uL (4.70-6.10); RED CELL DISTRIBUTION WIDTH 15.2 % (12.0-15.0); WHITE BLOOD COUNT 13.5 x10^3/uL (4.8-10.8)
[2022-06-09 00:25] LABS: ALBUMIN 3.5 g/dL (3.2-5.5); ALBUMIN/GLOBULIN RATIO 1.2 (1.0-2.2); BILIRUBIN,TOTAL 0.3 mg/dL (0.2-1.0); CALCIUM 9.2 mg/dL (8.5-10.3); CREATININE 0.7 mg/dL (0.6-1.2); POTASSIUM 4.2 mmol/L (3.5-5.0); TOTAL PROTEIN 6.4 g/dL (6.7-8.2)
--- NOTE | 2022-06-09 01:41 | CT Report ---
PROCEDURE: Abdomen/Pelvis WO INDICATIONS: lower abd pain/mass in LLQ/nausea vomiting TECHNIQUE: Noncontrast 5 mm thick sections acquired from the diaphragms to the symphysis. 5 mm coronal and sagi ttal reformats were then performed. For radiation dose reduction, the following was used: automated exposure control, adjustment of mA and/or kV according to patient size. COMPARISON: None available. FINDINGS: Image quality: Excellent. Lung bases:There is minimal atelectasis.. Heart: Heart is normal in size. ABDOMEN: Liver: No mass lesion. Gallbladder: Within normal limits without calcified gallstones. Biliary ducts: No biliary ductal dilatation. Pancreas: Unremarkable. Spleen: Normal in size. Adrenal Glands: No adrenal nodules. Kidneys and Ureters: No hydronephrosis. There are 2 small calcification in the left kidney measuring up to 0.3 cm. Stomach and Bowel: Stomach and small bowel loops are grossly normal in caliber. Evaluation is limite d in the absence of intravenous contrast and by paucity of intra-abdominal fat. The appendix is not d iscretely well visualized but there are no definite pericecal plantar changes to suggest appendicitis . The colon demonstrates moderate stool distention of the descending and rectosigmoid colon. There is mild concentric wall thickening in the region of the anorectal junction. Peritoneum: No abnormal intraperitoneal fluid. No free air. Ventral Wall: No hernia. Abdominal Nodes: No retroperitoneal or mesenteric adenopathy by size criteria. Vessels: Aorta and inferior vena cava are normal in size. PELVIS: Genitourinary: Bladder wall thickness is normal. Miscellaneous: No inguinal hernias or adenopathy. Bones: No suspicious bony lesions. No vertebral body compression fractures. IMPRESSION: 1. No evidence of diverticulitis. 2. Moderate stool distention in the descending and rectosigmoid colon may reflect constipation or imp action. Reviewed by: William Olvera MD on 06/09/2022 1:40 AM PDT Approved by: William Olvera MD on 06/09/2022 1:40 AM PDT Station ID: [id number]
[2022-06-09] MEDS ORDERED: MINERAL OIL ENEMA 133 ML BOTTLE RC STA (01:43)
[2022-06-09] MEDS ORDERED: SOAP SUDS ENEMA 1 EACH RC ONE (03:09)
--- NOTE | 2022-06-09 03:40 | ED Physician Documentation ---
PD HPI ABD PAIN - Stated complaint Stated Complaint: MALE GI/ABD PX - Chief complaint Chief Complaint: Abd Pain - History obtained from History obtained from: Patient - Additional information Additional information: Patient is a 56-year-old male presenting for evaluation of lower abdominal pain, nausea and no bowel movement for 11 days. The pain is sharp. Nothing makes it better or worse. Patient has tried an oral [id number] medication which she cannot recall the name of without any improvement. He reports decreased p.o. intake due to nausea. He reports 100 pound weight loss over the last year. His in 2019 and he reports missing her. He denies fever, cough, chest pain or difficulty breathing. He has a history of lung cancer which is in remission and he is being followed by oncology.He denies noting black or bloody stools prior to the onset of constipation. Review of Systems Constitutional: denies: Fever Nose: denies: Congestion Throat: denies: Sore throat Cardiac: denies: Chest pain / pressure Respiratory: denies: Dyspnea, Cough GI: reports: Abdominal Pain, Nausea, Constipation. denies: Vomiting, Bloody / black stool : denies: Dysuria Musculoskeletal: denies: Back pain Neurologic: reports: Generalized weakness. denies: Headache PD PAST MEDICAL HISTORY - Past Medical History Past Medical History: Yes Cardiovascular: Pulmonary embolism Respiratory: COPD, Shortness of breath Neuro: Tremors, Other Endocrine/Autoimmune: HyPOthyroidism GI: GERD, Other : Frequency HEENT: Chronic vision loss, Chronic hearing loss Psych: Depression, Anxiety, Bipolar disorder, Panic attacks, Post traumatic stress disorder Musculoskeletal: Osteoarthritis, Fatigue, Chronic back pain - Past Surgical History Past Surgical History: Yes General: Appendectomy Ortho: Knee replacement, Other Cardiovascular: Other - Present Medications Home Medications: Ambulatory Orders Medication Instructions Recorded Confirmed [place] Carbonate 450 mg PO BID 10/24/14 04/27/22 Sertraline [Zoloft] 100 mg PO DAILY 10/24/14 04/27/22 lamoTRIgine [LaMICtal] 200 mg PO BID 10/24/14 04/27/22 QUEtiapine [SEROquel] 100 mg PO BID 08/03/15 04/27/22 Alprazolam [Xanax] 1 mg PO DAILY PRN MDD 4 for 2 03/15/18 04/27/22 months Primidone 250 mg PO QPM 09/02/18 04/27/22 Albuterol Sulfate [Proair 2 puffs IH Q4HR PRN 08/10/20 04/27/22 Digihaler] Enoxaparin [Lovenox] 80 mg SUBQ Q12H 08/10/20 04/27/22 Ipratropium/Albuterol Sulfate 3 ml IH TID PRN 08/10/20 04/27/22 [Iprat-Albut 0.5-3(2.5) mg/3 ml] Methadone HCl 25 mg PO TID 08/10/20 04/27/22 Naloxone HCl Nasal [Narcan] 4 mg NS .ONE TIME PRN 08/10/20 04/27/22 Ondansetron [Ondansetron Odt] 8 mg PO DAILY PRN 08/10/20 04/27/22 Alprazolam [Alprazolam Xr] 2 mg PO DAILY 09/22/20 04/27/22 Nystatin [Mycostatin] 5 ml PO QID PRN 11/03/20 04/27/22 Fluticasone/Salmeterol [Advair Hfa 2 puffs INH BID 05/11/21 04/27/22 115-21 Mcg Inhaler] Pantoprazole [Protonix] 40 mg PO DAILY 05/11/21 04/27/22 Levothyroxine Sodium 50 mcg PO DAILY 02/23/22 04/27/22 [Levothyroxine] Sucralfate [Carafate] 1 gm PO QID MDD 14 days 04/27/22 04/27/22 Ondansetron Odt [Zofran] 4 mg TL Q6H PRN #10 tablet 06/09/22 polyethylene glycoL 3350 [Miralax] 17 gm PO DAILY PRN #1 bottle 06/09/22 - Allergies Allergies/Adverse Reactions: Allergies Allergy/AdvReac Type Severity Reaction Status Date / Time Penicillins Allergy Severe Respiratory Verified 06/08/22 20:42 Sulfa (Sulfonamide Allergy Severe Anaphylaxis Verified 06/08/22 20:42 Antibiotics) venom-honey bee Allergy Anaphylaxis Verified 06/08/22 20:42 [bee venom (honey bee)] - Social History Does the pt smoke?: Yes Smoking Status: Current every day smoker Does the pt drink ETOH?: No Does the pt have substance abuse?: No - Immunizations Immunizations are current?: No Immunizations: TDAP >10years/unknown - POLST Patient has POLST: Yes PD ED PE NORMAL - General General: Alert and oriented X 3, No acute distress, Other (Appears older than stated age, frail appearing) - HEENT HEENT: Atraumatic, Other (Dry mucous membranes) - Neck Neck: Supple, no meningeal sign - Cardiac Cardiac: RRR, No murmur, Strong equal pulses - Respiratory Respiratory: No respiratory distress, Clear bilaterally - Abdomen Abdomen: Normal bowel sounds, Soft, Non distended, Other (Left lower quadrant tenderness) - Rectal Rectal: Other (Chaperoned by Yonathan, hard stool in rectum) - Derm Derm: Warm and dry - Extremities Extremities: No calf tenderness / cord - Neuro Neuro: Normal speech Results - Vitals Vitals: Vital Signs - 24 hr 06/08/22 06/08/22 06/08/22 20:30 20:42 22:44 Temperature 36.5 C Heart Rate 64 74 61 Respiratory 16 16 16 Rate Blood Pressure 131/79 H 137/83 H 131/79 H O2 Saturation 99 99 99 06/09/22 06/09/22 06/09/22 00:26 01:48 03:00 Temperature 36.6 C Heart Rate 58 L 60 77 Respiratory 18 16 16 Rate Blood Pressure 150/92 H 140/81 H 122/67 O2 Saturation 100 99 98 Oxygen O2 Source Room air - Labs Labs: Laboratory Tests 06/08/22 06/08/22 23:58 23:58 WBC 13.5 H RBC 3.73 L Hgb 10.6 L Hct 34.7 L MCV 93.0 MCH 28.4 MCHC 30.5 L RDW 15.2 H Plt Count 386 MPV 10.0 Neut # (Auto) 10.9 H Lymph # (Auto) 1.3 L [place] # (Auto) 0.9 Eos # (Auto) 0.4 Baso # (Auto) 0.0 Absolute Nucleated RBC 0.00 Nucleated RBC % 0.0 Sodium 138 Potassium 4.2 Chloride 100 L Carbon Dioxide 31 Anion Gap 7.0 BUN 13 Creatinine 0.7 Estimated GFR (MDRD) 116 Glucose 95 Calcium 9.2 Total Bilirubin 0.3 AST 19 ALT 28 Alkaline Phosphatase 153 H Total Protein 6.4 L Albumin 3.5 Globulin 2.9 Albumin/Globulin Ratio 1.2 Lipase 24 PD MEDICAL DECISION MAKING - ED course Complexity details: reviewed results, re-evaluated patient, d/w patient ED course: Patient presenting with constipation, left lower quadrant tenderness and recent nausea. Vital signs are stable. Labs reviewed, Mild leukocytosis. Anemia similar to previous. CT scan does not show evidence of bowel obstruction. He does have a large amount of constipation. Patient given enema with some stool output. Attempted manual disimpaction but patient requested that we stop after small amount of stool was evacuated.Patient prefers to try MiraLAX and stool softeners at home. He was also given nausea medications.He is aware of return precautions and discharged in stable condition. Departure - Departure Disposition: Home, Self Care Clinical Impression: Constipation Qualifiers: Constipation type: other constipation type Qualified Code(s): K59.09 - Other constipation Condition: Stable Instructions: ED Constipation Prescriptions: polyethylene glycoL 3350 [Miralax] 17 gm PO DAILY PRN #1 bottle PRN Reason: Constipation Ondansetron Odt [Zofran] 4 mg TL Q6H PRN #10 tablet PRN Reason: Nausea / Vomiting Comments: Your testing in the emergency department today revealed significant constipation. He did receive an enema with some stool but you have large amount of stool Still present in your colon. I will send a prescription for MiraLAX And an antinausea medication to [facility] in [facility] bowel movements. If you have any worsening symptoms please consider return to the emergency department. Please also follow-up with your primary care doctor in the next week to discuss a proper bowel regimen. Discharge Date/Time: 06/09/22 04:13
[2022-06-09 03:45] VITALS: BP 122/67
== END 2022-06-09 04:13 | disposition home or self-care (01) ==
LOC: ED 20:24
DX: K59.00 Constipation, unspecified (principal); F17.200 Nicotine dependence, unspecified, uncomplicated
CPT/HCPCS: 36415; 74176; 80053; 83690; 85025; 96374; 96375; 99282; 99284; A9270

== ENCOUNTER 2022-06-25 17:40 | Emergency (ER) | payer MEDICARE, MEDICAID ==
--- NOTE | 2022-06-25 18:21 | XRAY Report ---
PROCEDURE: Chest 1 View X-Ray INDICATIONS: Chest pain TECHNIQUE: One view of the chest was acquired. COMPARISON: 12/14/2020, 08/20/2020 FINDINGS: Surgical changes and devices: Lower cervical spine fixation hardware can be seen. Lungs and pleura: An incomplete inspiratory result is noted, with low lung volumes and crowding of t he vascular markings. No focal infiltrates are seen. No large pneumothorax or large pleural effusion can be seen. Mediastinum: Mediastinal contours appear normal. Heart size is normal. Bones and chest wall: No suspicious bony lesions. Overlying soft tissues appear unremarkable. IMPRESSION: Portable chest within normal limits for age. Reviewed by: Sebastien Ibarra MD on 06/25/2022 5:19 PM AKBRII Approved by: Sebastien Ibarra MD on 06/25/2022 5:19 PM AKBRII Station ID: [id number]
[2022-06-25 18:23] LABS: BASOPHILS % (AUTO) 0.4 %; EOSINOPHILS # (AUTO) 0.4 10^3/uL (0.0-0.7); EOSINOPHILS % (AUTO) 4.6 %; HCT - HEMATOCRIT 28.9 % (42.0-52.0); HGB - HEMOGLOBIN 9.3 g/dL (14.0-18.0); MEAN CORPUSCULAR HEMOGLOBIN 29.6 pg (27.0-31.0); MEAN CORPUSCULAR HGB CONC 32.2 g/dL (32.0-36.0); MEAN PLATELET VOLUME 9.5 fL (7.4-11.4); MONOCYTES # (AUTO) 0.7 10^3/uL (0.0-1.0); MONOCYTES % (AUTO) 8.2 %; NEUTROPHILS # (AUTO) 6.4 10^3/uL (1.5-6.6); NEUTROPHILS % (AUTO) 74.4 %; PLT - PLATELET COUNT 325 10^3/uL (130-450); RED BLOOD COUNT 3.14 10^6/uL (4.70-6.10); RED CELL DISTRIBUTION WIDTH 15.7 % (12.0-15.0); WHITE BLOOD COUNT 8.6 x10^3/uL (4.8-10.8)
--- NOTE | 2022-06-25 18:32 | ED Physician Documentation ---
History of Present Illness - Stated complaint Stated Complaint: FEET AND LEG SWELLING - Chief complaint Chief Complaint: Cardiac - History obtained from History obtained from: Patient - History of Present Illness Timing: Today Pain level max: 0 Pain level now: 0 - Additonal information Additional information: 56-year-old male with a history of bipolar disorder presents to the emergency department complaining of bilateral lower extremity swelling. Has been ongoing for the past several weeks. Nothing makes it better or worse. No fevers. No chills. He states he had chest pain earlier today lasted about 10 minutes. Not related to exertion. Nonradiating. It occurred when he was upset and talking to his son. Currently asymptomatic. No dyspnea. No cough. No fever. No congestion. Review of Systems Constitutional: denies: Fever, Chills Nose: denies: Rhinorrhea / runny nose, Congestion Throat: denies: Sore throat Cardiac: denies: Palpitations Respiratory: denies: Dyspnea, Cough, Wheezing GI: denies: Abdominal Pain, Nausea, Vomiting, Constipation : denies: Dysuria Skin: denies: Rash Musculoskeletal: denies: Neck pain, Back pain Neurologic: denies: Headache PD PAST MEDICAL HISTORY - Past Medical History Past Medical History: Yes Cardiovascular: Pulmonary embolism Respiratory: COPD, Shortness of breath Neuro: Tremors, Other Endocrine/Autoimmune: HyPOthyroidism GI: GERD, Other : Frequency HEENT: Chronic vision loss, Chronic hearing loss Psych: Depression, Anxiety, Bipolar disorder, Panic attacks, Post traumatic stress disorder Musculoskeletal: Osteoarthritis, Fatigue, Chronic back pain - Past Surgical History Past Surgical History: Yes General: Appendectomy Ortho: Knee replacement, Other Cardiovascular: Other - Present Medications Home Medications: Ambulatory Orders Medication Instructions Recorded Confirmed [place] Carbonate 450 mg PO BID 10/24/14 04/27/22 Sertraline [Zoloft] 100 mg PO DAILY 10/24/14 04/27/22 lamoTRIgine [LaMICtal] 200 mg PO BID 10/24/14 04/27/22 QUEtiapine [SEROquel] 100 mg PO BID 08/03/15 04/27/22 Alprazolam [Xanax] 1 mg PO DAILY PRN MDD 4 for 2 03/15/18 04/27/22 months Primidone 250 mg PO QPM 09/02/18 04/27/22 Albuterol Sulfate [Proair 2 puffs IH Q4HR PRN 08/10/20 04/27/22 Digihaler] Enoxaparin [Lovenox] 80 mg SUBQ Q12H 08/10/20 04/27/22 Ipratropium/Albuterol Sulfate 3 ml IH TID PRN 08/10/20 04/27/22 [Iprat-Albut 0.5-3(2.5) mg/3 ml] Methadone HCl 25 mg PO TID 08/10/20 04/27/22 Naloxone HCl Nasal [Narcan] 4 mg NS .ONE TIME PRN 08/10/20 04/27/22 Ondansetron [Ondansetron Odt] 8 mg PO DAILY PRN 08/10/20 04/27/22 Alprazolam [Alprazolam Xr] 2 mg PO DAILY 09/22/20 04/27/22 Nystatin [Mycostatin] 5 ml PO QID PRN 11/03/20 04/27/22 Fluticasone/Salmeterol [Advair Hfa 2 puffs INH BID 05/11/21 04/27/22 115-21 Mcg Inhaler] Pantoprazole [Protonix] 40 mg PO DAILY 05/11/21 04/27/22 Levothyroxine Sodium 50 mcg PO DAILY 02/23/22 04/27/22 [Levothyroxine] Sucralfate [Carafate] 1 gm PO QID MDD 14 days 04/27/22 04/27/22 Ondansetron Odt [Zofran] 4 mg TL Q6H PRN #10 tablet 06/09/22 polyethylene glycoL 3350 [Miralax] 17 gm PO DAILY PRN #1 bottle 06/09/22 Furosemide [Lasix] 20 mg PO DAILY #4 tablet 06/25/22 - Allergies Allergies/Adverse Reactions: Allergies Allergy/AdvReac Type Severity Reaction Status Date / Time Penicillins Allergy Severe Respiratory Verified 06/25/22 17:59 Sulfa (Sulfonamide Allergy Severe Anaphylaxis Verified 06/25/22 17:59 Antibiotics) venom-honey bee Allergy Anaphylaxis Verified 06/25/22 17:59 [bee venom (honey bee)] - Social History Does the pt smoke?: Yes Smoking Status: Current every day smoker Does the pt drink ETOH?: No Does the pt have substance abuse?: No - Immunizations Immunizations are current?: No Immunizations: TDAP >10years/unknown - POLST Patient has POLST: Yes PD ED PE NORMAL - Vitals Vital signs reviewed: Yes - General General: Alert and oriented X 3, No acute distress, Well developed/nourished - HEENT HEENT: PERRL, Moist mucous membranes - Neck Neck: Supple, no meningeal sign - Cardiac Cardiac: RRR, Strong equal pulses - Respiratory Respiratory: No respiratory distress, Clear bilaterally - Abdomen Abdomen: Soft, Non tender, Non distended - Derm Derm: Warm and dry - Extremities Extremities: Other (2+ bilateral lower extremity pitting edema this extends up to the thighs. NVI) - Neuro Neuro: Alert and oriented X 3 - Psych Psych: Normal mood, Normal affect Results - Vitals Vitals: Vital Signs - 24 hr 06/25/22 06/25/22 06/25/22 17:52 18:14 19:57 Temperature 37.4 C 37.4 C 37.0 C Heart Rate 98 98 88 Respiratory 16 16 16 Rate Blood Pressure 129/69 129/69 128/73 O2 Saturation 99 99 100 Oxygen O2 Source Room air - EKG (time done) 1802 Rate: Rate (enter#) (86) Rhythm: NSR [place]: Normal Intervals: Normal [place] QRS: Normal Ischemia: Normal ST segments - Labs Labs: Laboratory Tests 06/25/22 06/25/22 06/25/22 18:13 18:13 18:13 WBC 8.6 RBC 3.14 L Hgb 9.3 L Hct 28.9 L MCV 92.0 MCH 29.6 MCHC 32.2 RDW 15.7 H Plt Count 325 MPV 9.5 Neut # (Auto) 6.4 Lymph # (Auto) 1.0 L [place] # (Auto) 0.7 Eos # (Auto) 0.4 Baso # (Auto) 0.0 Absolute Nucleated RBC 0.00 Nucleated RBC % 0.0 Sodium 140 Potassium 3.6 Chloride 108 Carbon Dioxide 26 Anion Gap 6.0 BUN 7 Creatinine 0.5 L Estimated GFR (MDRD) 171 Glucose 106 H Calcium 8.6 Total Bilirubin < 0.2 L AST 17 ALT 16 Alkaline Phosphatase 130 H Troponin I High Sens 2.6 B-Natriuretic Peptide Total Protein 5.5 L Albumin 3.2 Globulin 2.3 Albumin/Globulin Ratio 1.4 Lipase 25 Last Dose Date Last Dose Time [place] 06/25/22 06/25/22 18:13 18:13 WBC RBC Hgb Hct MCV MCH MCHC RDW Plt Count MPV Neut # (Auto) Lymph # (Auto) [place] # (Auto) Eos # (Auto) Baso # (Auto) Absolute Nucleated RBC Nucleated RBC % Sodium Potassium Chloride Carbon Dioxide Anion Gap BUN Creatinine Estimated GFR (MDRD) Glucose Calcium Total Bilirubin AST ALT Alkaline Phosphatase Troponin I High Sens B-Natriuretic Peptide 44 Total Protein Albumin Globulin Albumin/Globulin Ratio Lipase Last Dose Date UNK Last Dose Time UNK [place] 0.94 - Rads (name of study) cxr Radiology: Final report received, EMP read contemporaneously, See rad report (No acute abnormality) PD MEDICAL DECISION MAKING - ED course Complexity details: reviewed results, re-evaluated patient, considered differential (No ST elevation IL, no aortic dissection, no PE, no tension pneumothorax, no aortic aneurysm), d/w patient ED course: Patient with 2+ bilateral pitting lower extremity edema. He also had an episode of chest pain several hours ago. Negative high-sensitivity troponin. He is on lithium, therefore we will start with a small dose of the diuretic as this may affect his lithium dose. Departure - Departure Disposition: 01 Home, Self Care Clinical Impression: Peripheral edema Chest pain Qualifiers: Chest pain type: unspecified Qualified Code(s): R07.9 - Chest pain, unspecified Condition: Good Instructions: ED Chest Pain Atypical Unkn Cause, ED Edema Legs Bilateral Follow-Up: Rohini De Leon ARNP [Primary Care Provider] - Within 3 Days Prescriptions: Furosemide [Lasix] 20 mg PO DAILY #4 tablet Comments: We will place you on a diuretic for home. It is importantly have your lithium level rechecked within 3 days with your doctor. Diuretics can affect your lithium levels, so it is important that we monitor this closely. Please return if you worsen. Your prescription was sent to [facility]. Discharge Date/Time: 06/25/22 19:57
[2022-06-25 18:35] LABS: ALBUMIN 3.2 g/dL (3.2-5.5); ALBUMIN/GLOBULIN RATIO 1.4 (1.0-2.2); ALKALINE PHOSPHATASE 130 IU/L (42-121); ALT ALANINE AMINOTRANSFERASE 16 IU/L (10-60); AST ASPARTATE AMINOTRANSFERASE 17 IU/L (10-42); BILIRUBIN,TOTAL < 0.2 mg/dL (0.2-1.0); BUN - BLOOD UREA NITROGEN 7 mg/dL (6-20); CALCIUM 8.6 mg/dL (8.5-10.3); CARBON DIOXIDE - CO2 26 mmol/L (21-32); CHLORIDE 108 mmol/L (101-111); CREATININE 0.5 mg/dL (0.6-1.2); GFR - MDRD 171 (>89); GLUCOSE 106 mg/dL (70-100); LIPASE 25 U/L (22-51); POTASSIUM 3.6 mmol/L (3.5-5.0); SODIUM 140 mmol/L (135-145); TOTAL PROTEIN 5.5 g/dL (6.7-8.2)
[2022-06-25] MEDS ORDERED: FUROSEMIDE 20 MG TABLET PO STA (18:52)
[2022-06-25 19:05] LABS: LITHIUM 0.94 mmol/L
[2022-06-25 19:58] VITALS: BP 128/73
== END 2022-06-25 19:57 | disposition home or self-care (01) ==
LOC: ED 17:40
DX: R60.9 Edema, unspecified (principal); R07.9 Chest pain, unspecified; F17.200 Nicotine dependence, unspecified, uncomplicated
CPT/HCPCS: 36415; 71045; 80053; 80178; 83690; 83880; 84484; 85025; 93005; 99284; A9270

== ENCOUNTER 2022-07-03 17:00 | Outpatient (CLI) | payer MEDICARE, MEDICAID ==
[2022-07-03 17:11] LABS: MUDS CUTOFF CONCENTRATIONS CUTOFF CONC BELOW:
[2022-07-03 20:47] LABS: CREATININE 0.7 mg/dL (0.6-1.2)
[2022-07-03 20:52] LABS: LITHIUM 0.79 mmol/L
[2022-07-03 20:53] LABS: AMPHETAMINE SCREEN,URINE NEGATIVE (NEGATIVE); BARBITURATE SCREEN,UR POSITIVE (NEGATIVE); BENZODIAZEPINES SCREEN, URINE POSITIVE (NEGATIVE); COCAINE SCREEN URINE NEGATIVE (NEGATIVE); METHADONE SCREEN, URINE POSITIVE (NEGATIVE); METHAMPHETAMINES SCREEN, URINE NEGATIVE (NEGATIVE); OPIATE SCREEN, URINE NEGATIVE (NEGATIVE); OXYCODONE SCREEN, URINE NEGATIVE (NEGATIVE); PROPOXYPHENE SCREEN, URINE NEGATIVE (NEGATIVE); THC CANNABINOID SCREEN, URINE NEGATIVE (NEGATIVE); TRICYCLIC ANTIDEPRESSANT,URINE POSITIVE (NEGATIVE)
== END 2022-07-03 17:01 | disposition home or self-care (01) ==
LOC: LAB.N 17:00
PROVIDERS: ATTEND Nurse Practitioner Family
DX: G89.4 Chronic pain syndrome (principal); F31.9 Bipolar disorder, unspecified; Z79.899 Other long term (current) drug therapy
CPT/HCPCS: 36415; 80048; 80178; 80306

== ENCOUNTER 2022-09-25 08:00 | Outpatient (CLI) | payer MEDICARE, MEDICAID ==
--- NOTE | 2022-09-25 17:16 | XRAY Report ---
PROCEDURE: Chest 2 View X-Ray INDICATIONS: COUGH, CARCINOMA, LUNG TECHNIQUE: 2 views of the chest were obtained. COMPARISON: Chest x-ray 07/06/2022 FINDINGS: Cardiac mediastinal silhouette is normal in size and contour. There is interval appearance of promine nt right basilar opacity. Osseous and soft tissue structures are unremarkable. IMPRESSION: Interval right basilar opacity. This could represent mass lesion such as malignancy versus pneumonia. Recommend clinical correlation and further evaluation with CT chest or short interval imaging follow -up as indicated. Reviewed by: Margaret Almaguer MD on 09/25/2022 5:15 PM PDT Approved by: Margaret Almaguer MD on 09/25/2022 5:15 PM PDT Station ID: [id number]
== END 2022-09-25 23:59 | disposition home or self-care (01) ==
LOC: DI.N 08:00
PROVIDERS: ATTEND Physician Assistant
DX: R05.9 Cough, unspecified (principal); C34.90 Malignant neoplasm of unspecified part of unspecified bronchus or lung; R91.8 Other nonspecific abnormal finding of lung field

== ENCOUNTER 2023-03-29 15:09 | Outpatient (CLI) | payer MEDICARE, MEDICAID ==
[2023-03-29 15:13] LABS: MUDS CUTOFF CONCENTRATIONS CUTOFF CONC BELOW:
[2023-03-29 18:36] LABS: AMPHETAMINE SCREEN,URINE NEGATIVE (NEGATIVE); BARBITURATE SCREEN,UR NEGATIVE (NEGATIVE); BENZODIAZEPINES SCREEN, URINE POSITIVE (NEGATIVE); COCAINE SCREEN URINE NEGATIVE (NEGATIVE); METHADONE SCREEN, URINE POSITIVE (NEGATIVE); METHAMPHETAMINES SCREEN, URINE NEGATIVE (NEGATIVE); OPIATE SCREEN, URINE NEGATIVE (NEGATIVE); OXYCODONE SCREEN, URINE NEGATIVE (NEGATIVE); PROPOXYPHENE SCREEN, URINE NEGATIVE (NEGATIVE); THC CANNABINOID SCREEN, URINE NEGATIVE (NEGATIVE); TRICYCLIC ANTIDEPRESSANT,URINE POSITIVE (NEGATIVE)
== END 2023-03-29 15:10 | disposition home or self-care (01) ==
LOC: LAB.N 15:09
PROVIDERS: ATTEND Nurse Practitioner Adult Health
DX: G89.4 Chronic pain syndrome (principal); F15.21 Other stimulant dependence, in remission; Z79.891 Long term (current) use of opiate analgesic
CPT/HCPCS: 80306

== ENCOUNTER 2023-07-22 15:56 | Outpatient (CLI) | payer MEDICARE, MEDICAID | END 2023-07-22 23:59 | disposition short-term general hospital (02) | LOC: EMS 15:56 | DX: R06.00 Dyspnea, unspecified (principal); R45.1 Restlessness and agitation; T63.441A Toxic effect of venom of bees, accidental (unintentional), initial encounter | CPT/HCPCS: A0425; A0427 ==

== ENCOUNTER 2023-10-31 13:20 | Outpatient (CLI) | payer MEDICARE, MEDICAID ==
[2023-10-31 13:32] LABS: MUDS CUTOFF CONCENTRATIONS CUTOFF CONC BELOW:
[2023-10-31 18:00] LABS: AMPHETAMINE SCREEN,URINE NEGATIVE (NEGATIVE); BENZODIAZEPINES SCREEN, URINE POSITIVE (NEGATIVE); COCAINE SCREEN URINE NEGATIVE (NEGATIVE); METHADONE SCREEN, URINE POSITIVE (NEGATIVE); METHAMPHETAMINES SCREEN, URINE NEGATIVE (NEGATIVE); OPIATE SCREEN, URINE NEGATIVE (NEGATIVE); OXYCODONE SCREEN, URINE NEGATIVE (NEGATIVE); PROPOXYPHENE SCREEN, URINE NEGATIVE (NEGATIVE); THC CANNABINOID SCREEN, URINE NEGATIVE (NEGATIVE); TRICYCLIC ANTIDEPRESSANT,URINE POSITIVE (NEGATIVE)
[2023-10-31 18:01] LABS: BARBITURATE SCREEN,UR NEGATIVE (NEGATIVE)
== END 2023-10-31 13:21 | disposition home or self-care (01) ==
LOC: LAB.N 13:20
PROVIDERS: ATTEND Nurse Practitioner Adult Health
DX: F15.11 Other stimulant abuse, in remission (principal); G89.4 Chronic pain syndrome
CPT/HCPCS: 80306

== ENCOUNTER 2024-02-06 14:51 | Outpatient (CLI) | payer MEDICARE, MEDICAID ==
--- NOTE | 2024-02-06 16:57 | XRAY Report ---
PROCEDURE: Chest 2V INDICATIONS: LUNG CARCINOMA, CHEST PAIN, CHRONIC COUGH TECHNIQUE: 2 views of the chest were acquired. COMPARISON: None. FINDINGS: Surgical changes and devices: None. Lungs and pleura: Hazy nodularity in the right upper lung zone, similar to prior. Mediastinum: Mediastinal contours appear normal. Heart size is normal. Bones and chest wall: No suspicious bony lesions. Overlying soft tissues appear unremarkable. IMPRESSION: Similar nodularity of the right upper lung zone. No acute abnormality otherwise. Reviewed by: Horace Eubanks MD on 02/06/2024 4:56 PM PST Approved by: Horace Eubanks MD on 02/06/2024 4:56 PM PST Station ID: [id number]
== END 2024-02-06 14:52 | disposition home or self-care (01) ==
LOC: DI 14:51
PROVIDERS: ATTEND Nurse Practitioner Adult Health
DX: R07.89 Other chest pain (principal); R05.3 Chronic cough; C34.90 Malignant neoplasm of unspecified part of unspecified bronchus or lung; Z87.01 Personal history of pneumonia (recurrent); R91.1 Solitary pulmonary nodule

== ENCOUNTER 2024-02-19 14:58 | Outpatient (CLI) | payer MEDICARE, MEDICAID ==
--- NOTE | 2024-02-19 17:07 | CT Report ---
PROCEDURE: Chest WO INDICATIONS: LUNG CA TECHNIQUE: A CT scan of the chest was performed. Intravenous contrast media was not administered. Images were re corded and evaluated at appropriate window settings. Reformats: axial MIP of the chest, coronal and s agittal. For radiation dose reduction, the following was used: automated exposure control, adjustment of mA and/or kV according to patient size. COMPARISON: CT 09/02/2018. FINDINGS: Image quality: Diagnostic. Chest wall and lower neck: No thyroid nodule which requires sonographic follow up. No axillary or sup raclavicular adenopathy by size. Lungs and pleura: No consolidation. No pleural effusions. No pneumothorax. Stable 5 mm solid nodule in the right middle lobe compared with 2018, statistically benign (series 4, image 57). There is arc hitectural distortion and with angulated margins in the posterior right upper lobe. Additional lino ectural distortion with air bronchograms in the right hilum. Mediastinum: Heart size is normal. No pericardial effusion. No large vessel abnormality. No mediastin al adenopathy by size criteria. Bones: No aggressive osseous abnormality. Upper Abdomen: Unremarkable. IMPRESSION: Posttreatment change of the right hilum and right upper lobe, without measurable disease. Reviewed by: Horace Eubanks MD on 02/19/2024 5:06 PM PDT Approved by: Horace Eubanks MD on 02/19/2024 5:06 PM PDT Station ID: [id number]
== END 2024-02-19 14:59 | disposition home or self-care (01) ==
LOC: DI 14:58
PROVIDERS: ATTEND Internal Medicine Hematology & Oncology
DX: Z08 Encounter for follow-up examination after completed treatment for malignant neoplasm (principal); Z85.118 Personal history of other malignant neoplasm of bronchus and lung; R94.6 Abnormal results of thyroid function studies

== ENCOUNTER 2024-03-01 08:00 | Outpatient (CLI) | payer MEDICARE, MEDICAID | END 2024-03-01 23:59 | disposition home or self-care (01) | LOC: PC 08:00 | PROVIDERS: ATTEND Nurse Practitioner Adult Health | DX: Z51.5 Encounter for palliative care (principal); C34.90 Malignant neoplasm of unspecified part of unspecified bronchus or lung; G89.4 Chronic pain syndrome | CPT/HCPCS: 99426 ==

== ENCOUNTER 2024-03-31 08:00 | Outpatient (CLI) | payer MEDICARE, MEDICAID | END 2024-03-31 23:59 | disposition home or self-care (01) | LOC: PC 08:00 | PROVIDERS: ATTEND Nurse Practitioner Adult Health | DX: Z51.5 Encounter for palliative care (principal); C34.90 Malignant neoplasm of unspecified part of unspecified bronchus or lung; G89.29 Other chronic pain | CPT/HCPCS: 99426 ==

== ENCOUNTER 2024-06-10 13:32 | Outpatient (CLI) | payer MEDICARE, MEDICAID | END 2024-06-10 23:59 | disposition critical access hospital (66) | LOC: EMS 13:32 | DX: T63.441A Toxic effect of venom of bees, accidental (unintentional), initial encounter (principal); L50.9 Urticaria, unspecified; L53.9 Erythematous condition, unspecified; Y92.007 Garden or yard of unspecified non-institutional (private) residence as the place of occurrence of the external cause | CPT/HCPCS: A0425; A0427 ==

== ENCOUNTER 2024-06-10 14:06 | Emergency (ER) | payer MEDICARE, MEDICAID ==
--- NOTE | 2024-06-10 14:28 | ED Physician Documentation ---
PD HPI HEENT - Stated complaint Stated Complaint: BEE STING - Chief complaint Chief Complaint: Allergic Rx - History obtained from History obtained from: Patient - History of Present Illness Timing - onset: How many minutes ago (30), Today Timing - duration: Minutes (he started to get allergic reaction symptoms and gave epipen, which improved symptoms. Now with just local tenderness at sting area.) Timing - details: Abrupt onset, Now resolved Worsens: No: Swalllowing Associated symptoms: No: Facial swelling Similar symptoms before: Diagnosis (has had anaphylactic reaction to bee stings before.) Review of Systems Cardiac: denies: Chest pain / pressure Respiratory: denies: Dyspnea, Wheezing Neurologic: denies: Near syncope, Syncope PD PAST MEDICAL HISTORY - Past Medical History Past Medical History: Yes Cardiovascular: Pulmonary embolism Respiratory: COPD, Shortness of breath Neuro: Tremors, Other Endocrine/Autoimmune: HyPOthyroidism GI: GERD, Other : Frequency HEENT: Chronic vision loss, Chronic hearing loss Psych: Depression, Anxiety, Bipolar disorder, Panic attacks, Post traumatic stress disorder Musculoskeletal: Osteoarthritis, Fatigue, Chronic back pain - Past Surgical History Past Surgical History: Yes General: Appendectomy Ortho: Knee replacement, Other Cardiovascular: Other - Present Medications Home Medications: Ambulatory Orders Medication Instructions Recorded Confirmed [place] Carbonate 450 mg PO BID 10/24/14 04/27/22 Sertraline [Zoloft] 100 mg PO DAILY 10/24/14 04/27/22 lamoTRIgine [LaMICtal] 200 mg PO BID 10/24/14 04/27/22 QUEtiapine [SEROquel] 100 mg PO BID 08/03/15 04/27/22 Alprazolam [Xanax] 1 mg PO DAILY PRN MDD 4 for 2 03/15/18 04/27/22 months Primidone 250 mg PO QPM 09/02/18 04/27/22 Albuterol Sulfate [Proair 2 puffs IH Q4HR PRN 08/10/20 04/27/22 Digihaler] Enoxaparin [Lovenox] 80 mg SUBQ Q12H 08/10/20 04/27/22 Ipratropium/Albuterol Sulfate 3 ml IH TID PRN 08/10/20 04/27/22 [Iprat-Albut 0.5-3(2.5) mg/3 ml] Methadone HCl 25 mg PO TID 08/10/20 04/27/22 Naloxone HCl Nasal [Narcan] 4 mg NS .ONE TIME PRN 08/10/20 04/27/22 Ondansetron [Ondansetron Odt] 8 mg PO DAILY PRN 08/10/20 04/27/22 Alprazolam [Alprazolam Xr] 2 mg PO DAILY 09/22/20 04/27/22 Nystatin [Mycostatin] 5 ml PO QID PRN 11/03/20 04/27/22 Fluticasone Propion/Salmeterol 2 puffs INH BID 05/11/21 04/27/22 [Advair Hfa 115-21 Mcg Inhaler] Pantoprazole [Protonix] 40 mg PO DAILY 05/11/21 04/27/22 Levothyroxine Sodium 50 mcg PO DAILY 02/23/22 04/27/22 [Levothyroxine] Sucralfate [Carafate] 1 gm PO QID MDD 14 days 04/27/22 04/27/22 Ondansetron Odt [Zofran] 4 mg TL Q6H PRN #10 tablet 06/09/22 polyethylene glycoL 3350(BULK) 17 gm PO DAILY PRN #1 bottle 06/09/22 [Miralax] Furosemide [Lasix] 20 mg PO DAILY #4 tablet 06/25/22 Furosemide [Lasix] 20 mg PO DAILY 7 Days #7 tablet 07/06/22 EPINEPHrine [Epinephrine] 0.3 mg IJ ONCE PRN #2 each 06/10/24 - Allergies Allergies/Adverse Reactions: Allergies Allergy/AdvReac Type Severity Reaction Status Date / Time Penicillins Allergy Severe Respiratory Verified 06/10/24 14:11 Sulfa (Sulfonamide Allergy Severe Anaphylaxis Verified 06/10/24 14:11 Antibiotics) venom-honey bee Allergy Anaphylaxis Verified 06/10/24 14:11 [bee venom (honey bee)] - Social History Does the pt smoke?: Yes Smoking Status: Current every day smoker Does the pt drink ETOH?: No Does the pt have substance abuse?: No - Immunizations Immunizations are current?: No Immunizations: TDAP >10years/unknown - POLST Patient has POLST: Yes PD ED PE NORMAL - Vitals Vital signs reviewed: Yes - General General: Alert and oriented X 3, No acute distress, Well developed/nourished - HEENT HEENT: Pharynx benign (no noted swelling of pallate nor uvula at this time. ), Other (left side of neck with local tenderness and redness along anterior SCM area. No noted swelling. Normal swallowing and phonation. ) - Neck Neck: Supple, no meningeal sign, No adenopathy - Cardiac Cardiac: RRR, No murmur - Respiratory Respiratory: Clear bilaterally - Derm Derm: Normal color, Warm and dry, No rash Results - Vitals Vitals: Oxygen O2 Source Room air - Labs Labs: Laboratory Tests 06/10/24 06/10/24 14:37 14:37 WBC 9.2 RBC 3.94 L Hgb 11.2 L Hct 36.7 L MCV 93.1 MCH 28.4 MCHC 30.5 L RDW 13.8 Plt Count 308 MPV 9.2 Neut # (Auto) 7.2 H Lymph # (Auto) 1.1 L [place] # (Auto) 0.5 Eos # (Auto) 0.3 Baso # (Auto) 0.0 Absolute Nucleated RBC 0.00 Nucleated RBC % 0.0 Sodium 138 Potassium 4.7 H Chloride 106 Carbon Dioxide 30 Anion Gap 2.0 L BUN 14 Creatinine 0.8 Estimated GFR (MDRD) 99 Glucose 98 Calcium 9.1 Magnesium 1.8 Total Bilirubin 0.2 AST 16 ALT 10 Alkaline Phosphatase 116 Total Protein 6.7 Albumin 4.1 Globulin 2.6 Albumin/Globulin Ratio 1.6 Lipase < 10 L PD Medical Decision Making - ED course Complexity details: re-evaluated patient (pt had beginning of anaphyalactic reaction to bee sting and epipen aborted it. He is doing okay here and watched over 2 1/2 hours without recurring symptoms. He was comfortable heading home. I sent Rx for epipends to pharmacy at the start of his ED visit after initial exam so hopefully filled.), considered differential (had bee sting x 2 to left side of neck and started to feel throat swelling and general itching, so gave self epipen. Was feeling improved by EMS arrival. They gave benadryl. Pt doing well enroute. ), d/w patient Departure - Departure Disposition: 01 Home, Self Care Clinical Impression: Allergic reaction to bee sting Condition: Stable Record reviewed to determine appropriate education?: Yes Instructions: ED Bite Sting Insect Gen Allergic React Prescriptions: EPINEPHrine [Epinephrine] 0.3 mg IJ ONCE PRN #2 each PRN Reason: Anaphylaxis Comments: You seem to be still doing okay now almost 3 hours after the epinephrine. This should a given time for it to wear off such that if that was the main thing treating the reaction that your symptoms should be coming back. Therefore we assume the reaction itself is quieting down and supported by the Benadryl and steroid. I did write a prescription for more epinephrine autoinjectors and sent them to your pharmacy. Rest today. Try not to get sweaty or overheated as that we will bring on some of the itchiness again. Otherwise stay cool. Repeat Benadryl if needed. Return to the ER if you have significant symptoms return again. Resume normal activity tomorrow if you are feeling well. Forms: PCP List Discharge Date/Time: 06/10/24 17:50
[2024-06-10] MEDS: CETIRIZINE 10 MG TABLET PO STA (14:30)
[2024-06-10] MEDS: SODIUM CHLORIDE 0.9% 1,000 ML IV STA (14:30)
[2024-06-10] MEDS: DEXAMETHASONE 10 MG/ML VIAL IVP STA (14:30)
[2024-06-10 14:41] LABS: BASOPHILS % (AUTO) 0.2 %; EOSINOPHILS # (AUTO) 0.3 10^3/uL (0.0-0.7); EOSINOPHILS % (AUTO) 3.3 %; HCT - HEMATOCRIT 36.7 % (42.0-52.0); HGB - HEMOGLOBIN 11.2 g/dL (14.0-18.0); LYMPHOCYTES # (AUTO) 1.1 10^3/uL (1.5-3.5); LYMPHOCYTES % (AUTO) 12.2 %; MEAN CORPUSCULAR HEMOGLOBIN 28.4 pg (27.0-31.0); MEAN CORPUSCULAR HGB CONC 30.5 g/dL (32.0-36.0); MEAN CORPUSCULAR VOLUME 93.1 fL (80.0-94.0); MEAN PLATELET VOLUME 9.2 fL (7.4-11.4); MONOCYTES # (AUTO) 0.5 10^3/uL (0.0-1.0); NEUTROPHILS # (AUTO) 7.2 10^3/uL (1.5-6.6); NEUTROPHILS % (AUTO) 79.1 %; PLT - PLATELET COUNT 308 10^3/uL (130-450); RED BLOOD COUNT 3.94 10^6/uL (4.70-6.10); RED CELL DISTRIBUTION WIDTH 13.8 % (12.0-15.0); WHITE BLOOD COUNT 9.2 x10^3/uL (4.8-10.8)
[2024-06-10 14:56] LABS: MAGNESIUM 1.8 mg/dL (1.7-2.3)
[2024-06-10 15:02] LABS: ALBUMIN 4.1 g/dL (3.2-5.5); ALBUMIN/GLOBULIN RATIO 1.6 (1.0-2.2); ALKALINE PHOSPHATASE 116 IU/L (42-121); ALT ALANINE AMINOTRANSFERASE 10 IU/L (10-60); AST ASPARTATE AMINOTRANSFERASE 16 IU/L (10-42); BILIRUBIN,TOTAL 0.2 mg/dL (0.2-1.0); BUN - BLOOD UREA NITROGEN 14 mg/dL (6-20); CALCIUM 9.1 mg/dL (8.5-10.3); CARBON DIOXIDE - CO2 30 mmol/L (21-32); CHLORIDE 106 mmol/L (101-111); CREATININE 0.8 mg/dL (0.6-1.3); GFR - MDRD 99 (>89); GLUCOSE 98 mg/dL (74-104); LIPASE < 10 U/L (11-82); POTASSIUM 4.7 mmol/L (3.5-4.5); SODIUM 138 mmol/L (135-145); TOTAL PROTEIN 6.7 g/dL (6.4-8.9)
[2024-06-10 16:23] VITALS: BP 127/76; O2SAT 100
[2024-06-10] MEDS: KETOROLAC 15 MG/ML VIAL IVP STA (16:56)
[2024-06-10] MEDS: METHADONE 5 MG TABLET PO STA (17:40)
== END 2024-06-10 17:50 | disposition home or self-care (01) ==
LOC: ED 14:06
DX: T63.441A Toxic effect of venom of bees, accidental (unintentional), initial encounter (principal); F17.200 Nicotine dependence, unspecified, uncomplicated
CPT/HCPCS: 36415; 80053; 83690; 83735; 85025; 96374; 96375; 99283; 99284; A9270

== ENCOUNTER 2024-06-21 13:39 | Emergency (ER) | payer MEDICARE, MEDICAID ==
--- NOTE | 2024-06-21 14:04 | ED Physician Documentation ---
History of Present Illness - Stated complaint Stated Complaint: CHEST PX - Chief complaint Chief Complaint: Cardiac - History obtained from History obtained from: Patient - Additonal information Additional information: Patient is a 58-year-old male presenting to the emergency department past medical history remarkable for lung cancer, COPD, history of pulmonary embolism not currently on antibiotics and hypothyroidism. Patient presents to the emergency department with midsternal chest pain that started around 02 100. Patient notes no radiation of pain to jaw or left arm or back. He notes pain w merced him up from his sleep and kept him up all night. Patient took his daily dose of methadone today which seemed to improve his symptoms. Pain currently 4 out of 10 midsternal area. Patient denies any significant shortness of breath or lower leg swelling associated with symptoms. PD PAST MEDICAL HISTORY - Past Medical History Cardiovascular: Pulmonary embolism Respiratory: COPD, Shortness of breath Neuro: Tremors, Other Endocrine/Autoimmune: HyPOthyroidism GI: GERD, Other : Frequency HEENT: Chronic vision loss, Chronic hearing loss Psych: Depression, Anxiety, Bipolar disorder, Panic attacks, Post traumatic stress disorder Musculoskeletal: Osteoarthritis, Fatigue, Chronic back pain - Past Surgical History Past Surgical History: Yes General: Appendectomy Ortho: Knee replacement, Other Cardiovascular: Other - Present Medications Home Medications: Ambulatory Orders Medication Instructions Recorded Confirmed [place] Carbonate 450 mg PO BID 10/24/14 04/27/22 Sertraline [Zoloft] 100 mg PO DAILY 10/24/14 04/27/22 lamoTRIgine [LaMICtal] 200 mg PO BID 10/24/14 04/27/22 QUEtiapine [SEROquel] 100 mg PO BID 08/03/15 04/27/22 Alprazolam [Xanax] 1 mg PO DAILY PRN MDD 4 for 2 03/15/18 04/27/22 months Primidone 250 mg PO QPM 09/02/18 04/27/22 Albuterol Sulfate [Proair 2 puffs IH Q4HR PRN 08/10/20 04/27/22 Digihaler] Enoxaparin [Lovenox] 80 mg SUBQ Q12H 08/10/20 04/27/22 Ipratropium/Albuterol Sulfate 3 ml IH TID PRN 08/10/20 04/27/22 [Iprat-Albut 0.5-3(2.5) mg/3 ml] Methadone HCl 25 mg PO TID 08/10/20 04/27/22 Naloxone HCl Nasal [Narcan] 4 mg NS .ONE TIME PRN 08/10/20 04/27/22 Ondansetron [Ondansetron Odt] 8 mg PO DAILY PRN 08/10/20 04/27/22 Alprazolam [Alprazolam Xr] 2 mg PO DAILY 09/22/20 04/27/22 Nystatin [Mycostatin] 5 ml PO QID PRN 11/03/20 04/27/22 Fluticasone Propion/Salmeterol 2 puffs INH BID 05/11/21 04/27/22 [Advair Hfa 115-21 Mcg Inhaler] Pantoprazole [Protonix] 40 mg PO DAILY 05/11/21 04/27/22 Levothyroxine Sodium 50 mcg PO DAILY 02/23/22 04/27/22 [Levothyroxine] Sucralfate [Carafate] 1 gm PO QID MDD 14 days 04/27/22 04/27/22 Ondansetron Odt [Zofran] 4 mg TL Q6H PRN #10 tablet 06/09/22 polyethylene glycoL 3350(BULK) 17 gm PO DAILY PRN #1 bottle 06/09/22 [Miralax] Furosemide [Lasix] 20 mg PO DAILY #4 tablet 06/25/22 Furosemide [Lasix] 20 mg PO DAILY 7 Days #7 tablet 07/06/22 EPINEPHrine [Epinephrine] 0.3 mg IJ ONCE PRN #2 each 06/10/24 Lidocaine Patch 5% [Lidoderm Patch] 1 patch TOP DAILY PRN #10 patch 06/21/24 - Allergies Allergies/Adverse Reactions: Allergies Allergy/AdvReac Type Severity Reaction Status Date / Time Penicillins Allergy Severe Respiratory Verified 06/21/24 13:48 Sulfa (Sulfonamide Allergy Severe Anaphylaxis Verified 06/21/24 13:48 Antibiotics) venom-honey bee Allergy Anaphylaxis Verified 06/21/24 13:48 [bee venom (honey bee)] - Social History Does the pt smoke?: Yes Smoking Status: Current every day smoker Does the pt drink ETOH?: No Does the pt have substance abuse?: No - Immunizations Immunizations are current?: No Immunizations: TDAP >10years/unknown - POLST Patient has POLST: Yes PD ED PE NORMAL - Vitals Vital signs reviewed: Yes - General General: Alert and oriented X 3 - HEENT HEENT: Atraumatic - Neck Neck: Supple, no meningeal sign - Cardiac Cardiac: RRR, No murmur, No gallop, No rub, Strong equal pulses - Respiratory Respiratory: No respiratory distress, Clear bilaterally - Abdomen Abdomen: Normal bowel sounds - Extremities Extremities: No deformity, Other (Essential tremor noted on examination.) - Neuro Neuro: Alert and oriented X 3 Eye Opening: Spontaneous Motor: Obeys Commands - Psych Psych: Normal mood Results - Vitals Vitals: Vital Signs - 24 hr 06/21/24 06/21/24 06/21/24 13:48 14:22 15:00 Temperature 36.5 C Heart Rate 71 60 63 Respiratory 24 11 L 12 Rate Blood Pressure 125/68 127/73 131/76 H O2 Saturation 97 96 97 06/21/24 16:30 Temperature Heart Rate 60 Respiratory 12 Rate Blood Pressure 127/73 O2 Saturation 96 Oxygen O2 Source Room air - Labs Labs: Laboratory Tests 06/21/24 06/21/24 06/21/24 14:11 14:11 14:11 WBC 8.9 RBC 4.26 L Hgb 11.9 L Hct 39.3 L MCV 92.3 MCH 27.9 MCHC 30.3 L RDW 13.6 Plt Count 354 MPV 9.3 Neut # (Auto) 6.8 H Lymph # (Auto) 1.2 L [place] # (Auto) 0.6 Eos # (Auto) 0.3 Baso # (Auto) 0.0 Absolute Nucleated RBC 0.00 Nucleated RBC % 0.0 D-Dimer 344.9 H Sodium 136 Potassium 4.2 Chloride 103 Carbon Dioxide 30 Anion Gap 3.0 L BUN 13 Creatinine 0.7 Estimated GFR (MDRD) 115 Glucose 100 Calcium 9.5 Total Bilirubin 0.3 AST 12 ALT 10 Alkaline Phosphatase 126 H Troponin I High Sens < 2.3 L Total Protein 6.6 Albumin 4.1 Globulin 2.5 Albumin/Globulin Ratio 1.6 Lipase 11 PD Medical Decision Making - ED course ED course: Patient is a 58-year-old male presenting to the emergency department with chest pain that woke him up from his sleep around 02 100. Patient notes a few days ago he fell on a few boxes and was having some left arm pain however today he had pain radiating to his chest around 02 100. Patient brought in by son. Patient has history remarkable for COPD and pulmonary embolism additional history of pulmonary lung cancer. Vitals on arrival are reassuring patient is afebrile nontachycardic saturating well on room air. Physical exam shows reproducible anterior chest pain on arrival. Normal cardiac and lung sounds. Patient ANO x 3 on arrival. No significant lower leg swelling and pulses equal and 2+ in upper and lower extremities. Labs obtained here in the emergency department to evaluate for ACS versus PE versus pneumothorax. EKG shows normal sinus rhythm on arrival additionally troponin not elevated. CBC shows mild anemia but this is consistent with previous labs no significant electrolyte abnormality that could explain chest pain. Elevated D-dimer here in the emergency department given concern for history of PEs not currently on anticoagulants and history of pulmonary cancer will obtain CT PE for further evaluation. CT PE here in the emergency department shows no pulmonary emboli stable post- treatment from previous lung cancer. Additionally stable right middle nodule present. No pleural effusion or pneumothorax no lymphadenopathy or opacities. Patient's heart score returns at 3 given reassuring workup here in the emergency department and persistent since 0200 and reproducible on examination pain no need for repeat troponin or EKG. Patient instructed to return to the emergency department with any new or worsening pain. Patient agreeable with this plan. Departure - Departure Disposition: 01 Home, Self Care Clinical Impression: Atypical chest pain, Chest wall pain, Chest pain Condition: Good Instructions: ED Chest Pain NonCardiac, ED Contusion Chest Wall, ED Strain Chest Wall Follow-Up: Rohini De Leon ARNP [Primary Care Provider] - Prescriptions: Lidocaine Patch 5% [Lidoderm Patch] 1 patch TOP DAILY PRN #10 patch PRN Reason: pain Comments: You are seen here in the emergency department for your chest pain your workup here was reassuring including normal CT PE you had been given lidocaine patches to take at home for pain control return to the emergency department with any worsening pain shortness of breath dizziness lightheadedness swelling in legs or any other new or worsening symptoms. Return to the emergency department with any of the symptoms. Forms: PCP List
[2024-06-21 14:17] LABS: BASOPHILS % (AUTO) 0.2 %; EOSINOPHILS # (AUTO) 0.3 10^3/uL (0.0-0.7); EOSINOPHILS % (AUTO) 2.8 %; HCT - HEMATOCRIT 39.3 % (42.0-52.0); HGB - HEMOGLOBIN 11.9 g/dL (14.0-18.0); LYMPHOCYTES # (AUTO) 1.2 10^3/uL (1.5-3.5); LYMPHOCYTES % (AUTO) 13.8 %; MEAN CORPUSCULAR HEMOGLOBIN 27.9 pg (27.0-31.0); MEAN CORPUSCULAR HGB CONC 30.3 g/dL (32.0-36.0); MEAN CORPUSCULAR VOLUME 92.3 fL (80.0-94.0); MEAN PLATELET VOLUME 9.3 fL (7.4-11.4); MONOCYTES # (AUTO) 0.6 10^3/uL (0.0-1.0); MONOCYTES % (AUTO) 6.5 %; NEUTROPHILS # (AUTO) 6.8 10^3/uL (1.5-6.6); NEUTROPHILS % (AUTO) 76.4 %; PLT - PLATELET COUNT 354 10^3/uL (130-450); RED BLOOD COUNT 4.26 10^6/uL (4.70-6.10); RED CELL DISTRIBUTION WIDTH 13.6 % (12.0-15.0); WHITE BLOOD COUNT 8.9 x10^3/uL (4.8-10.8)
[2024-06-21 14:35] LABS: ALBUMIN 4.1 g/dL (3.2-5.5); ALBUMIN/GLOBULIN RATIO 1.6 (1.0-2.2); ALKALINE PHOSPHATASE 126 IU/L (42-121); ALT ALANINE AMINOTRANSFERASE 10 IU/L (10-60); AST ASPARTATE AMINOTRANSFERASE 12 IU/L (10-42); BILIRUBIN,TOTAL 0.3 mg/dL (0.2-1.0); BUN - BLOOD UREA NITROGEN 13 mg/dL (6-20); CALCIUM 9.5 mg/dL (8.5-10.3); CARBON DIOXIDE - CO2 30 mmol/L (21-32); CHLORIDE 103 mmol/L (101-111); CREATININE 0.7 mg/dL (0.6-1.3); GFR - MDRD 115 (>89); GLUCOSE 100 mg/dL (74-104); POTASSIUM 4.2 mmol/L (3.5-4.5); SODIUM 136 mmol/L (135-145); TOTAL PROTEIN 6.6 g/dL (6.4-8.9)
[2024-06-21 14:38] LABS: TROPONIN I HIGH SENSITIVITY < 2.3 ng/L (2.3-19.7)
--- NOTE | 2024-06-21 14:58 | XRAY Report ---
PROCEDURE: Chest 1V INDICATIONS: Chest pain TECHNIQUE: One view of the chest was acquired. COMPARISON: None. FINDINGS: Surgical changes and devices: Post fusion changes are seen in lower cervical spine. Lungs and pleura: No pleural effusions or pneumothorax. Lungs are clear. Mediastinum: Mediastinal contours appear normal. Heart size is normal. Bones and chest wall: No suspicious bony lesions. Overlying soft tissues appear unremarkable. IMPRESSION: No acute cardiopulmonary process. Reviewed by: Emeka Mustafa MD on 06/21/2024 2:57 PM PDT Approved by: Emeka Mustafa MD on 06/21/2024 2:57 PM PDT Station ID: [id number]
[2024-06-21 15:11] LABS: LIPASE 11 U/L (11-82)
[2024-06-21] MEDS ORDERED: iohexoL-300 100 ML VIAL ONE ×2 (16:56→17:05)
--- NOTE | 2024-06-21 17:39 | CT Report ---
PROCEDURE: Angio Chest INDICATIONS: Concern for PE CONTRAST: 80ml omin 300 TECHNIQUE: After the administration of intravenous contrast, 2 mm axial images were acquired from the pulmonary apices to the posterior costophrenic angles during the arterial phase. In addition, 1 mm lung kernel and 5 mm soft tissue kernel reconstructions were performed. 3-dimensional coronal oblique maximum int ensity projection (MIP) reformats, 8 mm axial MIP, and 5 mm coronal and sagittal MPR reformats were t hen performed through the thorax. For radiation dose reduction, the following was used: automated exp osure control, adjustment of mA and/or kV according to patient size. COMPARISON: CT chest dated 02/19/2024. FINDINGS: Image quality: Excellent. Large vessels: No filling defects within the opacified pulmonary arteries, accounting for motion and contrast timing. No evidence of acute aortic syndrome or aortic aneurysm. Lungs and pleura: Posttreatment changes are again seen in posterior lateral aspect of right upper lob e with architectural distortion. Previously described 5 mm solid nodule in right middle lobe remains unchanged series 6 image 55. Architectural distortion and scarring in right hilar region is again see n and unchanged. No suspicious pulmonary nodule. No pleural effusion or pneumothorax. Airway is paten t. Mediastinum: Heart size is normal. No pericardial effusion. No large vessel abnormality. No mediastin al adenopathy by size criteria. There is a small hiatal hernia. Chest wall and lower neck: Thyroid is unremarkable. No axillary or supraclavicular adenopathy by size . Bones: No aggressive osseous abnormality. Upper Abdomen: Unremarkable. IMPRESSION: 1. No pulmonary emboli. 2. Stable posttreatment changes in posterior lateral right upper lobe and right hilar region. Stable 5 mm right middle lobe nodule likely represent benign process. 3. No new pulmonary nodule is seen. No pleural effusion or pneumothorax. 4. No mediastinal or hilar lymphadenopathy. Small hiatal hernia. Reviewed by: Emeka Lara MD on 06/21/2024 5:37 PM PDT Approved by: Emeka Lara MD on 06/21/2024 5:37 PM PDT Station ID: [id number]
[2024-06-21] MEDS: iohexoL-300 100 ML VIAL IVP ONE (17:55)
[2024-06-21 18:41] VITALS: BP 110/69
[2024-06-21 18:51] VITALS: O2SAT 97
== END 2024-06-21 18:46 | disposition home or self-care (01) ==
LOC: ED 13:39
DX: R07.9 Chest pain, unspecified (principal); R07.89 Other chest pain; F17.200 Nicotine dependence, unspecified, uncomplicated
CPT/HCPCS: 36415; 71045; 71275; 80053; 83690; 84484; 85025; 85379; 93005; 99284; Q9967